=== PATIENT | female | born 1965 | race Caucasian/White ===

== ENCOUNTER 2023-02-08 12:57 | Outpatient (OUT) | payer OTHER, SELFPAY ==
[2023-02-08 13:38] LABS: Basophils Absolute Auto 0.1 10^3/uL (0.0-0.1); Basophils Percent Auto 0.9 % (0.2-2.0); Eosinophils Absolute Auto 0.2 10^3/uL (0.0-0.7); Eosinophils Percent Auto 1.7 % (0.9-7.0); Hematocrit 40.4 % (36.0-48.0); Hemoglobin 13.2 g/dL (12.0-16.0); Immature Granulocytes Abs Auto 0.02 10^3/uL (0.00-0.03); Immature Granulocytes Pct Auto 0.2 % (0.0-0.5); Lymphocytes Percent Auto 31.4 % (20.5-60.0); Mean Corpuscular HGB Conc 32.7 g/dL (29.9-35.2); Mean Corpuscular Hemoglobin 30.7 pg (26.7-34.0); Mean Platelet Volume 10.7 fL (9.5-13.5); Monocytes Absolute Auto 0.8 10^3/uL (0.3-0.8); Monocytes Percent Auto 8.8 % (1.7-12.0); Neutrophils Absolute Auto 5.4 10^3/uL (1.4-6.5); Platelet Count 288 10^3/uL (150-450); Red Cell Distribution Width 13.5 % (11.0-15.0); White Blood Count 9.5 10^3/uL (4.0-11.0)
[2023-02-08 13:41] LABS: Alanine Aminotransferase 12 U/L (14-59); Albumin Globulin Ratio 1.1; Albumin Level 3.7 g/dL (3.4-5.0); Alkaline Phosphatase 93 U/L (46-116); Anion Gap 12.4; Aspartate Amino Transferase 22 U/L (15-37); BUN Creatinine Ratio 14.5; Bilirubin Total 0.4 mg/dL (0.2-1.0); Calcium 9.3 mg/dL (8.5-10.1); Carbon Dioxide 29.3 mmol/L (21.0-32.0); Chloride 105 mmol/L (98-107); Estimated GFR (African America >60 (>=60); Estimated GFR (Non-African Ame >60 (>=60); Globulin 3.5 g/dL; Glucose 122 mg/dL (74-106); Potassium 3.7 mmol/L (3.5-5.1); Sodium 143 mmol/L (136-145); Thyroid Stimulating Hormone 1.532 uIU/mL (0.358-3.740); Total Protein 7.2 g/dL (6.4-8.2)
[2023-02-08 13:54] LABS: Free T4 1.07 ng/dL (0.76-1.46)
== END 2023-02-08 12:58 | disposition home or self-care (01) ==
LOC: LAB 13:00
PROVIDERS: PCP Internal Medicine; Visit Provider Physician Assistant Medical
DX: G35 Multiple sclerosis (principal)
CPT/HCPCS: 36415; 80053; 84439; 84443; 85025

== ENCOUNTER 2023-03-21 10:52 | Outpatient (OUT) | payer OTHER, SELFPAY ==
--- NOTE | 2023-03-21 10:55 | MM_ITS ---
Patient: LAW HERNANDEZ Exam Date: 03/21/2023 : 1965 Gender:F Ordering : DR CINDY RODRÍGUEZ Admission #: [id number] Family : DR Johny Winters D.O. Order #: [id number] CLICK HERE TO VIEW EXAM RADIOLOGY REPORT PROCEDURE: MM TOMOSYNTHESIS SCREENING BI COMPARISON: MG MAMM SCREEN 3D [facility] CAD, 02/15/2022. MG MAMM SCREEN 3D [facility] CAD, 11/30/2020. MG MAMM SCREEN [facility] W CAD, 11/06/2018. MG MAMM [facility] SCRN W CAD DIG, 08/13/2013. INDICATIONS: Mammogram screening Z12.31 Calculator Name NCI Breast Cancer Risk Assessment Tool 5 Year Breast Cancer Risk 6.80% Lifetime Breast Cancer Risk 30.40% Personal Breast Cancer No Personal Ovarian Cancer No Treatments hysterectomy Family Cancers Mother with breast cancer at age ~45; Nephew with lymphoma cancer at age 19; Sister with breast cancer at age 65. LOCATION: [facility] BREAST COMPOSITION: Scattered areas fibroglandular density. FINDINGS: DIAGNOSTIC CATEGORY 2--BENIGN FINDING: RIGHT BREAST: No significant suspicious finding. Scattered benign-appearing calcifications are present. No significant change has occurred. LEFT BREAST: No significant suspicious finding. No significant change has occurred. RECOMMENDATIONS: ROUTINE MAMMOGRAM AND CLINICAL EVALUATION IN 12 MONTHS. PLEASE NOTE: A NORMAL MAMMOGRAM DOES NOT EXCLUDE THE POSSIBILITY OF BREAST CANCER. A CLINICALLY SUSPICIOUS PALPABLE LUMP SHOULD BE BIOPSIED. Dictated by: Denys Wallace M.D. on 03/22/2023 at 13:02 Approved by: Denys Wallace M.D. on 03/22/2023 at 13:09
== END 2023-03-21 10:53 | disposition home or self-care (01) ==
LOC: MAMMO 10:52
PROVIDERS: PCP Internal Medicine; Visit Provider Obstetrics & Gynecology
DX: Z12.31 Encounter for screening mammogram for malignant neoplasm of breast (principal); Z80.3 Family history of malignant neoplasm of breast; Z80.7 Family history of other malignant neoplasms of lymphoid, hematopoietic and related tissues
CPT/HCPCS: 77063; 77067

== ENCOUNTER 2023-11-01 09:15 | Outpatient (OUT) | payer OTHER, SELFPAY ==
--- NOTE | 2023-11-01 09:18 | MR_ITS ---
The [address] [address] Patient Name: LAW HERNANDEZ MRN: [id number] date: 1965 Sex: F Assigned Patient Location: MRI Current Patient Location: MRI Accession/Order Number: [id number] Exam Date: 11/01/2023 09:30 Report Date: 11/01/2023 14:03 At the request of: CHINYERE LAO Procedure: MR lumbar spine wo con EXAM: MR lumbar spine wo con HISTORY: Lumbar radiculopathy, M54.16, Degeneration disc disease, M51.36. Lumbar spine pain for one year with pain radiating into the left hip and left leg. Left leg weakness. COMPARISON: Prior lumbar spine MRI from 09/09/2021. TECHNIQUE: Multiplanar and multisequence imaging of the lumbar spine was performed without contrast FINDINGS: No acute fracture is identified in the lumbar spine. The lumbar vertebral body heights are maintained. There is severe degenerative disc disease at L5-S1 with marked disc height loss and endplate spurring. Heterogeneity of the bone marrow signal is similar when compared to the prior study consistent with mixed red and fatty marrow. No acute abnormality is identified involving visualized intrapelvic or intra-abdominal structures. The visualized aorta is normal in diameter. Several cysts in the right hepatic lobe are partially included on the [id number]-[id number] for this study. The upper sacrum is intact. There are no pars defects. The conus terminates at the L1 level. L5-S1: There is severe degenerative disc disease with a broad-based disc protrusion and superimposed bilateral subarticular/foraminal disc-osteophyte complexes each measuring 5 mm in AP dimension. There is moderate bilateral facet arthropathy. Changes result in moderate to severe bilateral foraminal narrowing with likely abutment of the L5 nerve roots bilaterally. There is no central stenosis. L4-L5: A broad-based disc protrusion measures 4 mm in AP dimension with a superimposed left subarticular and foraminal disc extrusion measuring 4 mm in AP dimension with superior displacement of disc material measuring 5 mm seen on sagittal T2 images 5 and 6. There is moderate to severe facet arthropathy and moderate to severe left foraminal narrowing without central stenosis. L3-L4: There is a 3 mm broad-based disc protrusion with endplate spurring and moderate facet arthropathy. An area of fluid signal along the posterior aspect of the spinal canal at the level of the superior endplate of L4 is suspicious for a small facet joint synovial cyst measuring 4 mm in diameter. There is mild right foraminal narrowing without central stenosis L3-L4: There is a 3 mm broad-based disc protrusion and mild to moderate facet arthropathy. There is no central or foraminal stenosis. L1-L2: There is a mild disc bulge without central or foraminal stenosis. MR/MR lumbar spine wo con IMPRESSION: 1. There is stable severe degenerative disc disease at L5-S1 with bilateral subarticular/foraminal disc osteophyte complexes resulting in moderate to severe bilateral foraminal narrowing with abutment of the L5 nerve roots. 2. Similar appearance of a broad-based disc protrusion at L4-L5 and superimposed left foraminal disc extrusion. There is associated facet arthropathy with moderate to severe left foraminal narrowing at L4-L5. 3. No acute fracture. Please see above for a detailed description. Electronically authenticated by: JAME LLANOS Date: 11/01/2023 14:03
== END 2023-11-01 09:16 | disposition home or self-care (01) ==
LOC: MRI 09:15
PROVIDERS: PCP Internal Medicine; Visit Provider Physician Assistant Medical
DX: M54.16 Radiculopathy, lumbar region (principal); M51.36 Other intervertebral disc degeneration, lumbar region; M51.37 Other intervertebral disc degeneration, lumbosacral region; M51.26 Other intervertebral disc displacement, lumbar region
CPT/HCPCS: 72148

== ENCOUNTER 2023-12-07 13:04 | Outpatient (OUT) | payer OTHER, SELFPAY ==
--- NOTE | 2023-12-07 13:33 | P.CN_ITS ---
Consult Note: HPI Data of Consult Patient: new to practice Consult date: 12/07/23 Requesting Physician: Lupe Soria NP Primary Care Provider: Johny Winters DO Consult Narrative Reason for consult: establish low back pain with radiculopathy Narrative: Jayde Solorzano a pleasant 58 year old female presents for evaluation and management of chronic low back pain with left sided weakness and radiculopathy. Recent lumbar MRI findings below. Patient has failed to benefit from greater than 6 weeks of PT/provider guided HEP without improvement, conservative medications. Patient reporting pain 1/10, at the worst 5/10 no specific aggravating or alleviating factors, per patient random onset. Patient reports moderate to severe pain 3 months ago, but has been well controlled since. Patient finds benefit to gabapentin 300mg BID, lidocaine patches, baclofen 10mg PRN, mobic 7.5mg daily. Patient would like to discuss tr eatment plan options. cc:: CC: Lupe Soria NP Review of Systems ROS Status of ROS 10 or more systems reviewed and unremark able except as noted in history and below Musculoskeletal Reports: back pain Meds Home Medications and Allergies Home Medications ?Medication ?Instructions ?Recorded ?Confirmed ?Type amlodipine 5 mg tablet 5 mg PO DAILY 12/07/23 12/07/23 History aspirin 81 mg tablet,delayed 81 mg PO DAILY 12/07/23 12/07/23 History release (Adult Aspirin Regimen) atorvastatin 20 mg tablet 20 mg PO DAILY 12/07/23 12/07/23 History baclofen 10 mg tablet 10 mg PO DAILY 12/07/23 12/07/23 History biotin 10,000 mcg capsule 10,000 mcg PO DAILY 12/07/23 12/07/23 History cholecalciferol (vitamin D3) 125 125 mcg PO DAILY 12/07/23 12/07/23 History mcg (5,000 unit) tablet (Vitamin D3) gabapentin 300 mg capsule 300 mg PO BID 12/07/23 12/07/23 History meclizine 25 mg tablet 25 mg PO TID-QID PRN dizziness 12/07/23 12/07/23 History meloxicam 7.5 mg tablet 7.5 mg PO DAILY 12/07/23 12/07/23 History omega-3 fatty acids 1,000 mg PO DAILY 12/07/23 12/07/23 History raloxifene 60 mg tablet 60 mg PO DAILY 12/07/23 12/07/23 History teriflunomide 14 mg tablet 14 mg PO DAILY 12/07/23 12/07/23 History (Aubagio) vitamin B complex (Complex B-100 1 tab PO DAILY 12/07/23 12/07/23 History tablet,extended release) Exam Constitutional Documenting provider has reviewed patient's vital signs: yes Common normals: no apparent distress, oriented x3, healthy appearing, alert and well nourished General appearance: cooperative HENMT Common normals: normocephalic, hearing grossly normal bilaterally and moist oral mucous membranes Head and scalp: normocephalic Eye Common normals: PERRL Pupil: PERRL Neck & C-Spine Common normals: full ROM General: normal visual inspection Chest Common normals: inspection of chest normal Respiratory Common normals: normal respiratory effort, no retractions and no use of accessory muscles Back & Pelvis Lumbar spine/lower back: pain with ROM and straight leg raise negative bilaterally Sacroiliac joints: SI joints normal Other: sensation intact BLE strength 5/5 in BLE Extremity Common normals: normal to inspection and full ROM Neuro Common normals: oriented x3, CN's II-XII intact bilaterally, moves all extremities, no focal motor deficits, no sensory deficits noted, deep tendon reflexes 2+ bilaterally and gait normal Sensorium/orientation: alert Motor exam: strength 5/5 throughout and no movement abnormalities noted Psych Common normals: mental status grossly normal, thought process normal, cooperative, affect normal, speech normal and activity/motor behavior normal Speech: normal speech Thought process: normal thought process Results Imaging Lumbar MRI: Attestation: I have reviewed the pertinent imaging results. Radiologist's impression: No acute fracture is identified in the lumbar spine. The lumbar vertebral body heights are maintained. There is severe degenerative disc disease at L5-S1 with marked disc height loss and endplate spurring. Heterogeneity of the bone marrow signal is similar when compared to the prior study consistent with mixed red and fatty marrow. No acute abnormality is identified involving visualized intrapelvic or intra-abdominal structures. The visualized aorta is normal in diameter. Several cysts in the right hepatic lobe are partially included on the [id number]-[id number] for this study. The upper sacrum is intact. There are no pars defects. The conus terminates at the L1 level. L5-S1: There is severe degenerative disc disease with a broad-based disc protrusion and superimposed bilateral subarticular/foraminal disc-osteophyte complexes each measuring 5 mm in AP dimension. There is moderate bilateral facet arthropathy. Changes result in moderate to severe bilateral foraminal narrowing with likely abutment of the L5 nerve roots bilaterally. There is no central stenosis. L4-L5: A broad-based disc protrusion measures 4 mm in AP dimension with a superimposed left subarticular and foraminal disc extrusion measuring 4 mm in AP dimension with superior displacement of disc material measuring 5 mm seen on sagittal T2 images 5 and 6. There is moderate to severe facet arthropathy and moderate to severe left foraminal narrowing without central stenosis. L3-L4: There is a 3 mm broad-based disc protrusion with endplate spurring and moderate facet arthropathy. An area of fluid signal along the posterior aspect of the spinal canal at the level of the superior endplate of L4 is suspicious for a small facet joint synovial cyst measuring 4 mm in diameter. There is mild right foraminal narrowing without central stenosis L3-L4: There is a 3 mm broad-based disc protrusion and mild to moderate facet arthropathy. There is no central or foraminal stenosis. L1-L2: There is a mild disc bulge without central or foraminal stenosis. Additional Findings Additional findings: If on a controlled substance or opioids, I have checked an [place] report on this patient and there are no aberrancies noted in the prescribing history.??If on a controlled substance or opioid a drug screen was completed and reviewed within the last year, and if there has not been a drug screen completed we ordered one today to monitor higher risk, state monitored pain medication use. As part of providing excellent, safe, comprehensive care, the following was completed at our patient's visit: 1. A medication reconciliation and review to ensure accurate knowledge of current/active medications, including asking our patients to inform us about any [id number] medications or herbal remedies/nutritional supplements/alternative remedies. 2. A review to specifically ensure our patients have had annual screening for screening for depression, screening for tobacco use, and screening for unhealthy alcohol use. For concerning screenings had a discussion with the patient, provided patient education, and recommended follow-up with primary care provider when appropriate. If patient noted with a risk of falling, they received education on strength, gait, and balance training to prevent future risk of falling. Assessment and Plan Assessment and Plan (1) Lumbar stenosis with neurogenic claudication: (2) Lumbar degenerative disc disease: (3) Lumbar spondylosis: (4) Myofascial pain: Plan at this time pain well controlled, patient would like a prescription topical cream. Patient would like the option of injection therapy should pain worsen/return. transdermal therapeutics cream 8 ordered, discussed applying BID-TID prn start zynex TENS for myofascial pain and chronic low back pain, lumbar DDD f/u 3 months, sooner if needed
== END 2023-12-07 13:05 | disposition home or self-care (01) ==
LOC: PM 13:05
PROVIDERS: PCP Internal Medicine; Visit Provider Nurse Practitioner
DX: M48.062 Spinal stenosis, lumbar region with neurogenic claudication (principal); M51.36 Other intervertebral disc degeneration, lumbar region; M47.816 Spondylosis without myelopathy or radiculopathy, lumbar region; M79.18 Myalgia, other site
CPT/HCPCS: G0463

== ENCOUNTER 2023-12-21 12:26 | Outpatient (OUT) | payer OTHER, SELFPAY ==
--- NOTE | 2023-12-21 12:31 | XR_ITS ---
[address] [address] Patient Name: LAW HERNANDEZ MRN: [id number] date: 1965 Sex: F Assigned Patient Location: [facility] Current Patient Location: [facility] Accession/Order Number: [id number] Exam Date: 12/21/2023 13:00 Report Date: 12/21/2023 15:23 At the request of: CINDY RODRÍGUEZ Procedure: XR DEXA axial skeleton EXAMINATION: XR DEXA axial skeleton, 12/21/2023 1:00 PM EDT HISTORY: screening for osteoporosis COMPARISON: 2017, 2014, 2013 TECHNIQUE: Dual-energy X-ray absorptiometry (DEXA) bone density study performed for the axial skeleton. HISTORY: screening for osteoporosis FINDINGS: Bone mineral density AP spine L1-L4 measures 1.271 g/sq cm. T score 0.8. WHO classification: Normal. The lowest bone mineral density is in the left femoral trochanter measuring 0.516 g/sq cm. T score -2.9. WHO classification: Osteoporosis XR/XR DEXA axial skeleton IMPRESSION: Osteoporosis. High fracture risk Electronically authenticated by: THEA ACUÑA Date: 12/21/2023 15:23
--- OUTSIDE RECORDS SUMMARY | 2023-12-21 12:34 | XMS_ITS | CCD ---
Author Organization [facility] Care Team Providers Care Rubber Press Tender Name Role Phone GERALDKARL ALMA Unavailable Unavailable Ezequiel Agudelo Unavailable MARCOS, DR WHITE Admitting Unavailable MARCOS, DR WHITE Attending Unavailable SINGH, DR OJEDA Primary Care Unavailable ZIEBER, DR DENYS [employer] Unavailable MARCOS, DR WHITE Consulting Unavailable SINGH, DR OJEDA Admitting Unavailable BALL, DR OJEDA Attending Unavailable BALL, DR OJEDA Primary Care Unavailable BALL, DR OJEDA Consulting Unavailable WEBSTER, WINCHA Consulting Unavailable CHINYERE LIVE Admitting Unavailable CHINYERE LIVE Attending Unavailable SINGH, DR OJEDA Primary Care Unavailable TASHIA, CHINYERE Consulting Unavailable SINGH, DR OJEDA Primary Care Unavailable MEGHAN, WILBERTO Admitting Unavailable MEGHAN, WILBERTO Attending Unavailable MEGHAN, WILBERTO Consulting Unavailable SINGH, DR OJEDA Admitting Unavailable BALL, DR OJEDA Attending Unavailable BALL, DR OJEDA Primary Care Unavailable BALL, DR OJEDA Consulting Unavailable ZIEBER, DR DENYS Chavez Consulting Unavailable BENEDICT, DR FLOWER Admitting Unavailable BENEDICT, DR FLOWER Attending Unavailable SINGH, DR OJEDA Primary Care Unavailable TASHIA, CHINYERE Consulting Unavailable Johny Winters Unavailable DO Johny Winters Primary Care Provider CLEO Live Attending Provider Chinyere Live Attending Unavailable Chinyere Live Admitting Unavailable Johny Winters Primary Care Unavailable Singh, Johny Primary Care Unavailable Chinyere Live Attending Unavailable Chinyere Live Admitting Unavailable CINDY RODRÍGUEZ Attending Unavailable CHINYERE LIVE Attending Unavailable Medications Current Medications Medication Drug Class(es) Dates Sig (Normalized) Sig (Original) amLODIPine 5 mg oral tablet (4 sources) Dihydropyridine Calcium Channel Jessie take 1 tablet by mouth once daily amLODIPine Besylate 5 MG TAKE 1 TABLET BY MOUTH EVERY DAY for 90 Active atorvastatin 20 mg oral tablet (4 sources) HMG-CoA Reductase Inhibitor Atorvastatin Calcium 20 MG Not Available Oral Active baclofen 10 mg oral tablet (3 sources) gamma-Aminobutyric Acid-ergic Agonist Baclofen 10 MG TAKE 1 TABLET DAILY AT BEDTIME Active gabapentin 300 mg oral capsule (4 sources) Anti-epileptic Agent take 1 capsule by mouth every twenty-four hours Gabapentin 300 MG 1 capsule Orally Once a day Active raloxifene hydrochloride 60 mg oral tablet (4 sources) Estrogen Agonist/Antagonist take 1 tablet by mouth every twenty-four hours Raloxifene HCl 60 MG 1 tablet Orally Once a day for 90 days Active teriflunomide 14 mg oral tablet (4 sources) Pyrimidine Synthesis Inhibitor take 1 tablet by mouth every twenty-four hours Aubagio 14 MG 1 tablet Orally Once a day for 30 days Active Completed/Discontinued Medications Medication Drug Class(es) Dates Sig (Normalized) Sig (Original) acetaminophen 325 mg / HYDROcodone bitartrate 5 mg oral tablet (4 sources) Opioid Agonist HYDROcodone-Acet aminophen 5-325 MG Not Available Oral for 4 Days Not-Taking lisinopril 5 mg oral tablet (4 sources) Angiotensin Converting Enzyme Inhibitor take 1 tablet by mouth every twenty-four hours Lisinopril 5 MG 1 tablet Orally Once a day for 90 days Not-Taking meloxicam 15 mg oral tablet (4 sources) Nonsteroidal Anti-inflammatory Drug take 1 tablet by mouth every twenty-four hours Meloxicam 15 MG 1 tablet Orally Once a day for 30 days Not-Taking {20 (nirmatrelvir 150 MG Oral Tablet) / 10 (ritonavir 100 MG Oral Tablet) } Pack [Paxlovid 5-Day] (2 sources) Start: 01-05-2023 take 3 tablets by mouth every twelve hours Paxlovid (300/100) 20 x 150 MG & 10 x 100MG 3 tablets Orally Twice a day for 5 days Dec, Not-Taking Problems Active Problems Problem Classification Problem Date Documented Date Episodic/Chronic Disorders of lipid metabolism (3 sources) Hypercholesterolemia ; 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: [Pure hypercholesterolemia , unspecified] Chronic Essential hypertension (3 sources) Essential hypertension; 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: [Essential (primary) hypertension] Chronic Multiple sclerosis (13 sources) Multiple sclerosis; 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: [Multiple sclerosis] Onset: 09-27-2017 Resolved: 11-02-2021 Chronic Osteoporosis (3 sources) Primary osteoporosis; 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: [Age-related osteoporosis without current pathological fracture] Chronic Other lower respiratory disease (4 sources) Chronic cough; 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: [CHRONIC COUGH] Onset: 02-23-2022 Episodic Spondylosis; intervertebral disc disorders; other back problems (4 sources) Other spondylosis with radiculopathy, lumbosacral region; 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: [OTH SPONDYLS RADICULOPATHY LS RGN] Onset: 09-09-2021 Chronic Substance-related disorders (4 sources) Nicotine dependence, cigarettes, uncomplicated; 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: [Nicotine dependence] Onset: 09-01-2021 Chronic Unclassified (6 sources) Other abnormal findings on diagnostic imaging of central nervous system; 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: [Encounter for screening mammogram for malignant neoplasm of breast] Onset: 09-27-2017 Episodic Unclassified (1 source) Pain in joints of right hand; 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: [Pain in joints of right hand] Onset: 09-27-2017 Unclassified (1 source) Pain in joints of left hand; 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: [Pain in joints of left hand] Onset: 09-27-2017 Unclassified (1 source) Unknown / UNK(Unknown) Onset: 09-27-2017 Unclassified (2 sources) LOW BACK PAIN, UNSPECIFIED; 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: [LOW BACK PAIN, UNSPECIFIED] Onset: 09-01-2021 Past or Other Problems Problem Classification Problem Date Documented Date Episodic/Chronic Other aftercare (1 source) long term care phlebotomist (current) use of aspirin; 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: [HALFWAY CURRENT USE OF ASPIRIN] Onset: 09-01-2021 Episodic Other aftercare (1 source) Other extermination supervisor (current) drug therapy; 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: [OTH AGILE SCRUM COACH CURRENT DRUG THERAPY] Onset: 09-01-2021 Episodic Other connective tissue disease (1 source) Other symptoms and signs involving the musculoskeletal system; 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: [OTH SX AND SYMP INVOLV MUSCULOSKELTAL] Onset: 09-14-2021 Episodic Residual codes; unclassified (1 source) Family history of malignant neoplasm of breast; 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: [FAMILY HX MALIG NEOPLASM OF BREAST] Onset: 02-17-2022 Episodic Residual codes; unclassified (1 source) Family history of other malignant neoplasms of lymphoid, hematopoietic and related tissues; 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: [FAM HX OTH MAL MARIA LYMPH HEMATPOETC] Onset: 02-17-2022 Episodic Spondylosis; intervertebral disc disorders; other back problems (2 sources) Radiculopathy, lumbar region; 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: [Lumbago with sciatica, left side] Onset: 09-01-2021 Resolved: 11-02-2021 Episodic Unclassified (1 source) LOW BACK PAIN, UNSPECIFIED; 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: [LOW BACK PAIN, UNSPECIFIED] Onset: 08-30-2021 Results Test Name Value Interpretation Reference Range Facility Creatinine (Bld) [Mass/Vol]O rdered By: Chinyere Live on 09-06-2023 Creatinine [Mass/Vol] 0.6 mg/dL 0.6-1.3 [facility] Comment on above: ER/ESD physician is notified/shown all ISTAT results.Critical values may be confirmed by laboratory testing ifdeemed necessary by ER attending doctor. ISTAT XRay CREon 09-06-2023 Creatinine [Mass/Vol] 0.6 mg/dL Normal 0.6-1.3 [facility] Comment on above: Result Comment: ER/E SD physician is notified/shown all ISTAT results. Critical values may be confirmed by laboratory testing if deemed necessary by ER attending doctor. Performed By: #### I SCRE #### [facility] [address] [place] [address] ISTAT GFR > 60.0 Normal [facility] Comment on above: Result Comment: PERF ORMED BY: [place] [address] PATHOLOGIST DIRECTOR DATA ARCHITECTURE JL VERAS M.D. Performed By: #### I SCRE #### [facility] [address] [place] [address] MR cervical spine wo/w conon 09-06-2023 MR cervical spine wo/w con [facility] [place] [address] MRI Report Signed Patient: Jayde Hernandez MR#: [id number] : 1965 Acct:[id number] Age/Sex: 58 / F ADM Date: 09/06/23 Loc: MR Room: Type: [facility] Attending Dr: Chinyere Live PA-C Copies to: Chinyere Live PA-C Ordering Provider: Chinyere Lvie PA-C Date of Service: 09/06/23 MR/MR cervical spine wo/w con: G35 MR cervical spine wo/w con 09/06/2023 9:14 AM SIGNS AND SYMPTOMS: History of multiple sclerosis, follow-up PROTOCOL: Multiplanar multisequence MR images of the cervical spine were obtained with and without IV contrast CONTRAST: 12 mL of intravenous ProHance COMPARISON: 09/21/2020. FINDINGS: The bones of the cervical spine are in anatomic alignment. There is preservation of vertebral body heights. There is moderate disc height loss at C5-C6. The marrow signal is within normal limits. T2 and STIR hyperintense to myelinating lesions are noted in the cervical cord at the level of the C2 vertebral body, C5 vertebral body, and T2 vertebral body. There is no abnormal postcontrast enhancement. No epidural or paraspinous fluid collection is appreciated. The visualized paraspinous soft tissues are within normal limits. The prevertebral soft tissues are within normal limits. At C2-C3: There is a normal disc, central canal, and neural foramen. At C3-C4: Uncovertebral joint spurring is present. There is mild bilateral neural foraminal narrowing with mild spinal canal stenosis. At C4-C5: There is a broad-based disc bulge with uncovertebral joint spurring and facet hypertrophy. There is mild bilateral neural foraminal narrowing and mild spinal canal narrowing. At C5-C6: There is a normal disc, central canal, and neural foramen. At C6-C7: There is a normal disc, central canal, and neural foramen. At C7-T1: There is a normal disc, central canal, and neural foramen. MR/MR cervical spine wo/w con IMPRESSION: At C3-C4: Uncovertebral joint spurring is present. There is mild bilateral neural foraminal narrowing with mild spinal canal stenosis. At C4-C5: There is a broad-based disc bulge with uncovertebral joint spurring and facet hypertrophy. There is mild bilateral neural foraminal narrowing and mild spinal canal narrowing. Similar demyelinating lesions are noted in the cervical and thoracic cord without evidence of interval disease progression. No MR evidence of active demyelination. Impression dictated by: Raffi Guillen M.D.09/06/2023 11:22 AM Dictation Location: [place] [address] Transcribed By: [facility] 09/06/23 1122 Dictated By: Raffi Guillen II, MD 09/06/23 1109 Signed By: 09/06/23 1122 Normal [facility] MR head/brain wo/w conon MR head/brain wo/w con [facility] [place] [address] [place] [id number] MRI Report Signed Patient: Jayde Hernandez MR#: [id number] : 1965 Acct:[id number] Age/Sex: 58 / F ADM Date: 09/06/23 Loc: MR Room: Type: [facility] Attending Dr: Chinyere Live PA-C Copies to: Chinyere Live PA-C Ordering Provider: Chinyere Live PA-C Date of Service: 09/06/23 MR/MR head/brain wo/w con: G35 MR head/brain wo/w con 09/06/2023 9:14 AM SIGN AND SYMPTOMS: Follow-up multiple sclerosis PROTOCOL: Multiplanar multisequence MR images of the brain were obtained with and without IV contrast CONTRAST: 12 mL of intravenous ProHance COMPARISON: 06/14/2020 FINDINGS: Extra axial spaces: Similar mild global volume loss is noted. Hemorrhage: None. Ventricular system: Within normal limits. Basal cisterns: Within normal limits and not effaced. Cerebral parenchyma: Multiple T2 and FLAIR hyperintense foci are noted consistent with a history of multiple sclerosis. No new abnormal postcontrast enhancement or diffusion restriction. No evidence of disease progression. Midline shift: None.. Cerebellum: Within normal limits. Brainstem: Within normal limits. OTHER: Calvarium: Normal marrow signal. Vascular system: Satisfactory flow voids within the anterior and posterior circulation. Visualized Paranasal sinuses: Within normal limits. Visualized Orbits: Within normal limits. Visualized upper cervical spine: Within normal limits. Sella and skull base: Within normal limits. MR/MR head/brain wo/w con IMPRESSION: Multiple T2 and FLAIR hyperintense foci are noted consistent with a history of multiple sclerosis. No new abnormal postcontrast enhancement or diffusion restriction. No evidence of disease progression. No acute intracranial pathology. Impression dictated by: Raffi Guillen M.D.09/06/2023 11:09 AM Dictation Location: [place] [address] Transcribed By: [facility] 09/06/23 1109 Dictated By: Raffi Guillen II, MD 09/06/23 1053 Signed By: 09/06/23 1109 Normal [facility] No Panel InformationOrdered By: Chinyere Live on 09-06-2023 Bedside Estimated GFR (eGFR) > 60.0 [facility] Creatinine (Bld) [Mass/Vol]O rdered By: Chinyere Live on 07-12-2023 Creatinine [Mass/Vol] 0.7 mg/dL 0.6-1.3 [facility] Comment on above: ER/ESD physician is notified/shown all ISTAT results.Critical values may be confirmed by laboratory testing ifdeemed necessary by ER attending doctor. ISTAT XRay CREon 07-12-2023 Creatinine [Mass/Vol] 0.7 mg/dL Normal 0.6-1.3 [facility] Comment on above: Result Comment: ER/E SD physician is notified/shown all ISTAT results. Critical values may be confirmed by laboratory testing if deemed necessary by ER attending doctor. Performed By: #### I SCRE #### [facility] [address] [place] [address] ISTAT GFR > 60.0 [facility] Comment on above: Result Comment: PERF ORMED BY: [place] [address] PATHOLOGIST DIRECTOR DATA ARCHITECTURE LJ VERAS M.D. Performed By: #### I SCRE #### [address] No Panel InformationOrdered By: Chinyere Live on 07-12-2023 Bedside Estimated GFR (eGFR) > 60.0 [facility] XR pre/post mri xrayon 07-12 XR pre/post mri xray [facility] [place] [address] [place] [address] MRI Report Signed Patient: Jayde Hernandez MR#: [id number] : 1965 Acct:[id number] Age/Sex: 58 / F ADM Date: 07/12/23 Loc: Room: Type: [facility] Attending Dr: Chinyere Live PA-C Copies to: Chinyere Live PA-C Ordering Provider: Chinyere Live PA-C Date of Service: 07/12/23 MR/MR thoracic spine wo/w con: G35 ([id number]) XR/XR pre/post mri xray: G35 MR thoracic spine wo/w con, XR pre/post mri xray 07/12/2023 10:38 AM SIGNS AND SYMPTOMS: History of multiple sclerosis, follow-up PROTOCOL: Multiplanar multisequence MR images of the thoracic spine were obtained with and without IV contrast. Frontal and lateral radiographs of the thoracic spine were obtained. CONTRAST: 13 mL of intravenous ProHance COMPARISON: 09/21/2020 FINDINGS: Radiographs of the thoracic spine: The bones are in anatomic alignment. There is preservation of vertebral body heights. There is mild to moderate multifocal disc height loss. Is in the midthoracic spine. There is no fracture or subluxation. Atherosclerotic changes are noted in the thoracic aorta. MRI thoracic spine: Disc height loss and alignment is as noted above. This preservation of vertebral body heights. There is a benign hemangioma within the T5 vertebral body. There is a similar T2 and STIR hyperintense focus within the thoracic cord at the T7-T8 intervertebral disc level showing no significant interval change. This is similar to the right of midline. There is no abnormal postcontrast enhancement. No new demyelinating lesions. No epidural or paraspinous fluid collection is appreciated. The visualized paraspinous soft tissues are within normal limits. At T1-T2: There is a normal disc, central canal, and neural foramen. At T2-T3: There is a normal disc, central canal, and neural foramen. At T3-T4: There is a normal disc, central canal, and neural foramen. At T4-T5: There is a normal disc, central canal, and neural foramen. At T5-T6: There is a normal disc, central canal, and neural foramen. At T6-T7: There is a normal disc, central canal, and neural foramen. At T7-T8: There is a normal disc, central canal, and neural foramen. At T8-T9: There is a normal disc, central canal, and neural foramen. At T9-T10: There is a normal disc, central canal, and neural foramen. At T10-T11: There is a normal disc, central canal, and neural foramen. At T11-T12: There is a normal disc, central canal, and neural foramen. At T12-L1: There is a normal disc, central canal, and neural foramen. MR/MR thoracic spine wo/w con IMPRESSION: There is a similar T2 and STIR hyperintense focus within the thoracic cord at the T7-T8 intervertebral disc level showing no significant interval change. This is similar to the right of midline. There is no abnormal postcontrast enhancement. No new demyelinating lesions. Mild degenerative changes are noted, similar to the prior studies. Impression dictated by: Raffi Guillen M.D.07/12/2023 12:37 PM Dictation Location: [place] [address] Transcribed By: [facility] 07/12/23 1237 Dictated By: Raffi Guillen II, MD 07/12/23 1230 Signed By: 07/12/23 1237 Normal [facility] CBC AUTO DIFFon 05-10-2022 BASO # 0.1 103/ul Normal 0.0-0.1 [facility] Comment on above: Performed By: #### C BC #### [facility] [address] [place] [address] Dr. Brett Rosales Basophils/100 WBC (Bld) 1.0 % Normal 0.2-2.0 [facility] Comment on above: Performed By: #### C BC #### [facility] [address] [place] [address] Dr. Brett Rosales EO # 0.1 103/ul Normal 0.0-0.7 [facility] Comment on above: Performed By: #### C BC #### [facility] [address] [place] [address] Dr. Brett Rosales Eosinophils/100 WBC (Bld) 1.5 % Normal 0.9-7.0 [facility] Comment on above: Performed By: #### C BC #### [facility] [address] [place] [address] Dr. Brett Rosales Erythrocyte distribution width (RBC) [Ratio] 13.2 % Normal 11.0-15.0 [facility] Comment on above: Performed By: #### C BC #### [facility] [address] [place] [address] Dr. Brett Rosales Hematocrit (Bld) [Volume fraction] 40.1 % Normal 36.0-48.0 [facility] Comment on above: Performed By: #### C BC #### [facility] [address] [place] [address] Dr. Brett Rosales Hemoglobin (Bld) [Mass/Vol] 12.9 g/dL Normal 12.0-16.0 [facility] Comment on above: Performed By: #### C BC #### [facility] [address] [place] [address] Dr. Brett Rosales IG # 0.01 10e3/ul Normal 0.00-0.03 [facility] Comment on above: Performed By: #### C BC #### [facility] [address] [place] [address] Dr. Brett Rosales IG % 0.1 % Normal 0.0-0.5 [facility] Comment on above: Performed By: #### C BC #### [facility] [address] [place] [address] Dr. Brett Rosales LYMPH # 2.5 103/ul Normal 1.2-3.8 [facility] Comment on above: Performed By: #### C BC #### [facility] [address] [place] [address] Dr. Brett Rosales Lymphocytes/100 WBC (Bld) 30.3 % Normal 20.5-60.0 [facility] Comment on above: Performed By: #### C BC #### [facility] [address] [place] [address] Dr. Brett Rosales MANUAL DIFF REQ NO Normal [facility] Comment on above: Performed By: #### C BC #### [facility] [address] [place] [address] Dr. Brett Rosales MCH (RBC) [Entitic mass] 30.6 pg Normal 26.7-34.0 [facility] Comment on above: Performed By: #### C BC #### [facility] [address] [place] [address] [address] Brett Rosales MCHC (RBC) [Mass/Vol] 32.2 g/dL Normal 29.9-35.2 [facility] Comment on above: Performed By: #### C BC #### [facility] [address] [place] [address] [address] Brett Rosales MCV (RBC) [Entitic vol] 95.0 fL Normal 81.0-99.0 [facility] Comment on above: Performed By: #### C BC #### [facility] [address] [place] [address] [address] Brett Rosales MONO # 0.9 103/ul Critically high 0.3-0.8 [facility] Comment on above: Performed By: #### C BC #### [facility] [address] [place] [address] Dr. Brett Rosales Monocytes/100 WBC (Bld) 10.4 % Normal 1.7-12.0 [facility] Comment on above: Performed By: #### C BC #### [facility] [address] [place] [address] Dr. Brett Rosales NEUT # 4.6 103/ul Normal 1.4-6.5 [facility] Comment on above: Performed By: #### C BC #### [facility] [address] [place] [address] Dr. Brett Rosales Neutrophils/100 WBC (Bld) 56.7 % Normal 43.0-75.0 [facility] Comment on above: Performed By: #### C BC #### [facility] [address] [place] [address] [address] Brett Rosales Platelet mean volume (Bld) [Entitic vol] 11.0 fL Normal 9.5-13.5 [facility] Comment on above: Performed By: #### C BC #### [facility] [address] [place] [address] Dr. Brett Rosales PLT 262 103/ul Normal 150-450 [facility] Comment on above: Performed By: #### C BC #### [facility] [address] [place] [address] Dr. Brett Rosales RBC 4.22 106/ul Normal 4.20-5.40 [facility] Comment on above: Performed By: #### C BC #### [facility] [address] [place] [address] Dr. Brett Rosales WBC 8.2 103/ul Normal 4.0-11.0 [facility] Comment on above: Performed By: #### C BC #### [facility] [address] [place] [address] Dr. Brett Rosales PROF 14(COMP METB)on 022 Albumin [Mass/Vol] 3.5 g/dL Normal 3.4-5.0 [facility] Comment on above: Performed By: #### C MP #### [facility] [address] [place] [address] Dr. Brett Rosales Albumin/Globulin [Mass ratio] 1.0 {ratio} Normal [facility] Comment on above: Performed By: #### C MP #### [facility] [address] [place] [address] Dr. Brett Rosales ALP [Catalytic activity/Vol] 94 U/L Normal 46-116 [facility] Comment on above: Performed By: #### C MP #### [facility] [address] [place] [address] Dr. Brett Rosales ALT [Catalytic activity/Vol] 25 U/L Normal 14-59 [facility] Comment on above: Performed By: #### C MP #### [facility] [address] [place] [address] Dr. Brett Rosales Anion gap [Moles/Vol] 9.4 mmol/L Normal [facility] Comment on above: Performed By: #### C MP #### [facility] [address] [place] [address] Dr. Brett Rosales AST [Catalytic activity/Vol] 21 U/L Normal 15-37 [facility] Comment on above: Performed By: #### C MP #### [facility] [address] [place] [address] [address] Brett Rosales Bilirubin [Mass/Vol] 0.3 mg/dL Normal 0.2-1.0 [facility] Comment on above: Performed By: #### C MP #### [facility] [address] [place] [address] Dr. Brett Rosales Calcium [Mass/Vol] 9.1 mg/dL Normal 8.5-10.1 [facility] Comment on above: Performed By: #### C MP #### [facility] [address] [place] [address] Dr. Brett Rosales Chloride [Moles/Vol] 106 mmol/L Normal 98-107 [facility] Comment on above: Performed By: #### C MP #### [facility] [address] [place] [address] Dr. Brett Rosales CO2 [Moles/Vol] 31.2 mmol/L Normal 21.0-32.0 [facility] Comment on above: Performed By: #### C MP #### [facility] [address] [place] [address] Dr. Brett Rosales Creatinine [Mass/Vol] 0.69 mg/dL Normal 0.55-1.02 [facility] Comment on above: Performed By: #### C MP #### [facility] [address] [place] [address] Dr. Brett Rosales EGFR-AF FAROESE >60 Normal >=60 [facility] Comment on above: Performed By: #### C MP #### [facility] [address] [place] [address] Dr. Brett Rosales EGFR-NON AF FAROESE >60 Normal >=60 [facility] Comment on above: Performed By: #### C MP #### [facility] [address] [place] [address] Dr. Brett Rosales Globulin (S) [Mass/Vol] 3.5 g/dL Normal [facility] Comment on above: Performed By: #### C MP #### [facility] [address] [place] [address] Dr. Brett Rosales Glucose [Mass/Vol] 108 mg/dL Critically high 74-106 T [facility] Comment on above: Performed By: #### C MP #### [facility] [address] [address] [address] Brett Rosales Potassium [Moles/Vol] 3.6 mmol/L Normal 3.5-5.1 [facility] Comment on above: Performed By: #### C MP #### [facility] [address] [address] [address] Brett Rosales Protein [Mass/Vol] 7.0 g/dL Normal 6.4-8.2 [facility] Comment on above: Performed By: #### C MP #### [facility] [address] [address] [address] Brett Rosales Sodium [Moles/Vol] 143 mmol/L Normal 136-145 [facility] Comment on above: Performed By: #### C MP #### [facility] [address] [address] [address] Brett Rosales Urea nitrogen [Mass/Vol] 14.0 mg/dL Normal 7.0-18.0 [facility] Comment on above: Performed By: #### C MP #### [facility] [address] [address] [address] Brett Rosales Urea nitrogen/Creatinine [Mass ratio] 20.3 mg/mg Normal [facility] Comment on above: Performed By: #### C MP #### [facility] [address] [address] [address] Brett Rosales XR CHEST 2 Von 02-24-2022 XR CHEST 2 V EXAM: CHEST 2 VIEWS HISTORY: Cough TECHNIQUE: PA and lateral views chest. COMPARISON: None. FINDINGS: The lungs are hyperinflated. There is no focal lung consolidation, pleural effusion or pneumothorax. Pulmonary vasculature is within normal limits. There is aortic atherosclerosis. Heart size within normal limits. There are degenerative changes of the spine. IMPRESSION: 1. Pulmonary hyperinflation without consolidation or effusion. Recommend followup imaging if symptoms worsen or persist. Electronically authenticated by: LIAT WEBSTER Date: 2022-02-24 08:15 Normal [facility] MG MAMM SCREEN 3D LIBERTAD CADon 02-15-2022 MG MAMM SCREEN 3D LIBERTAD CAD Patient: JAYDE HERNANDEZ Exam Date: 02/15/2022 : 1965 Gender:F Ordering : DR CINDY RODRÍGUEZ Admission #: [id number] Family : DR JOHNY WINTERS D.O. Order #: [id number] CLICK HERE TO VIEW EXAM RADIOLOGY REPORT PROCEDURE: MAMMOGRAM SCREENING 3D BILATERAL CAD COMPARISON: MG MAMM SCREEN 3D LIBERTAD CAD, 11/30/2020. MG MAMM SCREEN LIBERTAD W CAD, 11/06/2018. INDICATIONS: Screening mammography Calculator Name NCI Breast Cancer Risk Assessment Tool 5 Year Breast Cancer Risk 6.60% Lifetime Breast Cancer Risk 31.10% Personal Breast Cancer No Personal Ovarian Cancer No Treatments hysterectomy Family Cancers Mother with breast cancer at age 45; Nephew with lymphoma cancer at age 19; Sister with breast cancer at age 65. LOCATION: [facility] BREAST COMPOSITION: Scattered areas fibroglandular density. FINDINGS: DIAGNOSTIC CATEGORY 2--BENIGN FINDING: RIGHT BREAST: No significant suspicious finding. Scattered benign-appearing calcifications are present. No significant change has occurred. LEFT BREAST: No significant suspicious finding. No significant change has occurred. RECOMMENDATIONS: ROUTINE MAMMOGRAM AND CLINICAL EVALUATION IN 12 MONTHS. PLEASE NOTE: A NORMAL MAMMOGRAM DOES NOT EXCLUDE THE POSSIBILITY OF BREAST CANCER. A CLINICALLY SUSPICIOUS PALPABLE LUMP SHOULD BE BIOPSIED. Dictated by: Denys Wallace M.D. on 02/16/2022 at 13:22 Approved by: Denys Wallace M.D. on 02/16/2022 at 13:24 Normal [facility] CBC AUTO DIFFon 11-16-2021 BASO # 0.1 103/ul Normal 0.0-0.1 [facility] Comment on above: Performed By: #### C BC #### [facility] [address] [address] [address] Brett Rosales Basophils/100 WBC (Bld) 0.7 % Normal 0.2-2.0 [facility] Comment on above: Performed By: #### C BC #### [facility] [address] [address] [address] Brett Rosales EO # 0.1 103/ul Normal 0.0-0.7 [facility] Comment on above: Performed By: #### C BC #### [facility] [address] [place] [address] Dr. Brett Rosales Eosinophils/100 WBC (Bld) 1.7 % Normal 0.9-7.0 [facility] Comment on above: Performed By: #### C BC #### [facility] [address] [place] [address] Dr. Brett Rosales Erythrocyte distribution width (RBC) [Ratio] 13.2 % Normal 11.0-15.0 [facility] Comment on above: Performed By: #### C BC #### [facility] [address] [place] [address] Dr. Brett Rosales Hematocrit (Bld) [Volume fraction] 38.9 % Normal 36.0-48.0 [facility] Comment on above: Performed By: #### C BC #### [facility] [address] [place] [address] Dr. Brett Rosales Hemoglobin (Bld) [Mass/Vol] 12.5 g/dL Normal 12.0-16.0 [facility] Comment on above: Performed By: #### C BC #### [facility] [address] [place] [address] Dr. Brett Rosales IG # 0.02 10e3/ul Normal 0.00-0.03 [facility] Comment on above: Performed By: #### C BC #### [facility] [address] [place] [address] Dr. Brett Rosales IG % 0.2 % Normal 0.0-0.5 [facility] Comment on above: Performed By: #### C BC #### [facility] [address] [place] [address] Dr. Brett Rosales LYMPH # 2.9 103/ul Normal 1.2-3.8 [facility] Comment on above: Performed By: #### C BC #### [facility] [address] [place] [address] Dr. Brett Rosales Lymphocytes/100 WBC (Bld) 34.3 % Normal 20.5-60.0 [facility] Comment on above: Performed By: #### C BC #### [facility] [address] [place] [address] Dr. Brett Rosales MANUAL DIFF REQ NO Normal [facility] Comment on above: Performed By: #### C BC #### [facility] [address] [place] [address] Dr. Brett Rosales MCH (RBC) [Entitic mass] 31.0 pg Normal 26.7-34.0 [facility] Comment on above: Performed By: #### C BC #### [facility] [address] [place] [address] Dr. Brett Rosales MCHC (RBC) [Mass/Vol] 32.1 g/dL Normal 29.9-35.2 [facility] Comment on above: Performed By: #### C BC #### [facility] [address] [place] [address] Dr. Brett Rosales MCV (RBC) [Entitic vol] 96.5 fL Normal 81.0-99.0 [facility] Comment on above: Performed By: #### C BC #### [facility] [address] [place] [address] Dr. Brett Rosales MONO # 0.7 103/ul Normal 0.3-0.8 [facility] Comment on above: Performed By: #### C BC #### [facility] [address] [place] [address] Dr. Brett Rosales Monocytes/100 WBC (Bld) 8.5 % Normal 1.7-12.0 [facility] Comment on above: Performed By: #### C BC #### [facility] [address] [place] [address] Dr. Brett Rosales NEUT # 4.6 103/ul Normal 1.4-6.5 [facility] Comment on above: Performed By: #### C BC #### [facility] [address] [place] [address] Dr. Brett Rosales Neutrophils/100 WBC (Bld) 54.6 % Normal 43.0-75.0 [facility] Comment on above: Performed By: #### C BC #### [facility] [address] [place] [address] Dr. Brett Rosales Platelet mean volume (Bld) [Entitic vol] 10.7 fL Normal 9.5-13.5 [facility] Comment on above: Performed By: #### C BC #### [facility] [address] [place] [address] Dr. Brett Rosales PLT 276 103/ul Normal 150-450 [facility] Comment on above: Performed By: #### C BC #### [facility] [address] [place] [address] Dr. Brett Rosales RBC 4.03 106/ul Critically low 4.20-5.40 [facility] Comment on above: Performed By: #### C BC #### [facility] [address] [place] [address] Dr. Brett Rosales WBC 8.5 103/ul Normal 4.0-11.0 [facility] Comment on above: Performed By: #### C BC #### [facility] [address] [place] [address] Dr. Brett Rosales PROF 14(COMP METB)on 022 Albumin [Mass/Vol] 3.5 g/dL Normal 3.4-5.0 [facility] Comment on above: Performed By: #### C MP #### [facility] [address] [place] [address] Dr. Brett Rosales Albumin/Globulin [Mass ratio] 1.1 {ratio} Normal [facility] Comment on above: Performed By: #### C MP #### [facility] [address] [place] [address] Dr. Brett Rosales ALP [Catalytic activity/Vol] 75 U/L Normal 46-116 [facility] Comment on above: Performed By: #### C MP #### [facility] [address] [place] [address] Dr. Brett Rosales ALT [Catalytic activity/Vol] 27 U/L Normal 14-59 [facility] Comment on above: Performed By: #### C MP #### [facility] [address] [place] [address] Dr. Brett Rosales Anion gap [Moles/Vol] 9.3 mmol/L Normal [facility] Comment on above: Performed By: #### C MP #### [facility] [address] [place] [address] Dr. Brett Rosales AST [Catalytic activity/Vol] 22 U/L Normal 15-37 [facility] Comment on above: Performed By: #### C MP #### [facility] [address] [place] [address] Dr. Brett Rosales Bilirubin [Mass/Vol] 0.4 mg/dL Normal 0.2-1.3 [facility] Comment on above: Performed By: #### C MP #### [facility] [address] [place] [address] Dr. Brett Rosales Calcium [Mass/Vol] 8.4 mg/dL Critically low 8.5-10.1 [facility] Comment on above: Performed By: #### C MP #### [facility] [address] [place] [address] Dr. Brett Rosales Chloride [Moles/Vol] 105 mmol/L Normal 98-107 [facility] Comment on above: Performed By: #### C MP #### [facility] [address] [place] [address] Dr. Brett Rosales CO2 [Moles/Vol] 31.1 mmol/L Critically high 22.0-30.0 [facility] Comment on above: Performed By: #### C MP #### [facility] [address] [place] [address] Dr. Brett Rosales Creatinine [Mass/Vol] 0.73 mg/dL Normal 0.52-1.04 [facility] Comment on above: Performed By: #### C MP #### [facility] [address] [place] [address] Dr. Brett Rosales EGFR-AF FAROESE >60 Normal >=60 [facility] Comment on above: Performed By: #### C MP #### [facility] [address] [place] [address] Dr. Brett Rosales EGFR-NON AF FAROESE >60 Normal >=60 [facility] Comment on above: Performed By: #### C MP #### [facility] [address] [address] [address] Brett Rosales Globulin (S) [Mass/Vol] 3.2 g/dL Normal [facility] Comment on above: Performed By: #### C MP #### [facility] [address] [address] [address] Brett Rosales Glucose [Mass/Vol] 105 mg/dL Normal 74-106 [facility] Comment on above: Performed By: #### C MP #### [facility] [address] [address] [address] Brett Rosales Potassium [Moles/Vol] 3.4 mmol/L Normal 3.4-5.0 [facility] Comment on above: Performed By: #### C MP #### [facility] [address] [place] [address] Dr. Brett Rosales Protein [Mass/Vol] 6.7 g/dL Normal 6.1-8.2 [facility] Comment on above: Performed By: #### C MP #### [facility] [address] [address] [address] Brett Rosales Sodium [Moles/Vol] 142 mmol/L Normal 137-145 [facility] Comment on above: Performed By: #### C MP #### [facility] [address] [place] [address] Dr. Brett Rosales Urea nitrogen [Mass/Vol] 12.0 mg/dL Normal 7.0-18.0 [facility] Comment on above: Performed By: #### C MP #### [facility] [address] [place] [address] Dr. Brett Rosales Urea nitrogen/Creatinine [Mass ratio] 16.4 mg/mg Normal [facility] Comment on above: Performed By: #### C MP #### [facility] [address] [place] [address] Dr. Brett Rosales MRI LSPINE WO W CONon 2021 MRI LSPINE WO W CON EXAMINATION: MRI LSP INE WO W CON HISTORY: Lumbosacral spondylosis with radiculopathy ; acute lumbar pain radiating into left leg COMPARISON: No relevant comparison available. TECHNIQUE: A variety of imaging planes and parameters were utilized for visualization of suspected pathology. FINDINGS: For the purposes of numbering, sagittal T2 image # 9 extends from the T11 vertebral body superiorly to the S4 level inferiorly. PARASPINAL AREA: Normal with no visible mass. BONES: No fracture, pars defect, or osseous lesion. CORD/CAUDA EQUINA: Normal caliber, contour, and signal intensity. DISC LEVELS: 12-L1: No significant disc/facet abnormality, spinal stenosis, or foraminal stenosis. L1-L2: No significant disc/facet abnormality, spinal stenosis, or foraminal stenosis. L2-L3: Mild diffuse disc bulging without significant central canal or foramen narrowing. Minimal disc height reduction. No significant facet arthropathy. L3-L4: Mild foramen narrowing bilaterally without significant central canal narrowing. Mild diffuse disc bulging without disc height reduction. Moderate degenerative facet arthropathy bilaterally. L4-L5: Moderate, bordering on marked left foramen narrowing. Mild central canal and right foramen narrowing. Mild diffuse disc bulging eccentric to the left. Mild/moderate degenerative facet arthropathy and ligamentum flavum thickening bilaterally. No significant disc height reduction. L5-S1: Moderate-marked left foramen narrowing. Mild right foramen narrowing. No significant central canal narrowing. Complete loss of disc height with moderate diffuse disc bulging. Mild degenerative facet arthropathy. IMPRESSION: 1. L4-5 moderate-marked left foramen narrowing secondary to degenerative disc disease and facet arthropathy. 2. L5-S1 moderate-marked left foramen narrowing secondary to degenerative disc disease facet arthropathy. Complete loss of disc space at L5-S1. Electronically authenticated by: DENYS WALLACE Date: 2021-09-09 15:31 Normal [facility] PROGRESSon 10-06-2017 PROGRESS HNO ID: [id number] Author: Ailyn Patten (Fel) Service: (none) Author Type: Fellow Type: Progress Notes Filed: 10/06/2017 5:17 PM Note Text: NMO/MOG (JEWELRY CASTING MODEL MAKER APPRENTICE demyelinating disease evaluation) negative at [facility] Normal [facility] Angiotens. Conv Enzon 2017 Angiotens. Conv Enz 41 U/L Normal <52 [facility] Comment on above: Result Comment: Dianne ficially low JERRY levels may be found for patients taking JERRY inhibitors or after the administration of gadolinium. Performed By: #### V ITD, ENAID, HREMOP, TSH, HIV12C, SYPHGX, LYMEGM, VZVG2, COPPER, INFTBG, JERRY, CCP, JCVIDX ####[facility] [place], [place] [phone] CCP Antibody, IgGon 09-27-19 18 CCP Antibody, IgG <15 Normal <20 [facility] Comment on above: Result Comment: < 20 units: Xhknycvs73-45 units: Weak Jghbaxjw91-30 units: Moderate Positive> 60 units: Strong PositiveThe following results were obtained with the [employer] Lite CCP3 IgG ADAM. Anti-CCP values obtained with different manufacturers' assay methods may not be used interchangeably. The magnitude of the reported IgG levels cannot be correlated to an endpoint titer. Performed By: #### V ITD, ENAID, HREMOP, TSH, HIV12C, SYPHGX, LYMEGM, VZVG2, COPPER, INFTBG, JERRY, CCP, JCVIDX ####[facility] [address] [place], [place] [id number] CNOVon 09-27-2017 CNOV Office Visit (NEMN) JAYDE HERNANDEZ ([id number]) 1965 FDate Time Provider Department09/27/17 1:40 PM ASSESSMENT NEUR [facility] During your visit today, we recorded the following information about you: Pulse Respiration Blood pressure Weight 84/minute 16/minute 155/65 51.3 kg Height 1.524 Yovani San MD 10/01/2017 9:26 PM [facility] FOR MULTIPLE SCLEROSISNEW PATIENT EVALUATION/CONSULTATIONR eferral source:SELFAlso followed by:Johny Winters MD ([facility])[address] [place] [address]Jcigx: [phone]: [phone] [address] [place] [address]Zguod: [phone]: [phone] NEUROLOGIC DIAGNOSIS: Multiple sclerosisDISEASE SUMMARYDate of onset: 04/2017Date of diagnosis of MS: 07/2017Disease course at onset: Relapsing-RemittingCurre nt disease course: Relapsing-RemittingPrevi ous disease therapies: Medrol dose packCurrent disease therapy: Tecfidera (08/2017-present)Most recent MRI brain: 05/16/17 (wo contrast)Most recent MRI cervical spine: 07/11/17Most recent MRI thoracic spine: 07/11/17CSF: N/AJCV serology result and date: N/AHISTORY OF ILLNESS:An opinion on this 52 year old left handed woman was requested by the patientfor a second opinion regarding a recent diagnosis of MS. The patient wasaccompanied by her friend. Previous records (physician notes, laboratoryreports, and radiology reports) and imaging studies were reviewed andsummarized. My recommendations will be communicated back to the patient'sphysician(s) by facsimile. Follow-up is [facility] with me [facility].She states that in April 2017, she noticed that she was walking into thingsat work. She had some balance issues in the past, but this has been attributedto inner ear problems. A few days later, she developed numbness in her indexand middle finger on the left hand that progressed to all of her fingers over afew days, then to her right hand in a similar fashion. She feels this iscontinuing to worsen, and she has had a sensation of numbness in her armsANDquot;like they are not thereANDquot; in addition to abnormal sensation in herfingertips bilaterally. Her left hand continues to be the most affected.Gabapentin 100mg TID helped with her discomfort initially.For the past 2-3 weeks, she feels that she has weakness in her legs when shegets up from a kneeling position, with her right leg affected moreso than herleft. She also had an issue with lifting an egg carton up and had to have herboss help her last week, which was a change for her. She feels that her balanceis stable. She fell when she tried to stand after sitting on her leg for a longperiod of time, and it was numb temporarily.She has had abnormal sensations in her chest and abdomen as well. She describesa tightness in her chest that lasts for about 10 minutes at a time at night.She denies having the chest pain with exertion.She notes some word finding difficulties for the past 6-8 months and that sheoccasionally ANDquot;stumblesANDquot; over words. She denies dysarthria.She recently had some constipation (3 days without a bowel movement), but thiswas unusual for her and she had a few normal bowel movements overnight. Shedenies any bladder dysfunction. She does note some perineal numbness as well.Last month, she experienced an extreme aching pain in her right leg from herhip to her foot that lasted until she took a medrol dose pack. She states thatthe pain was so bad that she vomited. The pain became tolerable after themedrol dose pack, and has not recurred.She denies any other prior neurological symptoms, painful monocular visionloss, diplopia, oscillopsia, vertigo, dysphagia, or tremor. She has recentlyhad some decline in near vision that is correctable with glasses. She deniesworsening of her baseline fatigue, which she attributes to poor sleep. Shedenies other concerns for memory or cognitive changes. She denies Lhermitte'ssign. She has had some muscle spasms in her lower back on the left thatrequired her to take baclofen, but otherwise denies spasticity or musclecramping.Regarding her headaches, she had severe migraines prior to her hysterectomy(which was performed for cervical cancer) in 1997. After her hysterectomy, shehad improvement in her migraine frequency and cannot remember the last time shehad one (years ago). However, since starting Tecfidera, she feels that she hashad increase in another type of headache, described as left parietal achingpressure without migrainous features. She has had these every couple of monthsin the past, but now they are occurring daily. She takes excedrin migrainedaily since starting Tecfidera. She also notes intermittent ANDquot;icepickANDquot; pain in her head and neck that are transient and occur a couple oftimes a week.She denies any preceding illnesses or infections. She recently went through astressful divorce over the past 1.5 years that was finalized in November. She hadweight loss as a result. She was recently diagnosed with osteoporosis, as herDEXA scan showed z-score of her left femur as less than 2 times the SD. She hashad some issues with her hands being swollen for the past year, particularlyher PIPs.In April, she went to see her PCP due to her symptoms and bloodwork thenEMG/NCS and brain MRI were performed. She was Subsequently referred to due to abnormal brain MRI. MRI of the spinal cord was performed, afterwhich she was diagnosed with MS. She was started on Tecfidera a few weeks ago,and reports some more frequent headaches and flushing since starting it. Shetakes aspirin 81mg daily while on it as well.PAST HISTORY:PAST MEDICAL HISTORYDiagnosis Date- Cervical cancer ([facility]) 1997 s/p hysterectomy- Hypertension- Migraine- MS (multiple sclerosis) ([facility])- OsteoporosisPAST SURGICAL HISTORYProcedure Laterality Date- HYSTERECTOMY 1997Transfusions: NoneCurrent Outpatient Prescriptions:gabapentin (NEURONTIN) 100 mg capsule Take 100 mg by mouth three times daily.dimethyl fumarate (TECFIDERA) 240 mg cpDR Take 240 mg by mouth twice daily.aspirin, enteric coated (ASPIRIN, ENTERIC COATED) 81 mg EC tablet Take 81 mg bymouth once daily.Cholecalciferol, Vitamin D3, 10,000 unit cap Take 10,000 Units by mouth oncedaily.diphenhydrAMIN E (SLEEP AID, DIPHENHYDRAMINE,) 25 mg capsule Take 25 mg by mouthdaily at bedtime.meloxicam (MOBIC) 15 mg tablet Take 15 mg by mouth as needed.baclofen (LIORESAL) 10 mg tablet Take 10 mg by mouth as needed.No current facility-administered medications for this visit.ALLERGIESNo Known AllergiesSocial History Marital status: Spouse name: Years of education: Number of children: 1Social History Main Topics Smoking status: Current Every Day Smoker Packs/day: 0.30 Years: 0.00 Types: Cigarettes Start date: 1974 Smokeless status: Never Used Alcohol use: No Comment: occasional/social Drug use: NoSocial History Narrative She lives at home with her son, who has special needs and requires full-timecare. 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[employer].She was as of 2017.FAMILY HISTORYProblem Relation Age of Onset- Breast Cancer Mother- Arthritis Mother- Breast Cancer Sister- Multiple Sclerosis OtherREVIEW OF SYSTEMS:Comprehensive review of systems otherwise was negative, includingconstitutional, head and neck, cardiovascular, pulmonary, gastrointestinal,endocri ne, urologic, reproductive, rheumatic, hematologic, immunologic,dermatologic , and psychiatric.Nutritional concerns: NoneDriving issues: NoneSafety concerns regarding living situations and safety at home: NoneRisk of falls: NonePain: NonePHYSICAL EXAM:BP 155/65 Pulse 84 Resp 16 Ht 152.4 cm (5') Wt 51.3 kg (113 lb 3.2 oz) BMI 22.11 kg/m2Hair, skin, nails, and joints were normal. Neck was supple without Lhermitte'sphenomenon. There was no percussion tenderness over the spine.The patient was alert and oriented to person, place, and time with normallanguage, attention and concentration, recent and remote memory, praxis, andintellectual function. Affect was normal. The patient did not appear depressed.Visual acuity to near card was as follows: OD= 20/25 (with glasses) OS= 20/20(with glasses).Visual fierro were full to confrontation.Pupils were 3 mm and briskly reactive OU without a relative afferent pupillarydefect.Fundusco pic examination was normal without disc edema, erythema, or atrophy.Ocular ductions were full, but there were 2-3 beats of end-gaze nystagmuspresent on horizontal gaze, especially to the left.Facial sensation was normal. Muscles of mastication and facial expression movednormally. Hearing was normal. Palatal movements were normal.Sternocleidomasto id and trapezius power were normal. Tongue movements werenormal. There was no dysarthria.Motor Examination:There was no pronator drift. Fine finger movements intact bilaterally.Right Upper Extremity: Left Upper Extremity:Deltoid 5/5 Deltoid 5/5Biceps 5/5 Biceps 5/5Triceps 5/5 Triceps 5/5Finger extensors 4+/5 Finger extensors 4+/5Finger flexors 5/5 Finger flexors 5/5Dorsal interossei 4/5 Dorsal interossei 4/5Abductor pollicis 4/5 Abductor pollicis 4/5Tone (Kartik scale) 0 Tone (Kartik scale) 0Right Lower Extremity: Left Lower Extremity:Hip flexors 4/5 Hip flexors 4+/5Hip extensors 5/5 Hip extensors 5/5Knee flexors 5/5 Knee flexors 5/5Knee extensors 5/5 Knee extensors 5/5Dorsiflexors 5/5 Dorsiflexors 5/5Plantarflexors 5/5 Plantarflexors 5/5Toe extensors 5/5 Toe extensors 5/5Toe flexors 5/5 Toe flexors 5/5Tone (Kartik scale) 0 Tone (Kartik scale) 0Reflexes: No ankle clonus.brachioradialis +++ brachioradialis +++biceps +++ biceps +++triceps +++ triceps +++patellar +++ patellar ++Achilles ++ Achilles ++plantar response up plantar response downCoordination testing in the arms and legs was performed prrsbsoaplrlrn-nz-vjshn, rapid-alternating, and fine movements. Rapid movements wereimpaired bilaterally, especially on the right. Finger nose finger and heel kneeshin were intact bilaterally.Sensory examination:Light touch: Normal all four extremitiesTemperature: Decreased in the right upper and left lower extremities.Vibration: Moderately decreased in bilateral lower extremities, left worse thanright.Proprioception : Normal bilateral lower extremities.Romberg's test was normal, but sway was present.Gait was normal, including heel and toe walking. She had difficulty with tandemwalking.QUANTITATI VE SCORES:Visual: 0Brainstem: 0Pyramidal: 2Cerebellar: 1Sensory: 2Bladder/Bowel: 0Cerebral: 1Spasticity: 0EDSS: 2.5Timed 25-foot walk: 5.82 seconds. Assistive device: None.9-Hole peg test (sec): right: 19.62 left: 19.32REVIEW OF OUTSIDE RECORDS:Bloodwork (08/14/17):CMV IgM/G negativeEBV panel indicative of prior infectionBloodwork (09/20/17)CBC normalESR 25CRP 0.6Negative MINE, RFREVIEW OF IMAGING STUDIES:I personally reviewed the following images, and reviewed them with the patientas well:Brain MRI wo contrast (05/16/17): Moderate to severe burden of T2/FLAIRhyperintense lesions in the periventricular, pericallosal, and subcorticalwhite matter. There are associated T1 hypointensities. Gadolinium was notadministered. Global atrophy noted.C-spine MRI w/wo contrast (07/11/17): 3 discrete lesions at C1, C2, and C4-5without associated enhancement.T-spine MRI w/wo contrast (07/11/17): at least 1, possibly 2, cord lesions atT8 (lateral) and T10 (dorsocentral) levels, better visualized on STIR and axialT2 lesions. No associated enhancement.ASSESSMENT:Huey Hernandez is a 52 year old woman with a history of migraines, tobacco abuse,osteoporosis, and remote cervical cancer who presents for a second opinionregarding her recent diagnosis of MS. The diagnosis of MS is supported by herbrain and spinal cord MRI appearance, clinical history, and neurological examfindings. However, we will obtain a mimic workup to evaluate otherpossibilities. She has had a clear relapse in April, but notes some recentworsening as well. We do feel that she should be on disease modifying therapy,and Tecfidera is a reasonable choice. We explained that MS DMTs are designed toprevent future disease activity, and it will be important to monitor herclinically and via MRI over time to ensure DMT effectiveness. We will alsoobtain bloodwork for treatment planning purposes if treatment escalation isrequired in the future.Her recent weakness is somewhat concerning for new disease activity, as she hasrecently started tecfidera and it is not fully effective yet. We recommendedshe discuss a course of IV steroids with Dr. Jackson at her upcomingappointment. Additionally, her extreme right leg pain was likely neurologicalrather than orthopedic in origin given the character of the pain and rapidresponse to steroids.Regarding symptomatic management, she has uncomfortable paresthesias in herhands that may benefit from increasing her gabapentin dose. We discussed theimportance of MS wellness, specifically smoking cessation. We emphasized thatsmoking cessation is one of the major ways she can help her MS at this time,and explained that patients with MS who smoke tend to do worse than those whodo not.She will plan to follow-up with Dr. Jackson as scheduled, and continueTecfidera at this time. She will return to [place] in 6 months to evaluate herprogress on Tecfidera and updated brain MRI. I encouraged her to reach out ifany issues arise prior to that time.PLAN:1. Bloodwork - NMO/MOG, VASILIY, CCP, copper, Vitamin D, TSH, Lyme screen, HIV,RPR, JERRY, hepatitis panel, JCV, TB, VZV2. Continue Tecfidera for now3. Increase Gabapentin to 200mg TID (patient to discuss with Dr. Winters)4. Repeat brain MRI in 6 months, per Dr. Jackson5. MS wellness, including smoking cessation, discussed6. Follow-up with Dr. Jackson as planned7. Return to clinic in 6 monthsI spent 90 minutes in this visit, with ANDgt;50% direct patient time spentcounseling about prognosis, treatment options, and coordination of care.This patient was evaluated with Dr. San.Ailyn Patten, [facility] CITYlinical Neuroimmunology FellowFranciscan Health [facility] for Multiple SclerosisNEUROLOGY STAFF ADDENDUMPatient seen with the fellow. I agree with the fellow's history, examination,and the plan as noted above was formulated with my direct input.Soraya Davidson, Department of NeurologyFranciscan Health [facility] for Multiple SclerosisAilyn Patten MD 09/27/2017 4:49 PM Addendum1. Bloodwork today2. Continue Tecfidera3. Discuss with Dr. Winters about increasing gabapentin, possibly to 200mg threetimes a day4. We strongly recommend smoking cessation5. Please review our MS wellness brochure6. Follow-up with Dr. Jackson as planned, discuss possible steroid course atupcoming appointment7. We recommend follow-up brain MRI in 6 months to monitor you on tecfidera8. Return to clinic in 6 months, or as needed berReferring Provider: SELF [[id number]]Allergies As of Date: 09/27/2017(No Known Allergies)Date Reviewed: 09/27/2017Reviewed by: Kaylie Carrillo MA - Fully AssessedReason for Visit: New Patient [172]Primary Visit Diagnosis:Abnormal brain MRI [R90.89] Other Visit Diagnoses:Multiple sclerosis (HCC) [G35] Arthralgia of both hands [M25.541, M25.542] Other osteoporosis without current pathological fracture [M81.8]Order(s):TUBES - DRAW EXTRA [SQXTUBE] Order #: [id number] FUTURE ANTI VASILIY ID [SQENAID] Order #: [id number] FUTURE CCP ANTIBODY IGG [SQCCP] Order #: [id number] FUTURE VITAMIN D 25 HYDROXY [SQVITD] Order #: [id number] FUTURE COPPER BLOOD [SQCOPPER] Order #: [id number] FUTURE TSH BLD [SQTSH] Order #: [id number] FUTURE LYME AB IGG + IGM [SQLYMEGM] Order #: [id number] FUTURE HIV 1,2 COMBO (AG/AB) [SQHIV12] Order #: [id number] FUTURE SYPHILIS IGG WITH CONF [SQSYPHGX] Order #: [id number] FUTURE JERRY/ANGIOTENSIN BLD [SQACE] Order #: [id number] FUTURE HEP REMOTE PANEL BL [SQHREMOP] Order #: [id number] FUTURE JCV ANTIBODY AND INDEX WITH REFLEX [SQJCVIDX] Order #: [id number] FUTURE BLOOD TB SCREEN [SQINFTBG] Order #: [id number] FUTURE VARICELLA ZOSTER IGG [SQVZVG] Order #: [id number] FUTUREPrescriptions as of 09/27/2017 Sig: GABAPENTIN 100 MG CAPSULE Take 100 mg by mouth three ti* DIMETHYL FUMARATE 240 MG CAPS* Take 240 mg by mouth twice da* ASPIRIN 81 MG TABLET,DELAYED * Take 81 mg by mouth once gagan* CHOLECALCIFEROL (VITAMIN D3) * Take 10,000 Units by mouth on* DIPHENHYDRAMINE 25 MG CAPSULE Take 25 mg by mouth daily at * MELOXICAM 15 MG TABLET Take 15 mg by mouth as needed. BACLOFEN 10 MG TABLET Take 10 mg by mouth as needed.Problem List As Of Date 09/27/2017 Noted Resolved Multiple sclerosis (HCC) [G35] INVALID FOR* Other osteoporosis without current pathological*INVALID FOR* Other instructions from your clinician: 1. Bloodwork today 2. Continue Tecfidera 3. Discuss with Dr. Winters about increasing gabapentin, possibly to 200mg three times a day 4. We strongly recommend smoking cessation 5. Please review our MS wellness brochure 6. Follow-up with Dr. Jackson as planned, discuss possible steroid course at upcoming appointment 7. We recommend follow-up brain MRI in 6 months to monitor you on tecfidera 8. Return to clinic in 6 months, or as needed berDisposition: Return in about 6 months (around 03/27/2018) for Sandor.Follow-up and Disposition History RecordedEncounter Number: [id number] Status:Closed by ALMA SAN MD on 10/01/17 Normal [facility] Copperon 09-27-2017 Copper 106 ug/dL Normal 85-155 [facility] Comment on above: Result Comment: This test was developed and its performance characteristics determined by [facility] [place] ([facility]).It has not been cleared or approved by the FDA. -[facility] is regulated under CLIA as qualified to perform high-complexity testing.This test is used for clinical purposes. It should not be regarded as investigational or for research. Performed By: #### V ITD, ENAID, HREMOP, TSH, HIV12C, SYPHGX, LYMEGM, VZVG2, COPPER, INFTBG, JERRY, CCP, JCVIDX ####[id number] [place], [place] [phone] VASILIY Antibody Panelon 018 Centromere <0.2 Normal <1.0 [facility] Comment on above: Result Comment: NEGA TIVENegative: <1.0 AIPositive: >0.9 AI Performed By: #### V ITD, ENAID, HREMOP, TSH, HIV12C, SYPHGX, LYMEGM, VZVG2, COPPER, INFTBG, JERRY, CCP, JCVIDX ####[address] [phone] Chromatin Antibody <0.2 Normal <1.0 [facility] Comment on above: Result Comment: NEGA TIVENegative: <1.0 AIPositive: >0.9 AI Performed By: #### V ITD, ENAID, HREMOP, TSH, HIV12C, SYPHGX, LYMEGM, VZVG2, COPPER, INFTBG, JERRY, CCP, JCVIDX ####[address] [address] [phone] ALVARO 1 Antibody <0.2 Normal <1.0 [facility] Comment on above: Result Comment: NEGA TIVENegative: <1.0 AIPositive: >0.9 AI Performed By: #### V ITD, ENAID, HREMOP, TSH, HIV12C, SYPHGX, LYMEGM, VZVG2, COPPER, INFTBG, JERRY, CCP, JCVIDX ####[address] [phone] Ribosomal DEPUTY FIRE MARSHAL <0.2 Normal <1.0 [facility] Comment on above: Result Comment: NEGA TIVENegative: <1.0 AIPositive: >0.9 AI Performed By: #### V ITD, ENAID, HREMOP, TSH, HIV12C, SYPHGX, LYMEGM, VZVG2, COPPER, INFTBG, JERRY, CCP, JCVIDX ####[place] [address] [phone] DEPUTY FIRE MARSHAL Antibody 0.9 AI Normal <1.0 [facility] Comment on above: Result Comment: NEGA TIVENegative: <1.0 AIPositive: >0.9 AI Performed By: #### V ITD, ENAID, HREMOP, TSH, HIV12C, SYPHGX, LYMEGM, VZVG2, COPPER, INFTBG, JERRY, CCP, JCVIDX ####[place] [address] [phone] Scleroderma IgG Ab <0.2 Normal <1.0 [facility] Comment on above: Result Comment: NEGA TIVENegative: <1.0 AIPositive: >0.9 AI Performed By: #### V ITD, ENAID, HREMOP, TSH, HIV12C, SYPHGX, LYMEGM, VZVG2, COPPER, INFTBG, JERRY, CCP, JCVIDX ####[address] [phone] Sm Antibody <0.2 Normal <1.0 [facility] Comment on above: Result Comment: NEGA TIVENegative: <1.0 AIPositive: >0.9 AI Performed By: #### V ITD, ENAID, HREMOP, TSH, HIV12C, SYPHGX, LYMEGM, VZVG2, COPPER, INFTBG, JERRY, CCP, JCVIDX ####[address] [phone] SSA Antibody <0.2 Normal <1.0 [facility] Comment on above: Result Comment: NEGA TIVENegative: <1.0 AIPositive: >0.9 AI Performed By: #### V ITD, ENAID, HREMOP, TSH, HIV12C, SYPHGX, LYMEGM, VZVG2, COPPER, INFTBG, JERRY, CCP, JCVIDX ####[address] [phone] SSB Antibody <0.2 Normal <1.0 [facility] Comment on above: Result Comment: NEGA TIVENegative: <1.0 AIPositive: >0.9 AI Performed By: #### V ITD, ENAID, HREMOP, TSH, HIV12C, SYPHGX, LYMEGM, VZVG2, COPPER, INFTBG, JERRY, CCP, JCVIDX ####[address] [phone] HIV 12 Combo (Ag/Ab)on 09-27 HIV 12 Ag/Ab Non Reactive Normal Non Reactive [facility] Comment on above: Result Comment: (NOT E)HIV Information: [place] Rev. Code 3701.243(E):This information has been disclosed to you from confidential recordsprotected from disclosure by state law. You shall make no furtherdisclosure of this information without the specific, written, andinformed release of the individual to whom it pertains, or asotherwise permitted by state law. A general authorization for therelease of medical or other information is not sufficient for thepurpose of the release of HIV test results or diagnoses. Performed By: #### V ITD, ENAID, HREMOP, TSH, HIV12C, SYPHGX, LYMEGM, VZVG2, COPPER, INFTBG, JERRY, CCP, JCVIDX ####[address] [phone] Hepatitis Remote Panelon BSA (Body Surface Area) Negative Normal Negative [facility] Comment on above: Performed By: #### V ITD, ENAID, HREMOP, TSH, HIV12C, SYPHGX, LYMEGM, VZVG2, COPPER, INFTBG, JERRY, CCP, JCVIDX ####[address] [phone] Hep B Core Ab,Total Negative Normal Negative [facility] Comment on above: Performed By: #### V ITD, ENAID, HREMOP, TSH, HIV12C, SYPHGX, LYMEGM, VZVG2, COPPER, INFTBG, JERRY, CCP, JCVIDX ####[address] [phone] Hepatitis C Ab IA Negative Normal Negative [facility] Comment on above: Performed By: #### V ITD, ENAID, HREMOP, TSH, HIV12C, SYPHGX, LYMEGM, VZVG2, COPPER, INFTBG, JERRY, CCP, JCVIDX ####[address] [phone] HepB Surface Ab,Qual Negative Normal Negative [facility] Comment on above: Result Comment: NEGA TIVE Performed By: #### V ITD, ENAID, HREMOP, TSH, HIV12C, SYPHGX, LYMEGM, VZVG2, COPPER, INFTBG, JERRY, CCP, JCVIDX ####[id number] [place], [place] [phone] JCV Ab/Indx & Reflexon 09-27 JCV Antibody Positive Critically abnormal [facility] Comment on above: Result Comment: (NOT E)Index interpretive criteria: <0.20 negative 0.20-0.40 indeterminate >0.40 positiveINTERPRETATION Negative: Antibodies to JCV not detected. Indeterminate: Low level reactivity detected, see Inhibition Assay result to follow for the final antibody result. Positive: Antibodies to YIN virus (JCV) detected indicating the patient has been exposed to JCV at an undetermined time.The STRATIFY JCV Antibody Test is an enzyme-linkedimmunosorbent assay (ADAM) designed to detect JCVantibodies to help identify individuals who havebeen exposed to the virus. Samples with low levelreactivity in the detection assay are retested jack confirmation (inhibition) assay to confirmpresence or absence of JCV-specific antibodies.Test Performed at:[facility] [place] [phone] Guerita Callahan MD Performed By: #### V ITD, ENAID, HREMOP, TSH, HIV12C, SYPHGX, LYMEGM, VZVG2, COPPER, INFTBG, JERRY, CCP, JCVIDX ####[id number] [place], [place] [phone] JCV Index Value 3.41 High [facility] Comment on above: Performed By: #### V ITD, ENAID, HREMOP, TSH, HIV12C, SYPHGX, LYMEGM, VZVG2, COPPER, INFTBG, JERRY, CCP, JCVIDX ####[id number] [place], [place] [phone] Lyme IgG/IgM ABon 09-27-2017 Lyme IgG/IgM AB Negative Normal Negative [facility] Comment on above: Result Comment: Abse nce of detectable Borrelia burgdorferi antibodies. A negative result does not exclude the possibility of Borrelia burgdorferi infection. If early Lyme disease is suspected, a second sample should be collected and tested two to four weeks later. Performed By: #### V ITD, ENAID, HREMOP, TSH, HIV12C, SYPHGX, LYMEGM, VZVG2, COPPER, INFTBG, JERRY, CCP, JCVIDX ####[address] [place], [place] [phone] Lyme Interp No evidence of antibodies to Borrelia burgdorferi. Normal No evidence of antibodies to Borrelia burgdorferi. 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 Normal [facility] Comment on above: Performed By: #### V ITD, ENAID, HREMOP, TSH, HIV12C, SYPHGX, LYMEGM, VZVG2, COPPER, INFTBG, JERRY, CCP, JCVIDX ####[id number] [place], [place] [phone] PROGRESSon 09-27-2017 PROGRESS HNO ID: [id number]: Alma Simmons: (none)Author Type: PhysicianType: Progress NotesFiled: 10/01/2017 9:26 PMNote Text:[facility] MULTIPLE SCLEROSISNEW PATIENT EVALUATION/CONSULTATIONR eferral source:SELFAlso followed by:Johny Winters MD ([facility])[address], [place] [address]Aynzz: [phone]: [phone] [address] [address]Gqbnc: [phone]: [phone] NEUROLOGIC DIAGNOSIS: Multiple sclerosisDISEASE SUMMARYDate of onset: 04/2017Date of diagnosis of MS: 07/2017Disease course at onset: Relapsing-RemittingCurre nt disease course: Relapsing-RemittingPrevi ous disease therapies: Medrol dose packCurrent disease therapy: Tecfidera (08/2017-present)Most recent MRI brain: 05/16/17 (wo contrast)Most recent MRI cervical spine: 07/11/17Most recent MRI thoracic spine: 07/11/17CSF: N/AJCV serology result and date: N/AHISTORY OF ILLNESS:An opinion on this 52 year old left handed woman was requested by thepatient for a second opinion regarding a recent diagnosis of MS. Thepatient was accompanied by her friend. Previous records (physician notes,laboratory reports, and radiology reports) and imaging studies werereviewed and summarized. My recommendations will be communicated back tothe patient's physician(s) by facsimile. [facility].She states that in April 2017, she noticed that she was walking intothings at work. She had some balance issues in the past, but this has beenattributed to inner ear problems. A few days later, she developed numbnessin her index and middle finger on the left hand that progressed to all ofher fingers over a few days, then to her right hand in a similar fashion.She feels this is continuing to worsen, and she has had a sensation ofnumbness in her arms like they are not there in addition to abnormalsensation in her fingertips bilaterally. Her left hand continues to be themost affected. Gabapentin 100mg TID helped with her discomfort initially.For the past 2-3 weeks, she feels that she has weakness in her legs whenshe gets up from a kneeling position, with her right leg affected moresothan her left. She also had an issue with lifting an egg carton up and hadto have her boss help her last week, which was a change for her. She feelsthat her balance is stable. She fell when she tried to stand after sittingon her leg for a long period of time, and it was numb temporarily.She has had abnormal sensations in her chest and abdomen as well. Shedescribes a tightness in her chest that lasts for about 10 minutes at atime at night. She denies having the chest pain with exertion.She notes some word finding difficulties for the past 6-8 months and thatshe occasionally stumbles over words. She denies dysarthria.She recently had some constipation (3 days without a bowel movement), butthis was unusual for her and she had a few normal bowel movementsovernight. She denies any bladder dysfunction. She does note someperineal numbness as well.Last month, she experienced an extreme aching pain in her right leg fromher hip to her foot that lasted until she took a medrol dose pack. Shestates that the pain was so bad that she vomited. The pain becametolerable after the medrol dose pack, and has not recurred.She denies any other prior neurological symptoms, painful monocular visionloss, diplopia, oscillopsia, vertigo, dysphagia, or tremor. She hasrecently had some decline in near vision that is correctable with glasses.She denies worsening of her baseline fatigue, which she attributes to poorsleep. She denies other concerns for memory or cognitive changes. Shedenies Lhermitte's sign. She has had some muscle spasms in her lower backon the left that required her to take baclofen, but otherwise deniesspasticity or muscle cramping.Regarding her headaches, she had severe migraines prior to herhysterectomy (which was performed for cervical cancer) in 1997. After herhysterectomy, she had improvement in her migraine frequency and cannotremember the last time she had one (years ago). However, since startingTecfidera, she feels that she has had increase in another type ofheadache, described as left parietal aching pressure without migrainousfeatures. She has had these every couple of months in the past, but nowthey are occurring daily. She takes excedrin migraine daily since startingTecfidera. She also notes intermittent ice pick pain in her head andneck that are transient and occur a couple of times a week.She denies any preceding illnesses or infections. She recently wentthrough a stressful divorce over the past 1.5 years that was finalized inMay. She had weight loss as a result. She was recently diagnosed withosteoporosis, as her DEXA scan showed z-score of her left femur as lessthan 2 times the SD. She has had some issues with her hands being swollenfor the past year, particularly her PIPs.In April, she went to see her PCP due to her symptoms and bloodwork thenEMG/NCS and brain MRI were performed. She was Subsequently referred toDr. Jackson due to abnormal brain MRI. MRI of the spinal cord wasperformed, after which she was diagnosed with MS. She was started onTecfidera a few weeks ago, and reports some more frequent headaches andflushing since starting it. She takes aspirin 81mg daily while on it aswell.PAST HISTORY:PAST MEDICAL HISTORYDiagnosis Date- Cervical cancer (HCC) 1997 s/p hysterectomy- Hypertension- Migraine- MS (multiple sclerosis) ([facility])- OsteoporosisPAST SURGICAL HISTORYProcedure Laterality Date- HYSTERECTOMY 1997Transfusions: NoneCurrent Outpatient Prescriptions:gabapentin (NEURONTIN) 100 mg capsule Take 100 mg by mouth three timesdaily.dimethyl fumarate (TECFIDERA) 240 mg cpDR Take 240 mg by mouth twicedaily.aspirin, enteric coated (ASPIRIN, ENTERIC COATED) 81 mg EC tablet Take 81mg by mouth once daily.Cholecalciferol, Vitamin D3, 10,000 unit cap Take 10,000 Units by mouthonce daily.diphenhydrAMINE (SLEEP AID, DIPHENHYDRAMINE,) 25 mg capsule Take 25 mg bymouth daily at bedtime.meloxicam (MOBIC) 15 mg tablet Take 15 mg by mouth as needed.baclofen (LIORESAL) 10 mg tablet Take 10 mg by mouth as needed.No current facility-administered medications for this visit.ALLERGIESNo Known AllergiesSocial History Marital status: Spouse name: Years of education: Number of children: 1Social History Main Topics Smoking status: Current Every Day Smoker Packs/day: 0.30 Years: 0.00 Types: Cigarettes Start date: 1974 Smokeless status: Never Used Alcohol use: No Comment: occasional/social Drug use: NoSocial History Narrative She lives at home with her son, who has special needs and requiresfull-time care. 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 She was as of 2017.FAMILY HISTORYProblem Relation Age of Onset- Breast Cancer Mother- Arthritis Mother- Breast Cancer Sister- Multiple Sclerosis OtherREVIEW OF SYSTEMS:Comprehensive review of systems otherwise was negative, includingconstitutional, head and neck, cardiovascular, pulmonary,gastrointestin al, endocrine, urologic, reproductive, rheumatic,hematologic, immunologic, dermatologic, and psychiatric.Nutritional concerns: NoneDriving issues: NoneSafety concerns regarding living situations and safety at home: NoneRisk of falls: NonePain: NonePHYSICAL EXAM:BP 155/65 Pulse 84 Resp 16 Ht 152.4 cm (5') Wt 51.3 kg (113 lb 3.2oz) BMI 22.11 kg/m2Hair, skin, nails, and joints were normal. Neck was supple withoutLhermitte's phenomenon. There was no percussion tenderness over thespine.The patient was alert and oriented to person, place, and time with normallanguage, attention and concentration, recent and remote memory, praxis,and intellectual function. Affect was normal. The patient did not appeardepressed.Visual acuity to near card was as follows: OD= 20/25 (with glasses) OS=20/20 (with glasses).Visual fierro were full to confrontation.Pupils were 3 mm and briskly reactive OU without a relative afferentpupillary defect.Funduscopic examination was normal without disc edema, erythema, oratrophy.Ocular ductions were full, but there were 2-3 beats of end-gaze nystagmuspresent on horizontal gaze, especially to the left.Facial sensation was normal. Muscles of mastication and facial expressionmoved normally. Hearing was normal. Palatal movements were normal.Sternocleidomasto id and trapezius power were normal. Tongue movements werenormal. There was no dysarthria.Motor Examination:There was no pronator drift. Fine finger movements intact bilaterally.Right Upper Extremity: Left Upper Extremity:Deltoid 5/5 Deltoid 5/5Biceps 5/5 Biceps 5/5Triceps 5/5 Triceps 5/5Finger extensors 4+/5 Finger extensors 4+/5Finger flexors 5/5 Finger flexors 5/5Dorsal interossei 4/5 Dorsal interossei 4/5Abductor pollicis 4/5 Abductor pollicis 4/5Tone (Kartik scale) 0 Tone (Kartik scale) 0Right Lower Extremity: Left Lower Extremity:Hip flexors 4/5 Hip flexors 4+/5Hip extensors 5/5 Hip extensors 5/5Knee flexors 5/5 Knee flexors 5/5Knee extensors 5/5 Knee extensors 5/5Dorsiflexors 5/5 Dorsiflexors 5/5Plantarflexors 5/5 Plantarflexors 5/5Toe extensors 5/5 Toe extensors 5/5Toe flexors 5/5 Toe flexors 5/5Tone (Kartik scale) 0 Tone (Kartik scale) 0Reflexes: No ankle clonus.brachioradialis +++ brachioradialis +++biceps +++ biceps +++triceps +++ triceps +++patellar +++ patellar ++Achilles ++ Achilles ++plantar response up plantar response downCoordination testing in the arms and legs was performed [id number], rapid-alternating, and fine movements. Rapid movementswere impaired bilaterally, especially on the right. Finger nose finger andheel knee cristobal were intact bilaterally.Sensory examination:Light touch: Normal all four extremitiesTemperature: Decreased in the right upper and left lower extremities.Vibration: Moderately decreased in bilateral lower extremities, left worsethan right.Proprioception: Normal bilateral lower extremities.Romberg's test was normal, but sway was present.Gait was normal, including heel and toe walking. She had difficulty withtandem walking.QUANTITATIVE SCORES:Visual: 0Brainstem: 0Pyramidal: 2Cerebellar: 1Sensory: 2Bladder/Bowel: 0Cerebral: 1Spasticity: 0EDSS: 2.5Timed 25-foot walk: 5.82 seconds. Assistive device: None.9-Hole peg test (sec): right: 19.62 left: 19.32REVIEW OF OUTSIDE RECORDS:Bloodwork (08/14/17):CMV IgM/G negativeEBV panel indicative of prior infectionBloodwork (09/20/17)CBC normalESR 25CRP 0.6Negative MINE, RFREVIEW OF IMAGING STUDIES:I personally reviewed the following images, and reviewed them with thepatient as well:Brain MRI wo contrast (05/16/17): Moderate to severe burden of T2/FLAIRhyperintense lesions in the periventricular, pericallosal, and subcorticalwhite matter. There are associated T1 hypointensities. Gadolinium was notadministered. Global atrophy noted.C-spine MRI w/wo contrast (07/11/17): 3 discrete lesions at C1, C2, andC4-5 without associated enhancement.T-spine MRI w/wo contrast (07/11/17): at least 1, possibly 2, cord lesionsat T8 (lateral) and T10 (dorsocentral) levels, better visualized on STIRand axial T2 lesions. No associated enhancement.ASSESSMENT:Huey Hernandez is a 52 year old woman with a history of migraines, tobaccoabuse, osteoporosis, and remote cervical cancer who presents for a secondopinion regarding her recent diagnosis of MS. The diagnosis of MS issupported by her brain and spinal cord MRI appearance, clinical history,and neurological exam findings. However, we will obtain a mimic workup toevaluate other possibilities. She has had a clear relapse in April, butnotes some recent worsening as well. We do feel that she should be ondisease modifying therapy, and Tecfidera is a reasonable choice. Weexplained that MS DMTs are designed to prevent future disease activity,and it will be important to monitor her clinically and via MRI over timeto ensure DMT effectiveness. We will also obtain bloodwork for treatmentplanning purposes if treatment escalation is required in the future.Her recent weakness is somewhat concerning for new disease activity, asshe has recently started tecfidera and it is not fully effective yet. Werecommended she discuss a course of IV steroids with Dr. Jackson at herupcoming appointment. Additionally, her extreme right leg pain was likelyneurological rather than orthopedic in origin given the character of thepain and rapid response to steroids.Regarding symptomatic management, she has uncomfortable paresthesias inher hands that may benefit from increasing her gabapentin dose. Wediscussed the importance of MS wellness, specifically smoking cessation.We emphasized that smoking cessation is one of the major ways she can helpher MS at this time, and explained that patients with MS who smoke tend todo worse than those who do not.She will plan to follow-up with Dr. Jackson as scheduled, and continueTecfidera at this time. She will return to [place] in 6 months to evaluateher progress on Tecfidera and updated brain MRI. I encouraged her to reachout if any issues arise prior to that time.PLAN:1. Bloodwork - NMO/MOG, VASILIY, CCP, copper, Vitamin D, TSH, Lyme screen,HIV, RPR, JERRY, hepatitis panel, JCV, TB, VZV2. Continue Tecfidera for now3. Increase Gabapentin to 200mg TID (patient to discuss with Dr. Winters)4. Repeat brain MRI in 6 months, per Dr. Jackson5. MS wellness, including smoking cessation, discussed6. Follow-up with Dr. Jackson as planned7. Return to clinic in 6 monthsI spent 90 minutes in this visit, with >50% direct patient time spentcounseling about prognosis, treatment options, and coordination of care.This patient was evaluated with Dr. San.Ailyn Patten, [facility] CITYlinical Neuroimmunology FellowWalker Baptist Medical Center Multiple SclerosisNEUROLOGY STAFF ADDENDUMPatient seen with the fellow. I agree with the fellow's history,examination, and the plan as noted above was formulated with my directinput.Soraya Davidson, Department of NeurologyWalker Baptist Medical Center Multiple Sclerosis Normal [facility] Syphilis IgG with Confon Syphilis IgG <0.2 Normal [facility] Comment on above: Result Comment: Anti body index is interpreted as follows:Non reactive SPECIMENS <=0.8Weak reactive SPECIMENS 0.9 to 5.9Reactive SPECIMENS >=6.0 Performed By: #### V ITD, ENAID, HREMOP, TSH, HIV12C, SYPHGX, LYMEGM, VZVG2, COPPER, INFTBG, JERRY, CCP, JCVIDX ####[facility], [place] [phone] Syphilis IgG, Qual Nonreactive Normal Nonreactive [facility] Comment on above: Result Comment: In c onjunction with this result, the immune status of the patient should be evaluated based on their clinical status, related risk factors, and other diagnostic test results. Performed By: #### V ITD, ENAID, HREMOP, TSH, HIV12C, SYPHGX, LYMEGM, VZVG2, COPPER, INFTBG, JERRY, CCP, JCVIDX ####[place] [address] TB by QuantiFERONon 09-27-19 18 Interpretation No evidence of curre nt or previous infection with Mycobacterium tuberculosis. Normal [facility] Comment on above: Performed By: #### V ITD, ENAID, HREMOP, TSH, HIV12C, SYPHGX, LYMEGM, VZVG2, COPPER, INFTBG, JERRY, CCP, JCVIDX ####[place] [address] Mitogen Response >10.00 Normal >0.49 [facility] Comment on above: Performed By: #### V ITD, ENAID, HREMOP, TSH, HIV12C, SYPHGX, LYMEGM, VZVG2, COPPER, INFTBG, JERRY, CCP, JCVIDX ####[place] [address] TB Antigen Response 0.00 IU/mL Normal <0.35 [facility] Comment on above: Performed By: #### V ITD, ENAID, HREMOP, TSH, HIV12C, SYPHGX, LYMEGM, VZVG2, COPPER, INFTBG, JERRY, CCP, JCVIDX ####[place] [address] TB Result Negative Normal Negative [facility] Comment on above: Performed By: #### V ITD, ENAID, HREMOP, TSH, HIV12C, SYPHGX, LYMEGM, VZVG2, COPPER, INFTBG, JERRY, CCP, JCVIDX ####[place] [phone] TSHon 09-27-2017 Thyroid stimulating hormone (TSH) 2.500 uU/mL Normal 0.400-5.500 [facility] Comment on above: Performed By: #### V ITD, ENAID, HREMOP, TSH, HIV12C, SYPHGX, LYMEGM, VZVG2, COPPER, INFTBG, JERRY, CCP, JCVIDX ####[address] [phone] Varicella Zoster IgGon 09-27 V. zoster IgG, Qual Positive Critically abnormal Negative [facility] Comment on above: Result Comment: Pres ence of detectable VZV IgG antibodies. A positive result generally indicates exposure to the pathogen or administration of specific immunoglobulins, but is no indication of active infection or stage of disease. Performed By: #### V ITD, ENAID, HREMOP, TSH, HIV12C, SYPHGX, LYMEGM, VZVG2, COPPER, INFTBG, JERRY, CCP, JCVIDX ####[address] [phone] Varicella Zoster IgG 1075.0 Index Value Normal [facility] Comment on above: Result Comment: Inde x Values are Interpreted as Follows:Negative specimens <135.0Equivocal specimens 135.0 to 164.9Positive specimens >164.9The magnitude of the measured result is not indicative of the amount of antibody present. Performed By: #### V ITD, ENAID, HREMOP, TSH, HIV12C, SYPHGX, LYMEGM, VZVG2, COPPER, INFTBG, JERRY, CCP, JCVIDX ####[address] [phone] Vitamin D 25 Hydroxyon 09-27 Vitamin D 25 Hydroxy 123.0 ng/mL High 31.0-80.0 [facility] Comment on above: Result Comment: Clas sification of 25 [place] Vitamin D status:Insufficiency/Moderate Deficiency: < or = 30 ng/mLSufficiency/Optimal Levels: 31 to 80 ng/mLToxicity: > 100 ng/mLTest performed by chemiluminescent immunoassay. Performed By: #### V ITD, ENAID, HREMOP, TSH, HIV12C, SYPHGX, LYMEGM, VZVG2, COPPER, INFTBG, JERRY, CCP, JCVIDX ####[facility] [address], [place] [phone] OR-MRI C-SPINE WO/W CON IMPO RTon 07-11-2017 OR-MRI C-SPINE WO/W CON IMPORT Images were obtained outside of [facility] [id number] Normal [facility] OR-MRI T-SPINE WO/W CON IMPO RTon 07-11-2017 OR-MRI T-SPINE WO/W CON IMPORT Images were obtained outside of [facility] [id number] Normal [facility] MR-MRI BRAIN WO CON IMPORTon 05-16-2017 MR-MRI BRAIN WO CON IMPORT Images were obtained outside of [facility] [id number] Normal [facility] Vital Signs Date Time Vital Sign Value Performing Clinician Facility 09-06-2023 09:48-0500 Body height 152.4 cm DO Johny Ball Work Phone: [facility] 09-06-2023 09:48-0500 Body weight 60.78 kg DO Johny Ball Work Phone: [facility] 07-12-2023 11:28-0500 Body height 152.4 cm DO Johny Ball Work Phone: [facility] 07-12-2023 11:28-0500 Body weight 60.78 kg DO Johny Ball Work Phone: [facility] 03-01-2023 10:00-0400 Body height 154.94 cm Johny Ball Other [facility] [employer] Other 03-01-2023 10:00-0400 Body mass index (BMI) [Ratio] 26.15 kg/m2 Johny Ball Other [employer] Other 03-01-2023 10:00-0400 Body weight 62.78 kg Johny Ball Other [employer] Other 03-01-2023 10:00-0400 Diastolic blood pressure 74 mm[Hg] Johny Winters Other [employer] Other 03-01-2023 10:00-0400 Respiratory rate 12 /min Johny Winters Other [employer] Other 03-01-2023 10:00-0400 Systolic blood pressure 138 mm[Hg] Johny Winters Other [employer] Other 11-02-2021 14:20-0400 Body height 154.94 cm Ezequiel Agudelo Other [employer] Other 11-02-2021 14:20-0400 Body mass index (BMI) [Ratio] 25.69 kg/m2 Ezequiel Agudelo Other [employer] Other 11-02-2021 14:20-0400 Body weight 61.69 kg Ezequiel Agudelo Other [employer] Other Encounters Encounter Date Encounter Type Care Provider Facility Start: 12-13-2023 End: 12-13-2023 ambulatory CHINYERE LIVE Not Available Start: 12-12-2023 End: 12-12-2023 ambulatory CINDY RODRÍGUEZ Not Available Start: 09-06-2023 End: 09-06-2023 ambulatory Chinyere Live Facility:[facility] Start: 09-06-2023 End: 09-06-2023 ambulatory DO Johny Ball Work Phone: [facility] Work Phone: Start: 09-06-2023 End: 09-06-2023 Patient encounter procedure DO Johny Ball Work Phone: [facility] [place] Work Phone: Start: 07-12-2023 End: 07-12-2023 ambulatory Johny Ball Facility:[facility] Start: 07-12-2023 End: 07-12-2023 Patient encounter procedure DO Johny Winters Work Phone: [facility] [place] Work Phone: Start: 04-07-2023 End: 04-07-2023 ambulatory Johny Winters Other [employer] Other Start: 04-07-2023 Nursing evaluation o f patient and report Johny Winters [facility] Start: 03-01-2023 End: 03-01-2023 ambulatory Johny Winters Other [employer] Other Start: 03-01-2023 Encounter for genera l adult medical examination without abnormal findings Johny Winters [facility] Start: 03-01-2023 Periodic preventive med est patient 40-64yrs Johny Winters [facility] Start: 12-24-2022 End: 12-24-2022 ambulatory Johny Winters Other [employer] Other Start: 12-24-2022 Telephone encounter Johny Winters [facility] Start: 05-10-2022 End: 05-11-2022 ambulatory CHINYERE LIVE Facility:[facility] Start: 02-23-2022 End: 02-24-[address] JOHNY WINTERS Facility:[facility] Start: 02-15-2022 End: 02-16-[address] CINDY RODRÍGUEZ Facility:[facility] Start: 11-16-2021 End: 11-17-[address] DENYS JACKSON Facility:[facility] Start: 11-02-2021 End: 11-02-2021 ambulatory Ezequiel Agudelo Other [employer] Other Start: 11-02-2021 Office outpatient ne w 45 minutes Ezequiel Agudelo [facility] Start: 09-09-2021 End: 09-10-[address] JOHNY WINTERS Facility:[facility] Start: 08-30-2021 End: 08-30-[address] JOHNY WINTERS Facility:[facility] Start: 09-27-2017 End: 09-27-2017 Ambulatory [facility] Start: 09-27-2017 End: [facility]02-[facility] Date Procedure Procedure Detail Performing Clinician Start: 09-06-2023 MRI of cervical spin e with contrast DO Johny Winters Work Phone: Start: 09-06-2023 MRI of head DO Jovani lopez [employer] Work Phone: Start: 07-12-2023 MRI of thoracic spin e with contrast DO Johny Winters Work Phone: Start: 07-12-2023 XR pre/post mri xray DO Johny Winters Work Phone: Immunizations Immunization Date Immunization Notes Care Provider Fa dileep 04-07-2023 influenza, injectabl e, quadrivalent, preservative free Johny Ball Other [employer] Other 05-06-2022 influenza virus vaccine, split virus (incl. purified surface antigen) Johny Ball Other [employer] Other 05-06-2022 influenza, injectabl e, quadrivalent, contains preservative Johny Ball Other [employer] Other 04-14-2021 influenza virus vaccine, split virus (incl. purified surface antigen) Johny Ball Other [employer] Other 04-17-2020 pneumococcal polysaccharide vaccine, 23 valent Johny Ball Other [employer] Other 12-31-2019 pneumococcal conjuga te vaccine, 13 valent Johny Ball Other [employer] Other 04-08-2019 influenza virus vaccine, split virus (incl. purified surface antigen) Johny Ball Other [employer] Other 05-05-2017 influenza virus vaccine, split virus (incl. purified surface antigen) Johny Ball Other [employer] Other 05-04-2015 tetanus and diphther ia toxoids, adsorbed, preservative free, for adult use (5 Lf of tetanus toxoid and 2 Lf of diphtheria toxoid) Johny Winters Other [employer] Other 04-30-2013 tetanus and diphther ia toxoids, adsorbed, preservative free, for adult use (5 Lf of tetanus toxoid and 2 Lf of diphtheria toxoid) Johny Winters Other [employer] Other Payers Date Payer Category Payer Self-pay [id number] 2018 Medicaid [id number] 1965 Unknown [id number] 1963 Unknown [id number] 1963 Unknown [id number] 1963 Unknown [id number] 1963 Unknown [id number] 1963 Unknown [id number] 1963 Unknown [id number] [id number] 1963 Unknown [id number] 1959 Unknown [id number] Private Health Insurance [facility] [id number] Unknown [id number] Unknown [id number] Social History Date Type Detail Facility Sex Assigned At [employer] Other Start: 1965 Sex Assigned At Female F [facility] Evaluation note 03-01-2023 Note Date & Type Note Facility 03-01-2023 Evaluation note Encounter Date Diagnosis Assessment Notes Feb, Wellness examination (ICD-10 - Z00.00) Healthy diet and exercise. Reviewed age-appropriate preventive testing recommended. Feb, Primary hypertension (ICD-10 - I10) This patient is instructed to consume a healthy, low-fat, low-salt diet. They are also encouraged to continue exercise to achieve/maintain a normal BMI. Feb, Elevated cholesterol (ICD-10 - E78.00) Instructed on diet and exercise with continued statin therapy.Discussed the beneficial effects of lowering cholesterol in reducing the risk for cerebrovascular and cardiovascular disease. Feb, Cigarette nicotine dependence without complication (ICD-10 - F17.210) This patient has been encouraged to quit tobacco use immediately. They are aware of the hazards associated with tobacco use, including but not limited to respiratory infections, vascular disease and cancers. Feb, Multiple sclerosis (ICD-10 - G35) Stable w/ mild residual symptoms f/u Neurology Feb, Age-related osteoporosis without current pathological fracture (ICD-10 - M81.0) Healthy diet, weight bearing exercises, Ca/Vit D supplements Feb, Screening mammogram for breast cancer (ICD-10 - Z12.31) [employer] sending order for mammogram Instructed on monthly SBE [employer] Other Evaluation note 11-02-2021 Note Date & Type Note Facility 11-02-2021 Evaluation note Encounter Date Diagnosis Assessment Notes Oct, Multiple sclerosis (ICD-10 - G35) I have independently reviewed the MRI of the lumbar spine and the MRI of the cervical spine and the plain x-ray of the lumbar spine. Also the DEXA scan. This patient presented to her family doctor with what appeared to be an L4 radiculopathy in the left but now that she is here she has no symptoms whatsoever. She asked if this could be the multiple sclerosis; it is unlikely given the pattern of the pain, although she has had right leg pain in the past also. Given the fact that the pain is resolved I see no evidence for surgical intervention. Patient understands and will follow up in the future should a new symptom present. Her multiple sclerosis remained stable Oct, Lumbar radiculopathy (ICD-10 - M54.16) [employer] Other Evaluation note Note Date & Type Note Facility Evaluation note No Information [facility] [employer] Other Evaluation note Note Date & Type Note Facility Evaluation note No assessment information availa [facility] Work Phone: History general Narrative - Reported Note Date & Type Note Facility History general Narrative - Reported Type Medical History hypercholesterolemia Medical History multiple sclerosis Medical History osteoporosis Medical History cervical cancer Surgical History hysterectomy Hospitalization History See Above [employer] Other Reason for visit Narrative Note Date & Type Note Facility Reason for visit Narrative Referral Dr Worrell all Low Back Pain [facility] [employer] Other Summary Purpose Family History No Family History Records FoundNo Family History Records FoundNo Family History Records FoundNo Family History Records Found Advance Directives No Advanced Directives Records Found Advance Directive Response Recorded Date/ Time Advance Directives No June 10:13am Chief Complaint and Reason for Visit Chief Complaint g35 g35 Additional Source Comments INFORMATION SOURCE (unrecogn ized section and content) DATE CREATED AUTHOR 01/19/2018 [facility] DATE CREATED AUTHOR AUTHOR'S ORGANIZ ATION 05/21/2022 [facility] DATE CREATED AUTHOR AUTHOR'S ORGANIZ ATION 09/14/2023 [facility] DATE CREATED AUTHOR AUTHOR'S ORGANIZ ATION 12/13/2023 [facility] EPIC REASON FOR VISIT (unrecogniz ed section and content) flu [facility] Care Teams (unrecognized sec tion and content) Team Status: Active Member Role Status Dates Johny Winters DO Primary Care Provider Active Team Status: Inactive Member Role Status Dates Johny Winters DO Primary Care Provider Active Start: July 12, 2023 End: July 12, 2023 Chinyere Live PA-C Attending Provider Active Sta rt: July 12, 2023 End: July 12, 2023 Team Status: Inactive Member Role Status Dates Johny Winters DO Primary Care Provider Active Start: September 06, 2023 End: September 06, 2023 Chinyere Live PA-C Attending Provider Active Sta rt: September 06, 2023 End: September 06, 2023 Goals (unrecognized section and content) Goals may be documented in a n alternate section FOR RECORDS PERTAINING TO PATIENTS WHO ARE OR HAVE BEEN ENROLLED IN A CHEMICAL DEPENDENCY/SUBSTANCEABUSE PROGRAM, SOME INFORMATION MAY BE OMITTED. This clinical summary was aggregated from multiple sources. Caution should be exercised in using it in the provision of clinical care. This summary normalizes information from multiple sources, and as a consequence, information in this document may materially change the coding, format and clinical context of patient data. In addition, data may be omitted in some cases. CLINICAL DECISIONS SHOULD BE BASED ON THE PRIMARY CLINICAL RECORDS. [facility] [employer] [facility]. provides no warranty or guarantee of the accuracy or completeness of information [id number]
== END 2023-12-21 12:27 | disposition home or self-care (01) ==
LOC: RAD 12:27
PROVIDERS: PCP Internal Medicine; Visit Provider Obstetrics & Gynecology
DX: M81.0 Age-related osteoporosis without current pathological fracture (principal); Z13.820 Encounter for screening for osteoporosis; Z78.0 Asymptomatic menopausal state
CPT/HCPCS: 77080

== ENCOUNTER 2024-03-05 09:58 | Outpatient (OUT) | payer OTHER, SELFPAY ==
--- OUTSIDE RECORDS SUMMARY | 2024-03-05 10:17 | XMS_ITS | CCD ---
Author Organization [facility] Care Team Providers Care Quantitative Analyst Name Role Phone GERALDKARL ALMA Unavailable Unavailable Ezequiel Agudelo Unavailable MARCOS, DR WHITE Admitting Unavailable MARCOS, DR WHITE Attending Unavailable SIGNH, DR OJEDA Primary Care Unavailable ZIEBER, DR DENYS Chavez Consulting Unavailable MARCOS, DR WHITE Consulting Unavailable [...] Unavailable DO Johny Winters Primary Care Provider [phone] CLEO Live Attending Provider Chinyere Liev Attending Unavailable Chinyere Live Admitting Unavailable Johny [...] Other aftercare (1 source) 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 ISTAT XRay CREon 09-06-2023 Creatinine [Mass/Vol] 0.6 mg/dL Normal 0.6-1.3 [facility] Comment on above: Result Comment: ER/E SD physician is notified/shown all ISTAT results. Critical values may be confirmed by laboratory testing if deemed necessary by ER attending doctor. Performed By: #### I SCRE #### [facility] [address] [place] [address] ISTAT GFR > 60.0 Normal [facility] Comment on above: Result Comment: PERF ORMED BY: [place] [address] PATHOLOGIST COPYRIGHT EXPERT LJ VERAS M.D. Performed By: #### I SCRE #### [facility] [address] [place] [address] MR cervical spine wo/w conon 09-06-2023 MR cervical spine wo/w con [facility] [place] [address] MRI Report Signed Patient: Jayde Hernandez MR#: [id number] : 1965 Acct:[id number] Age/Sex: 58 / F ADM Date: 09/06/23 Loc: MR Room: Type: [facility] Attending Dr: Chinyere Live PA-C Copies to: Chinyere Live PA-C Ordering Provider: Chinyere Live PA-C Date of Service: 09/06/23 MR/MR cervical [...] Raffi Guillen M.D.09/06/2023 11:22 AM Dictation Location: [place] [address] Transcribed By: UMA 09/06/23 1122 Dictated By: Raffi Guillen II, MD 09/06/23 1109 Signed By: 09/06/23 1122 Normal [facility] MR head/brain wo/w conon MR head/brain wo/w con [facility] [place] [address] [place] [address] MRI Report Signed Patient: Jayde Hernandez MR#: [id number] : 1965 Acct:[id number] Age/Sex: 58 / F ADM Date: 09/06/23 Loc: MR Room: Type: [facility] Attending Dr: Chinyere Live PA-C Copies to: [...] Raffi Guillen M.D.09/06/2023 11:09 AM Dictation Location: [place] [address] Transcribed By: [facility] 09/06/23 1109 Dictated By: Raffi Guillen II, MD 09/06/23 1053 Signed By: 09/06/23 1109 Normal [facility] No Panel InformationOrdered By: Chinyere Live on 09-06-2023 Bedside Estimated GFR (eGFR) > 60.0 [facility] Creatinine (Bld) [Mass/Vol]O rdered By: Chinyere Live on 07-12-2023 Creatinine [Mass/Vol] 0.7 mg/dL 0.6-1.3 [facility] Comment on above: ER/ESD physician is notified/shown all ISTAT results.Critical values may be confirmed by laboratory testing ifdeemed necessary by ER attending doctor. ISTAT XRay CREon 07-12-2023 Creatinine [Mass/Vol] 0.7 mg/dL Normal 0.6-1.3 [facility] Comment on above: Result Comment: ER/E SD physician is notified/shown all ISTAT results. Critical values may be confirmed by laboratory testing if deemed necessary by ER attending doctor. Performed By: #### I SCRE #### [facility] [address] [place] [address] ISTAT GFR > 60.0 [facility] Comment on above: Result Comment: PERF ORMED BY: [place] [address] PATHOLOGIST COPYRIGHT EXPERT LJ VERAS M.D. Performed By: #### I SCRE #### [address] No Panel InformationOrdered By: Chinyere Live on 07-12-2023 Bedside Estimated GFR (eGFR) > 60.0 [facility] XR pre/post mri xrayon 07-12 XR pre/post mri xray [facility] [place] [address] [place] [address] MRI Report Signed Patient: Jayde Hernandez MR#: [id number] : 1965 Acct:[id number] Age/Sex: 58 / F ADM Date: 07/12/23 Loc: Room: Type: [facility] Attending Dr: Chinyere Live PA-C Copies to: Chinyere Live PA-C Ordering Provider: Chinyere Live PA-C Date of Service: 07/12/23 MR/MR thoracic spine wo/w con: G35 ([id number]) XR/XR pre/post mri xray: G35 MR thoracic [...] Raffi Guillen M.D.07/12/2023 12:37 PM Dictation Location: [place] [address] Transcribed By: [facility] 07/12/23 1237 Dictated By: Raffi Guillen II, MD 07/12/23 1230 Signed By: 07/12/23 1237 Normal [facility] CBC AUTO DIFFon 05-10-2022 BASO # 0.1 103/ul Normal 0.0-0.1 [facility] Comment on above: Performed By: #### C BC #### [facility] [address] [place] [address] Dr. Brett Rosales Basophils/100 WBC (Bld) 1.0 % Normal 0.2-2.0 [facility] Comment on above: Performed By: #### C BC #### [facility] [address] [place] [address] Dr. Brett Rosales EO # 0.1 103/ul Normal 0.0-0.7 [facility] Comment on above: Performed By: #### C BC #### [facility] [address] [place] [address] Dr. Brett Rosales Eosinophils/100 WBC (Bld) 1.5 % Normal 0.9-7.0 [facility] Comment on above: Performed By: #### C BC #### [facility] [address] [place] [address] Dr. Brett Rosales Erythrocyte distribution width (RBC) [Ratio] 13.2 % Normal 11.0-15.0 [facility] Comment on above: Performed By: #### C BC #### [facility] [address] [place] [address] Dr. Brett Rosales Hematocrit (Bld) [Volume fraction] 40.1 % Normal 36.0-48.0 [facility] Comment on above: Performed By: #### C BC #### [facility] [address] [place] [address] Dr. Brett Rosales Hemoglobin (Bld) [Mass/Vol] 12.9 g/dL Normal 12.0-16.0 [facility] Comment on above: Performed By: #### C BC #### [facility] [address] [place] [address] Dr. Brett Rosales IG # 0.01 10e3/ul Normal 0.00-0.03 [facility] Comment on above: Performed By: #### C BC #### [facility] [address] [place] [address] Dr. Brett Rosales IG % 0.1 % Normal 0.0-0.5 [facility] Comment on above: Performed By: #### C BC #### [facility] [address] [place] [address] Dr. Brett Rosales LYMPH # 2.5 103/ul Normal 1.2-3.8 [facility] Comment on above: Performed By: #### C BC #### [facility] [address] [place] [address] Dr. Brett Rosales Lymphocytes/100 WBC (Bld) 30.3 % Normal 20.5-60.0 [facility] Comment on above: Performed By: #### C BC #### [facility] [address] [place] [address] Dr. Brett Rosales MANUAL DIFF REQ NO Normal [facility] Comment on above: Performed By: #### C BC #### [facility] [address] [place] [address] Dr. Brett Rosales MCH (RBC) [Entitic mass] 30.6 pg Normal 26.7-34.0 [facility] Comment on above: Performed By: #### C BC #### [facility] [address] [place] [address] [address] Brett Rosales MCHC (RBC) [Mass/Vol] 32.2 g/dL Normal 29.9-35.2 [facility] Comment on above: Performed By: #### C BC #### [facility] [address] [place] [address] [address] Brett Rosales MCV (RBC) [Entitic vol] 95.0 fL Normal 81.0-99.0 [facility] Comment on above: Performed By: #### C BC #### [facility] [address] [place] [address] [address] Brett Rosales MONO # 0.9 103/ul Critically high 0.3-0.8 [facility] Comment on above: Performed By: #### C BC #### [facility] [address] [place] [address] Dr. Brett Rosales Monocytes/100 WBC (Bld) 10.4 % Normal 1.7-12.0 [facility] Comment on above: Performed By: #### C BC #### [facility] [address] [place] [address] Dr. Brett Rosales NEUT # 4.6 103/ul Normal 1.4-6.5 [facility] Comment on above: Performed By: #### C BC #### [facility] [address] [place] [address] Dr. Brett Rosales Neutrophils/100 WBC (Bld) 56.7 % Normal 43.0-75.0 [facility] Comment on above: Performed By: #### C BC #### [facility] [address] [place] [address] [address] Brett Rosales Platelet mean volume (Bld) [Entitic vol] 11.0 fL Normal 9.5-13.5 [facility] Comment on above: Performed By: #### C BC #### [facility] [address] [place] [address] Dr. Brett Rosales PLT 262 103/ul Normal 150-450 [facility] Comment on above: Performed By: #### C BC #### [facility] [address] [place] [address] Dr. Brett Rosales RBC 4.22 106/ul Normal 4.20-5.40 [facility] Comment on above: Performed By: #### C BC #### [facility] [address] [place] [address] Dr. Brett Rosales WBC 8.2 103/ul Normal 4.0-11.0 [facility] Comment on above: Performed By: #### C BC #### [facility] [address] [place] [address] Dr. Brett Rosales PROF 14(COMP METB)on 022 Albumin [Mass/Vol] 3.5 g/dL Normal 3.4-5.0 [facility] Comment on above: Performed By: #### C MP #### [facility] [address] [place] [address] Dr. Brett Rosales Albumin/Globulin [Mass ratio] 1.0 {ratio} Normal [facility] Comment on above: Performed By: #### C MP #### [facility] [address] [place] [address] Dr. Brett Rosales ALP [Catalytic activity/Vol] 94 U/L Normal 46-116 [facility] Comment on above: Performed By: #### C MP #### [facility] [address] [place] [address] Dr. Brett Rosales ALT [Catalytic activity/Vol] 25 U/L Normal 14-59 [facility] Comment on above: Performed By: #### C MP #### [facility] [address] [place] [address] Dr. Brett Rosales Anion gap [Moles/Vol] 9.4 mmol/L Normal [facility] Comment on above: Performed By: #### C MP #### [facility] [address] [place] [address] Dr. Brett Rosales AST [Catalytic activity/Vol] 21 U/L Normal 15-37 [facility] Comment on above: Performed By: #### C MP #### [facility] [address] [place] [address] [address] Brett Rosales Bilirubin [Mass/Vol] 0.3 mg/dL Normal 0.2-1.0 [facility] Comment on above: Performed By: #### C MP #### [facility] [address] [place] [address] Dr. Brett Rosales Calcium [Mass/Vol] 9.1 mg/dL Normal 8.5-10.1 [facility] Comment on above: Performed By: #### C MP #### [facility] [address] [place] [address] Dr. Brett Rosales Chloride [Moles/Vol] 106 mmol/L Normal 98-107 [facility] Comment on above: Performed By: #### C MP #### [facility] [address] [place] [address] Dr. Brett Rosales CO2 [Moles/Vol] 31.2 mmol/L Normal 21.0-32.0 [facility] Comment on above: Performed By: #### C MP #### [facility] [address] [place] [address] Dr. Brett Rosales Creatinine [Mass/Vol] 0.69 mg/dL Normal 0.55-1.02 [facility] Comment on above: Performed By: #### C MP #### [facility] [address] [place] [address] Dr. Brett Rosales EGFR-AF KENYAN >60 Normal >=60 [facility] Comment on above: Performed By: #### C MP #### [facility] [address] [place] [address] Dr. Brett Rosales EGFR-NON AF KENYAN >60 Normal >=60 [facility] Comment on above: Performed By: #### C MP #### [facility] [address] [place] [address] Dr. Brett Rosales Globulin (S) [Mass/Vol] 3.5 g/dL Normal [facility] Comment on above: Performed By: #### C MP #### [facility] [address] [place] [address] Dr. Brett Rosales Glucose [Mass/Vol] 108 mg/dL Critically high 74-106 [facility] Comment on above: Performed By: #### C MP #### [facility] [address] [place] [address] [address] Brett Rosales Potassium [Moles/Vol] 3.6 mmol/L Normal 3.5-5.1 [facility] Comment on above: Performed By: #### C MP #### [facility] [address] [place] [address] [address] Brett Rosales Protein [Mass/Vol] 7.0 g/dL Normal 6.4-8.2 [facility] Comment on above: Performed By: #### C MP #### [facility] [address] [place] [address] [address] Brett Rosales Sodium [Moles/Vol] 143 mmol/L Normal 136-145 [facility] Comment on above: Performed By: #### C MP #### [facility] [address] [place] [address] [address] Brett Rosales Urea nitrogen [Mass/Vol] 14.0 mg/dL Normal 7.0-18.0 [facility] Comment on above: Performed By: #### C MP #### [facility] [address] [place] [address] [address] Brett Rosales Urea nitrogen/Creatinine [Mass ratio] 20.3 mg/mg Normal [facility] Comment on above: Performed By: #### C MP #### [facility] [address] [place] [address] [address] Brett Rosales XR CHEST 2 Von [...] by: LIAT WEBSTER Date: 2022-02-24 08:15 Normal [facility] MG MAMM SCREEN 3D LIBERTAD CADon 02-15-2022 MG MAMM SCREEN 3D LIBERTAD CAD Patient: JAYDE HERNANDEZ Exam Date: 02/15/2022 : 1965 Gender:F Ordering : DR CINDY RODRÍGUEZ Admission #: [id number] Family : DR JOHNY WINTERS D.O. Order #: [id number] CLICK HERE TO VIEW EXAM RADIOLOGY REPORT [...] breast cancer at age 63. LOCATION: [facility] BREAST COMPOSITION: Scattered areas fibroglandular density. FINDINGS: [...] M.D. on 02/16/2022 at 13:24 Normal [facility] CBC AUTO DIFFon 11-16-2021 BASO # 0.1 103/ul Normal 0.0-0.1 [facility] Comment on above: Performed By: #### C BC #### [facility] [address] [place] [address] [address] Brett Rosales Basophils/100 WBC (Bld) 0.7 % Normal 0.2-2.0 [facility] Comment on above: Performed By: #### C BC #### [facility] [address] [place] [address] [address] Brett Rosales EO # 0.1 103/ul Normal 0.0-0.7 [facility] Comment on above: Performed By: #### C BC #### [facility] [address] [place] [address] Dr. Brett Rosales Eosinophils/100 WBC (Bld) 1.7 % Normal 0.9-7.0 [facility] Comment on above: Performed By: #### C BC #### [facility] [address] [place] [address] Dr. Brett Rosales Erythrocyte distribution width (RBC) [Ratio] 13.2 % Normal 11.0-15.0 [facility] Comment on above: Performed By: #### C BC #### [facility] [address] [place] [address] Dr. Brett Rosales Hematocrit (Bld) [Volume fraction] 38.9 % Normal 36.0-48.0 [facility] Comment on above: Performed By: #### C BC #### [facility] [address] [place] [address] Dr. Brett Rosales Hemoglobin (Bld) [Mass/Vol] 12.5 g/dL Normal 12.0-16.0 [facility] Comment on above: Performed By: #### C BC #### [facility] [address] [place] [address] Dr. Brett Rosales IG # 0.02 10e3/ul Normal 0.00-0.03 [facility] Comment on above: Performed By: #### C BC #### [facility] [address] [place] [address] Dr. Brett Rosales IG % 0.2 % Normal 0.0-0.5 [facility] Comment on above: Performed By: #### C BC #### [facility] [address] [place] [address] Dr. Brett Rosales LYMPH # 2.9 103/ul Normal 1.2-3.8 [facility] Comment on above: Performed By: #### C BC #### [facility] [address] [place] [address] Dr. Brett Rosales Lymphocytes/100 WBC (Bld) 34.3 % Normal 20.5-60.0 [facility] Comment on above: Performed By: #### C BC #### [facility] [address] [place] [address] Dr. Brett Rosales MANUAL DIFF REQ NO Normal [facility] Comment on above: Performed By: #### C BC #### [facility] [address] [place] [address] Dr. Brett Rosales MCH (RBC) [Entitic mass] 31.0 pg Normal 26.7-34.0 [facility] Comment on above: Performed By: #### C BC #### [facility] [address] [place] [address] Dr. Brett Rosales MCHC (RBC) [Mass/Vol] 32.1 g/dL Normal 29.9-35.2 [facility] Comment on above: Performed By: #### C BC #### [facility] [address] [place] [address] Dr. Brett Rosales MCV (RBC) [Entitic vol] 96.5 fL Normal 81.0-99.0 [facility] Comment on above: Performed By: #### C BC #### [facility] [address] [place] [address] Dr. Brett Rosales MONO # 0.7 103/ul Normal 0.3-0.8 [facility] Comment on above: Performed By: #### C BC #### [facility] [address] [place] [address] Dr. Brett Rosales Monocytes/100 WBC (Bld) 8.5 % Normal 1.7-12.0 [facility] Comment on above: Performed By: #### C BC #### [facility] [address] [place] [address] Dr. Brett Rosales NEUT # 4.6 103/ul Normal 1.4-6.5 [facility] Comment on above: Performed By: #### C BC #### [facility] [address] [place] [address] Dr. Brett Rosales Neutrophils/100 WBC (Bld) 54.6 % Normal 43.0-75.0 [facility] Comment on above: Performed By: #### C BC #### [facility] [address] [place] [address] Dr. Brett Rosales Platelet mean volume (Bld) [Entitic vol] 10.7 fL Normal 9.5-13.5 [facility] Comment on above: Performed By: #### C BC #### [facility] [address] [place] [address] Dr. Brett Rosales PLT 276 103/ul Normal 150-450 [facility] Comment on above: Performed By: #### C BC #### [facility] [address] [place] [address] Dr. Brett Rosales RBC 4.03 106/ul Critically low 4.20-5.40 [facility] Comment on above: Performed By: #### C BC #### [facility] [address] [place] [address] Dr. Brett Rosales WBC 8.5 103/ul Normal 4.0-11.0 [facility] Comment on above: Performed By: #### C BC #### [facility] [address] [place] [address] Dr. Brett Rosales PROF 14(COMP METB)on 022 Albumin [Mass/Vol] 3.5 g/dL Normal 3.4-5.0 [facility] Comment on above: Performed By: #### C MP #### [facility] [address] [place] [address] Dr. Brett Rosales Albumin/Globulin [Mass ratio] 1.1 {ratio} Normal [facility] Comment on above: Performed By: #### C MP #### [facility] [address] [place] [address] Dr. Brett Rosales ALP [Catalytic activity/Vol] 75 U/L Normal 46-116 [facility] Comment on above: Performed By: #### C MP #### [facility] [address] [place] [address] Dr. Brett Rosales ALT [Catalytic activity/Vol] 27 U/L Normal 14-59 [facility] Comment on above: Performed By: #### C MP #### [facility] [address] [place] [address] Dr. Brett Rosales Anion gap [Moles/Vol] 9.3 mmol/L Normal [facility] Comment on above: Performed By: #### C MP #### [facility] [address] [place] [address] Dr. Brett Rosales AST [Catalytic activity/Vol] 22 U/L Normal 15-37 [facility] Comment on above: Performed By: #### C MP #### [facility] [address] [place] [address] Dr. Brett Rosales Bilirubin [Mass/Vol] 0.4 mg/dL Normal 0.2-1.3 [facility] Comment on above: Performed By: #### C MP #### [facility] [address] [place] [address] Dr. Brett Rosales Calcium [Mass/Vol] 8.4 mg/dL Critically low 8.5-10.[address] [facility] Comment on above: Performed By: #### C MP #### [facility] [address] [place] [address] Dr. Brett Rosales Chloride [Moles/Vol] 105 mmol/L Normal 98-107 [facility] Comment on above: Performed By: #### C MP #### [facility] [address] [place] [address] Dr. Brett Rosales CO2 [Moles/Vol] 31.1 mmol/L Critically high 22.0-30.0 [facility] Comment on above: Performed By: #### C MP #### [facility] [address] [place] [address] Dr. Brett Rosales Creatinine [Mass/Vol] 0.73 mg/dL Normal 0.52-1.04 [facility] Comment on above: Performed By: #### C MP #### [facility] [address] [place] [address] Dr. Brett Rosales EGFR-AF KENYAN >60 Normal >=60 [facility] Comment on above: Performed By: #### C MP #### [facility] [address] [place] [address] Dr. Brett Rosales EGFR-NON AF KENYAN >60 Normal >=60 [facility] Comment on above: Performed By: #### C MP #### [facility] [address] [place] [address] [address] Brett Rosales Globulin (S) [Mass/Vol] 3.2 g/dL Normal [facility] Comment on above: Performed By: #### C MP #### [facility] [address] [place] [address] [address] Brett Rosales Glucose [Mass/Vol] 105 mg/dL Normal 74-106 [facility] Comment on above: Performed By: #### C MP #### [facility] [address] [address] [address] Brett Rosales Potassium [Moles/Vol] 3.4 mmol/L Normal 3.4-5.0 [facility] Comment on above: Performed By: #### C MP #### [facility] [address] [place] [address] Dr. Brett Rosales Protein [Mass/Vol] 6.7 g/dL Normal 6.1-8.2 [facility] Comment on above: Performed By: #### C MP #### [facility] [address] [address] [address] Brett Rosales Sodium [Moles/Vol] 142 mmol/L Normal 137-145 [facility] Comment on above: Performed By: #### C MP #### [facility] [address] [place] [address] Dr. Brett Rosales Urea nitrogen [Mass/Vol] 12.0 mg/dL Normal 7.0-18.0 [facility] Comment on above: Performed By: #### C MP #### [facility] [address] [place] [address] Dr. Brett Rosales Urea nitrogen/Creatinine [Mass ratio] 16.4 mg/mg Normal [facility] Comment on above: Performed By: #### C MP #### [facility] [address] [place] [address] Dr. Brett Rosales MRI LSPINE WO W [...] by: DENYS WALLACE Date: 2021-09-09 15:31 Normal [facility] PROGRESSon 10-06-2017 PROGRESS HNO ID: [id number] Author: Ailyn Patten (Fel) Service: (none) Author Type: Fellow Type: Progress Notes Filed: 10/06/2017 5:17 PM Note Text: NMO/MOG (METER REPAIRER HELPER demyelinating disease evaluation) negative at [facility] Normal [facility] Angiotens. Conv Enzon 2017 Angiotens. Conv Enz 41 U/L Normal <52 [facility] Comment on above: Result Comment: Dianne ficially low JERRY levels may be found for patients taking JERRY inhibitors or after the administration of gadolinium. Performed By: #### V ITD, ENAID, HREMOP, TSH, HIV12C, SYPHGX, LYMEGM, VZVG2, COPPER, INFTBG, JERRY, CCP, JCVIDX ####[facility] [place], [place] [phone] CCP Antibody, IgGon 09-27-19 18 CCP Antibody, IgG <15 Normal <20 [facility] Comment on above: Result Comment: < 20 units: Grczlejt42-64 units: Weak Jnhgigwr26-60 units: Moderate Positive> 60 units: Strong PositiveThe following results were obtained with the [employer] CCP3 IgG ADAM. Anti-CCP values obtained with different manufacturers' assay methods may not be used interchangeably. The magnitude of the reported IgG levels cannot be correlated to an endpoint titer. Performed By: #### V ITD, ENAID, HREMOP, TSH, HIV12C, SYPHGX, LYMEGM, VZVG2, COPPER, INFTBG, JERRY, CCP, JCVIDX ####[facility] [address], [place] [phone] CNOVon 09-27-2017 CNOV Office Visit (NEMN) JAYDE HERNANDEZ ([id number]) 1965 FDate Time Provider Department09/27/17 1:[address] [facility] During your visit today, we recorded the following information about you: Pulse Respiration Blood pressure Weight 84/minute 16/minute 155/65 51.3 kg Height 1.524 Yovani San MD 10/01/2017 9:26 PM [facility] FOR MULTIPLE SCLEROSISNEW PATIENT EVALUATION/CONSULTATIONR eferral source:SELFAlso followed by:Johny Winters MD ([facility])[address] [place] [address]Euiqy: [phone]: [phone] Nixdict[address] [place] [address]Iqejg: [phone]: [phone] NEUROLOGIC DIAGNOSIS: Multiple sclerosisDISEASE SUMMARYDate of onset: [...] expected to be with me at the [facility].She states that in April 2017, she noticed [...] well.PAST HISTORY:PAST MEDICAL HISTORYDiagnosis Date- Cervical cancer ([facility]) 1997 s/p hysterectomy- Hypertension- Migraine- MS (multiple sclerosis) ([facility])- OsteoporosisPAST SURGICAL HISTORYProcedure Laterality Date- HYSTERECTOMY 1997Transfusions: [...] in the arms and legs was performed tdonlwqcfofkvo-hi-iybne, rapid-alternating, and fine movements. Rapid movements wereimpaired [...] at this time. She will return to [place] in 6 months to evaluate herprogress on [...] patient was evaluated with Dr. San.Ailyn Patten, [facility]ONlinical Neuroimmunology FellowIndiana University Health [facility] for Multiple SclerosisNEUROLOGY STAFF ADDENDUMPatient seen with the fellow. I agree with the fellow's history, examination,and the plan as noted above was formulated with my direct input.Soraya Davidson, Department of NeurologyIndiana University Health Arnett Hospital for Multiple SclerosisAilyn Patten MD 09/27/2017 4:49 [...] [M81.8]Order(s):TUBES - DRAW EXTRA [SQXTUBE] Order #: [id number] FUTURE ANTI VASILIY ID [SQENAID] Order #: [id number] FUTURE CCP ANTIBODY IGG [SQCCP] Order #: [id number] FUTURE VITAMIN D 25 HYDROXY [SQVITD] Order #: [id number] FUTURE COPPER BLOOD [SQCOPPER] Order #: [id number] FUTURE TSH BLD [SQTSH] Order #: [id number] FUTURE LYME AB IGG + IGM [SQLYMEGM] Order #: [id number] FUTURE HIV 1,2 COMBO (AG/AB) [SQHIV12] Order #: [id number] FUTURE SYPHILIS IGG WITH CONF [SQSYPHGX] Order #: [id number] FUTURE JERRY/ANGIOTENSIN BLD [SQACE] Order #: [id number] FUTURE HEP REMOTE PANEL BL [SQHREMOP] Order #: [id number] FUTURE JCV ANTIBODY AND INDEX WITH REFLEX [SQJCVIDX] Order #: [id number] FUTURE BLOOD TB SCREEN [SQINFTBG] Order #: [id number] FUTURE VARICELLA ZOSTER IGG [SQVZVG] Order #: [id number] FUTUREPrescriptions as of 09/27/2017 Sig: GABAPENTIN 100 [...] for Sandor.Follow-up and Disposition History RecordedEncounter Number: [id number] Status:Closed by ALMA SAN MD on 10/01/17 Normal [facility] Copperon 09-27-2017 Copper 106 ug/dL Normal 85-155 [facility] Comment on above: Result Comment: This test was developed and its performance characteristics determined by [facility]'s Alma Tay [facility] [place] [place] ([facility]).It has not been cleared or approved by the FDA. -[facility] is regulated under CLIA as qualified to perform high-complexity testing.This test is used for clinical purposes. It should not be regarded as investigational or for research. Performed By: #### V ITD, ENAID, HREMOP, TSH, HIV12C, SYPHGX, LYMEGM, VZVG2, COPPER, INFTBG, JERRY, CCP, JCVIDX ####[place] [address] [place], [place] [phone] VASILIY Antibody Panelon 018 Centromere <0.2 Normal <1.0 [facility] Comment on above: Result Comment: NEGA TIVENegative: <1.0 AIPositive: >0.9 AI Performed By: #### V ITD, ENAID, HREMOP, TSH, HIV12C, SYPHGX, LYMEGM, VZVG2, COPPER, INFTBG, JERRY, CCP, JCVIDX ####[address] [phone] Chromatin Antibody <0.2 Normal <1.0 [facility] Comment on above: Result Comment: NEGA TIVENegative: <1.0 AIPositive: >0.9 AI Performed By: #### V ITD, ENAID, HREMOP, TSH, HIV12C, SYPHGX, LYMEGM, VZVG2, COPPER, INFTBG, JERRY, CCP, JCVIDX ####[place] [phone] ALVARO 1 Antibody <0.2 Normal <1.0 [facility] Comment on above: Result Comment: NEGA TIVENegative: <1.0 AIPositive: >0.9 AI Performed By: #### V ITD, ENAID, HREMOP, TSH, HIV12C, SYPHGX, LYMEGM, VZVG2, COPPER, INFTBG, JERRY, CCP, JCVIDX ####[place] [phone] Ribosomal JAPANESE TUTOR <0.2 Normal <1.0 [facility] Comment on above: Result Comment: NEGA TIVENegative: <1.0 AIPositive: >0.9 AI Performed By: #### V ITD, ENAID, HREMOP, TSH, HIV12C, SYPHGX, LYMEGM, VZVG2, COPPER, INFTBG, JERRY, CCP, JCVIDX ####[place] [phone] JAPANESE TUTOR Antibody 0.9 AI Normal <1.0 [facility] Comment on above: Result Comment: NEGA TIVENegative: <1.0 AIPositive: >0.9 AI Performed By: #### V ITD, ENAID, HREMOP, TSH, HIV12C, SYPHGX, LYMEGM, VZVG2, COPPER, INFTBG, JERRY, CCP, JCVIDX ####[place] [phone] Scleroderma IgG Ab <0.2 Normal <1.0 [facility] Comment on above: Result Comment: NEGA TIVENegative: <1.0 AIPositive: >0.9 AI Performed By: #### V ITD, ENAID, HREMOP, TSH, HIV12C, SYPHGX, LYMEGM, VZVG2, COPPER, INFTBG, JERRY, CCP, JCVIDX ####[address] [phone] Sm Antibody <0.2 Normal <1.0 [facility] Comment on above: Result Comment: NEGA TIVENegative: <1.0 AIPositive: >0.9 AI Performed By: #### V ITD, ENAID, HREMOP, TSH, HIV12C, SYPHGX, LYMEGM, VZVG2, COPPER, INFTBG, JERRY, CCP, JCVIDX ####[address] [phone] SSA Antibody <0.2 Normal <1.0 [facility] Comment on above: Result Comment: NEGA TIVENegative: <1.0 AIPositive: >0.9 AI Performed By: #### V ITD, ENAID, HREMOP, TSH, HIV12C, SYPHGX, LYMEGM, VZVG2, COPPER, INFTBG, JERRY, CCP, JCVIDX ####[address] [phone] SSB Antibody <0.2 Normal <1.0 [facility] Comment on above: Result Comment: NEGA TIVENegative: <1.0 AIPositive: >0.9 AI Performed By: #### V ITD, ENAID, HREMOP, TSH, HIV12C, SYPHGX, LYMEGM, VZVG2, COPPER, INFTBG, JERRY, CCP, JCVIDX ####[address] [phone] HIV 12 Combo (Ag/Ab)on 09-27 HIV 12 Ag/Ab Non Reactive Normal Non Reactive [facility] Comment on above: Result Comment: (NOT E)HIV Information: [place] Rev. Code 3701.243(E):This information has been disclosed [...] LYMEGM, VZVG2, COPPER, INFTBG, JERRY, CCP, JCVIDX ####[address] [phone] Hepatitis Remote Panelon BSA (Body Surface Area) Negative Normal Negative [facility] Comment on above: Performed By: #### V ITD, ENAID, HREMOP, TSH, HIV12C, SYPHGX, LYMEGM, VZVG2, COPPER, INFTBG, JERRY, CCP, JCVIDX ####[address] [phone] Hep B Core Ab,Total Negative Normal Negative [facility] Comment on above: Performed By: #### V ITD, ENAID, HREMOP, TSH, HIV12C, SYPHGX, LYMEGM, VZVG2, COPPER, INFTBG, JERRY, CCP, JCVIDX ####[address] [phone] Hepatitis C Ab IA Negative Normal Negative [facility] Comment on above: Performed By: #### V ITD, ENAID, HREMOP, TSH, HIV12C, SYPHGX, LYMEGM, VZVG2, COPPER, INFTBG, JERRY, CCP, JCVIDX ####[address] [phone] HepB Surface Ab,Qual Negative Normal Negative [facility] Comment on above: Result Comment: NEGA TIVE Performed By: #### V ITD, ENAID, HREMOP, TSH, HIV12C, SYPHGX, LYMEGM, VZVG2, COPPER, INFTBG, JERRY, CCP, JCVIDX ####[place] [address] [place], [place] [phone] JCV Ab/Indx & Reflexon 09-27 JCV Antibody Positive Critically abnormal [facility] Comment on above: Result Comment: (NOT E)Index [...] confirmpresence or absence of JCV-specific antibodies.Test Performed at:[facility] [place] [phone] Guerita Callahan MD Performed By: #### V ITD, ENAID, HREMOP, TSH, HIV12C, SYPHGX, LYMEGM, VZVG2, COPPER, INFTBG, JERRY, CCP, JCVIDX ####[place] [address] [place], [place] [phone] JCV Index Value 3.41 High [facility] Comment on above: Performed By: #### V ITD, ENAID, HREMOP, TSH, HIV12C, SYPHGX, LYMEGM, VZVG2, COPPER, INFTBG, JERRY, CCP, JCVIDX ####[place] [address] [place], [place] [phone] Lyme IgG/IgM ABon 09-27-2017 Lyme IgG/IgM AB Negative Normal Negative [facility] Comment on above: Result Comment: Abse nce of detectable Borrelia burgdorferi antibodies. A negative result does not exclude the possibility of Borrelia burgdorferi infection. If early Lyme disease is suspected, a second sample should be collected and tested two to four weeks later. Performed By: #### V ITD, ENAID, HREMOP, TSH, HIV12C, SYPHGX, LYMEGM, VZVG2, COPPER, INFTBG, JERRY, CCP, JCVIDX ####[address] [address] [place], [place] [phone] Lyme Interp No evidence of antibodies to Borrelia burgdorferi. Normal No evidence of antibodies to Borrelia burgdorferi. [facility] Comment on above: Performed By: #### V ITD, ENAID, HREMOP, TSH, HIV12C, SYPHGX, LYMEGM, VZVG2, COPPER, INFTBG, JERRY, CCP, JCVIDX ####[place] [address] [place], [place] [phone] 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 Normal [facility] Comment on above: Performed By: #### V ITD, ENAID, HREMOP, TSH, HIV12C, SYPHGX, LYMEGM, VZVG2, COPPER, INFTBG, JERRY, CCP, JCVIDX ####[address] [place], [place] [phone] PROGRESSon 09-27-2017 PROGRESS HNO ID: [id number]: Alma Simmons: (none)Author Type: PhysicianType: Progress NotesFiled: 10/01/2017 9:26 PMNote Text:[facility] MULTIPLE SCLEROSISNEW PATIENT EVALUATION/CONSULTATIONR eferral source:SELFAlso followed by:Johny Winters MD ([facility])[address], [place] [address]Dayps: [phone]: [phone] Nixdict[address] [address]Mufun: [phone]: [phone] NEUROLOGIC DIAGNOSIS: Multiple sclerosisDISEASE SUMMARYDate of onset: [...] is expected to [facility].She states that in April 2017, she noticed [...] s/p hysterectomy- Hypertension- Migraine- MS (multiple sclerosis) ([facility])- OsteoporosisPAST SURGICAL HISTORYProcedure Laterality Date- HYSTERECTOMY 1997Transfusions: [...] in the arms and legs was performed lpooenrtxhscju-ld-kyvzs, rapid-alternating, and fine movements. Rapid movementswere impaired [...] at this time. She will return to [place] in 6 months to evaluateher progress on [...] patient was evaluated with Dr. San.Ailyn Patten, [facility]ical Neuroimmunology FellowWiregrass Medical Center Multiple SclerosisNEUROLOGY STAFF ADDENDUMPatient seen with the fellow. I agree with the fellow's history,examination, and the plan as noted above was formulated with my directinput.Soraya Davidson, Department of NeurologyWiregrass Medical Center Multiple Sclerosis Normal [facility] Syphilis IgG with Confon Syphilis IgG <0.2 Normal [facility] Comment on above: Result Comment: Anti body index is interpreted as follows:Non reactive SPECIMENS <=0.8Weak reactive SPECIMENS 0.9 to 5.9Reactive SPECIMENS >=6.0 Performed By: #### V ITD, ENAID, HREMOP, TSH, HIV12C, SYPHGX, LYMEGM, VZVG2, COPPER, INFTBG, JERRY, CCP, JCVIDX ####[facility] [place], [place] [phone] Syphilis IgG, Qual Nonreactive Normal Nonreactive [facility] Comment on above: Result Comment: In c onjunction with this result, the immune status of the patient should be evaluated based on their clinical status, related risk factors, and other diagnostic test results. Performed By: #### V ITD, ENAID, HREMOP, TSH, HIV12C, SYPHGX, LYMEGM, VZVG2, COPPER, INFTBG, JERRY, CCP, JCVIDX ####[place] [address] TB by QuantiFERONon 09-27-19 18 Interpretation No evidence of curre nt or previous infection with Mycobacterium tuberculosis. Normal [facility] Comment on above: Performed By: #### V ITD, ENAID, HREMOP, TSH, HIV12C, SYPHGX, LYMEGM, VZVG2, COPPER, INFTBG, JERRY, CCP, JCVIDX ####[place] [address] Mitogen Response >10.00 Normal >0.49 [facility] Comment on above: Performed By: #### V ITD, ENAID, HREMOP, TSH, HIV12C, SYPHGX, LYMEGM, VZVG2, COPPER, INFTBG, JERRY, CCP, JCVIDX ####[place] [address] TB Antigen Response 0.00 IU/mL Normal <0.35 [facility] Comment on above: Performed By: #### V ITD, ENAID, HREMOP, TSH, HIV12C, SYPHGX, LYMEGM, VZVG2, COPPER, INFTBG, JERRY, CCP, JCVIDX ####[place] [address] TB Result Negative Normal Negative [facility] Comment on above: Performed By: #### V ITD, ENAID, HREMOP, TSH, HIV12C, SYPHGX, LYMEGM, VZVG2, COPPER, INFTBG, JERRY, CCP, JCVIDX ####[place] [phone] TSHon 09-27-2017 Thyroid stimulating hormone (TSH) 2.500 uU/mL Normal 0.400-5.500 [facility] Comment on above: Performed By: #### V ITD, ENAID, HREMOP, TSH, HIV12C, SYPHGX, LYMEGM, VZVG2, COPPER, INFTBG, JERRY, CCP, JCVIDX ####[address] [phone] Varicella Zoster IgGon 09-27 V. zoster IgG, Qual Positive Critically abnormal Negative [facility] Comment on above: Result Comment: Pres ence of detectable VZV IgG antibodies. A positive result generally indicates exposure to the pathogen or administration of specific immunoglobulins, but is no indication of active infection or stage of disease. Performed By: #### V ITD, ENAID, HREMOP, TSH, HIV12C, SYPHGX, LYMEGM, VZVG2, COPPER, INFTBG, JERRY, CCP, JCVIDX ####[address] [phone] Varicella Zoster IgG 1075.0 Index Value Normal [facility] Comment on above: Result Comment: Inde x Values are Interpreted as Follows:Negative specimens <135.0Equivocal specimens 135.0 to 164.9Positive specimens >164.9The magnitude of the measured result is not indicative of the amount of antibody present. Performed By: #### V ITD, ENAID, HREMOP, TSH, HIV12C, SYPHGX, LYMEGM, VZVG2, COPPER, INFTBG, JERRY, CCP, JCVIDX ####[address] [phone] Vitamin D 25 Hydroxyon 09-27 Vitamin D 25 Hydroxy 123.0 ng/mL High 31.0-80.0 [facility] Comment on above: Result Comment: Clas sification of 25 [place] Vitamin D status:Insufficiency/Moderate Deficiency: < or = 30 ng/mLSufficiency/Optimal Levels: 31 to 80 ng/mLToxicity: > 100 ng/mLTest performed by chemiluminescent immunoassay. Performed By: #### V ITD, ENAID, HREMOP, TSH, HIV12C, SYPHGX, LYMEGM, VZVG2, COPPER, INFTBG, JERRY, CCP, JCVIDX ####[facility] [address] [place], [place] [phone] HI-MRI C-SPINE WO/W CON IMPO RTon 07-11-2017 HI-MRI C-SPINE WO/W CON IMPORT Images were obtained outside of [facility] [id number] Normal [facility] HI-MRI T-SPINE WO/W CON IMPO RTon 07-11-2017 HI-MRI T-SPINE WO/W CON IMPORT Images were obtained outside of [facility] [id number] Normal [facility] MR-MRI BRAIN WO CON IMPORTon 05-16-2017 MR-MRI BRAIN WO CON IMPORT Images were obtained outside of [facility] [id number] Normal [facility] Vital Signs Date Time Vital Sign Value Performing Clinician Facility 09-06-2023 09:48-0500 Body height 152.4 cm DO Johny Ball Work Phone: [facility] 09-06-2023 09:48-0500 Body weight 60.78 kg DO Johny Ball Work Phone: [facility] 07-12-2023 11:28-0500 Body height 152.4 cm DO Johny Ball Work Phone: [facility] 07-12-2023 11:28-0500 Body weight 60.78 kg DO Johyn Ball Work Phone: [facility] 03-01-2023 10:00-0400 Body height 154.94 cm Johny Ball Other [facility] [employer] Other 03-01-2023 10:00-0400 Body mass index (BMI) [Ratio] 26.15 kg/m2 Johny Ball Other [employer] Other 03-01-2023 10:00-0400 Body weight 62.78 kg Johny Ball Other [employer] Other 03-01-2023 10:00-0400 Diastolic blood pressure 74 mm[Hg] Johny Winters Other [employer] Other 03-01-2023 10:00-0400 Respiratory rate 12 /min Johny Winters Other [employer] Other 03-01-2023 10:00-0400 Systolic blood pressure 138 mm[Hg] Johny Winters Other [employer] Other 11-02-2021 14:20-0400 Body height 154.94 cm Ezequiel Agudelo Other [employer] Other 11-02-2021 14:20-0400 Body mass index (BMI) [Ratio] 25.69 kg/m2 Ezequiel Agudelo Other [employer] Other 11-02-2021 14:20-0400 Body weight 61.69 kg Ezequiel Agudelo Other [employer] Other Encounters Encounter Date Encounter Type Care Provider Facility Start: 12-13-2023 End: 12-13-2023 ambulatory CHINYERE LIVE Not Available Start: 12-12-2023 End: 12-12-2023 ambulatory CINDY RODRÍGUEZ Not Available Start: 09-06-2023 End: 09-06-2023 ambulatory Chinyere Live Facility:[facility] Start: 09-06-2023 End: 09-06-2023 ambulatory DO Johny Ball Work Phone: [facility] Work Phone: Start: 09-06-2023 End: 09-06-2023 Patient encounter procedure DO Johny Ball Work Phone: [facility] [employer] Work Phone: Start: 07-12-2023 End: 07-12-2023 ambulatory Johny Ball Facility:[facility] Start: 07-12-2023 End: 07-12-2023 Patient encounter procedure DO Johny Winters Work Phone: [facility] [employer] Work Phone: Start: 04-07-2023 End: 04-07-2023 ambulatory Johny Winters Other [employer] Other Start: 04-07-2023 Nursing evaluation o f patient and report Johny Winters [facility] Start: 03-01-2023 End: 03-01-2023 ambulatory Johny Winters Other [employer] Other Start: 03-01-2023 Encounter for genera l adult medical examination without abnormal findings Johny Winters [facility] Start: 03-01-2023 Periodic preventive med est patient 40-64yrs Johny Winters [facility] Start: 12-24-2022 End: 12-24-2022 ambulatory Johny Winters Other [employer] Other Start: 12-24-2022 Telephone encounter Johny Winters [facility] Start: 05-10-2022 End: 05-11-2022 ambulatory CHINYERE LIVE Facility:[facility] Start: 02-23-2022 End: 02-24-[address] JOHNY WINTERS Facility:[facility] Start: 02-15-2022 End: 02-16-[address] CINDY RODRÍGUEZ Facility:[facility] Start: 11-16-2021 End: 11-17-[address] DENYS JACKSON Facility:[facility] Start: 11-02-2021 End: 11-02-2021 ambulatory Ezequiel Agudelo Other [employer] Other Start: 11-02-2021 Office outpatient ne w 45 minutes Ezequiel Agudelo [facility] Start: 09-09-2021 End: 09-10-[address] JOHNY WINTERS Facility:[facility] Start: 08-30-2021 End: 08-30-[address] JOHNY WINTERS Facility:[facility] Start: 09-27-2017 End: 09-27-2017 Ambulatory [facility] Start: 09-27-2017 End: 10-02-2017 [facility] Procedures Date Procedure Procedure Detail Performing Clinician Start: 09-06-2023 MRI of cervical spin e with contrast DO Johny Winters Work Phone: Start: 09-06-2023 MRI of head DO Jovani lopez [employer] Work Phone: Start: 07-12-2023 MRI of thoracic spin e with contrast DO Johny Winters Work Phone: Start: 07-12-2023 XR pre/post mri xray DO Johny Winters Work Phone: Immunizations Immunization Date Immunization Notes Care Provider Fa dileep 04-07-2023 influenza, injectabl e, quadrivalent, preservative free Johny Ball Other [employer] Other 05-06-2022 influenza virus vaccine, split virus (incl. purified surface antigen) Johny Ball Other [employer] Other 05-06-2022 influenza, injectabl e, quadrivalent, contains preservative Johny Ball Other [employer] Other 04-14-2021 influenza virus vaccine, split virus (incl. purified surface antigen) Johny Ball Other [employer] Other 04-17-2020 pneumococcal polysaccharide vaccine, 23 valent Johny Ball Other [employer] Other 12-31-2019 pneumococcal conjuga te vaccine, 13 valent Johny Ball Other [employer] Other 04-08-2019 influenza virus vaccine, split virus (incl. purified surface antigen) Johny Ball Other [employer] Other 05-05-2017 influenza virus vaccine, split virus (incl. purified surface antigen) Johny Ball Other [employer] Other 05-04-2015 tetanus and diphther ia toxoids, adsorbed, preservative free, for adult use (5 Lf of tetanus toxoid and 2 Lf of diphtheria toxoid) Johny Winters Other [employer] Other 04-30-2013 tetanus and diphther ia toxoids, adsorbed, preservative free, for adult use (5 Lf of tetanus toxoid and 2 Lf of diphtheria toxoid) Johny Winters Other [employer] Other Payers Date Payer Category Payer Self-pay [id number] 2018 Medicaid [id number] 1965 Unknown [id number] 1963 Unknown [id number] [id number] 1963 Unknown [id number] [id number] 1963 Unknown [id number] [id number] 1963 Unknown [id number] [id number] 1963 Unknown [id number] [id number] 1963 Unknown [id number] 2.16.840.1.754265.3.579.2.1259 1963 Unknown [id number] 2.16.840.1.131569.3.579.2.1259 1959 Unknown [id number] [id number] Private Health Insurance [facility] [id number] Unknown [id number] [id number] Unknown [id number] 2.16.840.1.038625.3.579.2.531 Social History Date Type Detail Facility Sex Assigned At [employer] Other Start: 1965 Sex Assigned At Female F [facility] Evaluation note 03-01-2023 Note Date & [...] mammogram for breast cancer (ICD-10 - Z12.31) 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 Instructed on monthly SBE [employer] Other Evaluation note 11-02-2021 Note Date & [...] stable Oct, Lumbar radiculopathy (ICD-10 - M54.16) [employer] Other Evaluation note Note Date & Type Note Facility Evaluation note No Information [facility] [employer] Other Evaluation note Note Date & Type Note Facility Evaluation note No assessment information availa [facility] Work Phone: History general Narrative - Reported Note Date & Type Note Facility History general Narrative - Reported Type Medical History hypercholesterolemia Medical History multiple sclerosis Medical History osteoporosis Medical History cervical cancer Surgical History hysterectomy Hospitalization History See Above [employer] Other Reason for visit Narrative Note Date & Type Note Facility Reason for visit Narrative Referral Dr Worrell all Low Back Pain [facility] [employer] Other Summary Purpose Family History No Family [...] section and content) DATE CREATED AUTHOR 01/19/2018 [facility] DATE CREATED AUTHOR AUTHOR'S ORGANIZ ATION 05/21/2022 [facility] DATE CREATED AUTHOR AUTHOR'S ORGANIZ ATION 09/14/2023 [facility] DATE CREATED AUTHOR AUTHOR'S ORGANIZ ATION 12/13/2023 [facility] dical Specialists EPIC REASON FOR VISIT (unrecogniz ed section and content) flu [facility] Care Teams (unrecognized sec tion and content) [...] BE BASED ON THE PRIMARY CLINICAL RECORDS. [facility]. provides no warranty or guarantee of the accuracy or completeness of information in this document.
[2024-03-05 10:56] LABS: Calcium 9.2 mg/dL (8.5-10.1); Estimated GFR (African America >60 (>=60); Estimated GFR (Non-African Ame >60 (>=60); Magnesium 1.7 mg/dL (1.8-2.4); Phosphorus 3.8 mg/dL (2.6-4.7)
== END 2024-03-05 09:59 | disposition home or self-care (01) ==
LOC: LAB 09:59
PROVIDERS: PCP Internal Medicine; Visit Provider Internal Medicine Rheumatology
DX: M81.0 Age-related osteoporosis without current pathological fracture (principal); Z79.899 Other long term (current) drug therapy
CPT/HCPCS: 36415; 82310; 82565; 83735; 84100; 84520

== ENCOUNTER 2024-03-05 10:04 | Outpatient (OUT) | payer OTHER, SELFPAY ==
--- OUTSIDE RECORDS SUMMARY | 2024-03-05 10:18 | XMS_ITS | CCD ---
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 ISTAT XRay CREon 09-06-2023 Creatinine [Mass/Vol] 0.6 mg/dL Normal 0.6-1.3 [facility] Comment on above: Result Comment: ER/E SD physician is notified/shown all ISTAT results. Critical values may be confirmed by laboratory testing if deemed necessary by ER attending doctor. Performed By: #### I SCRE #### [facility] [address] [place] [address] ISTAT GFR > 60.0 Normal [facility] Comment on above: Result Comment: PERF ORMED BY: [place] [address] PATHOLOGIST MANAGER HEALTH LJ VERAS M.D. Performed By: #### I SCRE #### [facility] [address] [place] [address] MR cervical spine wo/w conon 09-06-2023 MR cervical spine wo/w con [facility] [place] [address] MRI Report Signed Patient: Jayde Hernandez MR#: [id number] : 1965 Acct:[id number] Age/Sex: 58 / F ADM Date: 09/06/23 Loc: MR Room: Type: [facility] Attending Dr: Chinyere Live PA-C Copies to: [...] Raffi Guillen M.D.09/06/2023 11:22 AM Dictation Location: [place] [address] Transcribed By: [facility] 09/06/23 1122 Dictated By: Raffi Guillen II, MD 09/06/23 1109 Signed By: 09/06/23 1122 Normal [facility] MR head/brain wo/w conon MR head/brain wo/w con [facility] [place] [address] [place] [id number] MRI Report Signed Patient: Jayde Hernandez MR#: [id number] : 1965 Acct:[id number] Age/Sex: 58 / F ADM Date: 09/06/23 Loc: MR Room: Type: [facility] Attending Dr: Chinyere Live PA-C Copies to: [...] Raffi Guillen M.D.09/06/2023 11:09 AM Dictation Location: [place] [address] Transcribed By: [facility] 09/06/23 1109 Dictated By: Raffi Guillen II, MD 09/06/23 1053 Signed By: 09/06/23 1109 Normal [facility] No Panel InformationOrdered By: Chinyere Live on 09-06-2023 Bedside Estimated GFR (eGFR) > 60.0 [facility] Creatinine (Bld) [Mass/Vol]O rdered By: Chinyere Live on 07-12-2023 Creatinine [Mass/Vol] 0.7 mg/dL 0.6-1.3 [facility] Comment on above: ER/ESD physician is notified/shown all ISTAT results.Critical values may be confirmed by laboratory testing ifdeemed necessary by ER attending doctor. ISTAT XRay CREon 07-12-2023 Creatinine [Mass/Vol] 0.7 mg/dL Normal 0.6-1.3 [facility] Comment on above: Result Comment: ER/E SD physician is notified/shown all ISTAT results. Critical values may be confirmed by laboratory testing if deemed necessary by ER attending doctor. Performed By: #### I SCRE #### [facility] [address] [place] [address] ISTAT GFR > 60.0 [facility] Comment on above: Result Comment: PERF ORMED BY: [place] [address] PATHOLOGIST MANAGER HEALTH LJ VERAS M.D. Performed By: #### I SCRE #### [address] No Panel InformationOrdered By: Chinyere Live on 07-12-2023 Bedside Estimated GFR (eGFR) > 60.0 [facility] XR pre/post mri xrayon 07-12 XR pre/post mri xray [facility] [place] [address] [place] [address] MRI Report Signed Patient: Jayde Hernandez MR#: [id number] : 1965 Acct:[id number] Age/Sex: 58 / F ADM Date: 07/12/23 Loc: Room: Type: [facility] Attending Dr: Chinyere Live PA-C Copies to: Chinyere Live PA-C Ordering Provider: Chinyere Live PA-C Date of Service: 07/12/23 MR/MR thoracic spine wo/w con: G35 ([id number]) XR/XR pre/post mri xray: G35 MR thoracic [...] Raffi Guillen M.D.07/12/2023 12:37 PM Dictation Location: [place] [address] Transcribed By: [facility] 07/12/23 1237 Dictated By: aRffi Guillen II, MD 07/12/23 1230 Signed By: 07/12/23 1237 Normal [facility] CBC AUTO DIFFon 05-10-2022 BASO # 0.1 103/ul Normal 0.0-0.1 [facility] Comment on above: Performed By: #### C BC #### [facility] [address] [place] [address] Dr. Brett Rosales Basophils/100 WBC (Bld) 1.0 % Normal 0.2-2.0 [facility] Comment on above: Performed By: #### C BC #### [facility] [address] [place] [address] Dr. Brett Rosales EO # 0.1 103/ul Normal 0.0-0.7 [facility] Comment on above: Performed By: #### C BC #### [facility] [address] [place] [address] Dr. Brett Rosales Eosinophils/100 WBC (Bld) 1.5 % Normal 0.9-7.0 [facility] Comment on above: Performed By: #### C BC #### [facility] [address] [place] [address] Dr. Brett Rosales Erythrocyte distribution width (RBC) [Ratio] 13.2 % Normal 11.0-15.0 [facility] Comment on above: Performed By: #### C BC #### [facility] [address] [place] [address] Dr. Brett Rosales Hematocrit (Bld) [Volume fraction] 40.1 % Normal 36.0-48.0 [facility] Comment on above: Performed By: #### C BC #### [facility] [address] [place] [address] Dr. Brett Rosales Hemoglobin (Bld) [Mass/Vol] 12.9 g/dL Normal 12.0-16.0 [facility] Comment on above: Performed By: #### C BC #### [facility] [address] [place] [address] Dr. Brett Rosales IG # 0.01 10e3/ul Normal 0.00-0.03 [facility] Comment on above: Performed By: #### C BC #### [facility] [address] [place] [address] Dr. Brett Rosales IG % 0.1 % Normal 0.0-0.5 [facility] Comment on above: Performed By: #### C BC #### [facility] [address] [place] [address] Dr. Brett Rosales LYMPH # 2.5 103/ul Normal 1.2-3.8 [facility] Comment on above: Performed By: #### C BC #### [facility] [address] [place] [address] Dr. Brett Rosales Lymphocytes/100 WBC (Bld) 30.3 % Normal 20.5-60.0 [facility] Comment on above: Performed By: #### C BC #### [facility] [address] [place] [address] Dr. Brett Rosales MANUAL DIFF REQ NO Normal [facility] Comment on above: Performed By: #### C BC #### [facility] [address] [place] [address] Dr. Brett Rosales MCH (RBC) [Entitic mass] 30.6 pg Normal 26.7-34.0 [facility] Comment on above: Performed By: #### C BC #### [facility] [address] [place] [address] [address] Brett Rosales MCHC (RBC) [Mass/Vol] 32.2 g/dL Normal 29.9-35.2 [facility] Comment on above: Performed By: #### C BC #### [facility] [address] [place] [address] [address] Brett Rosales MCV (RBC) [Entitic vol] 95.0 fL Normal 81.0-99.0 [facility] Comment on above: Performed By: #### C BC #### [facility] [address] [place] [address] [address] Brett Rosales MONO # 0.9 103/ul Critically high 0.3-0.8 [facility] Comment on above: Performed By: #### C BC #### [facility] [address] [place] [address] Dr. Brett Rosales Monocytes/100 WBC (Bld) 10.4 % Normal 1.7-12.0 [facility] Comment on above: Performed By: #### C BC #### [facility] [address] [place] [address] Dr. Brett Rosales NEUT # 4.6 103/ul Normal 1.4-6.5 [facility] Comment on above: Performed By: #### C BC #### [facility] [address] [place] [address] Dr. Brett Rosales Neutrophils/100 WBC (Bld) 56.7 % Normal 43.0-75.0 [facility] Comment on above: Performed By: #### C BC #### [facility] [address] [place] [address] [address] Brett Rosales Platelet mean volume (Bld) [Entitic vol] 11.0 fL Normal 9.5-13.5 [facility] Comment on above: Performed By: #### C BC #### [facility] [address] [place] [address] Dr. Brett Rosales PLT 262 103/ul Normal 150-450 [facility] Comment on above: Performed By: #### C BC #### [facility] [address] [place] [address] Dr. Brett Rosales RBC 4.22 106/ul Normal 4.20-5.40 [facility] Comment on above: Performed By: #### C BC #### [facility] [address] [place] [address] Dr. Brett Rosales WBC 8.2 103/ul Normal 4.0-11.0 [facility] Comment on above: Performed By: #### C BC #### [facility] [address] [place] [address] Dr. Brett Rosales PROF 14(COMP METB)on 022 Albumin [Mass/Vol] 3.5 g/dL Normal 3.4-5.0 [facility] Comment on above: Performed By: #### C MP #### [facility] [address] [place] [address] Dr. Brett Rosales Albumin/Globulin [Mass ratio] 1.0 {ratio} Normal [facility] Comment on above: Performed By: #### C MP #### [facility] [address] [place] [address] Dr. Brett Rosales ALP [Catalytic activity/Vol] 94 U/L Normal 46-116 [facility] Comment on above: Performed By: #### C MP #### [facility] [address] [place] [address] Dr. Brett Rosales ALT [Catalytic activity/Vol] 25 U/L Normal 14-59 [facility] Comment on above: Performed By: #### C MP #### [facility] [address] [place] [address] Dr. Brett Rosales Anion gap [Moles/Vol] 9.4 mmol/L Normal [facility] Comment on above: Performed By: #### C MP #### [facility] [address] [place] [address] Dr. Brett Rosales AST [Catalytic activity/Vol] 21 U/L Normal 15-37 [facility] Comment on above: Performed By: #### C MP #### [facility] [address] [place] [address] [address] Brett Rosales Bilirubin [Mass/Vol] 0.3 mg/dL Normal 0.2-1.0 [facility] Comment on above: Performed By: #### C MP #### [facility] [address] [place] [address] Dr. Brett Rosales Calcium [Mass/Vol] 9.1 mg/dL Normal 8.5-10.1 [facility] Comment on above: Performed By: #### C MP #### [facility] [address] [place] [address] Dr. Brett Rosales Chloride [Moles/Vol] 106 mmol/L Normal 98-107 [facility] Comment on above: Performed By: #### C MP #### [facility] [address] [place] [address] Dr. Brett Rosales CO2 [Moles/Vol] 31.2 mmol/L Normal 21.0-32.0 [facility] Comment on above: Performed By: #### C MP #### [facility] [address] [place] [address] Dr. Brett Rosales Creatinine [Mass/Vol] 0.69 mg/dL Normal 0.55-1.02 [facility] Comment on above: Performed By: #### C MP #### [facility] [address] [place] [address] Dr. Brett Rosales EGFR-AF SAMOAN >60 Normal >=60 [facility] Comment on above: Performed By: #### C MP #### [facility] [address] [place] [address] Dr. Brett Rosales EGFR-NON AF SAMOAN >60 Normal >=60 [facility] Comment on above: Performed By: #### C MP #### [facility] [address] [place] [address] Dr. Brett Rosales Globulin (S) [Mass/Vol] 3.5 g/dL Normal [facility] Comment on above: Performed By: #### C MP #### [facility] [address] [place] [address] Dr. Brett Rosales Glucose [Mass/Vol] 108 mg/dL Critically high 74-106 [facility] Comment on above: Performed By: #### C MP #### [facility] [address] [place] [address] [address] Brett Rosales Potassium [Moles/Vol] 3.6 mmol/L Normal 3.5-5.1 [facility] Comment on above: Performed By: #### C MP #### [facility] [address] [place] [address] [address] Brett Rosales Protein [Mass/Vol] 7.0 g/dL Normal 6.4-8.2 [facility] Comment on above: Performed By: #### C MP #### [facility] [address] [place] [address] [address] Brett Rosales Sodium [Moles/Vol] 143 mmol/L Normal 136-145 [facility] Comment on above: Performed By: #### C MP #### [facility] [address] [place] [address] [address] Brett Rosales Urea nitrogen [Mass/Vol] 14.0 mg/dL Normal 7.0-18.0 [facility] Comment on above: Performed By: #### C MP #### [facility] [address] [place] [address] [address] Brett Rosales Urea nitrogen/Creatinine [Mass ratio] 20.3 mg/mg Normal [facility] Comment on above: Performed By: #### C MP #### [facility] [address] [place] [address] [address] Brett Rosales XR CHEST 2 Von [...] by: LIAT WEBSTER Date: 2022-02-24 08:15 Normal [facility] MG MAMM SCREEN 3D LIBERTAD CADon 02-15-2022 MG MAMM SCREEN 3D LIBERTAD CAD Patient: JAYDE HERNANDZE Exam Date: 02/15/2022 : 1965 Gender:F Ordering : DR CINDY RODRÍGUEZ Admission #: [id number] Family : DR JOHNY WINTERS D.O. Order #: [id number] CLICK HERE TO VIEW EXAM RADIOLOGY REPORT [...] breast cancer at age 63. LOCATION: [facility] BREAST COMPOSITION: Scattered areas fibroglandular density. FINDINGS: [...] M.D. on 02/16/2022 at 13:24 Normal [facility] CBC AUTO DIFFon 11-16-2021 BASO # 0.1 103/ul Normal 0.0-0.1 [facility] Comment on above: Performed By: #### C BC #### [facility] [address] [address] [address] Brett Rosales Basophils/100 WBC (Bld) 0.7 % Normal 0.2-2.0 [facility] Comment on above: Performed By: #### C BC #### [facility] [address] [place] [address] [address] Brett Rosales EO # 0.1 103/ul Normal 0.0-0.7 [facility] Comment on above: Performed By: #### C BC #### [facility] [address] [place] [address] Dr. Brtet Rosales Eosinophils/100 WBC (Bld) 1.7 % Normal 0.9-7.0 [facility] Comment on above: Performed By: #### C BC #### [facility] [address] [place] [address] Dr. Brett Rosales Erythrocyte distribution width (RBC) [Ratio] 13.2 % Normal 11.0-15.0 [facility] Comment on above: Performed By: #### C BC #### [facility] [address] [place] [address] Dr. Brett Rosales Hematocrit (Bld) [Volume fraction] 38.9 % Normal 36.0-48.0 [facility] Comment on above: Performed By: #### C BC #### [facility] [address] [place] [address] Dr. Brett Rosales Hemoglobin (Bld) [Mass/Vol] 12.5 g/dL Normal 12.0-16.0 [facility] Comment on above: Performed By: #### C BC #### [facility] [address] [place] [address] Dr. Brett Rosales IG # 0.02 10e3/ul Normal 0.00-0.03 [facility] Comment on above: Performed By: #### C BC #### [facility] [address] [place] [address] Dr. Brett Rosales IG % 0.2 % Normal 0.0-0.5 [facility] Comment on above: Performed By: #### C BC #### [facility] [address] [place] [address] Dr. Brett Rosales LYMPH # 2.9 103/ul Normal 1.2-3.8 [facility] Comment on above: Performed By: #### C BC #### [facility] [address] [place] [address] Dr. Brett Rosales Lymphocytes/100 WBC (Bld) 34.3 % Normal 20.5-60.0 [facility] Comment on above: Performed By: #### C BC #### [facility] [address] [place] [address] Dr. Brett Rosales MANUAL DIFF REQ NO Normal [facility] Comment on above: Performed By: #### C BC #### [facility] [address] [place] [address] Dr. Brett Rosales MCH (RBC) [Entitic mass] 31.0 pg Normal 26.7-34.0 [facility] Comment on above: Performed By: #### C BC #### [facility] [address] [place] [address] Dr. Brett Rosales MCHC (RBC) [Mass/Vol] 32.1 g/dL Normal 29.9-35.2 [facility] Comment on above: Performed By: #### C BC #### [facility] [address] [place] [address] Dr. Brett Rosales MCV (RBC) [Entitic vol] 96.5 fL Normal 81.0-99.0 [facility] Comment on above: Performed By: #### C BC #### [facility] [address] [place] [address] Dr. Brett Rosales MONO # 0.7 103/ul Normal 0.3-0.8 [facility] Comment on above: Performed By: #### C BC #### [facility] [address] [place] [address] Dr. Brett Rosales Monocytes/100 WBC (Bld) 8.5 % Normal 1.7-12.0 [facility] Comment on above: Performed By: #### C BC #### [facility] [address] [place] [address] Dr. Brett Rosales NEUT # 4.6 103/ul Normal 1.4-6.5 [facility] Comment on above: Performed By: #### C BC #### [facility] [address] [place] [address] Dr. Brett Rosales Neutrophils/100 WBC (Bld) 54.6 % Normal 43.0-75.0 [facility] Comment on above: Performed By: #### C BC #### [facility] [address] [place] [address] Dr. Brett Rosales Platelet mean volume (Bld) [Entitic vol] 10.7 fL Normal 9.5-13.5 [facility] Comment on above: Performed By: #### C BC #### [facility] [address] [place] [address] Dr. Brett Rsoales PLT 276 103/ul Normal 150-450 [facility] Comment on above: Performed By: #### C BC #### [facility] [address] [place] [address] Dr. Brett Rosales RBC 4.03 106/ul Critically low 4.20-5.40 [facility] Comment on above: Performed By: #### C BC #### [facility] [address] [place] [address] Dr. Brett Rosales WBC 8.5 103/ul Normal 4.0-11.0 [facility] Comment on above: Performed By: #### C BC #### [facility] [address] [place] [address] Dr. Brett Rosales PROF 14(COMP METB)on 022 Albumin [Mass/Vol] 3.5 g/dL Normal 3.4-5.0 [facility] Comment on above: Performed By: #### C MP #### [facility] [address] [place] [address] Dr. Brett Rosales Albumin/Globulin [Mass ratio] 1.1 {ratio} Normal [facility] Comment on above: Performed By: #### C MP #### [facility] [address] [place] [address] Dr. Brett Rosales ALP [Catalytic activity/Vol] 75 U/L Normal 46-116 [facility] Comment on above: Performed By: #### C MP #### [facility] [address] [place] [address] Dr. Brett Rosales ALT [Catalytic activity/Vol] 27 U/L Normal 14-59 [facility] Comment on above: Performed By: #### C MP #### [facility] [address] [place] [address] Dr. Brett Rosales Anion gap [Moles/Vol] 9.3 mmol/L Normal [facility] Comment on above: Performed By: #### C MP #### [facility] [address] [place] [address] Dr. Brett Rosales AST [Catalytic activity/Vol] 22 U/L Normal 15-37 [facility] Comment on above: Performed By: #### C MP #### [facility] [address] [place] [address] Dr. Brett Rosales Bilirubin [Mass/Vol] 0.4 mg/dL Normal 0.2-1.3 [facility] Comment on above: Performed By: #### C MP #### [facility] [address] [place] [address] Dr. Brett Rosales Calcium [Mass/Vol] 8.4 mg/dL Critically low 8.5-10.1 [facility] Comment on above: Performed By: #### C MP #### [facility] [address] [place] [address] Dr. Brett Rosales Chloride [Moles/Vol] 105 mmol/L Normal 98-107 [facility] Comment on above: Performed By: #### C MP #### [facility] [address] [place] [address] Dr. Brett Rosales CO2 [Moles/Vol] 31.1 mmol/L Critically high 22.0-30.0 [facility] Comment on above: Performed By: #### C MP #### [facility] [address] [place] [address] Dr. Brett Rosales Creatinine [Mass/Vol] 0.73 mg/dL Normal 0.52-1.04 [facility] Comment on above: Performed By: #### C MP #### [facility] [address] [place] [address] Dr. Brett Rosales EGFR-AF SAMOAN >60 Normal >=60 [facility] Comment on above: Performed By: #### C MP #### [facility] [address] [place] [address] Dr. Brett Rosales EGFR-NON AF SAMOAN >60 Normal >=60 [facility] Comment on above: Performed By: #### C MP #### [facility] [address] [address] [address] Brett Rosales Globulin (S) [Mass/Vol] 3.2 g/dL Normal [facility] Comment on above: Performed By: #### C MP #### [facility] [address] [address] [address] Brett Rosales Glucose [Mass/Vol] 105 mg/dL Normal 74-106 [facility] Comment on above: Performed By: #### C MP #### [facility] [address] [address] [address] Brett Rosales Potassium [Moles/Vol] 3.4 mmol/L Normal 3.4-5.0 [facility] Comment on above: Performed By: #### C MP #### [facility] [address] [place] [address] Dr. Brett Rosales Protein [Mass/Vol] 6.7 g/dL Normal 6.1-8.2 [facility] Comment on above: Performed By: #### C MP #### [facility] [address] [address] [address] Brett Rosales Sodium [Moles/Vol] 142 mmol/L Normal 137-145 [facility] Comment on above: Performed By: #### C MP #### [facility] [address] [place] [address] Dr. Brett Rosales Urea nitrogen [Mass/Vol] 12.0 mg/dL Normal 7.0-18.0 [facility] Comment on above: Performed By: #### C MP #### [facility] [address] [place] [address] Dr. Brett Rosales Urea nitrogen/Creatinine [Mass ratio] 16.4 mg/mg Normal [facility] Comment on above: Performed By: #### C MP #### [facility] [address] [place] [address] Dr. Brett Rosales MRI LSPINE WO W [...] by: DENYS WALLACE Date: 2021-09-09 15:31 Normal [facility] PROGRESSon 10-06-2017 PROGRESS HNO ID: [id number] Author: Ailyn Patten (Fel) Service: (none) Author Type: Fellow Type: Progress Notes Filed: 10/06/2017 5:17 PM Note Text: NMO/MOG (MATH AND PHYSICS INSTRUCTOR demyelinating disease evaluation) negative at [facility] Normal [facility] Angiotens. Conv Enzon 2017 Angiotens. Conv Enz 41 U/L Normal <52 [facility] Comment on above: Result Comment: Dianne ficially low JERRY levels may be found for patients taking JERRY inhibitors or after the administration of gadolinium. Performed By: #### V ITD, ENAID, HREMOP, TSH, HIV12C, SYPHGX, LYMEGM, VZVG2, COPPER, INFTBG, JERRY, CCP, JCVIDX ####[facility] [place], [place] [phone] CCP Antibody, IgGon 09-27-19 18 CCP Antibody, IgG <15 Normal <20 [facility] Comment on above: Result Comment: < 20 units: Iglticpd60-70 units: Weak Xpasainw16-31 units: Moderate Positive> 60 units: Strong PositiveThe following results were obtained with the [employer] QUANTA Lite CCP3 IgG ADAM. Anti-CCP values obtained with different manufacturers' assay methods may not be used interchangeably. The magnitude of the reported IgG levels cannot be correlated to an endpoint titer. Performed By: #### V ITD, ENAID, HREMOP, TSH, HIV12C, SYPHGX, LYMEGM, VZVG2, COPPER, INFTBG, JERRY, CCP, JCVIDX ####[facility] [address] [place], [place] [phone] CNOVon 09-27-2017 CNOV Office Visit (NEMN) JAYDE HERNANDEZ ([id number]) 1965 FDate Time Provider Department09/27/17 1:40 PM ASSESSMENT [facility] During your visit today, we recorded the following information about you: Pulse Respiration Blood pressure Weight 84/minute 16/minute 155/65 51.3 kg Height 1.524 Yovani San MD 10/01/2017 9:26 PM [facility] FOR MULTIPLE SCLEROSISNEW PATIENT EVALUATION/CONSULTATIONR eferral source:SELFAlso followed by:Johny Winters MD ([facility])[address] [place] [address]Acqzj: [phone]: [phone] N[address] [place] [address]Yhzeg: [phone]: [phone] NEUROLOGIC DIAGNOSIS: Multiple sclerosisDISEASE SUMMARYDate of onset: [...] with me at the [facility].She states that in April 2017, she [...] well.PAST HISTORY:PAST MEDICAL HISTORYDiagnosis Date- Cervical cancer ([facility]) 1997 s/p hysterectomy- Hypertension- Migraine- MS (multiple sclerosis) ([facility])- OsteoporosisPAST SURGICAL HISTORYProcedure Laterality Date- [...] OD= 20/25 (with glasses) OS= 20/20(with glasses).Visual iferro were full to confrontation.Pupils were 3 mm [...] in the arms and legs was performed azveedjacihnmz-oy-sevbt, rapid-alternating, and fine movements. Rapid movements wereimpaired [...] at this time. She will return to [place] in 6 months to evaluate herprogress on [...] patient was evaluated with Dr. San.Ailyn Patten, [facility] – FAIRVIEWlinical Neuroimmunology FellowElkhart General Hospital for Multiple SclerosisNEUROLOGY STAFF ADDENDUMPatient seen with the fellow. I agree with the fellow's history, examination,and the plan as noted above was formulated with my direct input.Soraya Davidson, Department of NeurologyElkhart General Hospital for Multiple SclerosisAilyn Patten MD 09/27/2017 [...] [M81.8]Order(s):TUBES - DRAW EXTRA [SQXTUBE] Order #: [id number] FUTURE ANTI VASILIY ID [SQENAID] Order #: [id number] FUTURE CCP ANTIBODY IGG [SQCCP] Order #: [id number] FUTURE VITAMIN D 25 HYDROXY [SQVITD] Order #: [id number] FUTURE COPPER BLOOD [SQCOPPER] Order #: [id number] FUTURE TSH BLD [SQTSH] Order #: [id number] FUTURE LYME AB IGG + IGM [SQLYMEGM] Order #: [id number] FUTURE HIV 1,2 COMBO (AG/AB) [SQHIV12] Order #: [id number] FUTURE SYPHILIS IGG WITH CONF [SQSYPHGX] Order #: [id number] FUTURE JERRY/ANGIOTENSIN BLD [SQACE] Order #: [id number] FUTURE HEP REMOTE PANEL BL [SQHREMOP] Order #: [id number] FUTURE JCV ANTIBODY AND INDEX WITH REFLEX [SQJCVIDX] Order #: [id number] FUTURE BLOOD TB SCREEN [SQINFTBG] Order #: [id number] FUTURE VARICELLA ZOSTER IGG [SQVZVG] Order #: [id number] FUTUREPrescriptions as of 09/27/2017 Sig: GABAPENTIN 100 [...] for Sandor.Follow-up and Disposition History RecordedEncounter Number: [id number] Status:Closed by ALMA SAN MD on 10/01/17 Normal [facility] Copperon 09-27-2017 Copper 106 ug/dL Normal 85-155 [facility] Comment on above: Result Comment: This test was developed and its performance characteristics determined by [facility]'s Alma Tay [facility] [place] ([facility]).It has not been cleared or approved by the FDA. -[facility] is regulated under CLIA as qualified to perform high-complexity testing.This test is used for clinical purposes. It should not be regarded as investigational or for research. Performed By: #### V ITD, ENAID, HREMOP, TSH, HIV12C, SYPHGX, LYMEGM, VZVG2, COPPER, INFTBG, JERRY, CCP, JCVIDX ####[place] [address] [place], [place] [phone] VASILIY Antibody Panelon 018 Centromere <0.2 Normal <1.0 [facility] Comment on above: Result Comment: NEGA TIVENegative: <1.0 AIPositive: >0.9 AI Performed By: #### V ITD, ENAID, HREMOP, TSH, HIV12C, SYPHGX, LYMEGM, VZVG2, COPPER, INFTBG, JERRY, CCP, JCVIDX ####[address] [phone] Chromatin Antibody <0.2 Normal <1.0 [facility] Comment on above: Result Comment: NEGA TIVENegative: <1.0 AIPositive: >0.9 AI Performed By: #### V ITD, ENAID, HREMOP, TSH, HIV12C, SYPHGX, LYMEGM, VZVG2, COPPER, INFTBG, JERRY, CCP, JCVIDX ####[place] [phone] ALVARO 1 Antibody <0.2 Normal <1.0 [facility] Comment on above: Result Comment: NEGA TIVENegative: <1.0 AIPositive: >0.9 AI Performed By: #### V ITD, ENAID, HREMOP, TSH, HIV12C, SYPHGX, LYMEGM, VZVG2, COPPER, INFTBG, JERRY, CCP, JCVIDX ####[place] [phone] Ribosomal PARENT AIDE <0.2 Normal <1.0 [facility] Comment on above: Result Comment: NEGA TIVENegative: <1.0 AIPositive: >0.9 AI Performed By: #### V ITD, ENAID, HREMOP, TSH, HIV12C, SYPHGX, LYMEGM, VZVG2, COPPER, INFTBG, JERRY, CCP, JCVIDX ####[place] [phone] PARENT AIDE Antibody 0.9 AI Normal <1.0 [facility] Comment on above: Result Comment: NEGA TIVENegative: <1.0 AIPositive: >0.9 AI Performed By: #### V ITD, ENAID, HREMOP, TSH, HIV12C, SYPHGX, LYMEGM, VZVG2, COPPER, INFTBG, JERRY, CCP, JCVIDX ####[place] [phone] Scleroderma IgG Ab <0.2 Normal <1.0 [facility] Comment on above: Result Comment: NEGA TIVENegative: <1.0 AIPositive: >0.9 AI Performed By: #### V ITD, ENAID, HREMOP, TSH, HIV12C, SYPHGX, LYMEGM, VZVG2, COPPER, INFTBG, JERRY, CCP, JCVIDX ####[address] [phone] Sm Antibody <0.2 Normal <1.0 [facility] Comment on above: Result Comment: NEGA TIVENegative: <1.0 AIPositive: >0.9 AI Performed By: #### V ITD, ENAID, HREMOP, TSH, HIV12C, SYPHGX, LYMEGM, VZVG2, COPPER, INFTBG, JERRY, CCP, JCVIDX ####[address] [phone] SSA Antibody <0.2 Normal <1.0 [facility] Comment on above: Result Comment: NEGA TIVENegative: <1.0 AIPositive: >0.9 AI Performed By: #### V ITD, ENAID, HREMOP, TSH, HIV12C, SYPHGX, LYMEGM, VZVG2, COPPER, INFTBG, JERRY, CCP, JCVIDX ####[address] [phone] SSB Antibody <0.2 Normal <1.0 [facility] Comment on above: Result Comment: NEGA TIVENegative: <1.0 AIPositive: >0.9 AI Performed By: #### V ITD, ENAID, HREMOP, TSH, HIV12C, SYPHGX, LYMEGM, VZVG2, COPPER, INFTBG, JERRY, CCP, JCVIDX ####[address] [phone] HIV 12 Combo (Ag/Ab)on 09-27 HIV 12 Ag/Ab Non Reactive Normal Non Reactive [facility] Comment on above: Result Comment: (NOT E)HIV Information: [place] Rev. Code 3701.243(E):This information has been disclosed [...] VZVG2, COPPER, INFTBG, JERRY, CCP, JCVIDX ####[address] [phone] Hepatitis Remote Panelon BSA (Body Surface Area) Negative Normal Negative [facility] Comment on above: Performed By: #### V ITD, ENAID, HREMOP, TSH, HIV12C, SYPHGX, LYMEGM, VZVG2, COPPER, INFTBG, JERRY, CCP, JCVIDX ####[address] [phone] Hep B Core Ab,Total Negative Normal Negative [facility] Comment on above: Performed By: #### V ITD, ENAID, HREMOP, TSH, HIV12C, SYPHGX, LYMEGM, VZVG2, COPPER, INFTBG, JERRY, CCP, JCVIDX ####[address] [phone] Hepatitis C Ab IA Negative Normal Negative [facility] Comment on above: Performed By: #### V ITD, ENAID, HREMOP, TSH, HIV12C, SYPHGX, LYMEGM, VZVG2, COPPER, INFTBG, JERRY, CCP, JCVIDX ####[address] [phone] HepB Surface Ab,Qual Negative Normal Negative [facility] Comment on above: Result Comment: NEGA TIVE Performed By: #### V ITD, ENAID, HREMOP, TSH, HIV12C, SYPHGX, LYMEGM, VZVG2, COPPER, INFTBG, JERRY, CCP, JCVIDX ####[place] [address] [place], [place] [phone] JCV Ab/Indx & Reflexon 09-27 JCV Antibody [...] confirmpresence or absence of JCV-specific antibodies.Test Performed at:[facility] [place] [phone] Guerita Callahan MD Performed By: #### V ITD, ENAID, HREMOP, TSH, HIV12C, SYPHGX, LYMEGM, VZVG2, COPPER, INFTBG, JERRY, CCP, JCVIDX ####[place] [address] [place], [place] [phone] JCV Index Value 3.41 High [facility] Comment on above: Performed By: #### V ITD, ENAID, HREMOP, TSH, HIV12C, SYPHGX, LYMEGM, VZVG2, COPPER, INFTBG, JERRY, CCP, JCVIDX ####[place] [address] [place], [place] [phone] Lyme IgG/IgM ABon 09-27-2017 Lyme IgG/IgM AB [...] LYMEGM, VZVG2, COPPER, INFTBG, JERRY, CCP, JCVIDX ####[place] [address] [place], [place] [phone] Lyme Interp No evidence of antibodies to Borrelia burgdorferi. Normal No evidence of antibodies to Borrelia burgdorferi. 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 Normal [facility] Comment on above: Performed By: #### V ITD, ENAID, HREMOP, TSH, HIV12C, SYPHGX, LYMEGM, VZVG2, COPPER, INFTBG, JERRY, CCP, JCVIDX ####[place] [address] [place], [place] [phone] PROGRESSon 09-27-2017 PROGRESS HNO ID: [id number]: Alma Simmons: (none)Author Type: PhysicianType: Progress NotesFiled: 10/01/2017 9:26 PMNote Text:[facility] MULTIPLE SCLEROSISNEW PATIENT EVALUATION/CONSULTATIONR eferral source:SELFAlso followed by:Johny Winters MD ([facility])[address], [place] [address]Hydbm: [phone]: [phone] Nix[address] [address]Hmgsm: [phone]: [phone] NEUROLOGIC DIAGNOSIS: Multiple sclerosisDISEASE SUMMARYDate of onset: [...] [facility].She states that in April 2017, she [...] s/p hysterectomy- Hypertension- Migraine- MS (multiple sclerosis) ([facility])- OsteoporosisPAST SURGICAL HISTORYProcedure Laterality Date- [...] in the arms and legs was performed rprkghyvihojuz-og-ocybu, rapid-alternating, and fine movements. Rapid movementswere impaired [...] at this time. She will return to [place] in 6 months to evaluateher progress on [...] patient was evaluated with Dr. San.Ailyn Patten, [facility] FAIRVIEWlinical Neuroimmunology FellowWoodland Medical Center Multiple SclerosisNEUROLOGY STAFF ADDENDUMPatient seen with the fellow. I agree with the fellow's history,examination, and the plan as noted above was formulated with my directinput.Soraya Davidson, Department of NeurologyWoodland Medical Center Multiple Sclerosis Normal [place] [...] LYMEGM, VZVG2, COPPER, INFTBG, JERRY, CCP, JCVIDX ####[facility] [place], [place] [phone] Syphilis IgG, Qual Nonreactive Normal Nonreactive [facility] Comment on above: Result Comment: In c onjunction with this result, the immune status of the patient should be evaluated based on their clinical status, related risk factors, and other diagnostic test results. Performed By: #### V ITD, ENAID, HREMOP, TSH, HIV12C, SYPHGX, LYMEGM, VZVG2, COPPER, INFTBG, JERRY, CCP, JCVIDX ####[place] [address] TB by QuantiFERONon 09-27-19 18 Interpretation No evidence of curre nt or previous infection with Mycobacterium tuberculosis. Normal [facility] Comment on above: Performed By: #### V ITD, ENAID, HREMOP, TSH, HIV12C, SYPHGX, LYMEGM, VZVG2, COPPER, INFTBG, JERRY, CCP, JCVIDX ####[place] [address] Mitogen Response >10.00 Normal >0.49 [facility] Comment on above: Performed By: #### V ITD, ENAID, HREMOP, TSH, HIV12C, SYPHGX, LYMEGM, VZVG2, COPPER, INFTBG, JERRY, CCP, JCVIDX ####[place] [address] TB Antigen Response 0.00 IU/mL Normal <0.35 [facility] Comment on above: Performed By: #### V ITD, ENAID, HREMOP, TSH, HIV12C, SYPHGX, LYMEGM, VZVG2, COPPER, INFTBG, JERRY, CCP, JCVIDX ####[place] [address] TB Result Negative Normal Negative [facility] Comment on above: Performed By: #### V ITD, ENAID, HREMOP, TSH, HIV12C, SYPHGX, LYMEGM, VZVG2, COPPER, INFTBG, JERRY, CCP, JCVIDX ####[place] [phone] TSHon 09-27-2017 Thyroid stimulating hormone (TSH) 2.500 uU/mL Normal 0.400-5.500 [facility] Comment on above: Performed By: #### V ITD, ENAID, HREMOP, TSH, HIV12C, SYPHGX, LYMEGM, VZVG2, COPPER, INFTBG, JERRY, CCP, JCVIDX ####[address] [phone] Varicella Zoster IgGon 09-27 V. zoster IgG, [...] VZVG2, COPPER, INFTBG, JERRY, CCP, JCVIDX ####[address] [phone] Varicella Zoster IgG 1075.0 Index Value Normal [...] VZVG2, COPPER, INFTBG, JERRY, CCP, JCVIDX ####[address] [phone] Vitamin D 25 Hydroxyon 09-27 Vitamin D 25 Hydroxy 123.0 ng/mL High 31.0-80.0 [facility] Comment on above: Result Comment: Clas sification of 25 [place] Vitamin D status:Insufficiency/Moderate Deficiency: < or = 30 ng/mLSufficiency/Optimal Levels: 31 to 80 ng/mLToxicity: > 100 ng/mLTest performed by chemiluminescent immunoassay. Performed By: #### V ITD, ENAID, HREMOP, TSH, HIV12C, SYPHGX, LYMEGM, VZVG2, COPPER, INFTBG, JERRY, CCP, JCVIDX ####[facility] [address] [place], [place] [phone] NE-MRI C-SPINE WO/W CON IMPO RTon 07-11-2017 NE-MRI C-SPINE WO/W CON IMPORT Images were obtained outside of [facility] [id number] Normal [facility] NE-MRI T-SPINE WO/W CON IMPO RTon 07-11-2017 NE-MRI T-SPINE WO/W CON IMPORT Images were obtained outside of [facility] [id number] Normal [facility] MR-MRI BRAIN WO CON IMPORTon 05-16-2017 MR-MRI BRAIN WO CON IMPORT Images were obtained outside of [facility] [id number] Normal [facility] Vital Signs Date Time Vital Sign Value Performing Clinician Facility 09-06-2023 09:48-0500 Body height 152.4 cm DO Johny Ball Work Phone: [facility] 09-06-2023 09:48-0500 Body weight 60.78 kg DO Johny Ball Work Phone: [facility] 07-12-2023 11:28-0500 Body height 152.4 cm DO Johny Ball Work Phone: [facility] 07-12-2023 11:28-0500 Body weight 60.78 kg DO Johny Ball Work Phone: [facility] 03-01-2023 10:00-0400 Body height 154.94 cm Johny Ball Other [facility] Other 03-01-2023 10:00-0400 Body mass index (BMI) [Ratio] 26.15 kg/m2 Johny Ball Other [employer] [facility] Other 03-01-2023 10:00-0400 Body weight 62.78 kg Johny Ball Other [facility] Other 03-01-2023 10:00-0400 Diastolic blood pressure 74 mm[Hg] Johny Winters Other [employer] [facility] [employer] Other 03-01-2023 10:00-0400 Respiratory rate 12 /min Johny Winters Other [employer] [facility] Other 03-01-2023 10:00-0400 Systolic blood pressure 138 mm[Hg] Johny Winters Other [facility] [facility] Other 11-02-2021 14:20-0400 Body height 154.94 cm Ezequiel Agudelo Other [employer] [facility] [employer] Other 11-02-2021 14:20-0400 Body mass index (BMI) [Ratio] 25.69 kg/m2 Ezequiel Agudelo Other [employer] [facility] [employer] Other 11-02-2021 14:20-0400 Body weight 61.69 kg Ezequiel Agudelo Other [employer] [facility] [employer] Other Encounters Encounter Date Encounter Type Care Provider Facility Start: 12-13-2023 End: 12-13-2023 ambulatory CHINYERE LIVE Not Available Start: 12-12-2023 End: 12-12-2023 ambulatory CINDY RODRÍGUEZ Not Available Start: 09-06-2023 End: 09-06-2023 ambulatory Chinyere Live Facility:[facility] Start: 09-06-2023 End: 09-06-2023 ambulatory DO Johny Ball Work Phone: [facility] Work Phone: Start: 09-06-2023 End: 09-06-2023 Patient encounter procedure DO Johny Ball Work Phone: [facility] [place] Work Phone: Start: 07-12-2023 End: 07-12-2023 ambulatory Johny Ball Facility:[facility] Start: 07-12-2023 End: 07-12-2023 Patient encounter procedure DO Johny Winters Work Phone: [facility] [place] Work Phone: Start: 04-07-2023 End: 04-07-2023 ambulatory Johny Winters Other [employer] Other Start: 04-07-2023 Nursing evaluation o f patient and report Johny Winters [facility] Start: 03-01-2023 End: 03-01-2023 ambulatory Johny Winters Other [employer] Other Start: 03-01-2023 Encounter for genera l adult medical examination without abnormal findings Johny Winters [facility] Start: 03-01-2023 Periodic preventive med est patient 40-64yrs Johny Winters [facility] Start: 12-24-2022 End: 12-24-2022 ambulatory Johny Winters Other [employer] Other Start: 12-24-2022 Telephone encounter Johny Winters [facility] Start: 05-10-2022 End: 05-11-2022 ambulatory CHINYERE LIVE Facility:[facility] Start: 02-23-2022 End: 02-24-[address] JOHNY WINTERS Facility:[facility] Start: 02-15-2022 End: 02-16-[address] CINDY RODRÍGUEZ Facility:[facility] Start: 11-16-2021 End: 11-17-[address] DENYS JACKSON Facility:[facility] Start: 11-02-2021 End: 11-02-2021 ambulatory Ezequiel Agudelo Other [employer] Other Start: 11-02-2021 Office outpatient ne w 45 minutes Ezequiel Agudelo [facility] Start: 09-09-2021 End: 09-10-[address] JOHNY WINTERS Facility:[facility] Start: 08-30-2021 End: 08-30-[address] JOHNY WINTERS Facility:[facility] Start: 09-27-2017 End: 09-27-2017 Ambulatory [facility] Start: 09-27-2017 End: 10-02-2017 [facility] Procedures Date Procedure Procedure Detail Performing Clinician Start: 09-06-2023 MRI of cervical spin e with contrast DO Johny Winters Work Phone: Start: 09-06-2023 MRI of head DO Jovani lopez [employer] Work Phone: Start: 07-12-2023 MRI of thoracic spin e with contrast DO Johny Winters Work Phone: Start: 07-12-2023 XR pre/post mri xray DO Johny Winters Work Phone: Immunizations Immunization Date Immunization Notes Care Provider Fa dileep 04-07-2023 influenza, injectabl e, quadrivalent, preservative free Johny Ball Other [employer] Other 05-06-2022 influenza virus vaccine, split virus (incl. purified surface antigen) Johny Ball Other [employer] Other 05-06-2022 influenza, injectabl e, quadrivalent, contains preservative Johny Ball Other [employer] Other 04-14-2021 influenza virus vaccine, split virus (incl. purified surface antigen) Johny Ball Other [employer] Other 04-17-2020 pneumococcal polysaccharide vaccine, 23 valent Johny Ball Other [employer] Other 12-31-2019 pneumococcal conjuga te vaccine, 13 valent Johny Ball Other [employer] Other 04-08-2019 influenza virus vaccine, split virus (incl. purified surface antigen) Johny Ball Other [employer] Other 05-05-2017 influenza virus vaccine, split virus (incl. purified surface antigen) Johny Ball Other [employer] Other 05-04-2015 tetanus and diphther ia toxoids, adsorbed, preservative free, for adult use (5 Lf of tetanus toxoid and 2 Lf of diphtheria toxoid) Johny Winters Other [employer] Other 04-30-2013 tetanus and diphther ia toxoids, adsorbed, preservative free, for adult use (5 Lf of tetanus toxoid and 2 Lf of diphtheria toxoid) Johny Winters Other [employer] Other Payers Date Payer Category Payer Self-pay [id number] 2018 Medicaid [id number] 1965 Unknown [id number] [id number] 1965 Unknown [id number] 2.16.840.1.160855.3.579.2.593 1965 Unknown [id number] 2.16.840.1.874755.3.579.2.593 1965 Unknown [id number] 2.16.840.1.950206.3.579.2.593 1965 Unknown [id number] 2.16.840.1.044730.3.579.2.593 1965 Unknown [id number] 2.16.840.1.178613.3.579.2.593 1965 Unknown [id number] 2.16.840.1.296241.3.579.2.1259 1965 Unknown [id number] 2.16.840.1.003117.3.579.2.1259 1959 Unknown [id number] [id number] Private Health Insurance [facility] [id number] Unknown [id number] [id number] Unknown [id number] 2.16.840.1.699007.3.579.2.531 Social History Date Type Detail Facility Sex Assigned At [employer] Other Start: 1965 Sex Assigned At Female 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 Instructed on monthly SBE [employer] Other Evaluation note 11-02-2021 Note Date & [...] stable Oct, Lumbar radiculopathy (ICD-10 - M54.16) [employer] Other Evaluation note Note Date & Type Note Facility Evaluation note No Information [facility] Other Evaluation note Note Date & Type Note Facility Evaluation note No assessment information availa [facility] Work Phone: History general Narrative - Reported Note Date & Type Note Facility History general Narrative - Reported Type Medical History hypercholesterolemia Medical History multiple sclerosis Medical History osteoporosis Medical History cervical cancer Surgical History hysterectomy Hospitalization History See Above [employer] Other Reason for visit Narrative Note Date & Type Note Facility Reason for visit Narrative Referral Dr Worrell all Low Back Pain [facility] Other Summary Purpose Family History No Family [...] AUTHOR AUTHOR'S ORGANIZ ATION 05/21/2022 [facility] DATE CREATED AUTHOR AUTHOR'S ORGANIZ ATION 09/14/2023 [facility] DATE CREATED AUTHOR AUTHOR'S ORGANIZ ATION 12/13/2023 [facility] dical Specialists EPIC REASON FOR VISIT (unrecogniz ed section and content) flu [facility] Care Teams (unrecognized sec tion and content) [...] BE BASED ON THE PRIMARY CLINICAL RECORDS. [facility] [employer] [facility]. provides no warranty or guarantee of the accuracy or completeness of information in this document.
[2024-03-05 10:53] LABS: Basophils Absolute Auto 0.1 10^3/uL (0.0-0.1); Eosinophils Absolute Auto 0.2 10^3/uL (0.0-0.7); Eosinophils Percent Auto 2.6 % (0.9-7.0); Hematocrit 41.7 % (36.0-48.0); Hemoglobin 13.3 g/dL (12.0-16.0); Immature Granulocytes Abs Auto 0.02 10^3/uL (0.00-0.03); Immature Granulocytes Pct Auto 0.2 % (0.0-0.5); Lymphocytes Absolute Auto 2.3 10^3/uL (1.2-3.8); Lymphocytes Percent Auto 25.5 % (20.5-60.0); Mean Corpuscular HGB Conc 31.9 g/dL (29.9-35.2); Mean Corpuscular Hemoglobin 30.6 pg (26.7-34.0); Mean Corpuscular Volume 96.1 fL (81.0-99.0); Monocytes Percent Auto 11.5 % (1.7-12.0); Neutrophils Absolute Auto 5.3 10^3/uL (1.4-6.5); Neutrophils Percent Auto 59.2 % (43.0-75.0); Platelet Count 261 10^3/uL (150-450); Red Blood Count 4.34 10^6/uL (4.20-5.40); Red Cell Distribution Width 13.6 % (11.0-15.0)
[2024-03-05 17:20] LABS: Alanine Aminotransferase 30 U/L (14-59); Albumin Globulin Ratio 1.1; Albumin Level 3.6 g/dL (3.4-5.0); Alkaline Phosphatase 99 U/L (46-116); Anion Gap 15.3; Aspartate Amino Transferase 25 U/L (15-37); BUN Creatinine Ratio 15.4; Bilirubin Total 0.5 mg/dL (0.2-1.0); Calcium 9.4 mg/dL (8.5-10.1); Carbon Dioxide 29.4 mmol/L (21.0-32.0); Chloride 102 mmol/L (98-107); Cholesterol 152 mg/dL (<=200); Estimated GFR (African America >60 (>=60); Estimated GFR (Non-African Ame >60 (>=60); Globulin 3.4 g/dL; Glucose 88 mg/dL (74-106); HDL Cholesterol 51 mg/dL (40-60); LDL Cholesterol Calculated 77.2 mg/dL; Potassium 3.7 mmol/L (3.5-5.1); Sodium 143 mmol/L (136-145); Thyroid Stimulating Hormone 1.612 uIU/mL (0.358-3.740); Triglycerides 119 mg/dL (<=150); VLDL CHOLESTEROL 23.8 mg/dL
== END 2024-03-05 10:05 | disposition home or self-care (01) ==
LOC: LAB 10:05
PROVIDERS: PCP Internal Medicine; Visit Provider Internal Medicine
DX: Z00.00 Encounter for general adult medical examination without abnormal findings (principal); M81.0 Age-related osteoporosis without current pathological fracture; Z79.899 Other long term (current) drug therapy
CPT/HCPCS: 36415; 80053; 80061; 82310; 82565; 83735; 84100; 84443; 84520; 85025

== ENCOUNTER 2024-03-14 12:49 | Outpatient (OUT) | payer OTHER, SELFPAY ==
--- NOTE | 2024-03-14 12:56 | P.CN_ITS ---
Consult Note: HPI Data of Consult Patient: known to practice within the last 3 years Consult date: 12/07/23 Requesting Physician: Lupe Soria NP Primary Care Provider: Johny Winters DO Consult Narrative Reason for consult: low back pain with radiculopathy Narrative: Jayde Solorzano a pleasant 58 year old female presents for evaluation and management of chronic low back pain. Patient has failed to benefit from greater than 6 weeks of PT/provider guided HEP without improvement, conservative medications. Patient reporting pain 1/10, at the worst 3/10 no specific aggravating or alleviating factors, per patient random onset. Patient finds benefit to gabapentin 300mg BID, lidocaine patches, baclofen 10mg PRN, tens, and transdermal therapeutics cream BID to affected areas. Mobic was stopped due edema. Patient finding significant improvement with current regimen. cc:: CC: Lupe Soria NP Review of Systems ROS Status of ROS 10 or more systems reviewed and unremark able except as noted in history and below Musculoskeletal Reports: back pain Meds Home Medications and Allergies Home Medications ?Medication ?Instructions ?Recorded ?Confirmed ?Type amlodipine 5 mg tablet 5 mg PO DAILY 12/07/23 12/07/23 History aspirin 81 mg tablet,delayed 81 mg PO DAILY 12/07/23 12/07/23 History release (Adult Aspirin Regimen) atorvastatin 20 mg tablet 20 mg PO DAILY 12/07/23 12/07/23 History baclofen 10 mg tablet 10 mg PO DAILY 12/07/23 12/07/23 History biotin 10,000 mcg capsule 10,000 mcg PO DAILY 12/07/23 12/07/23 History cholecalciferol (vitamin D3) 125 125 mcg PO DAILY 12/07/23 12/07/23 History mcg (5,000 unit) tablet (Vitamin D3) gabapentin 300 mg capsule 300 mg PO BID 12/07/23 12/07/23 History meclizine 25 mg tablet 25 mg PO TID-QID PRN dizziness 12/07/23 12/07/23 History meloxicam 7.5 mg tablet 7.5 mg PO DAILY 12/07/23 12/07/23 History omega-3 fatty acids 1,000 mg PO DAILY 12/07/23 12/07/23 History raloxifene 60 mg tablet 60 mg PO DAILY 12/07/23 12/07/23 History teriflunomide 14 mg tablet 14 mg PO DAILY 12/07/23 12/07/23 History (Aubagio) vitamin B complex (Complex B-100 1 tab PO DAILY 12/07/23 12/07/23 History tablet,extended release) Exam Constitutional Documenting provider has reviewed patient's vital signs: yes Common normals: no apparent distress, oriented x3, healthy appearing, alert and well nourished General appearance: cooperative HENMT Common normals: normocephalic, hearing grossly normal bilaterally and moist oral mucous membranes Head and scalp: normocephalic Eye Common normals: PERRL Pupil: PERRL Neck & C-Spine Common normals: full ROM General: normal visual inspection Chest Common normals: inspection of chest normal Respiratory Common normals: normal respiratory effort, no retractions and no use of accessory muscles Back & Pelvis Lumbar spine/lower back: pain with ROM and straight leg raise negative bilaterally Sacroiliac joints: SI joints normal Other: sensation intact BLE strength 5/5 in BLE Extremity Common normals: normal to inspection and full ROM Neuro Common normals: oriented x3, CN's II-XII intact bilaterally, moves all extremities, no focal motor deficits, no sensory deficits noted and deep tendon reflexes 2+ bilaterally Sensorium/orientation: alert Motor exam: strength 5/5 throughout and no movement abnormalities noted Psych Common normals: mental status grossly normal, thought process normal, cooperative, affect normal, speech normal and activity/motor behavior normal Speech: normal speech Thought process: normal thought process Results Imaging Lumbar MRI: Attestation: I have reviewed the pertinent imaging results. Radiologist's impression: No acute fracture is identified in the lumbar spine. The lumbar vertebral body heights are maintained. There is severe degenerative disc disease at L5-S1 with marked disc height loss and endplate spurring. Heterogeneity of the bone marrow signal is similar when compared to the prior study consistent with mixed red and fatty marrow. No acute abnormality is identified involving visualized intrapelvic or intra-abdominal structures. The visualized aorta is normal in diameter. Several cysts in the right hepatic lobe are partially included on the [id number] for this study. The upper sacrum is intact. There are no pars defects. The conus terminates at the L1 level. L5-S1: There is severe degenerative disc disease with a broad-based disc protrusion and superimposed bilateral subarticular/foraminal disc-osteophyte complexes each measuring 5 mm in AP dimension. There is moderate bilateral facet arthropathy. Changes result in moderate to severe bilateral foraminal narrowing with likely abutment of the L5 nerve roots bilaterally. There is no central stenosis. L4-L5: A broad-based disc protrusion measures 4 mm in AP dimension with a superimposed left subarticular and foraminal disc extrusion measuring 4 mm in AP dimension with superior displacement of disc material measuring 5 mm seen on sagittal T2 images 5 and 6. There is moderate to severe facet arthropathy and moderate to severe left foraminal narrowing without central stenosis. L3-L4: There is a 3 mm broad-based disc protrusion with endplate spurring and moderate facet arthropathy. An area of fluid signal along the posterior aspect of the spinal canal at the level of the superior endplate of L4 is suspicious for a small facet joint synovial cyst measuring 4 mm in diameter. There is mild right foraminal narrowing without central stenosis L3-L4: There is a 3 mm broad-based disc protrusion and mild to moderate facet arthropathy. There is no central or foraminal stenosis. L1-L2: There is a mild disc bulge without central or foraminal stenosis. Additional Findings Additional findings: If on a controlled substance or opioids, I have checked an [place] report on this patient and there are no aberrancies noted in the prescribing history.??If on a controlled substance or opioid a drug screen was completed and reviewed within the last year, and if there has not been a drug screen completed we ordered one today to monitor higher risk, state monitored pain medication use. As part of providing excellent, safe, comprehensive care, the following was completed at our patient's visit: 1. A medication reconciliation and review to ensure accurate knowledge of current/active medications, including asking our patients to inform us about any [id number] medications or herbal remedies/nutritional supplements/alternative remedies. 2. A review to specifically ensure our patients have had annual screening for screening for depression, screening for tobacco use, and screening for unhealthy alcohol use. For concerning screenings had a discussion with the patient, provided patient education, and recommended follow-up with primary care provider when appropriate. If patient noted with a risk of falling, they received education on strength, gait, and balance training to prevent future risk of falling. Assessment and Plan Assessment and Plan (1) Lumbar stenosis with neurogenic claudication: (2) Lumbar degenerative disc disease: (3) Lumbar spondylosis: (4) Myofascial pain: Plan continue transdermal therapeutics cream 8 BID-TID prn continue zynex TENS for myofascial pain and chronic low back pain, lumbar DDD f/u 6 months, sooner if needed
--- OUTSIDE RECORDS SUMMARY | 2024-03-14 13:04 | XMS_ITS | CCD ---
Author Organization [facility] Care Team Providers Care Lens Edge Grinder Machine Name Role Phone GERALDKARL ALMA Unavailable Unavailable [...] Primary Care Provider CLEO Live Attending Provider [phone] Chinyere Live Attending Unavailable Chinyere Live Admitting [...] Documented Date Episodic/Chronic Other aftercare (1 source) halfway (current) use of aspirin; 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: [FDC CURRENT USE OF ASPIRIN] Onset: 09-01-2021 Episodic Other aftercare (1 source) Other chcf (current) drug therapy; 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: [OTH DRILL PRESS TENDER CURRENT DRUG THERAPY] Onset: 09-01-2021 Episodic Other [...] on 09-06-2023 Creatinine [Mass/Vol] 0.6 mg/dL 0.6-1.3 [facility] Comment on above: ER/ESD physician is notified/shown all ISTAT results.Critical values may be confirmed by laboratory testing ifdeemed necessary by ER attending doctor. ISTAT XRay CREon 09-06-2023 Creatinine [Mass/Vol] 0.6 mg/dL Normal 0.6-1.3 [facility] Comment on above: Result Comment: ER/E SD physician is notified/shown all ISTAT results. Critical values may be confirmed by laboratory testing if deemed necessary by ER attending doctor. Performed By: #### I SCRE #### [facility] [address] [place] [address] ISTAT GFR > 60.0 Normal [facility] Comment on above: Result Comment: PERF ORMED BY: [place] [address] PATHOLOGIST HAND FUR CLEANER LJ VERAS M.D. Performed By: #### I SCRE #### [facility] [address] [place] [address] MR cervical spine wo/w conon 09-06-2023 MR cervical spine wo/w con [facility] [place] [address] MRI Report Signed Patient: Jayde Hernandez MR#: [id number] : 1965 Acct:[id number] Age/Sex: 58 / F ADM Date: 09/06/23 Loc: MR Room: Type: [facility] Attending Dr: Chinyere Live PA-C Copies to: [...] Raffi Guillen M.D.09/06/2023 11:22 AM Dictation Location: [place] [address] Transcribed By: [facility] 09/06/23 1122 Dictated By: Raffi Guillen II, MD 09/06/23 1109 Signed By: 09/06/23 1122 Normal [facility] MR head/brain wo/w conon MR head/brain wo/w con [facility] [place] [address] [place] [id number] MRI Report Signed Patient: Jayde Hernandez MR#: [id number] : 1965 Acct:[id number] Age/Sex: 58 / F ADM Date: 09/06/23 Loc: MR Room: Type: [facility] Attending Dr: Chinyere Live PA-C Copies to: [...] Raffi Guillen M.D.09/06/2023 11:09 AM Dictation Location: [place] [address] Transcribed By: [facility] 09/06/23 1109 Dictated By: Raffi Guillen II, MD 09/06/23 1053 Signed By: 09/06/23 1109 Normal [facility] No Panel InformationOrdered By: Chinyere Live on 09-06-2023 Bedside Estimated GFR (eGFR) > 60.0 [facility] Creatinine (Bld) [Mass/Vol]O rdered By: Chinyere Live on 07-12-2023 Creatinine [Mass/Vol] 0.7 mg/dL 0.6-1.3 [facility] Comment on above: ER/ESD physician is notified/shown all ISTAT results.Critical values may be confirmed by laboratory testing ifdeemed necessary by ER attending doctor. ISTAT XRay CREon 07-12-2023 Creatinine [Mass/Vol] 0.7 mg/dL Normal 0.6-1.3 [facility] Comment on above: Result Comment: ER/E SD physician is notified/shown all ISTAT results. Critical values may be confirmed by laboratory testing if deemed necessary by ER attending doctor. Performed By: #### I SCRE #### [facility] [address] [place] [address] ISTAT GFR > 60.0 [facility] Comment on above: Result Comment: PERF ORMED BY: [place] [address] PATHOLOGIST HAND FUR CLEANER LJ VERAS M.D. Performed By: #### I SCRE #### [address] No Panel InformationOrdered By: Chinyere Live on 07-12-2023 Bedside Estimated GFR (eGFR) > 60.0 [facility] XR pre/post mri xrayon 07-12 XR pre/post mri xray [facility] [place] [address] [place] [address] MRI Report Signed Patient: Jayde Hernandez MR#: [id number] : 1965 Acct:[id number] Age/Sex: 58 / F ADM Date: 07/12/23 Loc: Room: Type: [facility] Attending Dr: Chinyere Live PA-C Copies to: Chinyere Live PA-C Ordering Provider: Chinyere Live PA-C Date of Service: 07/12/23 MR/MR thoracic spine wo/w con: G35 ([id number]) XR/XR pre/post mri xray: G35 MR thoracic [...] Raffi Guillen M.D.07/12/2023 12:37 PM Dictation Location: [place] [address] Transcribed By: [facility] 07/12/23 1237 Dictated By: Raffi Guillen II, MD 07/12/23 1230 Signed By: 07/12/23 1237 Normal [facility] CBC AUTO DIFFon 05-10-2022 BASO # 0.1 103/ul Normal 0.0-0.1 [facility] Comment on above: Performed By: #### C BC #### [facility] [address] [place] [address] Dr. Brett Rosales Basophils/100 WBC (Bld) 1.0 % Normal 0.2-2.0 [facility] Comment on above: Performed By: #### C BC #### [facility] [address] [place] [address] Dr. Brett Rosales EO # 0.1 103/ul Normal 0.0-0.7 [facility] Comment on above: Performed By: #### C BC #### [facility] [address] [place] [address] Dr. Brett Rosales Eosinophils/100 WBC (Bld) 1.5 % Normal 0.9-7.0 [facility] Comment on above: Performed By: #### C BC #### [facility] [address] [place] [address] Dr. Brett Rosales Erythrocyte distribution width (RBC) [Ratio] 13.2 % Normal 11.0-15.0 [facility] Comment on above: Performed By: #### C BC #### [facility] [address] [place] [address] Dr. Brett Rosales Hematocrit (Bld) [Volume fraction] 40.1 % Normal 36.0-48.0 [facility] Comment on above: Performed By: #### C BC #### [facility] [address] [place] [address] Dr. Brett Rosales Hemoglobin (Bld) [Mass/Vol] 12.9 g/dL Normal 12.0-16.0 [facility] Comment on above: Performed By: #### C BC #### [facility] [address] [place] [address] Dr. Brett Rosales IG # 0.01 10e3/ul Normal 0.00-0.03 [facility] Comment on above: Performed By: #### C BC #### [facility] [address] [place] [address] Dr. Brett Rosales IG % 0.1 % Normal 0.0-0.5 [facility] Comment on above: Performed By: #### C BC #### [facility] [address] [place] [address] Dr. Brett Rosales LYMPH # 2.5 103/ul Normal 1.2-3.8 [facility] Comment on above: Performed By: #### C BC #### [facility] [address] [place] [address] Dr. Brett Rosales Lymphocytes/100 WBC (Bld) 30.3 % Normal 20.5-60.0 [facility] Comment on above: Performed By: #### C BC #### [facility] [address] [place] [address] Dr. Brett Rosales MANUAL DIFF REQ NO Normal [facility] Comment on above: Performed By: #### C BC #### [facility] [address] [place] [address] Dr. Brett Rosales MCH (RBC) [Entitic mass] 30.6 pg Normal 26.7-34.0 [facility] Comment on above: Performed By: #### C BC #### [facility] [address] [place] [address] [address] Brett Rosales MCHC (RBC) [Mass/Vol] 32.2 g/dL Normal 29.9-35.2 [facility] Comment on above: Performed By: #### C BC #### [facility] [address] [address] [address] Brett Rosales MCV (RBC) [Entitic vol] 95.0 fL Normal 81.0-99.0 [facility] Comment on above: Performed By: #### C BC #### [facility] [address] [place] [address] [address] Brett Rosales MONO # 0.9 103/ul Critically high 0.3-0.8 [facility] Comment on above: Performed By: #### C BC #### [facility] [address] [place] [address] Dr. Brett Rosales Monocytes/100 WBC (Bld) 10.4 % Normal 1.7-12.0 [facility] Comment on above: Performed By: #### C BC #### [facility] [address] [place] [address] Dr. Brett Rosales NEUT # 4.6 103/ul Normal 1.4-6.5 [facility] Comment on above: Performed By: #### C BC #### [facility] [address] [place] [address] Dr. Brett Rosales Neutrophils/100 WBC (Bld) 56.7 % Normal 43.0-75.0 [facility] Comment on above: Performed By: #### C BC #### [facility] [address] [place] [address] [address] Brett Rosales Platelet mean volume (Bld) [Entitic vol] 11.0 fL Normal 9.5-13.5 [facility] Comment on above: Performed By: #### C BC #### [facility] [address] [place] [address] Dr. Brett Rosales PLT 262 103/ul Normal 150-450 [facility] Comment on above: Performed By: #### C BC #### [facility] [address] [place] [address] Dr. Brett Rosales RBC 4.22 106/ul Normal 4.20-5.40 [facility] Comment on above: Performed By: #### C BC #### [facility] [address] [place] [address] Dr. Brett Rosales WBC 8.2 103/ul Normal 4.0-11.0 [facility] Comment on above: Performed By: #### C BC #### [facility] [address] [place] [address] Dr. Brett Rosales PROF 14(COMP METB)on 022 Albumin [Mass/Vol] 3.5 g/dL Normal 3.4-5.0 [facility] Comment on above: Performed By: #### C MP #### [facility] [address] [place] [address] Dr. Brett Rosales Albumin/Globulin [Mass ratio] 1.0 {ratio} Normal [facility] Comment on above: Performed By: #### C MP #### [facility] [address] [place] [address] Dr. Brett Rosales ALP [Catalytic activity/Vol] 94 U/L Normal 46-116 [facility] Comment on above: Performed By: #### C MP #### [facility] [address] [place] [address] Dr. Brett Rosales ALT [Catalytic activity/Vol] 25 U/L Normal 14-59 [facility] Comment on above: Performed By: #### C MP #### [facility] [address] [place] [address] Dr. Brett Rosales Anion gap [Moles/Vol] 9.4 mmol/L Normal [facility] Comment on above: Performed By: #### C MP #### [facility] [address] [place] [address] Dr. Brett Rosales AST [Catalytic activity/Vol] 21 U/L Normal 15-37 [facility] Comment on above: Performed By: #### C MP #### [facility] [address] [place] [address] [address] Brett Rosales Bilirubin [Mass/Vol] 0.3 mg/dL Normal 0.2-1.0 [facility] Comment on above: Performed By: #### C MP #### [facility] [address] [place] [address] Dr. Brett Rosales Calcium [Mass/Vol] 9.1 mg/dL Normal 8.5-10.1 [facility] Comment on above: Performed By: #### C MP #### [facility] [address] [place] [address] Dr. Brett Rosales Chloride [Moles/Vol] 106 mmol/L Normal 98-107 [facility] Comment on above: Performed By: #### C MP #### [facility] [address] [place] [address] Dr. Brett Rosales CO2 [Moles/Vol] 31.2 mmol/L Normal 21.0-32.0 [facility] Comment on above: Performed By: #### C MP #### [facility] [address] [place] [address] Dr. Brett Rosales Creatinine [Mass/Vol] 0.69 mg/dL Normal 0.55-1.02 [facility] Comment on above: Performed By: #### C MP #### [facility] [address] [place] [address] Dr. Brett Rosales EGFR-AF TAIWANESE >60 Normal >=60 [facility] Comment on above: Performed By: #### C MP #### [facility] [address] [place] [address] Dr. Brett Rosales EGFR-NON AF TAIWANESE >60 Normal >=60 [facility] Comment on above: Performed By: #### C MP #### [facility] [address] [place] [address] Dr. Brett Rosales Globulin (S) [Mass/Vol] 3.5 g/dL Normal [facility] Comment on above: Performed By: #### C MP #### [facility] [address] [place] [address] Dr. Brett Rosales Glucose [Mass/Vol] 108 mg/dL Critically high 74-106 [facility] Comment on above: Performed By: #### C MP #### [facility] [address] [address] [address] Brett Rosales Potassium [Moles/Vol] 3.6 mmol/L Normal 3.5-5.1 [facility] Comment on above: Performed By: #### C MP #### [facility] [address] [address] [address] Brett Rosales Protein [Mass/Vol] 7.0 g/dL Normal 6.4-8.2 [facility] Comment on above: Performed By: #### C MP #### [facility] [address] [address] [address] Brett Rosales Sodium [Moles/Vol] 143 mmol/L Normal 136-145 [facility] Comment on above: Performed By: #### C MP #### [facility] [address] [address] [address] Brett Rosales Urea nitrogen [Mass/Vol] 14.0 mg/dL Normal 7.0-18.0 [facility] Comment on above: Performed By: #### C MP #### [facility] [address] [address] [address] Brett Rosales Urea nitrogen/Creatinine [Mass ratio] 20.3 mg/mg Normal [facility] Comment on above: Performed By: #### C MP #### [facility] [address] [address] [address] Brett Rosales XR CHEST 2 Von [...] by: LIAT WEBSTER Date: 2022-02-24 08:15 Normal [facility] MG MAMM SCREEN 3D LIBERTAD CADon 02-15-2022 MG MAMM SCREEN 3D LIBERTAD CAD Patient: JAYDE HERNANDEZ Exam Date: 02/15/2022 : 1965 Gender:F Ordering : DR CINDY RODRÍGUEZ Admission #: [id number] Family : DR JOHNY WINTERS D.O. Order #: [id number] CLICK HERE TO VIEW EXAM RADIOLOGY REPORT [...] age 63. LOCATION: [facility] BREAST COMPOSITION: Scattered areas fibroglandular density. [...] at 13:24 Normal [facility] CBC AUTO DIFFon 11-16-2021 BASO # 0.1 103/ul Normal 0.0-0.1 [facility] Comment on above: Performed By: #### C BC #### [facility] [address] [address] [address] Brett Rosales Basophils/100 WBC (Bld) 0.7 % Normal 0.2-2.0 [facility] Comment on above: Performed By: #### C BC #### [facility] [address] [address] [address] Brett Rosales EO # 0.1 103/ul Normal 0.0-0.7 [facility] Comment on above: Performed By: #### C BC #### [facility] [address] [place] [address] Dr. Brett Rosales Eosinophils/100 WBC (Bld) 1.7 % Normal 0.9-7.0 [facility] Comment on above: Performed By: #### C BC #### [facility] [address] [place] [address] Dr. Brett Rosales Erythrocyte distribution width (RBC) [Ratio] 13.2 % Normal 11.0-15.0 [facility] Comment on above: Performed By: #### C BC #### [facility] [address] [place] [address] Dr. Brett Rosales Hematocrit (Bld) [Volume fraction] 38.9 % Normal 36.0-48.0 [facility] Comment on above: Performed By: #### C BC #### [facility] [address] [place] [address] Dr. Brett Rosales Hemoglobin (Bld) [Mass/Vol] 12.5 g/dL Normal 12.0-16.0 [facility] Comment on above: Performed By: #### C BC #### [facility] [address] [place] [address] Dr. Brett Rosales IG # 0.02 10e3/ul Normal 0.00-0.03 [facility] Comment on above: Performed By: #### C BC #### [facility] [address] [place] [address] Dr. Brett Rosales IG % 0.2 % Normal 0.0-0.5 [facility] Comment on above: Performed By: #### C BC #### [facility] [address] [place] [address] Dr. Brett Rosales LYMPH # 2.9 103/ul Normal 1.2-3.8 [facility] Comment on above: Performed By: #### C BC #### [facility] [address] [place] [address] Dr. Brett Rosales Lymphocytes/100 WBC (Bld) 34.3 % Normal 20.5-60.0 [facility] Comment on above: Performed By: #### C BC #### [facility] [address] [place] [address] Dr. Brett Rosales MANUAL DIFF REQ NO Normal [facility] Comment on above: Performed By: #### C BC #### [facility] [address] [place] [address] Dr. Brett Rosales MCH (RBC) [Entitic mass] 31.0 pg Normal 26.7-34.0 [facility] Comment on above: Performed By: #### C BC #### [facility] [address] [place] [address] Dr. Brett Rosales MCHC (RBC) [Mass/Vol] 32.1 g/dL Normal 29.9-35.2 [facility] Comment on above: Performed By: #### C BC #### [facility] [address] [place] [address] Dr. Brett Rosales MCV (RBC) [Entitic vol] 96.5 fL Normal 81.0-99.0 [facility] Comment on above: Performed By: #### C BC #### [facility] [address] [place] [address] Dr. Brett Rosales MONO # 0.7 103/ul Normal 0.3-0.8 [facility] Comment on above: Performed By: #### C BC #### [facility] [address] [place] [address] Dr. Brett Rosales Monocytes/100 WBC (Bld) 8.5 % Normal 1.7-12.0 [facility] Comment on above: Performed By: #### C BC #### [facility] [address] [place] [address] Dr. Brett Rosales NEUT # 4.6 103/ul Normal 1.4-6.5 [facility] Comment on above: Performed By: #### C BC #### [facility] [address] [place] [address] Dr. Brett Rosales Neutrophils/100 WBC (Bld) 54.6 % Normal 43.0-75.0 [facility] Comment on above: Performed By: #### C BC #### [facility] [address] [place] [address] Dr. Brett Rosales Platelet mean volume (Bld) [Entitic vol] 10.7 fL Normal 9.5-13.5 [facility] Comment on above: Performed By: #### C BC #### [facility] [address] [place] [address] Dr. Brett Rosales PLT 276 103/ul Normal 150-450 [facility] Comment on above: Performed By: #### C BC #### [facility] [address] [place] [address] Dr. Brett Rosales RBC 4.03 106/ul Critically low 4.20-5.40 [facility] Comment on above: Performed By: #### C BC #### [facility] [address] [place] [address] Dr. Brett Rosales WBC 8.5 103/ul Normal 4.0-11.0 [facility] Comment on above: Performed By: #### C BC #### [facility] [address] [place] [address] Dr. Brett Rosales PROF 14(COMP METB)on 022 Albumin [Mass/Vol] 3.5 g/dL Normal 3.4-5.0 [facility] Comment on above: Performed By: #### C MP #### [facility] [address] [place] [address] Dr. Brett Rosales Albumin/Globulin [Mass ratio] 1.1 {ratio} Normal [facility] Comment on above: Performed By: #### C MP #### [facility] [address] [place] [address] Dr. Brett Rosales ALP [Catalytic activity/Vol] 75 U/L Normal 46-116 [facility] Comment on above: Performed By: #### C MP #### [facility] [address] [place] [address] Dr. Brett Rosales ALT [Catalytic activity/Vol] 27 U/L Normal 14-59 [facility] Comment on above: Performed By: #### C MP #### [facility] [address] [place] [address] Dr. Brett Rosales Anion gap [Moles/Vol] 9.3 mmol/L Normal [facility] Comment on above: Performed By: #### C MP #### [facility] [address] [place] [address] Dr. Brett Rosales AST [Catalytic activity/Vol] 22 U/L Normal 15-37 [facility] Comment on above: Performed By: #### C MP #### [facility] [address] [place] [address] Dr. Brett Rosales Bilirubin [Mass/Vol] 0.4 mg/dL Normal 0.2-1.3 [facility] Comment on above: Performed By: #### C MP #### [facility] [address] [place] [address] Dr. Brett Rosales Calcium [Mass/Vol] 8.4 mg/dL Critically low 8.5-10.1 [facility] Comment on above: Performed By: #### C MP #### [facility] [address] [place] [address] Dr. Brett Rosales Chloride [Moles/Vol] 105 mmol/L Normal 98-107 [facility] Comment on above: Performed By: #### C MP #### [facility] [address] [place] [address] Dr. Brett Rosales CO2 [Moles/Vol] 31.1 mmol/L Critically high 22.0-30.0 [facility] Comment on above: Performed By: #### C MP #### [facility] [address] [place] [address] Dr. Brett Rosales Creatinine [Mass/Vol] 0.73 mg/dL Normal 0.52-1.04 [facility] Comment on above: Performed By: #### C MP #### [facility] [address] [place] [address] Dr. Brett Rosales EGFR-AF TAIWANESE >60 Normal >=60 [facility] Comment on above: Performed By: #### C MP #### [facility] [address] [place] [address] Dr. Brett Rosales EGFR-NON AF TAIWANESE >60 Normal >=60 [facility] [facility] Comment on above: Performed By: #### C MP #### [facility] [address] [address] [address] Brett Rosales Globulin (S) [Mass/Vol] 3.2 g/dL Normal [facility] Comment on above: Performed By: #### C MP #### [facility] [address] [address] [address] Brett Rosales Glucose [Mass/Vol] 105 mg/dL Normal 74-106 [facility] Comment on above: Performed By: #### C MP #### [facility] [address] [address] [address] Brett Rosales Potassium [Moles/Vol] 3.4 mmol/L Normal 3.4-5.0 [facility] Comment on above: Performed By: #### C MP #### [facility] [address] [place] [address] Dr. Brett Rosales Protein [Mass/Vol] 6.7 g/dL Normal 6.1-8.2 [facility] Comment on above: Performed By: #### C MP #### [facility] [address] [address] [address] Brett Rosales Sodium [Moles/Vol] 142 mmol/L Normal 137-145 [facility] Comment on above: Performed By: #### C MP #### [facility] [address] [place] [address] Dr. Brett Rosales Urea nitrogen [Mass/Vol] 12.0 mg/dL Normal 7.0-18.0 [facility] Comment on above: Performed By: #### C MP #### [facility] [address] [place] [address] Dr. Brett Rosales Urea nitrogen/Creatinine [Mass ratio] 16.4 mg/mg Normal [facility] Comment on above: Performed By: #### C MP #### [facility] [address] [place] [address] Dr. Brett Rosales MRI LSPINE WO W [...] by: DENYS WALLACE Date: 2021-09-09 15:31 Normal [facility] PROGRESSon 10-06-2017 PROGRESS HNO ID: [id number] Author: Ailyn Patten (Fel) Service: (none) Author Type: Fellow Type: Progress Notes Filed: 10/06/2017 5:17 PM Note Text: NMO/MOG (RANCH RIDER demyelinating disease evaluation) negative at [facility] Normal [facility] Angiotens. Conv Enzon 2017 Angiotens. Conv Enz 41 U/L Normal <52 [facility] Comment on above: Result Comment: Dianne ficially low JERRY levels may be found for patients taking JERRY inhibitors or after the administration of gadolinium. Performed By: #### V ITD, ENAID, HREMOP, TSH, HIV12C, SYPHGX, LYMEGM, VZVG2, COPPER, INFTBG, JERRY, CCP, JCVIDX ####[facility] [place], [place] [phone] CCP Antibody, IgGon 09-27-19 18 CCP Antibody, IgG <15 Normal <20 [facility] Comment on above: Result Comment: < 20 units: Xepgkkgw74-06 units: Weak Xuglgqlb09-84 units: Moderate Positive> 60 units: Strong PositiveThe following results were obtained with the [employer] QUANTA Lite CCP3 IgG ADAM. Anti-CCP values obtained with different manufacturers' assay methods may not be used interchangeably. The magnitude of the reported IgG levels cannot be correlated to an endpoint titer. Performed By: #### V ITD, ENAID, HREMOP, TSH, HIV12C, SYPHGX, LYMEGM, VZVG2, COPPER, INFTBG, JERRY, CCP, JCVIDX ####[facility] [address], [place] [phone] CNOVon 09-27-2017 CNOV Office Visit (NEMN) JAYDE HERNANDEZ ([id number]) 1965 FDate Time Provider Department09/27/17 1:40 PM ASSESSMENT NEUR [facility] During your visit today, we recorded the following information about you: Pulse Respiration Blood pressure Weight 84/minute 16/minute 155/65 51.3 kg Height 1.524 Yovani San MD 10/01/2017 9:26 PM [facility] FOR MULTIPLE SCLEROSISNEW PATIENT EVALUATION/CONSULTATIONR eferral source:SELFAlso followed by:Johny Winters MD ([facility])[address] [place] [address]Lhjma: [phone]: [phone] N[address] [place] [address]Opzjy: [phone]: [phone] NEUROLOGIC DIAGNOSIS: Multiple sclerosisDISEASE SUMMARYDate of onset: [...] expected to be with me at the [facility].She states that in April 2017, she noticed [...] well.PAST HISTORY:PAST MEDICAL HISTORYDiagnosis Date- Cervical cancer ([facility]) 1997 s/p hysterectomy- Hypertension- Migraine- MS (multiple sclerosis) ([facility])- OsteoporosisPAST SURGICAL HISTORYProcedure Laterality Date- HYSTERECTOMY 1997Transfusions: [...] in the arms and legs was performed kdinxxgoppchum-lq-gqwqc, rapid-alternating, and fine movements. Rapid movements wereimpaired [...] at this time. She will return to [place] in 6 months to evaluate herprogress on [...] was evaluated with Dr. San.Ailyn Patten, [facility] MIAMIlinical Neuroimmunology FellowWellstone Regional Hospital for Multiple SclerosisNEUROLOGY STAFF ADDENDUMPatient seen with the fellow. I agree with the fellow's history, examination,and the plan as noted above was formulated with my direct input.Soraya Davidson, Department of NeurologyWellstone Regional Hospital for Multiple SclerosisAilyn Patten MD 09/27/2017 [...] [M81.8]Order(s):TUBES - DRAW EXTRA [SQXTUBE] Order #: [id number] FUTURE ANTI VASILIY ID [SQENAID] Order #: [id number] FUTURE CCP ANTIBODY IGG [SQCCP] Order #: [id number] FUTURE VITAMIN D 25 HYDROXY [SQVITD] Order #: [id number] FUTURE COPPER BLOOD [SQCOPPER] Order #: [id number] FUTURE TSH BLD [SQTSH] Order #: [id number] FUTURE LYME AB IGG + IGM [SQLYMEGM] Order #: [id number] FUTURE HIV 1,2 COMBO (AG/AB) [SQHIV12] Order #: [id number] FUTURE SYPHILIS IGG WITH CONF [SQSYPHGX] Order #: [id number] FUTURE JERRY/ANGIOTENSIN BLD [SQACE] Order #: [id number] FUTURE HEP REMOTE PANEL BL [SQHREMOP] Order #: [id number] FUTURE JCV ANTIBODY AND INDEX WITH REFLEX [SQJCVIDX] Order #: [id number] FUTURE BLOOD TB SCREEN [SQINFTBG] Order #: [id number] FUTURE VARICELLA ZOSTER IGG [SQVZVG] Order #: [id number] FUTUREPrescriptions as of 09/27/2017 Sig: GABAPENTIN 100 [...] for Sandor.Follow-up and Disposition History RecordedEncounter Number: [id number] Status:Closed by ALMA SAN MD on 10/01/17 Normal [facility] Copperon 09-27-2017 Copper 106 ug/dL Normal 85-155 [facility] Comment on above: Result Comment: This test was developed and its performance characteristics determined by [facility]'s [facility] [place] ([facility]).It has not been cleared or approved by the FDA. -[facility] is regulated under CLIA as qualified to perform high-complexity testing.This test is used for clinical purposes. It should not be regarded as investigational or for research. Performed By: #### V ITD, ENAID, HREMOP, TSH, HIV12C, SYPHGX, LYMEGM, VZVG2, COPPER, INFTBG, JERRY, CCP, JCVIDX ####[address] [place], [place] [phone] VASILIY Antibody Panelon 018 Centromere <0.2 Normal <1.0 [facility] Comment on above: Result Comment: NEGA TIVENegative: <1.0 AIPositive: >0.9 AI Performed By: #### V ITD, ENAID, HREMOP, TSH, HIV12C, SYPHGX, LYMEGM, VZVG2, COPPER, INFTBG, JERRY, CCP, JCVIDX ####[address] [phone] Chromatin Antibody <0.2 Normal <1.0 [facility] Comment on above: Result Comment: NEGA TIVENegative: <1.0 AIPositive: >0.9 AI Performed By: #### V ITD, ENAID, HREMOP, TSH, HIV12C, SYPHGX, LYMEGM, VZVG2, COPPER, INFTBG, JERRY, CCP, JCVIDX ####[address] [phone] ALVARO 1 Antibody <0.2 Normal <1.0 [facility] Comment on above: Result Comment: NEGA TIVENegative: <1.0 AIPositive: >0.9 AI Performed By: #### V ITD, ENAID, HREMOP, TSH, HIV12C, SYPHGX, LYMEGM, VZVG2, COPPER, INFTBG, JERRY, CCP, JCVIDX ####[address] [phone] Ribosomal HOT DIP PLATING SUPERVISOR <0.2 Normal <1.0 [facility] Comment on above: Result Comment: NEGA TIVENegative: <1.0 AIPositive: >0.9 AI Performed By: #### V ITD, ENAID, HREMOP, TSH, HIV12C, SYPHGX, LYMEGM, VZVG2, COPPER, INFTBG, JERRY, CCP, JCVIDX ####[address] [phone] HOT DIP PLATING SUPERVISOR Antibody 0.9 AI Normal <1.0 [facility] Comment on above: Result Comment: NEGA TIVENegative: <1.0 AIPositive: >0.9 AI Performed By: #### V ITD, ENAID, HREMOP, TSH, HIV12C, SYPHGX, LYMEGM, VZVG2, COPPER, INFTBG, JERRY, CCP, JCVIDX ####[address] [phone] Scleroderma IgG Ab <0.2 Normal <1.0 [facility] Comment on above: Result Comment: NEGA TIVENegative: <1.0 AIPositive: >0.9 AI Performed By: #### V ITD, ENAID, HREMOP, TSH, HIV12C, SYPHGX, LYMEGM, VZVG2, COPPER, INFTBG, JERRY, CCP, JCVIDX ####[address] [phone] Sm Antibody <0.2 Normal <1.0 [facility] Comment on above: Result Comment: NEGA TIVENegative: <1.0 AIPositive: >0.9 AI Performed By: #### V ITD, ENAID, HREMOP, TSH, HIV12C, SYPHGX, LYMEGM, VZVG2, COPPER, INFTBG, JERRY, CCP, JCVIDX ####[address] [phone] SSA Antibody <0.2 Normal <1.0 [facility] Comment on above: Result Comment: NEGA TIVENegative: <1.0 AIPositive: >0.9 AI Performed By: #### V ITD, ENAID, HREMOP, TSH, HIV12C, SYPHGX, LYMEGM, VZVG2, COPPER, INFTBG, JERRY, CCP, JCVIDX ####[address] [phone] SSB Antibody <0.2 Normal <1.0 [facility] Comment on above: Result Comment: NEGA TIVENegative: <1.0 AIPositive: >0.9 AI Performed By: #### V ITD, ENAID, HREMOP, TSH, HIV12C, SYPHGX, LYMEGM, VZVG2, COPPER, INFTBG, JERRY, CCP, JCVIDX ####[address] [phone] HIV 12 Combo (Ag/Ab)on 09-27 HIV 12 Ag/Ab Non Reactive Normal Non Reactive [facility] Comment on above: Result Comment: (NOT E)HIV Information: [place] Rev. Code 3701.243(E):This information has been disclosed [...] LYMEGM, VZVG2, COPPER, INFTBG, JERRY, CCP, JCVIDX ####[address] [phone] Hepatitis Remote Panelon BSA (Body Surface Area) Negative Normal Negative [facility] Comment on above: Performed By: #### V ITD, ENAID, HREMOP, TSH, HIV12C, SYPHGX, LYMEGM, VZVG2, COPPER, INFTBG, JERRY, CCP, JCVIDX ####[address] [phone] Hep B Core Ab,Total Negative Normal Negative [facility] Comment on above: Performed By: #### V ITD, ENAID, HREMOP, TSH, HIV12C, SYPHGX, LYMEGM, VZVG2, COPPER, INFTBG, JERRY, CCP, JCVIDX ####[address] [phone] Hepatitis C Ab IA Negative Normal Negative [facility] Comment on above: Performed By: #### V ITD, ENAID, HREMOP, TSH, HIV12C, SYPHGX, LYMEGM, VZVG2, COPPER, INFTBG, JERRY, CCP, JCVIDX ####[address] [phone] HepB Surface Ab,Qual Negative Normal Negative [facility] Comment on above: Result Comment: NEGA TIVE Performed By: #### V ITD, ENAID, HREMOP, TSH, HIV12C, SYPHGX, LYMEGM, VZVG2, COPPER, INFTBG, JERRY, CCP, JCVIDX ####[address] [place], [place] [phone] JCV Ab/Indx & Reflexon 09-27 JCV Antibody Positive Critically abnormal [facility] Comment on above: Result Comment: (NOT E)Index [...] confirmpresence or absence of JCV-specific antibodies.Test Performed at:[facility] [place] [phone] Guerita Callahan MD Performed By: #### V ITD, ENAID, HREMOP, TSH, HIV12C, SYPHGX, LYMEGM, VZVG2, COPPER, INFTBG, JERRY, CCP, JCVIDX ####[address] [place], [place] [phone] JCV Index Value 3.41 High [facility] Comment on above: Performed By: #### V ITD, ENAID, HREMOP, TSH, HIV12C, SYPHGX, LYMEGM, VZVG2, COPPER, INFTBG, JERRY, CCP, JCVIDX ####[address] [place], [place] [phone] Lyme IgG/IgM ABon 09-27-2017 Lyme IgG/IgM AB Negative Normal Negative [facility] Comment on above: Result Comment: Abse nce of detectable Borrelia burgdorferi antibodies. A negative result does not exclude the possibility of Borrelia burgdorferi infection. If early Lyme disease is suspected, a second sample should be collected and tested two to four weeks later. Performed By: #### V ITD, ENAID, HREMOP, TSH, HIV12C, SYPHGX, LYMEGM, VZVG2, COPPER, INFTBG, JERRY, CCP, JCVIDX ####[address] [place], [place] [phone] Lyme Interp No evidence of antibodies to Borrelia burgdorferi. Normal No evidence of antibodies to Borrelia burgdorferi. [facility] Comment on above: Performed By: #### V ITD, ENAID, HREMOP, TSH, HIV12C, SYPHGX, LYMEGM, VZVG2, COPPER, INFTBG, JERRY, CCP, JCVIDX ####[address] [place], [place] [phone] [facility] Send Out Teston 018 Test RANCH RIDER DEMYELINATING DISEASE Normal [facility] Comment on above: Performed By: #### V ITD, ENAID, HREMOP, TSH, HIV12C, SYPHGX, LYMEGM, VZVG2, COPPER, INFTBG, JERRY, CCP, JCVIDX ####[address] [place], [place] [phone] Test Results View results in Scan cheri Documents link when available. Normal [facility] Comment on above: Performed By: #### V ITD, ENAID, HREMOP, TSH, HIV12C, SYPHGX, LYMEGM, VZVG2, COPPER, INFTBG, JERRY, CCP, JCVIDX ####[address] [place], [place] [phone] PROGRESSon 09-27-2017 PROGRESS HNO ID: [id number]: Alma Simmons: (none)Author Type: PhysicianType: Progress NotesFiled: 10/01/2017 9:26 PMNote Text:[facility] MULTIPLE SCLEROSISNEW PATIENT EVALUATION/CONSULTATIONR eferral source:SELFAlso followed by:Johny Winters MD ([facility])[address], [place] [address]Qlcpu: [phone]: [phone] [address] [address]Ozskv: [phone]: [phone] NEUROLOGIC DIAGNOSIS: Multiple sclerosisDISEASE SUMMARYDate of onset: [...] [facility].She states that in April 2017, she [...] s/p hysterectomy- Hypertension- Migraine- MS (multiple sclerosis) ([facility] OsteoporosisPAST SURGICAL HISTORYProcedure Laterality Date- HYSTERECTOMY 1997Transfusions: [...] in the arms and legs was performed rxwqthunwfcjzv-nf-nsskq, rapid-alternating, and fine movements. Rapid movementswere impaired [...] at this time. She will return to [place] in 6 months to evaluateher progress on [...] was evaluated with Dr. San.Ailyn Patten, [facility]AMIlinical Neuroimmunology FellowLakeland Community Hospital Multiple SclerosisNEUROLOGY STAFF ADDENDUMPatient seen with the fellow. I agree with the fellow's history,examination, and the plan as noted above was formulated with my directinput.Soraya Davidson, Department of NeurologyLakeland Community Hospital Multiple Sclerosis Normal [facility] Syphilis IgG with Confon Syphilis IgG <0.2 Normal [facility] Comment on above: Result Comment: Anti body index is interpreted as follows:Non reactive SPECIMENS <=0.8Weak reactive SPECIMENS 0.9 to 5.9Reactive SPECIMENS >=6.0 Performed By: #### V ITD, ENAID, HREMOP, TSH, HIV12C, SYPHGX, LYMEGM, VZVG2, COPPER, INFTBG, JERRY, CCP, JCVIDX ####[facility], [place] [phone] Syphilis IgG, Qual Nonreactive Normal Nonreactive [facility] Comment on above: Result Comment: In c onjunction with this result, the immune status of the patient should be evaluated based on their clinical status, related risk factors, and other diagnostic test results. Performed By: #### V ITD, ENAID, HREMOP, TSH, HIV12C, SYPHGX, LYMEGM, VZVG2, COPPER, INFTBG, JERRY, CCP, JCVIDX ####[address] [address] TB by QuantiFERONon 09-27-19 18 Interpretation No evidence of curre nt or previous infection with Mycobacterium tuberculosis. Normal [facility] Comment on above: Performed By: #### V ITD, ENAID, HREMOP, TSH, HIV12C, SYPHGX, LYMEGM, VZVG2, COPPER, INFTBG, JERRY, CCP, JCVIDX ####[address] [address] Mitogen Response >10.00 Normal >0.49 [facility] Comment on above: Performed By: #### V ITD, ENAID, HREMOP, TSH, HIV12C, SYPHGX, LYMEGM, VZVG2, COPPER, INFTBG, JERRY, CCP, JCVIDX ####[address] [address] TB Antigen Response 0.00 IU/mL Normal <0.35 [facility] Comment on above: Performed By: #### V ITD, ENAID, HREMOP, TSH, HIV12C, SYPHGX, LYMEGM, VZVG2, COPPER, INFTBG, JERRY, CCP, JCVIDX ####[address] [address] TB Result Negative Normal Negative [facility] Comment on above: Performed By: #### V ITD, ENAID, HREMOP, TSH, HIV12C, SYPHGX, LYMEGM, VZVG2, COPPER, INFTBG, JERRY, CCP, JCVIDX ####[address] [phone] TSHon 09-27-2017 Thyroid stimulating hormone (TSH) 2.500 uU/mL Normal 0.400-5.500 [facility] Comment on above: Performed By: #### V ITD, ENAID, HREMOP, TSH, HIV12C, SYPHGX, LYMEGM, VZVG2, COPPER, INFTBG, JERRY, CCP, JCVIDX ####[address] [phone] Varicella Zoster IgGon 09-27 V. zoster IgG, Qual Positive Critically abnormal Negative [facility] Comment on above: Result Comment: Pres ence of detectable VZV IgG antibodies. A positive result generally indicates exposure to the pathogen or administration of specific immunoglobulins, but is no indication of active infection or stage of disease. Performed By: #### V ITD, ENAID, HREMOP, TSH, HIV12C, SYPHGX, LYMEGM, VZVG2, COPPER, INFTBG, JERRY, CCP, JCVIDX ####[address] [phone] Varicella Zoster IgG 1075.0 Index Value Normal [facility] Comment on above: Result Comment: Inde x Values are Interpreted as Follows:Negative specimens <135.0Equivocal specimens 135.0 to 164.9Positive specimens >164.9The magnitude of the measured result is not indicative of the amount of antibody present. Performed By: #### V ITD, ENAID, HREMOP, TSH, HIV12C, SYPHGX, LYMEGM, VZVG2, COPPER, INFTBG, JERRY, CCP, JCVIDX ####[address] [phone] Vitamin D 25 Hydroxyon 09-27 Vitamin D 25 Hydroxy 123.0 ng/mL High 31.0-80.0 [facility] Comment on above: Result Comment: Clas sification of 25 [place] Vitamin D status:Insufficiency/Moderate Deficiency: < or = 30 ng/mLSufficiency/Optimal Levels: 31 to 80 ng/mLToxicity: > 100 ng/mLTest performed by chemiluminescent immunoassay. Performed By: #### V ITD, ENAID, HREMOP, TSH, HIV12C, SYPHGX, LYMEGM, VZVG2, COPPER, INFTBG, JERRY, CCP, JCVIDX ####[facility] [address] [place], [place] [phone] ME-MRI C-SPINE WO/W CON IMPO RTon 07-11-2017 ME-MRI C-SPINE WO/W CON IMPORT Images were obtained outside of [facility] [id number] Normal [facility] ME-MRI T-SPINE WO/W CON IMPO RTon 07-11-2017 ME-MRI T-SPINE WO/W CON IMPORT Images were obtained outside of [facility] [id number] Normal [facility] MR-MRI BRAIN WO CON IMPORTon 05-16-2017 MR-MRI BRAIN WO CON IMPORT Images were obtained outside of [facility] [id number] Normal [facility] Vital Signs Date Time Vital Sign Value Performing Clinician Facility 09-06-2023 09:48-0500 Body height 152.4 cm DO Johny Ball Work Phone: [facility] 09-06-2023 09:48-0500 Body weight 60.78 kg DO Johny Ball Work Phone: [facility] 07-12-2023 11:28-0500 Body height 152.4 cm DO Johny Ball Work Phone: [facility] 07-12-2023 11:28-0500 Body weight 60.78 kg DO Johny Ball Work Phone: [facility] 03-01-2023 10:00-0400 Body height 154.94 cm Johny Ball Other [facility] Other 03-01-2023 10:00-0400 Body mass index (BMI) [Ratio] 26.15 kg/m2 Johny Ball Other [facility] Other 03-01-2023 10:00-0400 Body weight 62.78 kg Johny Ball Other [facility] Other 03-01-2023 10:00-0400 Diastolic blood pressure 74 mm[Hg] Johny Winters Other [facility] Other 03-01-2023 10:00-0400 Respiratory rate 12 /min Johny Winters Other [facility] Other 03-01-2023 10:00-0400 Systolic blood pressure 138 mm[Hg] Johny Winters Other [facility] Other 11-02-2021 14:20-0400 Body height 154.94 cm Ezequiel Agudelo Other [facility] Other 11-02-2021 14:20-0400 Body mass index (BMI) [Ratio] 25.69 kg/m2 Ezequiel Agudelo Other [facility] Other 11-02-2021 14:20-0400 Body weight 61.69 kg Ezequiel Agudelo Other [facility] Other Encounters Encounter Date Encounter Type Care Provider Facility Start: 12-13-2023 End: 12-13-2023 ambulatory CHINYERE LIVE Not Available Start: 12-12-2023 End: 12-12-2023 ambulatory CINDY RODRÍGUEZ Not Available Start: 09-06-2023 End: 09-06-2023 ambulatory Chinyere Live Facility:[facility] Start: 09-06-2023 End: 09-06-2023 ambulatory DO Johny Ball Work Phone: [facility] Work Phone: Start: 09-06-2023 End: 09-06-2023 Patient encounter procedure DO Johny Ball Work Phone: [facility] [place] Work Phone: Start: 07-12-2023 End: 07-12-2023 ambulatory Johny Ball Facility:[facility] Start: 07-12-2023 End: 07-12-2023 Patient encounter procedure DO Johny Winters Work Phone: [facility] [place] Work Phone: Start: 04-07-2023 End: 04-07-2023 ambulatory Johny Winters Other [facility] Other Start: 04-07-2023 Nursing evaluation o f patient and report Johny Winters [facility] Start: 03-01-2023 End: 03-01-2023 ambulatory Johny Winters Other [facility] Other Start: 03-01-2023 Encounter for genera l adult medical examination without abnormal findings Johny Winters [facility] Start: 03-01-2023 Periodic preventive med est patient 40-64yrs Johny Winters [facility] Start: 12-24-2022 End: 12-24-2022 ambulatory Johny Winters Other [facility] Other Start: 12-24-2022 Telephone encounter Johny Winters [facility] Start: 05-10-2022 End: 05-11-2022 ambulatory CHINYERE LIVE Facility:[facility] Start: 02-23-2022 End: 02-24-[address] JOHNY WINTERS Facility:[facility] Start: 02-15-2022 End: 02-16-[address] CINDY RODRÍGUEZ Facility:[facility] Start: 11-16-2021 End: 11-17-[address] DENYS JACKSON Facility:[facility] Start: 11-02-2021 End: 11-02-2021 ambulatory Ezequiel Agudelo Other [facility] Other Start: 11-02-2021 Office outpatient ne w 45 minutes Ezequiel Agudelo [facility] Start: 09-09-2021 End: 09-10-[address] JOHNY WINTERS Facility:[facility] Start: 08-30-2021 End: 08-30-[address] JOHNY WINTERS Facility:[facility] Start: 09-27-2017 End: 09-27-2017 Ambulatory [facility] Start: 09-27-2017 End: [facility] Date Procedure Procedure Detail Performing Clinician Start: 09-06-2023 MRI of cervical spin e with contrast DO Johny Winters Work Phone: Start: 09-06-2023 MRI of head DO [facility] [employer] Work Phone: Start: 07-12-2023 MRI of thoracic spin e with contrast DO Johny Winters Work Phone: Start: 07-12-2023 XR pre/post mri xray DO Johny Winters Work Phone: Immunizations Immunization Date Immunization Notes Care Provider Fa dileep 04-07-2023 influenza, injectabl e, quadrivalent, preservative free Johny Ball Other [facility] Other 05-06-2022 influenza virus vaccine, split virus (incl. purified surface antigen) Johny Ball Other [facility] Other 05-06-2022 influenza, injectabl e, quadrivalent, contains preservative Johny Ball Other [facility] Other 04-14-2021 influenza virus vaccine, split virus (incl. purified surface antigen) Johny Ball Other [facility] Other 04-17-2020 pneumococcal polysaccharide vaccine, 23 valent Johny Ball Other [facility] Other 12-31-2019 pneumococcal conjuga te vaccine, 13 valent Johny Ball Other [facility] Other 04-08-2019 influenza virus vaccine, split virus (incl. purified surface antigen) Johny Ball Other [facility] Other 05-05-2017 influenza virus vaccine, split virus (incl. purified surface antigen) Johny Ball Other [facility] Other 05-04-2015 tetanus and diphther ia toxoids, adsorbed, preservative free, for adult use (5 Lf of tetanus toxoid and 2 Lf of diphtheria toxoid) Johny Winters Other [facility] Other 04-30-2013 tetanus and diphther ia toxoids, adsorbed, preservative free, for adult use (5 Lf of tetanus toxoid and 2 Lf of diphtheria toxoid) Johny Winters Other [facility] Other Payers Date Payer Category Payer Self-pay [id number] 2018 Medicaid [id number] 1965 Unknown [id number] [id number] 1965 Unknown [id number] 2.16.840.1.067505.3.579.2.593 1965 Unknown [id number] 2.16.840.1.943022.3.579.2.593 1963 Unknown [id number] 2.16.840.1.129962.3.579.2.593 1963 Unknown [id number] 2.16.840.1.819621.3.579.2.593 1963 Unknown [id number] 2.16.840.1.860448.3.579.2.593 1963 Unknown [id number] 2.16.840.1.871704.3.579.2.1259 1963 Unknown [id number] 2.16.840.1.563138.3.579.2.1259 1959 Unknown [id number] [id number] Private Health Insurance [facility] [id number] Unknown [id number] 2.16.840.1.307667.3.579.2.531 Unknown [id number] 2.16.840.1.488498.3.579.2.531 Social History Date Type Detail Facility Sex Assigned At [facility] Other Start: 1965 Sex Assigned At Female F [facility] Evaluation note 03-01-2023 Note Date & [...] mammogram for breast cancer (ICD-10 - Z12.31) Contract Clerk sending order for mammogram Instructed on monthly SBE [facility] Other Evaluation note 11-02-2021 Note Date & [...] stable Oct, Lumbar radiculopathy (ICD-10 - M54.16) [facility] Other Evaluation note Note Date & Type Note Facility Evaluation note No Information [facility] Other Evaluation note Note Date & Type Note Facility Evaluation note No assessment information availa [facility] Work Phone: History general Narrative - Reported Note Date & Type Note Facility History general Narrative - Reported Type Medical History hypercholesterolemia Medical History multiple sclerosis Medical History osteoporosis Medical History cervical cancer Surgical History hysterectomy Hospitalization History See Above [facility] Other Reason for visit Narrative Note Date & Type Note Facility Reason for visit Narrative Referral Dr Worrell all Low [facility] Other Summary Purpose Family History No Family [...] section and content) DATE CREATED AUTHOR 01/19/2018 [facility] DATE CREATED AUTHOR AUTHOR'S ORGANIZ ATION 05/21/2022 [facility] DATE CREATED AUTHOR AUTHOR'S ORGANIZ ATION 09/14/[address] [facility] DATE CREATED AUTHOR AUTHOR'S ORGANIZ ATION 12/13/2023 [facility] EPIC REASON FOR VISIT (unrecogniz ed section and content) flu [facility] Care Teams (unrecognized sec tion and [...] BE BASED ON THE PRIMARY CLINICAL RECORDS. [facility] [employer] [facility]. provides no warranty or guarantee of the accuracy or completeness of information in this document.
== END 2024-03-14 12:50 | disposition home or self-care (01) ==
LOC: PM 12:50
PROVIDERS: PCP Internal Medicine; Visit Provider Nurse Practitioner
DX: M48.062 Spinal stenosis, lumbar region with neurogenic claudication (principal); M51.36 Other intervertebral disc degeneration, lumbar region; M47.816 Spondylosis without myelopathy or radiculopathy, lumbar region; M79.18 Myalgia, other site
CPT/HCPCS: G0463

== ENCOUNTER 2024-03-26 09:59 | Outpatient (OUT) | payer OTHER, SELFPAY ==
--- NOTE | 2024-03-26 10:02 | MM_ITS ---
Patient Name: LAW HERNANDEZ MR#: [id number] : 1965 Exam Date: 03/26/2024 Ordering Doctor: DR CINDY RODRÍGUEZ RADIOLOGY REPORT PROCEDURE: MM TOMOSYNTHESIS SCREENING BI COMPARISON: MM TOMOSYNTHESIS SCREENING BI, 03/21/2023. MG MAMM SCREEN 3D [facility] CAD, 02/15/2022. INDICATIONS: Screening Calculator Name NCI Breast Cancer Risk Assessment Tool 5 Year Breast Cancer Risk 7.00% Lifetime Breast Cancer Risk 29.70% Personal Breast Cancer No Personal Ovarian Cancer No Treatments hysterectomy Family Cancers Mother with breast cancer at age ~45; Nephew with lymphoma cancer at age 19; Sister with breast cancer at age 65. LOCATION: [facility] BREAST COMPOSITION: There are scattered areas of fibroglandular density. FINDINGS: DIAGNOSTIC CATEGORY 2--BENIGN FINDING. NO CHANGE FROM COMPARISON. Scattered benign-appearing calcifications are present. Scattered benign-appearing lymph nodes are present. RIGHT BREAST: No significant suspicious finding. LEFT BREAST: No significant suspicious finding. RECOMMENDATIONS: ROUTINE MAMMOGRAM AND CLINICAL EVALUATION IN 12 MONTHS. PLEASE NOTE: A NORMAL MAMMOGRAM DOES NOT EXCLUDE THE POSSIBILITY OF BREAST CANCER. A CLINICALLY SUSPICIOUS PALPABLE LUMP SHOULD BE BIOPSIED. Dictated by: Robert Jefferson MD on 03/26/2024 at 11:59 Approved by: Robert Jefferson MD on 03/26/2024 at 12:00
--- OUTSIDE RECORDS SUMMARY | 2024-03-26 10:21 | XMS_ITS | CCD ---
Author Organization [facility] Care Team Providers Care Professional Athletes Coach Name Role Phone GERALDKARL ALMA Unavailable Unavailable [...] Documented Date Episodic/Chronic Other aftercare (1 source) jail (current) use of aspirin; 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: [SKILLED NURSING CURRENT USE OF ASPIRIN] Onset: 09-01-2021 Episodic Other aftercare (1 source) Other retirement (current) drug therapy; 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: [OTH SIGN CARPENTER CURRENT DRUG THERAPY] Onset: 09-01-2021 Episodic Other [...] on 09-06-2023 Creatinine [Mass/Vol] 0.6 mg/dL 0.6-1.3 [facility] Comment on above: ER/ESD physician is notified/shown all ISTAT results.Critical values may be confirmed by laboratory testing ifdeemed necessary by ER attending doctor. ISTAT XRay CREon 09-06-2023 Creatinine [Mass/Vol] 0.6 mg/dL Normal 0.6-1.3 [facility] Comment on above: Result Comment: ER/E SD physician is notified/shown all ISTAT results. Critical values may be confirmed by laboratory testing if deemed necessary by ER attending doctor. Performed By: #### I SCRE #### [facility] [address] [place] [address] ISTAT GFR > 60.0 Normal [facility] Comment on above: Result Comment: PERF ORMED BY: [place] [address] PATHOLOGIST JIG GRINDER SET UP OPERATOR LJ VERAS M.D. Performed By: #### I SCRE #### [facility] [address] [place] [address] MR cervical spine wo/w conon 09-06-2023 MR cervical spine wo/w [place] [address] MRI Report Signed Patient: Jayde Hernandez MR#: [id number] : 1965 Acct:[id number] Age/Sex: 58 / F ADM Date: 09/06/23 Loc: MR Room: Type: [facility] Attending Dr: Chinyere Live PA-C Copies [...] Raffi Guillen M.D.09/06/2023 11:22 AM Dictation Location: [place] [address] Transcribed By: [facility]MA 09/06/23 1122 Dictated By: Raffi Guillen II, MD 09/06/23 1109 Signed By: 09/06/23 1122 Normal [facility] MR head/brain wo/w conon MR head/brain wo/w con [facility] [place] [address] [place] [address] MRI Report Signed Patient: Jayde Hernandez MR#: [id number] : 1965 Acct:[id number] Age/Sex: 58 / F ADM Date: 09/06/23 Loc: MR Room: Type: [facility] Attending Dr: Chinyere Live PA-C Copies [...] Raffi Guillen M.D.09/06/2023 11:09 AM Dictation Location: [place] [address] Transcribed By: [facility] 09/06/23 1109 Dictated By: Raffi Guillen II, MD 09/06/23 1053 Signed By: 09/06/23 1109 Normal [facility] No Panel InformationOrdered By: Chinyere Live on 09-06-2023 Bedside Estimated GFR (eGFR) > 60.0 [facility] Creatinine (Bld) [Mass/Vol]O rdered By: Chinyere Live on 07-12-2023 Creatinine [Mass/Vol] 0.7 mg/dL 0.6-1.3 [facility] Comment on above: ER/ESD physician is notified/shown all ISTAT results.Critical values may be confirmed by laboratory testing ifdeemed necessary by ER attending doctor. ISTAT XRay CREon 07-12-2023 Creatinine [Mass/Vol] 0.7 mg/dL Normal 0.6-1.3 [facility] Comment on above: Result Comment: ER/E SD physician is notified/shown all ISTAT results. Critical values may be confirmed by laboratory testing if deemed necessary by ER attending doctor. Performed By: #### I SCRE #### [facility] [address] [place] [address] ISTAT GFR > 60.0 [facility] Comment on above: Result Comment: PERF ORMED BY: [place] [address] PATHOLOGIST JIG GRINDER SET UP OPERATOR LJ VERAS M.D. Performed By: #### I SCRE #### [address] No Panel InformationOrdered By: Chinyere Live on 07-12-2023 Bedside Estimated GFR (eGFR) > 60.0 [facility] XR pre/post mri xrayon 07-12 XR pre/post mri xray [facility] [place] [address] [place] [address] MRI Report Signed Patient: Jayde Hernandez MR#: [id number] : 1965 Acct:[id number] Age/Sex: 58 / F ADM Date: 07/12/23 Loc: Room: Type: [facility] Attending Dr: Chinyere Live PA-C Copies to: Chinyere Live PA-C Ordering Provider: Chinyere Live PA-C Date of Service: 07/12/23 MR/MR thoracic spine wo/w con: G35 ([id number]) XR/XR pre/post mri xray: G35 MR thoracic [...] Raffi Guillen M.D.07/12/2023 12:37 PM Dictation Location: [place] [address] Transcribed By: [facility] 07/12/23 1237 Dictated By: Raffi Guillen II, MD 07/12/23 1230 Signed By: 07/12/23 1237 Normal [facility] CBC AUTO DIFFon 05-10-2022 BASO # 0.1 103/ul Normal 0.0-0.1 [facility] Comment on above: Performed By: #### C BC #### [facility] [address] [place] [address] Dr. Brett Rosales Basophils/100 WBC (Bld) 1.0 % Normal 0.2-2.0 [facility] Comment on above: Performed By: #### C BC #### [facility] [address] [place] [address] Dr. Brett Rosales EO # 0.1 103/ul Normal 0.0-0.7 [facility] Comment on above: Performed By: #### C BC #### [facility] [address] [place] [address] Dr. Brett Rosales Eosinophils/100 WBC (Bld) 1.5 % Normal 0.9-7.0 [facility] Comment on above: Performed By: #### C BC #### [facility] [address] [place] [address] Dr. Brett Rosales Erythrocyte distribution width (RBC) [Ratio] 13.2 % Normal 11.0-15.0 [facility] Comment on above: Performed By: #### C BC #### [facility] [address] [place] [address] Dr. rBett Rosales Hematocrit (Bld) [Volume fraction] 40.1 % Normal 36.0-48.0 [facility] Comment on above: Performed By: #### C BC #### [facility] [address] [place] [address] Dr. Brett Rosales Hemoglobin (Bld) [Mass/Vol] 12.9 g/dL Normal 12.0-16.0 [facility] Comment on above: Performed By: #### C BC #### [facility] [address] [place] [address] Dr. Brett Rosales IG # 0.01 10e3/ul Normal 0.00-0.03 [facility] Comment on above: Performed By: #### C BC #### [facility] [address] [place] [address] Dr. Brett Rosales IG % 0.1 % Normal 0.0-0.5 [facility] Comment on above: Performed By: #### C BC #### [facility] [address] [place] [address] Dr. Brett Rosales LYMPH # 2.5 103/ul Normal 1.2-3.8 [facility] Comment on above: Performed By: #### C BC #### [facility] [address] [place] [address] Dr. Brett Rosales Lymphocytes/100 WBC (Bld) 30.3 % Normal 20.5-60.0 [facility] Comment on above: Performed By: #### C BC #### [facility] [address] [place] [address] Dr. Brett Rosales MANUAL DIFF REQ NO Normal [facility] Comment on above: Performed By: #### C BC #### [facility] [address] [place] [address] Dr. Brett Rosales MCH (RBC) [Entitic mass] 30.6 pg Normal 26.7-34.0 [facility] Comment on above: Performed By: #### C BC #### [facility] [address] [place] [address] [address] Brett Rosales MCHC (RBC) [Mass/Vol] 32.2 g/dL Normal 29.9-35.2 [facility] Comment on above: Performed By: #### C BC #### [facility] [address] [place] [address] [address] Brett Rosales MCV (RBC) [Entitic vol] 95.0 fL Normal 81.0-99.0 [facility] Comment on above: Performed By: #### C BC #### [facility] [address] [place] [address] [address] Brett Rosales MONO # 0.9 103/ul Critically high 0.3-0.8 [facility] Comment on above: Performed By: #### C BC #### [facility] [address] [place] [address] Dr. Brett Rosales Monocytes/100 WBC (Bld) 10.4 % Normal 1.7-12.0 [facility] Comment on above: Performed By: #### C BC #### [facility] [address] [place] [address] Dr. Brett Rosales NEUT # 4.6 103/ul Normal 1.4-6.5 [facility] Comment on above: Performed By: #### C BC #### [facility] [address] [place] [address] Dr. Brett Rosales Neutrophils/100 WBC (Bld) 56.7 % Normal 43.0-75.0 [facility] Comment on above: Performed By: #### C BC #### [facility] [address] [place] [address] [address] Brett Rosales Platelet mean volume (Bld) [Entitic vol] 11.0 fL Normal 9.5-13.5 [facility] Comment on above: Performed By: #### C BC #### [facility] [address] [place] [address] Dr. Brett Rosales PLT 262 103/ul Normal 150-450 [facility] Comment on above: Performed By: #### C BC #### [facility] [address] [place] [address] Dr. Brett Rosales RBC 4.22 106/ul Normal 4.20-5.40 [facility] Comment on above: Performed By: #### C BC #### [facility] [address] [place] [address] Dr. Brett Rosales WBC 8.2 103/ul Normal 4.0-11.0 [facility] Comment on above: Performed By: #### C BC #### [facility] [address] [place] [address] Dr. Brett Rosales PROF 14(COMP METB)on 022 Albumin [Mass/Vol] 3.5 g/dL Normal 3.4-5.0 [facility] Comment on above: Performed By: #### C MP #### [facility] [address] [place] [address] Dr. Brett Rosales Albumin/Globulin [Mass ratio] 1.0 {ratio} Normal [facility] Comment on above: Performed By: #### C MP #### [facility] [address] [place] [address] Dr. Brett Rosales ALP [Catalytic activity/Vol] 94 U/L Normal 46-116 [facility] Comment on above: Performed By: #### C MP #### [facility] [address] [place] [address] Dr. Brett Rosales ALT [Catalytic activity/Vol] 25 U/L Normal 14-59 [facility] Comment on above: Performed By: #### C MP #### [facility] [address] [place] [address] Dr. Brett Rosales Anion gap [Moles/Vol] 9.4 mmol/L Normal [facility] Comment on above: Performed By: #### C MP #### [facility] [address] [place] [address] Dr. Brett Rosales AST [Catalytic activity/Vol] 21 U/L Normal 15-37 [facility] Comment on above: Performed By: #### C MP #### [facility] [address] [place] [address] [address] Brett Rosales Bilirubin [Mass/Vol] 0.3 mg/dL Normal 0.2-1.0 [facility] Comment on above: Performed By: #### C MP #### [facility] [address] [place] [address] Dr. Brett Rosales Calcium [Mass/Vol] 9.1 mg/dL Normal 8.5-10.1 [facility] Comment on above: Performed By: #### C MP #### [facility] [address] [place] [address] Dr. Brett Rosales Chloride [Moles/Vol] 106 mmol/L Normal 98-107 [facility] Comment on above: Performed By: #### C MP #### [facility] [address] [place] [address] Dr. Brett Rosales CO2 [Moles/Vol] 31.2 mmol/L Normal 21.0-32.0 [facility] Comment on above: Performed By: #### C MP #### [facility] [address] [place] [address] Dr. Brett Rosales Creatinine [Mass/Vol] 0.69 mg/dL Normal 0.55-1.02 [facility] Comment on above: Performed By: #### C MP #### [facility] [address] [place] [address] Dr. rBett Rosales EGFR-AF AFGHAN >60 Normal >=60 [facility] Comment on above: Performed By: #### C MP #### [facility] [address] [place] [address] Dr. Brett Rosales EGFR-NON AF AFGHAN >60 Normal >=60 [facility] Comment on above: Performed By: #### C MP #### [facility] [address] [place] [address] Dr. Brett Rosales Globulin (S) [Mass/Vol] 3.5 g/dL Normal [facility] Comment on above: Performed By: #### C MP #### [facility] [address] [place] [address] Dr. Brett Rosales Glucose [Mass/Vol] 108 mg/dL Critically high 74-106 [facility] Comment on above: Performed By: #### C MP #### [facility] [address] [place] [address] [address] Brett Rosales Potassium [Moles/Vol] 3.6 mmol/L Normal 3.5-5.1 [facility] Comment on above: Performed By: #### C MP #### [facility] [address] [place] [address] [address] Brett Rosales Protein [Mass/Vol] 7.0 g/dL Normal 6.4-8.2 [facility] Comment on above: Performed By: #### C MP #### [facility] [address] [place] [address] [address] Brett Rosales Sodium [Moles/Vol] 143 mmol/L Normal 136-145 [facility] Comment on above: Performed By: #### C MP #### [facility] [address] [place] [address] [address] Brett Rosales Urea nitrogen [Mass/Vol] 14.0 mg/dL Normal 7.0-18.0 [facility] Comment on above: Performed By: #### C MP #### [facility] [address] [place] [address] [address] Brett Rosales Urea nitrogen/Creatinine [Mass ratio] 20.3 mg/mg Normal [facility] Comment on above: Performed By: #### C MP #### [facility] [address] [place] [address] [address] Brett Rosales XR CHEST 2 Von [...] by: LIAT WEBSTER Date: 2022-02-24 08:15 Normal [facility] MG MAMM SCREEN 3D LIBERTAD CADon 02-15-2022 MG MAMM SCREEN 3D LIBERTAD CAD Patient: JAYDE HERNANDEZ Exam Date: 02/15/2022 : 1965 Gender:F Ordering : DR CINDY RODRÍGUEZ Admission #: [id number] Family : DR JOHNY WINTERS D.O. Order #: [id number] CLICK HERE TO VIEW EXAM RADIOLOGY REPORT [...] cancer at age 63. LOCATION: [facility] BREAST COMPOSITION: Scattered areas fibroglandular density. FINDINGS: [...] on 02/16/2022 at 13:24 Normal [facility] CBC AUTO DIFFon 11-16-2021 BASO # 0.1 103/ul Normal 0.0-0.1 [facility] Comment on above: Performed By: #### C BC #### [facility] [address] [place] [address] [address] Brett Rosales Basophils/100 WBC (Bld) 0.7 % Normal 0.2-2.0 [facility] Comment on above: Performed By: #### C BC #### [facility] [address] [place] [address] [address] Brett Rosales EO # 0.1 103/ul Normal 0.0-0.7 [facility] Comment on above: Performed By: #### C BC #### [facility] [address] [place] [address] Dr. Brett Rosales Eosinophils/100 WBC (Bld) 1.7 % Normal 0.9-7.0 [facility] Comment on above: Performed By: #### C BC #### [facility] [address] [place] [address] Dr. Brett Rosales Erythrocyte distribution width (RBC) [Ratio] 13.2 % Normal 11.0-15.0 [facility] Comment on above: Performed By: #### C BC #### [facility] [address] [place] [address] Dr. Brett Rosales Hematocrit (Bld) [Volume fraction] 38.9 % Normal 36.0-48.0 [facility] Comment on above: Performed By: #### C BC #### [facility] [address] [place] [address] Dr. Brett Rosales Hemoglobin (Bld) [Mass/Vol] 12.5 g/dL Normal 12.0-16.0 [facility] Comment on above: Performed By: #### C BC #### [facility] [address] [place] [address] Dr. Brett Rosales IG # 0.02 10e3/ul Normal 0.00-0.03 [facility] Comment on above: Performed By: #### C BC #### [facility] [address] [place] [address] Dr. Brett Rosales IG % 0.2 % Normal 0.0-0.5 [facility] Comment on above: Performed By: #### C BC #### [facility] [address] [place] [address] Dr. Brett Rosales LYMPH # 2.9 103/ul Normal 1.2-3.8 [facility] Comment on above: Performed By: #### C BC #### [facility] [address] [place] [address] Dr. Brett Rosales Lymphocytes/100 WBC (Bld) 34.3 % Normal 20.5-60.0 [facility] Comment on above: Performed By: #### C BC #### [facility] [address] [place] [address] Dr. Brett Rosales MANUAL DIFF REQ NO Normal [facility] Comment on above: Performed By: #### C BC #### [facility] [address] [place] [address] Dr. Brett Rosales MCH (RBC) [Entitic mass] 31.0 pg Normal 26.7-34.0 [facility] Comment on above: Performed By: #### C BC #### [facility] [address] [place] [address] Dr. Brett Rosales MCHC (RBC) [Mass/Vol] 32.1 g/dL Normal 29.9-35.2 [facility] Comment on above: Performed By: #### C BC #### [facility] [address] [place] [address] Dr. Brett Rosales MCV (RBC) [Entitic vol] 96.5 fL Normal 81.0-99.0 [facility] Comment on above: Performed By: #### C BC #### [facility] [address] [place] [address] Dr. Brett Rosales MONO # 0.7 103/ul Normal 0.3-0.8 [facility] Comment on above: Performed By: #### C BC #### [facility] [address] [place] [address] Dr. Brett Rosales Monocytes/100 WBC (Bld) 8.5 % Normal 1.7-12.0 [facility] Comment on above: Performed By: #### C BC #### [facility] [address] [place] [address] Dr. Brett Rosales NEUT # 4.6 103/ul Normal 1.4-6.5 [facility] Comment on above: Performed By: #### C BC #### [facility] [address] [place] [address] Dr. Brett Rosales Neutrophils/100 WBC (Bld) 54.6 % Normal 43.0-75.0 [facility] Comment on above: Performed By: #### C BC #### [facility] [address] [place] [address] Dr. Brett Rosales Platelet mean volume (Bld) [Entitic vol] 10.7 fL Normal 9.5-13.5 [facility] Comment on above: Performed By: #### C BC #### [facility] [address] [place] [address] Dr. Brett Rosales PLT 276 103/ul Normal 150-450 [facility] Comment on above: Performed By: #### C BC #### [facility] [address] [place] [address] Dr. Brett Rosales RBC 4.03 106/ul Critically low 4.20-5.40 [facility] Comment on above: Performed By: #### C BC #### [facility] [address] [place] [address] Dr. Brett Rosales WBC 8.5 103/ul Normal 4.0-11.0 [facility] Comment on above: Performed By: #### C BC #### [facility] [address] [place] [address] Dr. Brett Rosales PROF 14(COMP METB)on 022 Albumin [Mass/Vol] 3.5 g/dL Normal 3.4-5.0 [facility] Comment on above: Performed By: #### C MP #### [facility] [address] [place] [address] Dr. Brett Rosales Albumin/Globulin [Mass ratio] 1.1 {ratio} Normal [facility] Comment on above: Performed By: #### C MP #### [facility] [address] [place] [address] Dr. Brett Rosales ALP [Catalytic activity/Vol] 75 U/L Normal 46-116 [facility] Comment on above: Performed By: #### C MP #### [facility] [address] [place] [address] Dr. Brett Rosales ALT [Catalytic activity/Vol] 27 U/L Normal 14-59 [facility] Comment on above: Performed By: #### C MP #### [facility] [address] [place] [address] Dr. Brett Rosales Anion gap [Moles/Vol] 9.3 mmol/L Normal [facility] Comment on above: Performed By: #### C MP #### [facility] [address] [place] [address] Dr. Brett Rosales AST [Catalytic activity/Vol] 22 U/L Normal 15-37 [facility] Comment on above: Performed By: #### C MP #### [facility] [address] [place] [address] Dr. Brett Rosales Bilirubin [Mass/Vol] 0.4 mg/dL Normal 0.2-1.3 [facility] Comment on above: Performed By: #### C MP #### [facility] [address] [place] [address] Dr. Brett Rosales Calcium [Mass/Vol] 8.4 mg/dL Critically low 8.5-10.1 [facility] Comment on above: Performed By: #### C MP #### [facility] [address] [place] [address] Dr. Brett Rosales Chloride [Moles/Vol] 105 mmol/L Normal 98-107 [facility] Comment on above: Performed By: #### C MP #### [facility] [address] [place] [address] Dr. Brett Rosales CO2 [Moles/Vol] 31.1 mmol/L Critically high 22.0-30.0 [facility] Comment on above: Performed By: #### C MP #### [facility] [address] [place] [address] Dr. Brett Rosales Creatinine [Mass/Vol] 0.73 mg/dL Normal 0.52-1.04 [facility] Comment on above: Performed By: #### C MP #### [facility] [address] [place] [address] Dr. Brett Rosales EGFR-AF AFGHAN >60 Normal >=60 [facility] Comment on above: Performed By: #### C MP #### [facility] [address] [place] [address] Dr. Brett Rosales EGFR-NON AF AFGHAN >60 Normal >=60 [facility] Comment on above: Performed By: #### C MP #### [facility] [address] [address] [address] Brett Rosales Globulin (S) [Mass/Vol] 3.2 g/dL Normal [facility] Comment on above: Performed By: #### C MP #### [facility] [facility] [address] [address] [address] Brett Rosales Glucose [Mass/Vol] 105 mg/dL Normal 74-106 [facility] Comment on above: Performed By: #### C MP #### [facility] [address] [address] [address] Brett Rosales Potassium [Moles/Vol] 3.4 mmol/L Normal 3.4-5.0 [facility] Comment on above: Performed By: #### C MP #### [facility] [address] [place] [address] Dr. Brett Rosales Protein [Mass/Vol] 6.7 g/dL Normal 6.1-8.2 [facility] Comment on above: Performed By: #### C MP #### [facility] [address] [address] [address] Brett Rosales Sodium [Moles/Vol] 142 mmol/L Normal 137-145 [facility] Comment on above: Performed By: #### C MP #### [facility] [address] [place] [address] Dr. Brett Rosales Urea nitrogen [Mass/Vol] 12.0 mg/dL Normal 7.0-18.0 [facility] Comment on above: Performed By: #### C MP #### [facility] [address] [place] [address] Dr. Brett Rosales Urea nitrogen/Creatinine [Mass ratio] 16.4 mg/mg Normal [facility] Comment on above: Performed By: #### C MP #### [facility] [address] [place] [address] Dr. Brett Rosales MRI LSPINE WO W [...] by: DENYS WALLACE Date: 2021-09-09 15:31 Normal [facility] PROGRESSon 10-06-2017 PROGRESS HNO ID: [id number] Author: Ailyn Patten (Fel) Service: (none) Author Type: Fellow Type: Progress Notes Filed: 10/06/2017 5:17 PM Note Text: NMO/MOG (BODY COVERER demyelinating disease evaluation) negative at [facility] Normal [facility] Angiotens. Conv Enzon 2017 Angiotens. Conv Enz 41 U/L Normal <52 [facility] Comment on above: Result Comment: Dianne ficially low JERRY levels may be found for patients taking JERRY inhibitors or after the administration of gadolinium. Performed By: #### V ITD, ENAID, HREMOP, TSH, HIV12C, SYPHGX, LYMEGM, VZVG2, COPPER, INFTBG, JERRY, CCP, JCVIDX ####[facility] [place], [place] [phone] CCP Antibody, IgGon 09-27-19 18 CCP Antibody, IgG <15 Normal <20 [facility] Comment on above: Result Comment: < 20 units: Tncqalwk34-04 units: Weak Ogvakcjb88-20 units: Moderate Positive> 60 units: Strong PositiveThe following results were obtained with the [employer] QUANTA Lite CCP3 IgG ADAM. Anti-CCP values obtained with different manufacturers' assay methods may not be used interchangeably. The magnitude of the reported IgG levels cannot be correlated to an endpoint titer. Performed By: #### V ITD, ENAID, HREMOP, TSH, HIV12C, SYPHGX, LYMEGM, VZVG2, COPPER, INFTBG, JERRY, CCP, JCVIDX ####[facility] [address] [place], [place] [phone] CNOVon 09-27-2017 CNOV Office Visit (NEMN) JAYDE HERNANDEZ ([id number]) 1965 FDate Time Provider Department09/27/17 1:40 PM ASSESSMENT [facility]UR [facility] During your visit today, we recorded the following information about you: Pulse Respiration Blood pressure Weight 84/minute 16/minute 155/65 51.3 kg Height 1.524 Yovani San MD 10/01/2017 9:26 PM [facility] FOR MULTIPLE SCLEROSISNEW PATIENT EVALUATION/CONSULTATIONR eferral source:SELFAlso followed by:Johny Winters MD ([facility])[address] [place] [address]Qsrjl: [phone]: [phone] Nix[address] [place] [address]Vrgzt: [phone]: [phone] NEUROLOGIC DIAGNOSIS: Multiple sclerosisDISEASE SUMMARYDate of onset: [...] expected to be with me at the [facility].She states that in April 2017, she [...] well.PAST HISTORY:PAST MEDICAL HISTORYDiagnosis Date- Cervical cancer ([facility]) 1997 s/p hysterectomy- Hypertension- Migraine- MS (multiple sclerosis) ([facility])- OsteoporosisPAST SURGICAL HISTORYProcedure Laterality Date- [...] in the arms and legs was performed dbayaqqktisvby-np-jxwtw, rapid-alternating, and fine movements. Rapid movements wereimpaired [...] at this time. She will return to [place] in 6 months to evaluate herprogress on [...] patient was evaluated with Dr. San.Ailyn Patten, [facility] MUS[facility]EElinical Neuroimmunology FellowHeart Center Of [facility] for Multiple SclerosisNEUROLOGY STAFF ADDENDUMPatient seen with the fellow. I agree with the fellow's history, examination,and the plan as noted above was formulated with my direct input.Soraya Davidson, Department of NeurologyHeart Center Of Indiana for Multiple SclerosisAilyn Patten MD 09/27/2017 4:49 [...] [M81.8]Order(s):TUBES - DRAW EXTRA [SQXTUBE] Order #: [id number] FUTURE ANTI VASILIY ID [SQENAID] Order #: [id number] FUTURE CCP ANTIBODY IGG [SQCCP] Order #: [id number] FUTURE VITAMIN D 25 HYDROXY [SQVITD] Order #: [id number] FUTURE COPPER BLOOD [SQCOPPER] Order #: [id number] FUTURE TSH BLD [SQTSH] Order #: [id number] FUTURE LYME AB IGG + IGM [SQLYMEGM] Order #: [id number] FUTURE HIV 1,2 COMBO (AG/AB) [SQHIV12] Order #: [id number] FUTURE SYPHILIS IGG WITH CONF [SQSYPHGX] Order #: [id number] FUTURE JERRY/ANGIOTENSIN BLD [SQACE] Order #: [id number] FUTURE HEP REMOTE PANEL BL [SQHREMOP] Order #: [id number] FUTURE JCV ANTIBODY AND INDEX WITH REFLEX [SQJCVIDX] Order #: [id number] FUTURE BLOOD TB SCREEN [SQINFTBG] Order #: [id number] FUTURE VARICELLA ZOSTER IGG [SQVZVG] Order #: [id number] FUTUREPrescriptions as of 09/27/2017 Sig: GABAPENTIN 100 [...] for Sandor.Follow-up and Disposition History RecordedEncounter Number: [id number] Status:Closed by ALMA SAN MD on 10/01/17 Normal [facility] Copperon 09-27-2017 Copper 106 ug/dL Normal 85-155 [facility] Comment on above: Result Comment: This test was developed and its performance characteristics determined by [facility]'s Alma Tay [facility] [place] ([facility]).It has not been cleared or approved by the FDA. -[facility] is regulated under CLIA as qualified to perform high-complexity testing.This test is used for clinical purposes. It should not be regarded as investigational or for research. Performed By: #### V ITD, ENAID, HREMOP, TSH, HIV12C, SYPHGX, LYMEGM, VZVG2, COPPER, INFTBG, JERRY, CCP, JCVIDX ####[address] [place], [place] [phone] VASILIY Antibody Panelon 018 Centromere <0.2 Normal <1.0 [facility] Comment on above: Result Comment: NEGA TIVENegative: <1.0 AIPositive: >0.9 AI Performed By: #### V ITD, ENAID, HREMOP, TSH, HIV12C, SYPHGX, LYMEGM, VZVG2, COPPER, INFTBG, JERRY, CCP, JCVIDX ####[address] [phone] Chromatin Antibody <0.2 Normal <1.0 [facility] Comment on above: Result Comment: NEGA TIVENegative: <1.0 AIPositive: >0.9 AI Performed By: #### V ITD, ENAID, HREMOP, TSH, HIV12C, SYPHGX, LYMEGM, VZVG2, COPPER, INFTBG, JERRY, CCP, JCVIDX ####[address] [phone] ALVARO 1 Antibody <0.2 Normal <1.0 [facility] Comment on above: Result Comment: NEGA TIVENegative: <1.0 AIPositive: >0.9 AI Performed By: #### V ITD, ENAID, HREMOP, TSH, HIV12C, SYPHGX, LYMEGM, VZVG2, COPPER, INFTBG, JERRY, CCP, JCVIDX ####[address] [phone] Ribosomal PATHOLOGY SUPERVISOR <0.2 Normal <1.0 [facility] Comment on above: Result Comment: NEGA TIVENegative: <1.0 AIPositive: >0.9 AI Performed By: #### V ITD, ENAID, HREMOP, TSH, HIV12C, SYPHGX, LYMEGM, VZVG2, COPPER, INFTBG, JERRY, CCP, JCVIDX ####[address] [phone] PATHOLOGY SUPERVISOR Antibody 0.9 AI Normal <1.0 [facility] Comment on above: Result Comment: NEGA TIVENegative: <1.0 AIPositive: >0.9 AI Performed By: #### V ITD, ENAID, HREMOP, TSH, HIV12C, SYPHGX, LYMEGM, VZVG2, COPPER, INFTBG, JERRY, CCP, JCVIDX ####[address] [phone] Scleroderma IgG Ab <0.2 Normal <1.0 [facility] Comment on above: Result Comment: NEGA TIVENegative: <1.0 AIPositive: >0.9 AI Performed By: #### V ITD, ENAID, HREMOP, TSH, HIV12C, SYPHGX, LYMEGM, VZVG2, COPPER, INFTBG, JERRY, CCP, JCVIDX ####[address] [phone] Sm Antibody <0.2 Normal <1.0 [facility] Comment on above: Result Comment: NEGA TIVENegative: <1.0 AIPositive: >0.9 AI Performed By: #### V ITD, ENAID, HREMOP, TSH, HIV12C, SYPHGX, LYMEGM, VZVG2, COPPER, INFTBG, JERRY, CCP, JCVIDX ####[address] [phone] SSA Antibody <0.2 Normal <1.0 [facility] Comment on above: Result Comment: NEGA TIVENegative: <1.0 AIPositive: >0.9 AI Performed By: #### V ITD, ENAID, HREMOP, TSH, HIV12C, SYPHGX, LYMEGM, VZVG2, COPPER, INFTBG, JERRY, CCP, JCVIDX ####[address] [phone] SSB Antibody <0.2 Normal <1.0 [facility] Comment on above: Result Comment: NEGA TIVENegative: <1.0 AIPositive: >0.9 AI Performed By: #### V ITD, ENAID, HREMOP, TSH, HIV12C, SYPHGX, LYMEGM, VZVG2, COPPER, INFTBG, JERRY, CCP, JCVIDX ####[address] [phone] HIV 12 Combo (Ag/Ab)on 09-27 HIV 12 Ag/Ab Non Reactive Normal Non Reactive [facility] Comment on above: Result Comment: (NOT E)HIV Information: Potter Rev. Code 3701.243(E):This information has been disclosed [...] LYMEGM, VZVG2, COPPER, INFTBG, JERRY, CCP, JCVIDX ####[address] [phone] Hepatitis Remote Panelon BSA (Body Surface Area) Negative Normal Negative [facility] Comment on above: Performed By: #### V ITD, ENAID, HREMOP, TSH, HIV12C, SYPHGX, LYMEGM, VZVG2, COPPER, INFTBG, JERRY, CCP, JCVIDX ####[address] [phone] Hep B Core Ab,Total Negative Normal Negative [facility] Comment on above: Performed By: #### V ITD, ENAID, HREMOP, TSH, HIV12C, SYPHGX, LYMEGM, VZVG2, COPPER, INFTBG, JERRY, CCP, JCVIDX ####[address] [phone] Hepatitis C Ab IA Negative Normal Negative [facility] Comment on above: Performed By: #### V ITD, ENAID, HREMOP, TSH, HIV12C, SYPHGX, LYMEGM, VZVG2, COPPER, INFTBG, JERRY, CCP, JCVIDX ####[address] [phone] HepB Surface Ab,Qual Negative Normal Negative [facility] Comment on above: Result Comment: NEGA TIVE Performed By: #### V ITD, ENAID, HREMOP, TSH, HIV12C, SYPHGX, LYMEGM, VZVG2, COPPER, INFTBG, JERRY, CCP, JCVIDX ####[address] [place], [place] [phone] JCV Ab/Indx & Reflexon 09-27 JCV Antibody Positive Critically abnormal [facility] Comment on above: Result Comment: (NOT [...] confirmpresence or absence of JCV-specific antibodies.Test Performed at:[facility] [place] [phone] Guerita Callahan MD Performed By: #### V ITD, ENAID, HREMOP, TSH, HIV12C, SYPHGX, LYMEGM, VZVG2, COPPER, INFTBG, JERRY, CCP, JCVIDX ####[address] [place], [place] [phone] JCV Index Value 3.41 High [facility] Comment on above: Performed By: #### V ITD, ENAID, HREMOP, TSH, HIV12C, SYPHGX, LYMEGM, VZVG2, COPPER, INFTBG, JERRY, CCP, JCVIDX ####[address] [place], [place] [phone] Lyme IgG/IgM ABon 09-27-2017 Lyme IgG/IgM AB Negative Normal Negative [facility] Comment on above: Result Comment: Abse nce of detectable Borrelia burgdorferi antibodies. A negative result does not exclude the possibility of Borrelia burgdorferi infection. If early Lyme disease is suspected, a second sample should be collected and tested two to four weeks later. Performed By: #### V ITD, ENAID, HREMOP, TSH, HIV12C, SYPHGX, LYMEGM, VZVG2, COPPER, INFTBG, JERRY, CCP, JCVIDX ####[address] [place], [place] [phone] Lyme Interp No evidence of antibodies to Borrelia burgdorferi. Normal No evidence of antibodies to Borrelia burgdorferi. [facility] Comment on above: Performed By: #### V ITD, ENAID, HREMOP, TSH, HIV12C, SYPHGX, LYMEGM, VZVG2, COPPER, INFTBG, JERRY, CCP, JCVIDX ####[address] [place], [place] [phone] [facility] Out Teston 018 Test BODY COVERER DEMYELINATING DISEASE Normal [facility] Comment on above: Performed By: #### V ITD, ENAID, HREMOP, TSH, HIV12C, SYPHGX, LYMEGM, VZVG2, COPPER, INFTBG, JERRY, CCP, JCVIDX ####[address] [place], [place] [phone] Test Results View results in Scan cheri Documents link when available. Normal [facility] Comment on above: Performed By: #### V ITD, ENAID, HREMOP, TSH, HIV12C, SYPHGX, LYMEGM, VZVG2, COPPER, INFTBG, JERRY, CCP, JCVIDX ####[address] [place], [place] [phone] PROGRESSon 09-27-2017 PROGRESS HNO ID: [id number]: Alma Simmons: (none)Author Type: PhysicianType: Progress NotesFiled: 10/01/2017 9:26 PMNote Text:[facility] MULTIPLE SCLEROSISNEW PATIENT EVALUATION/CONSULTATIONR eferral source:SELFAlso followed by:Johny Winters MD ([facility])[address], [place] [address]Rgzjj: [phone]: [phone] [address]ix[address] [address]Xdnyd: [phone]: [phone] NEUROLOGIC DIAGNOSIS: Multiple sclerosisDISEASE SUMMARYDate of onset: [...] is expected [facility].She states that in April 2017, she noticed [...] s/p hysterectomy- Hypertension- Migraine- MS (multiple sclerosis) ([facility])- OsteoporosisPAST SURGICAL HISTORYProcedure Laterality Date- [...] in the arms and legs was performed dylpvscgzeivso-gr-nolnf, rapid-alternating, and fine movements. Rapid movementswere impaired [...] at this time. She will return to [place] in 6 months to evaluateher progress on [...] patient was evaluated with Dr. San.Ailyn Patten, [facility]EElinical Neuroimmunology FellowBaypointe Hospital Multiple SclerosisNEUROLOGY STAFF ADDENDUMPatient seen with the fellow. I agree with the fellow's history,examination, and the plan as noted above was formulated with my directinput.Soraya Davidson, Department of NeurologyBaypointe Hospital Multiple Sclerosis Normal [facility] Syphilis IgG with Confon Syphilis IgG <0.2 Normal [facility] Comment on above: Result Comment: Anti body index is interpreted as follows:Non reactive SPECIMENS <=0.8Weak reactive SPECIMENS 0.9 to 5.9Reactive SPECIMENS >=6.0 Performed By: #### V ITD, ENAID, HREMOP, TSH, HIV12C, SYPHGX, LYMEGM, VZVG2, COPPER, INFTBG, JERRY, CCP, JCVIDX ####[facility] [place], [place] [phone] Syphilis IgG, Qual Nonreactive Normal Nonreactive [facility] Comment on above: Result Comment: In c onjunction with this result, the immune status of the patient should be evaluated based on their clinical status, related risk factors, and other diagnostic test results. Performed By: #### V ITD, ENAID, HREMOP, TSH, HIV12C, SYPHGX, LYMEGM, VZVG2, COPPER, INFTBG, JERRY, CCP, JCVIDX ####[address] [address] TB by QuantiFERONon 09-27-19 18 Interpretation No evidence of curre nt or previous infection with Mycobacterium tuberculosis. Normal [facility] Comment on above: Performed By: #### V ITD, ENAID, HREMOP, TSH, HIV12C, SYPHGX, LYMEGM, VZVG2, COPPER, INFTBG, JERRY, CCP, JCVIDX ####[address] [address] Mitogen Response >10.00 Normal >0.49 [facility] Comment on above: Performed By: #### V ITD, ENAID, HREMOP, TSH, HIV12C, SYPHGX, LYMEGM, VZVG2, COPPER, INFTBG, JERRY, CCP, JCVIDX ####[address] [address] TB Antigen Response 0.00 IU/mL Normal <0.35 [facility] Comment on above: Performed By: #### V ITD, ENAID, HREMOP, TSH, HIV12C, SYPHGX, LYMEGM, VZVG2, COPPER, INFTBG, JERRY, CCP, JCVIDX ####[address] [address] TB Result Negative Normal Negative [facility] Comment on above: Performed By: #### V ITD, ENAID, HREMOP, TSH, HIV12C, SYPHGX, LYMEGM, VZVG2, COPPER, INFTBG, JERRY, CCP, JCVIDX ####[address] [phone] TSHon 09-27-2017 Thyroid stimulating hormone (TSH) 2.500 uU/mL Normal 0.400-5.500 [facility] Comment on above: Performed By: #### V ITD, ENAID, HREMOP, TSH, HIV12C, SYPHGX, LYMEGM, VZVG2, COPPER, INFTBG, JERRY, CCP, JCVIDX ####[address] [phone] Varicella Zoster IgGon 09-27 V. zoster IgG, Qual Positive Critically abnormal Negative [facility] Comment on above: Result Comment: Pres ence of detectable VZV IgG antibodies. A positive result generally indicates exposure to the pathogen or administration of specific immunoglobulins, but is no indication of active infection or stage of disease. Performed By: #### V ITD, ENAID, HREMOP, TSH, HIV12C, SYPHGX, LYMEGM, VZVG2, COPPER, INFTBG, JERRY, CCP, JCVIDX ####[address] [phone] Varicella Zoster IgG 1075.0 Index Value Normal [facility] Comment on above: Result Comment: Inde x Values are Interpreted as Follows:Negative specimens <135.0Equivocal specimens 135.0 to 164.9Positive specimens >164.9The magnitude of the measured result is not indicative of the amount of antibody present. Performed By: #### V ITD, ENAID, HREMOP, TSH, HIV12C, SYPHGX, LYMEGM, VZVG2, COPPER, INFTBG, JERRY, CCP, JCVIDX ####[address] [phone] Vitamin D 25 Hydroxyon 09-27 Vitamin D 25 Hydroxy 123.0 ng/mL High 31.0-80.0 [facility] Comment on above: Result Comment: Clas sification of 25 [place] Vitamin D status:Insufficiency/Moderate Deficiency: < or = 30 ng/mLSufficiency/Optimal Levels: 31 to 80 ng/mLToxicity: > 100 ng/mLTest performed by chemiluminescent immunoassay. Performed By: #### V ITD, ENAID, HREMOP, TSH, HIV12C, SYPHGX, LYMEGM, VZVG2, COPPER, INFTBG, JERRY, CCP, JCVIDX ####[facility] [address] [place], [place] [phone] AL-MRI C-SPINE WO/W CON IMPO RTon 07-11-2017 AL-MRI C-SPINE WO/W CON IMPORT Images were obtained outside of [facility] [id number] Normal [facility] AL-MRI T-SPINE WO/W CON IMPO RTon 07-11-2017 AL-MRI T-SPINE WO/W CON IMPORT Images were obtained outside of [facility] [id number] Normal [facility] MR-MRI BRAIN WO CON IMPORTon 05-16-2017 MR-MRI BRAIN WO CON IMPORT Images were obtained outside of [facility] [id number] Normal [facility] Vital Signs Date Time Vital Sign Value Performing Clinician Facility 09-06-2023 09:48-0500 Body height 152.4 cm DO Johny Ball Work Phone: [facility] 09-06-2023 09:48-0500 Body weight 60.78 kg DO Johny Ball Work Phone: [facility] 07-12-2023 11:28-0500 Body height 152.4 cm DO Johny Ball Work Phone: [facility] 07-12-2023 11:28-0500 Body weight 60.78 kg DO Johny Ball Work Phone: [facility] 03-01-2023 10:00-0400 Body height 154.94 cm Johny Ball Other [facility] Other 03-01-2023 10:00-0400 Body mass index (BMI) [Ratio] 26.15 kg/m2 Johny Ball Other [facility] Other 03-01-2023 10:00-0400 Body weight 62.78 kg Johny Ball Other [facility] Other 03-01-2023 10:00-0400 Diastolic blood pressure 74 mm[Hg] Johny Winters Other [facility] Other 03-01-2023 10:00-0400 Respiratory rate 12 /min Johny Winters Other [facility] Other 03-01-2023 10:00-0400 Systolic blood pressure 138 mm[Hg] Johny Winters Other [facility] Other 11-02-2021 14:20-0400 Body height 154.94 cm Ezequiel Agudelo Other [facility] Other 11-02-2021 14:20-0400 Body mass index (BMI) [Ratio] 25.69 kg/m2 Ezeqiuel Agudelo Other [facility] Other 11-02-2021 14:20-0400 Body weight 61.69 kg Ezequiel Agudelo Other [facility] Other Encounters Encounter Date Encounter Type Care Provider Facility Start: 12-13-2023 End: 12-13-2023 ambulatory CHINYERE LIVE Not Available Start: 12-12-2023 End: 12-12-2023 ambulatory CINDY RODRÍGUEZ Not Available Start: 09-06-2023 End: 09-06-2023 ambulatory Chinyere Live Facility:[facility] Start: 09-06-2023 End: 09-06-2023 ambulatory DO Johny Ball Work Phone: [facility] Work Phone: Start: 09-06-2023 End: 09-06-2023 Patient encounter procedure DO Johny Ball Work Phone: [facility] [place] Work Phone: Start: 07-12-2023 End: 07-12-2023 ambulatory Johny Ball Facility:[facility] Start: 07-12-2023 End: 07-12-2023 Patient encounter procedure DO Johny Winters Work Phone: [facility] [place] Work Phone: Start: 04-07-2023 End: 04-07-2023 ambulatory Johny Winters Other [facility] Other Start: 04-07-2023 Nursing evaluation o f patient and report Johny Winters [facility] Start: 03-01-2023 End: 03-01-2023 ambulatory Johny Winters Other [facility] Other Start: 03-01-2023 Encounter for genera l adult medical examination without abnormal findings Johny Winters [facility] Start: 03-01-2023 Periodic preventive med est patient 40-64yrs Johny Winters [facility] Start: 12-24-2022 End: 12-24-2022 ambulatory Johny Winters Other [facility] Other Start: 12-24-2022 Telephone encounter Johny Winters [facility] Start: 05-10-2022 End: 05-11-2022 ambulatory CHINYERE LIVE Facility:[facility] Start: 02-23-2022 End: 02-24-[address] JOHNY WINTERS Facility:[facility] Start: 02-15-2022 End: 02-16-[address] CINDY RODRÍGUEZ Facility:[facility] Start: 11-16-2021 End: 11-17-[address] DENYS JACKSON Facility:[facility] Start: 11-02-2021 End: 11-02-2021 ambulatory Ezequiel Agudelo Other [facility] Other Start: 11-02-2021 Office outpatient ne w 45 minutes Ezequiel Agudelo [facility] Start: 09-09-2021 End: 09-10-[address] JOHNY WINTERS Facility:[facility] Start: 08-30-2021 End: 08-30-[address] JOHNY WINTERS Facility:[facility] Start: 09-27-2017 End: 09-27-2017 Ambulatory [facility] Start: 09-27-2017 [facility] Date Procedure Procedure Detail Performing Clinician Start: 09-06-2023 MRI of cervical spin e with contrast DO Johny Winters Work Phone: Start: 09-06-2023 MRI of head DO Jovani [email or web address] [email or web address] Work Phone: Start: 07-12-2023 MRI of thoracic spin e with contrast DO Johny Winters Work Phone: Start: 07-12-2023 XR pre/post mri xray DO Johny Winters Work Phone: Immunizations Immunization Date Immunization Notes Care Provider Fa dileep 04-07-2023 influenza, injectabl e, quadrivalent, preservative free Johny Ball Other [facility] Other 05-06-2022 influenza virus vaccine, split virus (incl. purified surface antigen) Johny Ball Other [facility] Other 05-06-2022 influenza, injectabl e, quadrivalent, contains preservative Johny Ball Other [facility] Other 04-14-2021 influenza virus vaccine, split virus (incl. purified surface antigen) Johny Ball Other [facility] Other 04-17-2020 pneumococcal polysaccharide vaccine, 23 valent Johny Ball Other [facility] Other 12-31-2019 pneumococcal conjuga te vaccine, 13 valent Johny Ball Other [facility] Other 04-08-2019 influenza virus vaccine, split virus (incl. purified surface antigen) Johny Ball Other [facility] Other 05-05-2017 influenza virus vaccine, split virus (incl. purified surface antigen) Johny Ball Other [facility] Other 05-04-2015 tetanus and diphther ia toxoids, adsorbed, preservative free, for adult use (5 Lf of tetanus toxoid and 2 Lf of diphtheria toxoid) Johny Winters Other [facility] Other 04-30-2013 tetanus and diphther ia toxoids, adsorbed, preservative free, for adult use (5 Lf of tetanus toxoid and 2 Lf of diphtheria toxoid) Johny Winters Other [facility] Other Payers Date Payer Category Payer Self-pay [id number] 2018 Medicaid [id number] [id number] 1965 Unknown [id number] 2.16.840.1.161248.3.579.2.593 1963 Unknown [id number] 2.16.840.1.889796.3.579.2.593 1963 Unknown [id number] 2.16.840.1.526228.3.579.2.593 1963 Unknown [id number] 2.16.840.1.246378.3.579.2.593 1963 Unknown [id number] 2.16.840.1.874665.3.579.2.593 1963 Unknown [id number] 2.16.840.1.683583.3.579.2.593 1963 Unknown [id number] 2.16.840.1.394306.3.579.2.1259 1963 Unknown [id number] 2.16.840.1.694169.3.579.2.1259 1959 Unknown [id number] 2.16.840.1.587338.19 Private Health Insurance [facility] [id number] Unknown [id number] 2.16.840.1.882178.3.579.2.531 Unknown [id number] 2.16.840.1.802061.3.579.2.531 Social History Date Type Detail Facility Sex Assigned At [facility] Other Start: 1965 Sex Assigned At Female [facility] Evaluation note 03-01-2023 Note Date [...] mammogram for breast cancer (ICD-10 - Z12.31) [facility] sending order for mammogram Instructed on monthly [facility] Other Evaluation note 11-02-2021 Note Date & [...] stable Oct, Lumbar radiculopathy (ICD-10 - M54.16) [facility] Other Evaluation note Note Date & Type Note Facility Evaluation note No Information [facility] [employer] [facility] Other Evaluation note Note Date & Type Note Facility Evaluation note No assessment information availa [facility] Work Phone: History general Narrative - Reported Note Date & Type Note Facility History general Narrative - Reported Type Medical History hypercholesterolemia Medical History multiple sclerosis Medical History osteoporosis Medical History cervical cancer Surgical History hysterectomy Hospitalization History See Above [facility] Other Reason for visit Narrative Note Date & Type Note Facility Reason for visit Narrative Referral Dr Worrell all Low Back Pain [facility] Other Summary Purpose Family History No Family [...] section and content) DATE CREATED AUTHOR 01/19/2018 [facility] DATE CREATED AUTHOR AUTHOR'S ORGANIZ ATION 05/21/2022 [facility] DATE CREATED AUTHOR AUTHOR'S ORGANIZ ATION 09/14/2023 [facility] DATE CREATED AUTHOR AUTHOR'S ORGANIZ ATION 12/13/2023 [facility] EPIC REASON FOR VISIT (unrecogniz ed section and content) flu [facility] Care Teams (unrecognized sec tion [...] BE BASED ON THE PRIMARY CLINICAL RECORDS. [facility] [employer] [facility]. provides no warranty or guarantee of the accuracy or completeness of information in this document.
== END 2024-03-26 10:00 | disposition home or self-care (01) ==
LOC: MAMMO 09:59
PROVIDERS: PCP Internal Medicine; Visit Provider Obstetrics & Gynecology
DX: Z12.31 Encounter for screening mammogram for malignant neoplasm of breast (principal); Z80.3 Family history of malignant neoplasm of breast; Z80.7 Family history of other malignant neoplasms of lymphoid, hematopoietic and related tissues
CPT/HCPCS: 77063; 77067

== ENCOUNTER 2024-10-03 10:52 | Outpatient (OUT) | payer OTHER, SELFPAY ==
--- OUTSIDE RECORDS SUMMARY | 2024-10-03 11:07 | XMS_ITS | CCD ---
Author Organization [facility] Care Team Providers Care Printing Equipment Mechanic Name Role Phone GERALDALMA BARAJAS Unavailable Unavailable Ezequiel Agudelo Unavailable MARCOS, DR WHITE Admitting Unavailable MARCOS, DR WHITE Attending Unavailable SINGH, DR OJEDA Primary Care Unavailable LEOBARDO, DR DENYS Chavez Consulting Unavailable MARCOS, DR WHITE Consulting Unavailable SINGH, DR OJEDA Admitting Unavailable SINGH, DR OJEDA Attending Unavailable BALL, DR OJEDA Primary Care Unavailable BALL, DR OJEDA Consulting Unavailable WEBSTER, WINCHA Consulting Unavailable TASHIA, CHINYERE Admitting Unavailable TASHIA, CHINYERE Attending Unavailable SINGH, DR OJEDA Primary Care Unavailable TASHIA, CHINYERE Consulting Unavailable SINGH, DR OJEDA Primary Care Unavailable MEGHAN, WILBERTO Admitting Unavailable MEGHAN, WILBERTO Attending Unavailable MEGHAN, WILBERTO Consulting Unavailable BALL, DR OJEDA Admitting Unavailable BALL, DR OJEDA Attending Unavailable BALL, DR OJEDA Primary Care Unavailable BALL, DR OJEDA Consulting Unavailable ZIEBER, DR DENYS Chavez Consulting Unavailable BENEDICT, DR DENYS Olivas Unavailable BENEDICT, DR FLOWER Attending Unavailable BALL, DR OJEDA Primary Care Unavailable TASHIA, CHINYERE Consulting Unavailable Johny Winters Unavailable DO Johny Winters Primary Care Provider CLEO Live Attending Provider Chniyere Live Attending Unavailable Chinyere Live Admemmanuelle Unavailable Johny Winters Primary Care Unavailable Johny Winters Primary Care Unavailable Chinyere Live Attending Unavailable Chinyere Live Admitting Unavailable Ball Johny REARDON Primary Care Provider Chinyere Glover Unavailable CHINYERE LIVE Attending Unavailable CINDY RODRÍGUEZ Attending Unavailable CHINYERE LIVE Attending Unavailable CHINYERE LIVE Attending Unavailable Medications Current Medications Medication Drug Class(es) Dates Sig (Normalized) Sig (Original) alendronic acid 70 mg oral tablet (5 sources) Bisphosphonate take 1 tablet by mouth every week alendronate (Fosamax) 70 MG tablet Take 70 mg by mouth 1 (one) time per week Active amantadine hydrochloride 100 mg oral tablet (5 sources) Influenza A M2 Protein Inhibitor Start: 04-04-2024 End: 09-19-2024 take 1 tablet by mouth in the morning amantadine (Symmetrel) 100 MG tablet Indications: Multiple sclerosis (CMS/HCC) , Fatigue, unspecified type Take 1 tablet (100 mg) by mouth in the morning. 30 tablet 2 04/04/2024 09/19/2024 Discontinued amLODIPine 5 mg oral tablet (10 sources) Dihydropyridine Calcium Channel Jessie take 1 tablet by mouth once daily amLODIPine (Norvasc) 5 MG tablet Take 5 mg by mouth Daily Active aspirin 81 mg chewable tablet (6 sources) Platelet Aggregation Inhibitor, Nonsteroidal Anti-inflammatory Drug ASPIRIN 81 MG chewable tablet Chew 81 mg 1 (one) time Active atorvastatin 20 mg oral tablet (10 sources) HMG-CoA Reductase Inhibitor Start: 11-18-2023 take 1 tablet by mouth once daily atorvastatin (Lipitor) 20 MG tablet Take 20 mg by mouth Daily 11/18/2023 Active Atorvastatin Victor Hugo cium 20 MG Not Available Oral Active B Complex Vitamins (vitamin B complex) tablet (6 sources) B Complex Vitami ns (vitamin B complex) tablet as directed Orally Active baclofen 10 mg oral tablet (9 sources) gamma-Aminobuty deo Acid-ergic Agonist take 1 tablet by mouth at bedtime baclofen (Lioresal) 10 MG tablet Take 10 mg by mouth at bedtime Active cholecalciferol 0.25 mg oral capsule (6 sources) Vitamin D take 1 capsule by mouth in the morning cholecalciferol (Vitamin D-3) 250 MCG (55562 UT) capsule Take 10,000 Units by mouth in the morning. Active ferrous sulfate 325 mg oral tablet (6 sources) take 1 tablet by mouth at mealtime ferrous sulfate 325 (65 Fe) MG tablet Take 325 mg by mouth in the morning. Take with meals. Active gabapentin 300 mg oral capsule (10 sources) Anti-epileptic Agent Start: 07-04-20 take 1 capsule by mouth twice daily, then take 2 capsules by mouth at bedtime gabapentin (Neurontin) 300 MG capsule Indications: Multiple sclerosis (CMS/HCC) TAKE 1 CAPSULE BY MOUTH TWICE A DAY AND 2 CAPSULES BY MOUTH AT BEDTIME 120 capsule 3 07/04/2024 Active Start: 02-28-2024 take 1 capsule by [facility] twice daily, then take 2 capsules by mouth at bedtime gabapentin (Neurontin) 300 MG capsule Indications: Multiple sclerosis (CMS/HCC) TAKE 1 CAPSULE BY MOUTH TWICE A DAY AND 2 CAPSULES BY MOUTH AT BEDTIME 120 capsule 3 02/28/2024 Active take 1 capsule by [facility] every twenty-four hours Gabapentin 300 MG 1 capsule Orally Once a day Active krill oil 500 mg oral capsule (6 sources) take 1 capsule by mouth once daily Krill Oil 500 MG capsule Take 1 capsule by mouth Daily Active lisinopril 5 mg oral tablet (10 sources) Angiotensin Converting Enzyme Inhibitor take 1 tablet by mouth once daily lisinopril 5 MG tablet Take 5 mg by mouth Daily Active meclizine hydrochloride 25 mg oral tablet (6 sources) Antiemetic Start: take 1 tablet by mouth every twelve hours meclizine (Antivert) 25 MG tablet Take 25 mg by mouth every 12 (twelve) hours 02/08/2023 Active meloxicam 7.5 mg oral tablet (10 sources) Nonsteroidal Anti-inflammatory Drug take 2 tablets by mouth once daily meloxicam (Mobic) 7.5 MG tablet Take 15 mg by mouth Daily Active take 1 tablet by [facility] every twenty-four hours Meloxicam 15 MG 1 tablet Orally Once a day for 30 days Not-Taking teriflunomide 14 mg oral tablet (10 sources) Pyrimidine Synthesis Inhibitor Start: 09-11-2024 take 1 tablet by mouth once daily Teriflunomide (Aubagio) 14 MG tablet Indications: Multiple sclerosis (CMS/HCC) Take 1 tablet by mouth Daily 30 tablet 3 09/11/2024 Active Aubagio 14 MG ta blet 1 tablet Daily Active Completed/Discontinued Medications Medication Drug Class(es) Dates Sig (Normalized) Sig (Original) acetaminophen 325 mg / HYDROcodone bitartrate 5 mg oral tablet (4 sources) Opioid Agonist HYDROcodone-Acet am inophen 5-325 MG Not Available Oral for 4 Days Not-Taking raloxifene hydrochloride 60 mg oral tablet (7 sources) Estrogen Agonist/Antagoni st Start: 12-12-2023 End: 04-04-2024 take 1 tablet by mouth once daily raloxifene (Evista) 60 MG tablet Indications: Age related osteoporosis, unspecified pathological fracture presence (CMS/HCC) Take 1 tablet (60 mg) by mouth Daily 90 tablet 3 12/12/2023 04/04/2024 Discontinued take 1 tablet by radha th every twenty-four hours Raloxifene HCl 60 MG 1 tablet Orally Onc e a day for 90 days Active {20 (nirmatrelvir 150 MG Oral Tablet) / 10 (ritonavir 100 MG Oral Tablet) } Pack [Paxlovid 5-Day] (2 sources) Start: 01-05-2023 take 3 tablets by mouth every twelve hours Paxlovid (300/100) 20 x 150 MG & 10 x 100MG 3 tablets Orally Twice a day for 5 days Dec, Not-Taking Problems Active Problems Problem Classification Problem Date Documented Da te Episodic/Chronic Anxiety disorders (6 sources) Anxiety state; 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: [Generalized anxiety disorder] Onset: 07-31-2007 12-11-2023 Chronic Chronic obstructive pulmonary disease and bronchiectasis (6 sources) Chronic obstructive lung disease; 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: [Chronic obstructive pulmonary disease, unspecified] Onset: 12-11-2023 12-11-2023 Chronic Conditions associated with dizziness or vertigo (2 sources) Vertigo; 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: [Dizziness and giddiness] 09-19-2024 Episodic Disorders of lipid metabolism (3 sources) Hypercholesterolemia ; 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: [Pure hypercholesterolemia , unspecified] Chronic Essential hypertension (3 sources) Essential hypertension; 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: [Essential (primary) hypertension] Chronic Malaise and fatigue (4 sources) Fatigue; 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: [Other fatigue] 04-04-2024 Episodic Menopausal disorders (6 sources) Atrophic vaginitis; 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: [Postmenopausal atrophic vaginitis] Onset: 12-11-2023 12-11-2023 Chronic Multiple sclerosis (20 sources) Multiple sclerosis; 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: [Multiple sclerosis] Onset: 09-27-2017 Resolved: 11-02-2021 Chronic Nutritional deficiencies (6 sources) Vitamin D deficiency; 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: [Vitamin D deficiency, unspecified] Onset: 12-11-2023 12-11-2023 Chronic Osteoporosis (9 sources) Primary osteoporosis; 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: [Age-related osteoporosis without current pathological fracture] Onset: 12-11-2023 Chronic Other gastrointestinal disorders (6 sources) Irritable bowel syndrome; 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: [Irritable bowel syndrome without diarrhea] Onset: 07-31-2007 12-11-2023 Chronic Other lower respiratory disease (4 sources) Chronic cough; 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: [CHRONIC COUGH] Onset: 02-23-2022 Episodic Spondylosis; intervertebral disc disorders; other back problems (20 sources) Other spondylosis with radiculopathy, lumbosacral region; 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: [Degeneration of lumbar intervertebral disc] Onset: 09-09-2021 Chronic Substance-related disorders (4 sources) Nicotine dependence, cigarettes, uncomplicated; 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: [Nicotine dependence] Onset: 09-01-2021 Chronic Thyroid disorders (6 sources) Hypothyroidism; 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: [Hypothyroidism, unspecified] Onset: 07-31-2007 12-11-2023 Chronic Unclassified (6 sources) Other abnormal findings [...] Documented Date Episodic/Chronic Other aftercare (1 source) [facility] (current) use of aspirin; 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: [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 FARMWORKER 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 USE OF ASPIRIN] Onset: 09-01-2021 Episodic Other aftercare (1 source) Other [facility] (current) drug therapy; 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: [OTH GRAIN FARMWORKER CURRENT DRUG THERAPY] Onset: 09-01-2021 Episodic Other aftercare (6 sources) Patient encounter status; 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: [Encounter for therapeutic drug level monitoring] Onset: 12-12-2023 12-12-2023 Episodic Other connective tissue disease (1 source) Other symptoms and signs involving the musculoskeletal system; 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: [OTH SX AND SYMP INVOLV MUSCULOSKELTAL] Onset: 09-14-2021 Episodic Other ear and sense organ disorders (6 sources) Tinnitus; 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: [Tinnitus, unspecified ear] Onset: 12-12-2023 12-12-2023 Episodic Other nervous system disorders (6 sources) Paresthesia; 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: [Paresthesia of skin] Onset: 12-12-2023 12-12-2023 Episodic Other nervous system disorders (6 sources) Paresthesia of hand ; 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: [Anesthesia of skin] Onset: 12-12-2023 12-12-2023 Episodic Other skin disorders (6 sources) Loss of hair; 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: [Nonscarring hair loss, unspecified] Onset: 12-12-2023 12-12-2023 Episodic Residual codes; unclassified (1 source) Family history of malignant neoplasm of breast; 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: [FAMILY HX MALIG NEOPLASM OF BREAST] Onset: 02-17-2022 Episodic Residual codes; unclassified (1 source) Family history of other malignant neoplasms of lymphoid, hematopoietic and related tissues; 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: [FAM HX OTH MAL MARIA LYMPH HEMATPOETC] Onset: 02-17-2022 Episodic Residual codes; unclassified (2 sources) Transient alteration of awareness; 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: [Transient alteration of awareness] 04-04-2024 Episodic Spondylosis; intervertebral disc disorders; other back problems (4 sources) Radiculopathy, lumbar region; 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: [Lumbago with sciatica, left side] Onset: 09-01-2021 Resolved: 11-02-2021 Episodic Unclassified (1 source) LOW BACK PAIN, UNSPECIFIED; 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: [LOW BACK PAIN, UNSPECIFIED] Onset: 08-30-2021 Results Test Name Value Interpretation Reference Range Facility Creatinine (Bld) [Mass/Vol]O rdered By: Chinyere Live on 09-06-2023 Creatinine [Mass/Vol] 0.6 mg/dL 0.6-1.3 [facility] Comment on above: ER/ESD physician is notified/shown all ISTAT results.Critical values may be confirmed by laboratory testing ifdeemed necessary by ER attending doctor. ISTAT XRay CREon 09-06-2023 Creatinine [Mass/Vol] 0.6 mg/dL Normal 0.6-1.3 [facility] Comment on above: Result Comment: ER/E SD physician is notified/shown all ISTAT results. Critical values may be confirmed by laboratory testing if deemed necessary by ER attending doctor. Performed By: #### I SCRE #### [facility] [address] [place] [address] ISTAT GFR > 60.0 Normal [facility] Comment on above: Result Comment: PERF ORMED BY: [place] [id number] PATHOLOGIST SHIRRING MACHINE OPERATOR LJ VERAS M.D. Performed By: #### I SCRE #### [address] MR cervical spine wo/w conon 09-06-2023 MR cervical spine wo/w con [facility] [place] [address] [place] [address] MRI Report Signed Patient: Jayde Hernandez MR#: [id number] : 1965 Acct:[id number] Age/Sex: 58 / F ADM Date: 09/06/23 Loc: Room: Type: [facility] Attending Dr: Chinyere Live PA-C Copies [...] Raffi Guillen M.D.09/06/2023 11:22 AM Dictation Location: [place] [address] Transcribed By: [facility] 09/06/23 1122 Dictated By: Raffi Guillen II, MD 09/06/23 1109 Signed By: 09/06/23 1122 [facility] MR head/brain wo/w conon MR head/brain wo/w con [facility] [place] [address] [place] [address] MRI Report Signed Patient: Jayde Hernandez MR#: [id number] : 1965 Acct:[id number] Age/Sex: 58 / F ADM Date: 09/06/23 Loc: MR Room: Type: [facility] Attending Dr: Chinyere Live PA-C Copies [...] Raffi Guillen M.D.09/06/2023 11:09 AM Dictation Location: [place] [address] Transcribed By: [facility] 09/06/23 1109 Dictated By: Raffi Guillen II, MD 09/06/23 1053 Signed By: 09/06/23 1109 [facility] No Panel InformationOrdered By: Chinyere Live on 09-06-2023 Bedside Estimated GFR (eGFR) > 60.0 [facility] Creatinine (Bld) [Mass/Vol]O rdered By: Chinyere Live on 07-12-2023 Creatinine [Mass/Vol] 0.7 mg/dL 0.6-1.3 [facility] Comment on above: ER/ESD physician is notified/shown all ISTAT results.Critical values may be confirmed by laboratory testing ifdeemed necessary by ER attending doctor. ISTAT XRay CREon 07-12-2023 Creatinine [Mass/Vol] 0.7 mg/dL Normal 0.6-1.3 [facility] Comment on above: Result Comment: ER/E SD physician is notified/shown all ISTAT results. Critical values may be confirmed by laboratory testing if deemed necessary by ER attending doctor. Performed By: #### I SCRE #### [address] ISTAT GFR > 60.0 Normal [facility] Comment on above: Result Comment: PERF ORMED BY: [place] [id number] PATHOLOGIST SHIRRING MACHINE OPERATOR LJ VERAS M.D. Performed By: #### I SCRE #### [facility] [address] [place] [address] No Panel InformationOrdered By: Chinyere Live on 07-12-2023 Bedside Estimated GFR (eGFR) > 60.0 [facility] XR pre/post mri xrayon 07-12 XR pre/post mri xray [facility] [place] [address] [place] [address] MRI Report Signed Patient: Jayde Hernandez MR#: [id number] : 1965 Acct:[id number] Age/Sex: 58 / F ADM Date: 07/12/23 Loc: Room: Type: [facility] Attending Dr: Chinyere Live PA-C Copies to: Chinyere Live PA-C Ordering Provider: Chinyere Live PA-C Date of Service: 07/12/23 MR/MR thoracic spine wo/w con: G35 ([id number]) XR/XR pre/post mri xray: G35 MR thoracic [...] Raffi Guillen M.D.07/12/2023 12:37 PM Dictation Location: [place] [address] Transcribed By: [facility] 07/12/23 1237 Dictated By: Raffi Guillen II, MD 07/12/23 1230 Signed By: 07/12/23 1237 Normal [facility] CBC AUTO DIFFon 05-10-2022 BASO # 0.1 103/ul Normal 0.0-0.1 [facility] Comment on above: Performed By: #### C BC #### [facility] [id number] Brett Rosales Basophils/100 WBC (Bld) 1.0 % Normal 0.2-2.0 [facility] Comment on above: Performed By: #### C BC #### [facility] [address] [place] [address] [address] Brett Rosales EO # 0.1 103/ul Normal 0.0-0.7 [facility] Comment on above: Performed By: #### C BC #### [facility] [address] [place] [address] [address] Brett Rosales Eosinophils/100 WBC (Bld) 1.5 % Normal 0.9-7.0 [facility] Comment on above: Performed By: #### C BC #### [facility] [address] [place] [address] [address] Brett Rosales Erythrocyte distribution width (RBC) [Ratio] 13.2 % Normal 11.0-15.0 [facility] Comment on above: Performed By: #### C BC #### [facility] [address] [place] [address] Dr. Brett Rosales Hematocrit (Bld) [Volume fraction] 40.1 % Normal 36.0-48.0 [facility] Comment on above: Performed By: #### C BC #### [facility] [address] [place] [address] Dr. Brett Rosales Hemoglobin (Bld) [Mass/Vol] 12.9 g/dL Normal 12.0-16.0 [facility] Comment on above: Performed By: #### C BC #### [facility] [address] [place] [address] [address] Brett Rosales IG # 0.01 10e3/ul Normal 0.00-0.03 [facility] Comment on above: Performed By: #### C BC #### [facility] [address] [place] [address] Dr. Brett Rosales IG % 0.1 % Normal 0.0-0.5 [facility] Comment on above: Performed By: #### C BC #### [facility] [address] [place] [address] Dr. Brett Rosales LYMPH # 2.5 103/ul Normal 1.2-3.8 [facility] Comment on above: Performed By: #### C BC #### [facility] [address] [place] [address] Dr. Brett Rosales Lymphocytes/100 WBC (Bld) 30.3 % Normal 20.5-60.0 [facility] Comment on above: Performed By: #### C BC #### [facility] [address] [place] [address] Dr. Brett Rosales MANUAL DIFF REQ NO Normal [facility] Comment on above: Performed By: #### C BC #### [facility] [address] [place] [address] Dr. Brett Rosales MCH (RBC) [Entitic mass] 30.6 pg Normal 26.7-34.0 [facility] Comment on above: Performed By: #### C BC #### [facility] [address] [place] [address] Dr. Brett Rosales MCHC (RBC) [Mass/Vol] 32.2 g/dL Normal 29.9-35.2 [facility] Comment on above: Performed By: #### C BC #### [facility] [address] [place] [address] Dr. Brett Rosales MCV (RBC) [Entitic vol] 95.0 fL Normal 81.0-99.0 [facility] Comment on above: Performed By: #### C BC #### [facility] [address] [place] [address] Dr. Brett Rosales MONO # 0.9 103/ul Critically high 0.3-0.8 [facility] Comment on above: Performed By: #### C BC #### [facility] [address] [place] [address] Dr. Brett Rosales Monocytes/100 WBC (Bld) 10.4 % Normal 1.7-12.0 [facility] Comment on above: Performed By: #### C BC #### [facility] [address] [place] [address] Dr. Brett Rosales NEUT # 4.6 103/ul Normal 1.4-6.5 [facility] Comment on above: Performed By: #### C BC #### [facility] [address] [place] [address] Dr. Brett Rosales Neutrophils/100 WBC (Bld) 56.7 % Normal 43.0-75.0 [facility] Comment on above: Performed By: #### C BC #### [facility] [address] [place] [address] Dr. Brett Rosales Platelet mean volume (Bld) [Entitic vol] 11.0 fL Normal 9.5-13.5 [facility] Comment on above: Performed By: #### C BC #### [facility] [address] [place] [address] Dr. Brett Rosales PLT 262 103/ul Normal 150-450 [facility] Comment on above: Performed By: #### C BC #### [facility] [address] [place] [address] Dr. Brett Rosales RBC 4.22 106/ul Normal 4.20-5.40 [facility] Comment on above: Performed By: #### C BC #### [facility] [address] [place] [address] Dr. Brett Rosales WBC 8.2 103/ul Normal 4.0-11.0 [facility] Comment on above: Performed By: #### C BC #### [facility] [address] [place] [address] Dr. Brett Rosales PROF 14(COMP METB)on 022 Albumin [Mass/Vol] 3.5 g/dL Normal 3.4-5.0 [facility] Comment on above: Performed By: #### C MP #### [facility] [address] [place] [address] Dr. Brett Rosales Albumin/Globulin [Mass ratio] 1.0 {ratio} Normal [facility] Comment on above: Performed By: #### C MP #### [facility] [address] [place] [address] [address] Brett Rosales ALP [Catalytic activity/Vol] 94 U/L Normal 46-116 [facility] Comment on above: Performed By: #### C MP #### [facility] [address] [place] [address] Dr. Brett Rosales ALT [Catalytic activity/Vol] 25 U/L Normal 14-59 [facility] Comment on above: Performed By: #### C MP #### [facility] [address] [place] [address] Dr. Brett Rosales Anion gap [Moles/Vol] 9.4 mmol/L Normal [facility] Comment on above: Performed By: #### C MP #### [facility] [address] [place] [address] Dr. Brett Rosales AST [Catalytic activity/Vol] 21 U/L Normal 15-37 [facility] Comment on above: Performed By: #### C MP #### [facility] [address] [place] [address] Dr. Brett Rosales Bilirubin [Mass/Vol] 0.3 mg/dL Normal 0.2-1.0 [facility] Comment on above: Performed By: #### C MP #### [facility] [address] [place] [address] Dr. Brett Rosales Calcium [Mass/Vol] 9.1 mg/dL Normal 8.5-10.1 [facility] Comment on above: Performed By: #### C MP #### [facility] [address] [place] [address] Dr. Brett Rosales Chloride [Moles/Vol] 106 mmol/L Normal 98-107 [facility] Comment on above: Performed By: #### C MP #### [facility] [address] [place] [address] Dr. Brett Rosales CO2 [Moles/Vol] 31.2 mmol/L Normal 21.0-32.0 [facility] Comment on above: Performed By: #### C MP #### [facility] [address] [place] [address] [address] Brett Rosales Creatinine [Mass/Vol] 0.69 mg/dL Normal 0.55-1.02 [facility] Comment on above: Performed By: #### C MP #### [facility] [address] [place] [address] [address] Brett Rosales EGFR-AF CZECH >60 Normal >=60 [facility] Comment on above: Performed By: #### C MP #### [facility] [address] [place] [address] [address] Brett Rosales EGFR-NON AF CZECH >60 Normal >=60 [facility] Comment on above: Performed By: #### C MP #### [facility] [address] [place] [address] Dr. Brett Rosales Globulin (S) [Mass/Vol] 3.5 g/dL Normal [facility] Comment on above: Performed By: #### C MP #### [facility] [address] [place] [address] Dr. Brett Rosales Glucose [Mass/Vol] 108 mg/dL Critically high 74-106 T [facility] Comment on above: Performed By: #### C MP #### [facility] [address] [place] [address] Dr. Brett Rosales Potassium [Moles/Vol] 3.6 mmol/L Normal 3.5-5.1 [facility] Comment on above: Performed By: #### C MP #### [facility] [address] [place] [address] Dr. Brett Rosales Protein [Mass/Vol] 7.0 g/dL Normal 6.4-8.2 [facility] Comment on above: Performed By: #### C MP #### [facility] [address] [place] [address] Dr. Brett Rosales Sodium [Moles/Vol] 143 mmol/L Normal 136-145 [facility] Comment on above: Performed By: #### C MP #### [facility] [address] [place] [address] [address] Brett Rosales Urea nitrogen [Mass/Vol] 14.0 mg/dL Normal 7.0-18.0 [facility] Comment on above: Performed By: #### C MP #### [facility] [address] [place] [address] [address] Brett Rosales Urea nitrogen/Creatinine [Mass ratio] 20.3 mg/mg Normal [facility] Comment on above: Performed By: #### C MP #### [facility] [address] [place] [address] [address] Brett Rosales XR CHEST 2 Von [...] LIAT WEBSTER Date: 2022-02-24 08:15 Normal [facility] MG MAMM SCREEN 3D LIBERTAD CADon 02-15-2022 MG MAMM SCREEN 3D LIBERTAD CAD Patient: JAYDE HERNANDEZ Exam Date: 02/15/2022 : 1965 Gender:F Ordering : DR CINDY RODRÍGUEZ Admission #: [id number] Family : DR JOHNY WINTERS D.O. Order #: [id number] CLICK HERE TO VIEW EXAM RADIOLOGY REPORT [...] breast cancer at age 63. LOCATION: [facility] BREAST COMPOSITION: Scattered areas fibroglandular density. [...] M.D. on 02/16/2022 at 13:24 Normal [facility] CBC AUTO DIFFon 11-16-2021 BASO # 0.1 103/ul Normal 0.0-0.1 [facility] Comment on above: Performed By: #### C BC #### [facility] [address] [place] [address] Dr. Brett Rosales Basophils/100 WBC (Bld) 0.7 % Normal 0.2-2.0 [facility] Comment on above: Performed By: #### C BC #### [facility] [address] [place] [address] Dr. Brett Rosales EO # 0.1 103/ul Normal 0.0-0.7 [facility] Comment on above: Performed By: #### C BC #### [facility] [address] [place] [address] Dr. Brett Rosales Eosinophils/100 WBC (Bld) 1.7 % Normal 0.9-7.0 [facility] Comment on above: Performed By: #### C BC #### [facility] [address] [place] [address] Dr. Brett Rosales Erythrocyte distribution width (RBC) [Ratio] 13.2 % Normal 11.0-15.0 [facility] Comment on above: Performed By: #### C BC #### [facility] [address] [place] [address] Dr. Brett Rosales Hematocrit (Bld) [Volume fraction] 38.9 % Normal 36.0-48.0 [facility] Comment on above: Performed By: #### C BC #### [facility] [address] [place] [address] Dr. Brett Rosales Hemoglobin (Bld) [Mass/Vol] 12.5 g/dL Normal 12.0-16.0 [facility] Comment on above: Performed By: #### C BC #### [facility] [address] [place] [address] Dr. Brett Rosales IG # 0.02 10e3/ul Normal 0.00-0.03 [facility] Comment on above: Performed By: #### C BC #### [facility] [address] [place] [address] Dr. Brett Rosales IG % 0.2 % Normal 0.0-0.5 [facility] Comment on above: Performed By: #### C BC #### [facility] [address] [place] [address] Dr. Brett Rosales LYMPH # 2.9 103/ul Normal 1.2-3.8 [facility] Comment on above: Performed By: #### C BC #### [facility] [address] [place] [address] Dr. Brett Rosales Lymphocytes/100 WBC (Bld) 34.3 % Normal 20.5-60.0 [facility] Comment on above: Performed By: #### C BC #### [facility] [address] [place] [address] Dr. Brett Rosales MANUAL DIFF REQ NO Normal [facility] Comment on above: Performed By: #### C BC #### [facility] [address] [place] [address] Dr. Brett Rosales MCH (RBC) [Entitic mass] 31.0 pg Normal 26.7-34.0 [facility] Comment on above: Performed By: #### C BC #### [facility] [address] [place] [address] Dr. Brett Rosales MCHC (RBC) [Mass/Vol] 32.1 g/dL Normal 29.9-35.2 [facility] Comment on above: Performed By: #### C BC #### [facility] [address] [place] [address] Dr. Brett Rosales MCV (RBC) [Entitic vol] 96.5 fL Normal 81.0-99.0 [facility] Comment on above: Performed By: #### C BC #### [facility] [address] [place] [address] Dr. Brett Rosales MONO # 0.7 103/ul Normal 0.3-0.8 [facility] Comment on above: Performed By: #### C BC #### [facility] [address] [place] [address] Dr. Brett Rosales Monocytes/100 WBC (Bld) 8.5 % Normal 1.7-12.0 [facility] Comment on above: Performed By: #### C BC #### [facility] [address] [place] [address] Dr. Brett Rosales NEUT # 4.6 103/ul Normal 1.4-6.5 [facility] Comment on above: Performed By: #### C BC #### [facility] [address] [place] [address] Dr. Brett Rosales Neutrophils/100 WBC (Bld) 54.6 % Normal 43.0-75.0 [facility] Comment on above: Performed By: #### C BC #### [facility] [address] [place] [address] Dr. Brett Rosales Platelet mean volume (Bld) [Entitic vol] 10.7 fL Normal 9.5-13.5 [facility] Comment on above: Performed By: #### C BC #### [facility] [address] [place] [address] Dr. Brett Rosales PLT 276 103/ul Normal 150-450 [facility] Comment on above: Performed By: #### C BC #### [facility] [address] [place] [address] Dr. Brett Rosales RBC 4.03 106/ul Critically low 4.20-5.40 [facility] Comment on above: Performed By: #### C BC #### [facility] [address] [place] [address] Dr. Brett Rosales WBC 8.5 103/ul Normal 4.0-11.0 [facility] Comment on above: Performed By: #### C BC #### [facility] [address] [place] [address] Dr. Brett Rosales PROF 14(COMP METB)on 022 Albumin [Mass/Vol] 3.5 g/dL Normal 3.4-5.0 [facility] Comment on above: Performed By: #### C MP #### [facility] [address] [address] [address] Brett Rosales Albumin/Globulin [Mass ratio] 1.1 {ratio} Normal [facility] Comment on above: Performed By: #### C MP #### [facility] [address] [place] [address] Dr. Brett Rosales ALP [Catalytic activity/Vol] 75 U/L Normal 46-116 [facility] Comment on above: Performed By: #### C MP #### [facility] [address] [place] [address] Dr. Brett Rosales ALT [Catalytic activity/Vol] 27 U/L Normal 14-59 [facility] Comment on above: Performed By: #### C MP #### [facility] [address] [place] [address] Dr. Brett Rosales Anion gap [Moles/Vol] 9.3 mmol/L Normal [facility] Comment on above: Performed By: #### C MP #### [facility] [address] [place] [address] Dr. Brett Rosales AST [Catalytic activity/Vol] 22 U/L Normal 15-37 [facility] Comment on above: Performed By: #### C MP #### [facility] [address] [place] [address] Dr. Brett Rosales Bilirubin [Mass/Vol] 0.4 mg/dL Normal 0.2-1.3 [facility] Comment on above: Performed By: #### C MP #### [facility] [address] [place] [address] Dr. Brett Rosales Calcium [Mass/Vol] 8.4 mg/dL Critically low 8.5-10.1 [facility] Comment on above: Performed By: #### C MP #### [facility] [address] [place] [address] Dr. Brett Rosales Chloride [Moles/Vol] 105 mmol/L Normal 98-107 [facility] Comment on above: Performed By: #### C MP #### [facility] [address] [place] [address] Dr. Brett Rosales CO2 [Moles/Vol] 31.1 mmol/L Critically high 22.0-30.0 [facility] Comment on above: Performed By: #### C MP #### [facility] [address] [place] [address] Dr. Brett Rosales Creatinine [Mass/Vol] 0.73 mg/dL Normal 0.52-1.04 [facility] Comment on above: Performed By: #### C MP #### [facility] [address] [place] [address] Dr. Brett Rosales EGFR-AF CZECH >60 Normal >=60 [facility] Comment on above: Performed By: #### C MP #### [facility] [address] [place] [address] Dr. Brett Rosales EGFR-NON AF CZECH >60 Normal >=60 [facility] Comment on above: Performed By: #### C MP #### [facility] [address] [place] [address] Dr. Brett Rosales Globulin (S) [Mass/Vol] 3.2 g/dL Normal [facility] Comment on above: Performed By: #### C MP #### [facility] [address] [place] [address] Dr. Brett Rosales Glucose [Mass/Vol] 105 mg/dL Normal 74-106 [facility] Comment on above: Performed By: #### C MP #### [facility] [address] [place] [address] Dr. Brett Rosales Potassium [Moles/Vol] 3.4 mmol/L Normal 3.4-5.0 [facility] Comment on above: Performed By: #### C MP #### [facility] [address] [place] [address] Dr. Brett Rosales Protein [Mass/Vol] 6.7 g/dL Normal 6.1-8.2 [facility] Comment on above: Performed By: #### C MP #### [facility] [address] [address] [address] Brett Rosales Sodium [Moles/Vol] 142 mmol/L Normal 137-145 [facility] Comment on above: Performed By: #### C MP #### [facility] [address] [address] [address] Brett Rosales Urea nitrogen [Mass/Vol] 12.0 mg/dL Normal 7.0-18.0 [facility] Comment on above: Performed By: #### C MP #### [facility] [address] [place] [address] Dr. Brett Rsoales Urea nitrogen/Creatinine [Mass ratio] 16.4 mg/mg Normal [facility] Comment on above: Performed By: #### C MP #### [facility] [address] [place] [address] Dr. Brett Rosales MRI LSPINE WO W [...] by: DENYS WALLACE Date: 2021-09-09 15:31 Normal [facility] PROGRESSon 10-06-2017 PROGRESS HNO ID: [id number] Author: Ailyn Patten (Fel) Service: (none) Author Type: Fellow Type: Progress Notes Filed: 10/06/2017 5:17 PM Note Text: NMO/MOG (FOUNDRY EQUIPMENT MECHANIC demyelinating disease evaluation) negative at [facility] Normal [facility] Angiotens. Conv Enzon 2017 Angiotens. Conv Enz 41 U/L Normal <52 [facility] Comment on above: Result Comment: Dianne ficially low JERRY levels may be found for patients taking JERRY inhibitors or after the administration of gadolinium. Performed By: #### V ITD, ENAID, HREMOP, TSH, HIV12C, SYPHGX, LYMEGM, VZVG2, COPPER, INFTBG, JERRY, CCP, JCVIDX ####[facility] [place], [place] [phone] CCP Antibody, IgGon 09-27-19 18 CCP Antibody, IgG <15 Normal <20 [facility] Comment on above: Result Comment: < 20 units: Ttbpkzgt24-19 units: Weak Gfkggejy30-13 units: Moderate Positive> 60 units: Strong PositiveThe following results were obtained with the [employer]ANT[employer] Lite CCP3 IgG ADAM. Anti-CCP values obtained with different manufacturers' assay methods may not be used interchangeably. The magnitude of the reported IgG levels cannot be correlated to an endpoint titer. Performed By: #### V ITD, ENAID, HREMOP, TSH, HIV12C, SYPHGX, LYMEGM, VZVG2, COPPER, INFTBG, JERRY, CCP, JCVIDX ####[facility] [address] [place], [place] [phone] CNOVon 09-27-2017 CNOV Office Visit ([facility]) JAYDE HERNANDEZ ([id number]) 1965 FDate Time Provider Department09/27/17 1:40 PM ASSESSMENT NEUR [facility] During your visit today, we recorded the following information about you: Pulse Respiration Blood pressure Weight 84/minute 16/minute 155/65 51.3 kg Height 1.524 Yovani San MD 10/01/2017 9:26 PM [facility] FOR MULTIPLE SCLEROSISNEW PATIENT EVALUATION/CONSULTATIONR eferral source:SELFAlso followed by:Johny Winters MD ([facility])[address] [place], [place] [address]Ygekn: [phone]: [phone] Denys [address] [place] [phone]: [phone]: [phone] NEUROLOGIC DIAGNOSIS: Multiple sclerosisDISEASE SUMMARYDate of onset: [...] expected to be with me at the [facility].She states that in April 2017, she [...] well.PAST HISTORY:PAST MEDICAL HISTORYDiagnosis Date- Cervical cancer ([facility]) 1997 s/p hysterectomy- Hypertension- Migraine- MS (multiple sclerosis) ([facility])- OsteoporosisPAST SURGICAL HISTORYProcedure Laterality Date- HYSTERECTOMY 1997Transfusions: [...] children with special needs.She was as of 2016.FAMILY HISTORYProblem Relation Age of Onset- Breast Cancer [...] in the arms and legs was performed oarpgxxklslywl-zc-vxruo, rapid-alternating, and fine movements. Rapid movements wereimpaired [...] at this time. She will return to [place] in 6 months to evaluate herprogress on [...] patient was evaluated with Dr. San.Ailyn Patten, [facility] [place] [facility] [place]ical Neuroimmunology FellowNorth Mississippi Medical Center Multiple SclerosisNEUROLOGY STAFF ADDENDUMPatient seen with the fellow. I agree with the fellow's history, examination,and the plan as noted above was formulated with my direct input.Soraya Davidson, Department of NeurologyNorth Mississippi Medical Center Multiple SclerosisAilyn Patten MD 09/27/2017 4:49 PM [...] 09/27/2017(No Known Allergies)Date Reviewed: 09/27/2017Reviewed by: Kaylie Arzate (Marimar) MARIMAR Carrillo - Fully AssessedReason for Visit: New Patient [172]Primary Visit Diagnosis:Abnormal brain MRI [R90.89] Other Visit Diagnoses:Multiple sclerosis (HCC) [G35] Arthralgia of both hands [M25.541, M25.542] Other osteoporosis without current pathological fracture [M81.8]Order(s):TUBES - DRAW EXTRA [SQXTUBE] Order #: [id number] FUTURE ANTI VASILIY ID [SQENAID] Order #: [id number] FUTURE CCP ANTIBODY IGG [SQCCP] Order #: [id number] FUTURE VITAMIN D 25 HYDROXY [SQVITD] Order #: [id number] FUTURE COPPER BLOOD [SQCOPPER] Order #: [id number] FUTURE TSH BLD [SQTSH] Order #: [id number] FUTURE LYME AB IGG + IGM [SQLYMEGM] Order #: [id number] FUTURE HIV 1,2 COMBO (AG/AB) [SQHIV12] Order #: [id number] FUTURE SYPHILIS IGG WITH CONF [SQSYPHGX] Order #: [id number] FUTURE JERRY/ANGIOTENSIN BLD [SQACE] Order #: [id number] FUTURE HEP REMOTE PANEL BL [SQHREMOP] Order #: [id number] FUTURE JCV ANTIBODY AND INDEX WITH REFLEX [SQJCVIDX] Order #: [id number] FUTURE BLOOD TB SCREEN [SQINFTBG] Order #: [id number] FUTURE VARICELLA ZOSTER IGG [SQVZVG] Order #: [id number] FUTUREPrescriptions as of 09/27/2017 Sig: GABAPENTIN 100 [...] for Sandor.Follow-up and Disposition History RecordedEncounter Number: [id number] Status:Closed by ALMA SAN MD on 10/01/17 Normal [facility] Copperon 09-27-2017 Copper 106 ug/dL Normal 85-155 [facility] Comment on above: Result Comment: This test was developed and its performance characteristics determined by [facility]'s [facility] [place] ([facility]).It has not been cleared or approved by the FDA. -[facility] is regulated under CLIA as qualified to perform high-complexity testing.This test is used for clinical purposes. It should not be regarded as investigational or for research. Performed By: #### V ITD, ENAID, HREMOP, TSH, HIV12C, SYPHGX, LYMEGM, VZVG2, COPPER, INFTBG, JERRY, CCP, JCVIDX ####[address] [phone] VASILIY Antibody Panelon 018 Centromere <0.2 Normal <1.0 [facility] Comment on above: Result Comment: NEGA TIVENegative: <1.0 AIPositive: >0.9 AI Performed By: #### V ITD, ENAID, HREMOP, TSH, HIV12C, SYPHGX, LYMEGM, VZVG2, COPPER, INFTBG, JERRY, CCP, JCVIDX ####[address] [phone] Chromatin Antibody <0.2 Normal <1.0 [facility] Comment on above: Result Comment: NEGA TIVENegative: <1.0 AIPositive: >0.9 AI Performed By: #### V ITD, ENAID, HREMOP, TSH, HIV12C, SYPHGX, LYMEGM, VZVG2, COPPER, INFTBG, JERRY, CCP, JCVIDX ####[address] [phone] ALVARO 1 Antibody <0.2 Normal <1.0 [facility] Comment on above: Result Comment: NEGA TIVENegative: <1.0 AIPositive: >0.9 AI Performed By: #### V ITD, ENAID, HREMOP, TSH, HIV12C, SYPHGX, LYMEGM, VZVG2, COPPER, INFTBG, JERRY, CCP, JCVIDX ####[address] [phone] Ribosomal MEAT DRESSER <0.2 Normal <1.0 [facility] Comment on above: Result Comment: NEGA TIVENegative: <1.0 AIPositive: >0.9 AI Performed By: #### V ITD, ENAID, HREMOP, TSH, HIV12C, SYPHGX, LYMEGM, VZVG2, COPPER, INFTBG, JERRY, CCP, JCVIDX ####[address] [phone] MEAT DRESSER Antibody 0.9 AI Normal <1.0 [facility] Comment on above: Result Comment: NEGA TIVENegative: <1.0 AIPositive: >0.9 AI Performed By: #### V ITD, ENAID, HREMOP, TSH, HIV12C, SYPHGX, LYMEGM, VZVG2, COPPER, INFTBG, JERRY, CCP, JCVIDX ####[address] [phone] Scleroderma IgG Ab <0.2 Normal <1.0 [facility] Comment on above: Result Comment: NEGA TIVENegative: <1.0 AIPositive: >0.9 AI Performed By: #### V ITD, ENAID, HREMOP, TSH, HIV12C, SYPHGX, LYMEGM, VZVG2, COPPER, INFTBG, JERRY, CCP, JCVIDX ####[address] [phone] Sm Antibody <0.2 Normal <1.0 [facility] Comment on above: Result Comment: NEGA TIVENegative: <1.0 AIPositive: >0.9 AI Performed By: #### V ITD, ENAID, HREMOP, TSH, HIV12C, SYPHGX, LYMEGM, VZVG2, COPPER, INFTBG, JERRY, CCP, JCVIDX ####[address] [phone] SSA Antibody <0.2 Normal <1.0 [facility] Comment on above: Result Comment: NEGA TIVENegative: <1.0 AIPositive: >0.9 AI Performed By: #### V ITD, ENAID, HREMOP, TSH, HIV12C, SYPHGX, LYMEGM, VZVG2, COPPER, INFTBG, JERRY, CCP, JCVIDX ####[id number] [place], [place] [phone] SSB Antibody <0.2 Normal <1.0 [facility] Comment on above: Result Comment: NEGA TIVENegative: <1.0 AIPositive: >0.9 AI Performed By: #### V ITD, ENAID, HREMOP, TSH, HIV12C, SYPHGX, LYMEGM, VZVG2, COPPER, INFTBG, JERRY, CCP, JCVIDX ####[address] [phone] HIV 12 Combo (Ag/Ab)on 09-27 HIV 12 Ag/Ab Non Reactive Normal Non Reactive [facility] Comment on above: Result Comment: (NOT E)HIV Information: [place] Rev. Code 3701.243(E):This information has been disclosed [...] LYMEGM, VZVG2, COPPER, INFTBG, JERRY, CCP, JCVIDX ####[id number] [place], [place] [phone] Hepatitis Remote Panelon BSA (Body Surface Area) Negative Normal Negative [facility] Comment on above: Performed By: #### V ITD, ENAID, HREMOP, TSH, HIV12C, SYPHGX, LYMEGM, VZVG2, COPPER, INFTBG, JERRY, CCP, JCVIDX ####[id number] [place], [place] [phone] Hep B Core Ab,Total Negative Normal Negative [facility] Comment on above: Performed By: #### V ITD, ENAID, HREMOP, TSH, HIV12C, SYPHGX, LYMEGM, VZVG2, COPPER, INFTBG, JERRY, CCP, JCVIDX ####[address] [phone] Hepatitis C Ab IA Negative Normal Negative [facility] Comment on above: Performed By: #### V ITD, ENAID, HREMOP, TSH, HIV12C, SYPHGX, LYMEGM, VZVG2, COPPER, INFTBG, JERRY, CCP, JCVIDX ####[address] [phone] HepB Surface Ab,Qual Negative Normal Negative [facility] Comment on above: Result Comment: NEGA TIVE Performed By: #### V ITD, ENAID, HREMOP, TSH, HIV12C, SYPHGX, LYMEGM, VZVG2, COPPER, INFTBG, JERRY, CCP, JCVIDX ####[address] [phone] JCV Ab/Indx & Reflexon 09-27 JCV Antibody Positive Critically abnormal [facility] Comment on above: Result Comment: [...] confirmpresence or absence of JCV-specific antibodies.Test Performed at:[facility] [place] [address] Guerita Callahan MD Performed By: #### V ITD, ENAID, HREMOP, TSH, HIV12C, SYPHGX, LYMEGM, VZVG2, COPPER, INFTBG, JERRY, CCP, JCVIDX ####[address], [place] [phone] JCV Index Value 3.41 High [facility] Comment on above: Performed By: #### V ITD, ENAID, HREMOP, TSH, HIV12C, SYPHGX, LYMEGM, VZVG2, COPPER, INFTBG, JERRY, CCP, JCVIDX ####[address] [address], [place] [phone] Lyme IgG/IgM ABon 09-27-2017 Lyme IgG/IgM AB Negative Normal Negative [facility] Comment on above: Result Comment: Abse nce of detectable Borrelia burgdorferi antibodies. A negative result does not exclude the possibility of Borrelia burgdorferi infection. If early Lyme disease is suspected, a second sample should be collected and tested two to four weeks later. Performed By: #### V ITD, ENAID, HREMOP, TSH, HIV12C, SYPHGX, LYMEGM, VZVG2, COPPER, INFTBG, JERRY, CCP, JCVIDX ####[address], [place] [phone] Lyme Interp No evidence of antibodies to Borrelia burgdorferi. Normal No evidence of antibodies to Borrelia burgdorferi. [facility] Comment on above: Performed By: #### V ITD, ENAID, HREMOP, TSH, HIV12C, SYPHGX, LYMEGM, VZVG2, COPPER, INFTBG, JERRY, CCP, JCVIDX ####[address] [place] [address], [place] [phone] [facility] Send Out Teston 018 Test FOUNDRY EQUIPMENT MECHANIC DEMYELINATING DISEASE Normal [facility] Comment on above: Performed By: #### V ITD, ENAID, HREMOP, TSH, HIV12C, SYPHGX, LYMEGM, VZVG2, COPPER, INFTBG, JERRY, CCP, JCVIDX ####[facility] [place], [place] [phone] Test Results View results in Scan cheri Documents link when available. Normal [facility] Comment on above: Performed By: #### V ITD, ENAID, HREMOP, TSH, HIV12C, SYPHGX, LYMEGM, VZVG2, COPPER, INFTBG, JERRY, CCP, JCVIDX ####[facility] [place], [place] [phone] PROGRESSon 09-27-2017 PROGRESS HNO ID: [id number]: Alma Simmons: (none)Author Type: PhysicianType: Progress NotesFiled: 10/01/2017 9:26 PMNote Text:[facility] MULTIPLE SCLEROSISNEW PATIENT EVALUATION/CONSULTATIONR eferral source:SELFAlso followed by:Johny Winters MD ([facility])[address] [place], [place] [address]Nwscu: [phone]: [phone] Denys Uiqfacrc[address] [facility] [address] [address]Njzms: [phone]: [phone] NEUROLOGIC DIAGNOSIS: Multiple sclerosisDISEASE SUMMARYDate of onset: [...] is expected to [facility]me at the [facility].She states that in April 2017, she noticed [...] s/p hysterectomy- Hypertension- Migraine- MS (multiple sclerosis) ([facility])- OsteoporosisPAST SURGICAL HISTORYProcedure Laterality Date- HYSTERECTOMY 1997Transfusions: [...] children withspecial needs. She was as of 2016.FAMILY HISTORYProblem Relation Age of Onset- Breast Cancer [...] in the arms and legs was performed aafwhrlekacycj-cu-flbkl, rapid-alternating, and fine movements. Rapid movementswere impaired [...] is somewhat concerning for new disease activity, ace has recently started tecfidera and it is [...] at this time. She will return to [place] in 6 months to evaluateher progress on [...] patient was evaluated with Dr. San.Ailyn Patten, MDClinical Neuroimmunology FellowBluffton Regional Medical Center for Multiple SclerosisNEUROLOGY STAFF ADDENDUMPatient seen with the fellow. I agree with the fellow's history,examination, and the plan as noted above was formulated with my directinput.Soraya Davidson, Department of NeurologyNorth Mississippi Medical Center Multiple Sclerosis Normal [facility] Syphilis IgG with Confon Syphilis IgG <0.2 Normal [facility] Comment on above: Result Comment: Anti body index is interpreted as follows:Non reactive SPECIMENS <=0.8Weak reactive SPECIMENS 0.9 to 5.9Reactive SPECIMENS >=6.0 Performed By: #### V ITD, ENAID, HREMOP, TSH, HIV12C, SYPHGX, LYMEGM, VZVG2, COPPER, INFTBG, JERRY, CCP, JCVIDX ####[place] [phone] Syphilis IgG, Qual Nonreactive Normal Nonreactive [facility] Comment on above: Result Comment: In c onjunction with this result, the immune status of the patient should be evaluated based on their clinical status, related risk factors, and other diagnostic test results. Performed By: #### V ITD, ENAID, HREMOP, TSH, HIV12C, SYPHGX, LYMEGM, VZVG2, COPPER, INFTBG, JERRY, CCP, JCVIDX ####[place] [phone] TB by QuantiFERONon 09-27-19 18 Interpretation No evidence of curre nt or previous infection with Mycobacterium tuberculosis. Normal [facility] Comment on above: Performed By: #### V ITD, ENAID, HREMOP, TSH, HIV12C, SYPHGX, LYMEGM, VZVG2, COPPER, INFTBG, JERRY, CCP, JCVIDX ####[address] [place], [place] [phone] Mitogen Response >10.00 Normal >0.49 [facility] Comment on above: Performed By: #### V ITD, ENAID, HREMOP, TSH, HIV12C, SYPHGX, LYMEGM, VZVG2, COPPER, INFTBG, JERRY, CCP, JCVIDX ####[place] [phone] TB Antigen Response 0.00 IU/mL Normal <0.35 [facility] Comment on above: Performed By: #### V ITD, ENAID, HREMOP, TSH, HIV12C, SYPHGX, LYMEGM, VZVG2, COPPER, INFTBG, JERRY, CCP, JCVIDX ####[place] [phone] TB Result Negative Normal Negative [facility] Comment on above: Performed By: #### V ITD, ENAID, HREMOP, TSH, HIV12C, SYPHGX, LYMEGM, VZVG2, COPPER, INFTBG, JERRY, CCP, JCVIDX ####[place] [phone] TSHon 09-27-2017 Thyroid stimulating hormone (TSH) 2.500 uU/mL Normal 0.400-5.500 [facility] Comment on above: Performed By: #### V ITD, ENAID, HREMOP, TSH, HIV12C, SYPHGX, LYMEGM, VZVG2, COPPER, INFTBG, JERRY, CCP, JCVIDX ####[place] [phone] Varicella Zoster IgGon 09-27 V. zoster IgG, Qual Positive Critically abnormal Negative [facility] Comment on above: Result Comment: Pres ence of detectable VZV IgG antibodies. A positive result generally indicates exposure to the pathogen or administration of specific immunoglobulins, but is no indication of active infection or stage of disease. Performed By: #### V ITD, ENAID, HREMOP, TSH, HIV12C, SYPHGX, LYMEGM, VZVG2, COPPER, INFTBG, JERRY, CCP, JCVIDX ####[place] [phone] Varicella Zoster IgG 1075.0 Index Value Normal [facility] Comment on above: Result Comment: Inde x Values are Interpreted as Follows:Negative specimens <135.0Equivocal specimens 135.0 to 164.9Positive specimens >164.9The magnitude of the measured result is not indicative of the amount of antibody present. Performed By: #### V ITD, ENAID, HREMOP, TSH, HIV12C, SYPHGX, LYMEGM, VZVG2, COPPER, INFTBG, JERRY, CCP, JCVIDX ####[facility] [place], [place] [phone] Vitamin D 25 Hydroxyon 09-27 Vitamin D 25 Hydroxy 123.0 ng/mL High 31.0-80.0 [facility] Comment on above: Result Comment: Clas sification of 25 [place] Vitamin D status:Insufficiency/Moderate Deficiency: < or = 30 ng/mLSufficiency/Optimal Levels: 31 to 80 ng/mLToxicity: > 100 ng/mLTest performed by chemiluminescent immunoassay. Performed By: #### V ITD, ENAID, HREMOP, TSH, HIV12C, SYPHGX, LYMEGM, VZVG2, COPPER, INFTBG, JERRY, CCP, JCVIDX ####[facility] [place], [place] [phone] IA-MRI C-SPINE WO/W CON IMPO RTon 07-11-2017 IA-MRI C-SPINE WO/W CON IMPORT Images were obtained outside of [facility] [id number] Normal [facility] IA-MRI T-SPINE WO/W CON IMPO RTon 07-11-2017 IA-MRI T-SPINE WO/W CON IMPORT Images were obtained outside of [facility] [id number] Normal [facility] MR-MRI BRAIN WO CON IMPORTon 05-16-2017 MR-MRI BRAIN WO CON IMPORT Images were obtained outside of [facility] [id number] Normal [facility] Vital Signs Date Time Vital Sign Value Performing Clinician Facility 09-19-2024 10:36-0500 Body height 152.4 cm Chinyere Lowe PA Work Phone: [facility] 09-19-2024 10:36-0500 Body mass index (BMI) [Ratio] 27.15 kg/m2 Chinyere Lowe PA Work Phone: [facility] 09-19-2024 10:36-0500 Body weight 63.05 kg Chinyere Lowe PA Work Phone: [facility] 09-19-2024 10:36-0500 Diastolic blood pressure 64 mm[Hg] Chinyere Lowe PA Work Phone: [facility] 09-19-2024 10:36-0500 Systolic blood pressure 142 mm[Hg] Chinyere Lowe PA Work Phone: [facility] 04-04-2024 09:32-0400 Body height 152.4 cm Chinyere Lowe PA Work Phone: [facility] 04-04-2024 09:32-0400 Body mass index (BMI) [Ratio] 27.73 kg/m2 Chinyere Lowe PA Work Phone: [facility] 04-04-2024 09:32-0400 Body weight 64.41 kg Chinyere Lowe PA Work Phone: [facility] 04-04-2024 09:32-0400 Diastolic blood pressure 70 mm[Hg] Chinyere Lowe PA Work Phone: [facility] 04-04-2024 09:32-0400 Systolic blood pressure 132 mm[Hg] Chinyere Lowe PA Work Phone: [facility] 09-06-2023 09:48-0500 Body height 152.4 cm DO Johny Ball Work Phone: [facility] 09-06-2023 09:48-0500 Body weight 60.78 kg DO Johny Ball Work Phone: [facility] 07-12-2023 11:28-0500 Body height 152.4 cm DO Johny Ball Work Phone: [facility] 12-13-2023 11:28-0500 Body weight 60.78 kg DO Johny Ball Work Phone: [facility] 03-01-2023 10:00-0400 Body height 154.94 cm Johny Ball Other [employer] Other 03-01-2023 10:00-0400 Body mass index (BMI) [Ratio] 26.15 kg/m2 Johny Ball Other [employer] Other 03-01-2023 10:00-0400 Body weight 62.78 kg Johny Ball Other [employer] Other 03-01-2023 10:00-0400 Diastolic blood pressure 74 mm[Hg] Johny Ball Other [employer] Other 03-01-2023 10:00-0400 Respiratory rate 12 /min Johny Ball Other [employer] Other 03-01-2023 10:00-0400 Systolic blood pressure 138 mm[Hg] Johny Ball Other [employer] Other 11-02-2021 14:20-0400 Body height 154.94 cm Ezequiel Agudelo Other [employer] Other 11-02-2021 14:20-0400 Body mass index (BMI) [Ratio] 25.69 kg/m2 Ezequiel Agudelo Other [employer] Other 11-02-2021 14:20-0400 Body weight 61.69 kg Ezequiel Agudelo Other [employer] Other Encounters Encounter Date Encounter Type Care Provider Facility Start: 09-19-2024 End: 09-19-2024 Chris ZUNIGA Work Phone: [facility] Start: 09-19-2024 End: 09-19-2024 Bamboo flowsheet Chinyere Lowe PA Work Phone: [facility] Start: 09-19-2024 End: 09-19-2024 Office outpatient visit 15 minutes Chinyere Lowe PA Work Phone: [facility] Comment on above: Multiple sclerosis ( CMS/HCC) (Primary Dx); Fatigue, unspecified type; Degenerative disc disease, cervical; Vertigo Start: 09-19-2024 End: 09-19-2024 ambulatory CHINYERE LOWE Not Available Start: 04-04-2024 End: 04-04-2024 Bamboo flowsheet Chinyere Lowe PA Work Phone: [facility] [place] [address] Start: 04-04-2024 End: 04-04-2024 Bamboo flowsheet Chinyere Lowe PA Work Phone: [employer] [address] Start: 04-04-2024 End: 04-04-2024 Office outpatient visit 25 minutes Chinyere Lowe PA Work Phone: [facility] [employer] [address] Comment on above: Multiple sclerosis ( CMS/HCC) (Primary Dx); Fatigue, unspecified type; Degenerative disc disease, cervical; Degenerative disc disease, lumbar; Lumbar radiculopathy; Transient alteration of awareness Start: 04-04-2024 End: 04-04-2024 ambulatory CHINYERE LOWE Not Available Start: 12-13-2023 End: 12-13-2023 ambulatory CHINYERE LOWE Not Available Start: 12-12-2023 End: 12-12-2023 ambulatory CINDY RODRÍGUEZ Not Available Start: 09-06-2023 End: 09-06-2023 ambulatory Chinyere Lowe Facility:[facility] Start: 09-06-2023 End: 09-06-2023 ambulatory DO Johny Winters Work Phone: [facility] Work Phone: Start: 09-06-2023 End: 09-06-2023 Patient encounter procedure DO Johny Singh Work Phone: [facility] [place] Work Phone: Start: 07-12-2023 End: 07-12-2023 ambulatory Johny Winters Facility:[facility] Start: 07-12-2023 End: 07-12-2023 Patient encounter procedure DO Johny Winters Work Phone: [facility] [place] Work Phone: Start: 04-07-2023 End: 04-07-2023 ambulatory Johny Winters Other [employer] Other Start: 04-07-2023 Nursing evaluation o f patient and report Johny Winters [facility] Start: 03-01-2023 End: 03-01-2023 ambulatory Johny Winters Other [employer] Other Start: 03-01-2023 Encounter for genera l adult medical examination without abnormal findings Johny Winters [facility] Start: 03-01-2023 Periodic preventive med est patient 40-64yrs Johny Winters [facility] Start: 12-24-2022 End: 12-24-2022 ambulatory Johny Winters Other [employer] Other Start: 12-24-2022 Telephone encounter Johny Winters [facility] Start: 05-10-2022 End: 05-11-2022 ambulatory CHINYERE LIVE Facility:[facility] Start: 02-23-2022 End: 02-24-[address] JOHNY WINTERS Facility:[facility] Start: 02-15-2022 End: 02-16-[address] CINDY RODRÍGUEZ Facility:[facility] Start: 11-16-2021 End: 11-17-[address] DENYS JACKSNO Facility:[facility] Start: 11-02-2021 End: 11-02-2021 ambulatory Ezequiel Agudelo Other [employer] Other Start: 11-02-2021 Office outpatient ne w 45 minutes Ezequiel Agudelo [facility] Start: 09-09-2021 End: 09-10-[address] JOHNY WINTERS Facility:[facility] Start: 08-30-2021 End: 08-30-[address] JOHNY WINTERS Facility:[facility] Start: 09-27-2017 End: 09-27-2017 Ambulatory [facility] Start: 09-27-2017 End: 10-02-2017 Ambulatory [facility] Procedures Date Procedure Procedure Detail Performing Clinician Start: 03-26-2024 Mammography Chinyere Leonardo Work Phone: Start: 09-06-2023 MRI of cervical spin e with contrast DO Johny Winters Work Phone: Start: 09-06-2023 MRI of head DO Benjami n Singh Work Phone: Start: 07-12-2023 MRI of thoracic spin e with contrast DO Johny Winters Work Phone: Start: 07-12-2023 XR pre/post mri xray DO Johny Singh Work Phone: Plan of Treatment Date Care Activity Detail Author Start: 12-11-2028 Screening for malign ant neoplasm of cervix [facility] Start: 03-26-2025 Screening for malign ant neoplasm of breast Mammogram [facility] Start: 12-17-2024 End: 12-17-2024 Patient encounter procedure [facility] Start: 09-19-2024 End: 09-19-2024 Patient encounter procedure 09/19/2024 10:40 AM EST Office Visit [facility] [address] [place] [address] Chinyere Live PA [address] [place] [id number] Arrived [facility] Comment on above: Arrived Start: 06-26-2024 End: 06-26-2024 Patient encounter procedure 06/26/2024 10:40 AM EST Office Visit [facility] [address] [facility] [place] [address] Chinyere Live PA [address] [place], [place] [id number] [facility] [address] [facility] Start: 04-04-2024 End: 04-04-2024 Patient encounter procedure 04/04/2024 9:40 AM EDT Office Visit [facility] [place] [address] [place] [phone] Chinyere Live PA [address] [place] [id number] Arrived [facility] [place] [address] Comment on above: Arrived Start: 03-31-2024 Influenza vaccination Influenz a Vaccine (#1) [facility] Start: 01-22-1984 Screening for malign ant neoplasm of cervix Pap Smear [facility] Start: 1965 Screening for malign ant neoplasm of colon [facility] Immunizations Immunization Date Immunization Notes Care Provider Fa cility 04-07-2023 influenza, injectabl e, quadrivalent, preservative free Johny Winters Other [facility] Other 04-07-2023 influenza virus vaccine, unspecified formulation Chinyere ZUNIGA Work Phone: [facility] 05-06-2022 influenza virus vaccine, split virus (incl. purified surface antigen) Johny Winters Other [employer] [facility] Other 05-06-2022 Influenza, injectabl e, Madin Anam Canine Kidney, preservative free, quadrivalent Chinyere ZUNIGA Work Phone: [facility] 05-06-2022 influenza, injectabl e, quadrivalent, contains preservative Johny Winters Other [employer] [facility] Other 12-01-2021 influenza, injectabl e, quadrivalent, preservative free Chinyere ZUNIGA Work Phone: [facility] 04-14-2021 influenza virus vaccine, split virus (incl. purified surface antigen) Johny Winters Other [employer] Other 04-17-2020 pneumococcal polysaccharide vaccine, 23 valent Johny Winters Other [employer] Other 12-31-2019 pneumococcal conjuga te vaccine, 13 valent Johny Winters Other [employer] Other 08-13-2019 influenza, injectabl e, madin anam canine kidney, preservative free Chinyere Lowe PA Work Phone: [facility] 04-08-2019 influenza virus vaccine, split virus (incl. purified surface antigen) Johny Winters Other [employer] Other 04-08-2019 Influenza, injectabl e, Madin Anam Canine Kidney, quadrivalent with preservative Chinyere Lowe PA Work Phone: [facility] 07-05-2018 Influenza, injectabl e, Madin [place] Canine Kidney, preservative free, quadrivalent Chinyere Lowe PA Work Phone: [facility] 05-05-2017 influenza virus vaccine, split virus (incl. purified surface antigen) Johny Winters Other [employer] Other 05-05-2017 influenza, high dose seasonal, preservative-free Chinyere Lowe PA Work Phone: [facility] 06-06-2016 influenza, injectabl e, quadrivalent, preservative free Chinyere Lowe PA Work Phone: [facility] 05-04-2015 tetanus and diphther ia toxoids, adsorbed, preservative free, for adult use (5 Lf of tetanus toxoid and 2 Lf of diphtheria toxoid) Johny Winters Other [employer] Other 04-30-2013 tetanus and diphther ia toxoids, adsorbed, preservative free, for adult use (5 Lf of tetanus toxoid and 2 Lf of diphtheria toxoid) Johny Winters Other [employer] Other Payers Date Payer Category Payer Self-pay [id number] 2018 Medicaid [employer] [facility] [address] [employer] [place] [id number] 2018-Present [address] [place] [address] [id number] 2018 Private Health Insurance [facility] MEDICA[facility] [id number] 2018 Medicaid [id number] 1963 Unknown [id number] [id number]. 593 1963 Unknown [id number] [id number]. 593 1963 Unknown [id number] [id number]. 593 1963 Unknown [id number] [id number]. 593 1963 Unknown [id number] 2.16840.1.429077.3.579.2. 593 1963 Unknown [id number] [id number]. 593 1963 Unknown [id number] 2.16840.1.505103.3.579.2. 1259 1963 Unknown [id number] 2.16840.1.127575.3.579.2. 1259 1963 Unknown [id number] [id number]. 1259 1963 Unknown [id number] [id number]. 1259 1959 Unknown [id number] Private Health Insurance [facility] [id number] Unknown [id number]. 531 Unknown [id number]. 531 Social History Date Type Detail Facility Start: 12-12-2023 End: 09-19-2024 Sex Assigned At [facility] Other Start: 1965 Sex Assigned At Female F [facility] Start: 12-11-2023 End: 04-04-2024 Tobacco smoking status [facility] Smokes tobacco daily [facility] History of tobacco use Cigarette Smoker [facility] Start: 12-11-2023 End: 12-12-2023 Cigarettes smoked current (pack per day) - Reported 1 [facility] Start: 12-11-2023 End: 04-04-2024 Tobacco use and exposure Smokeless tobacco non-user [facility] Start: 12-13-2023 End: 09-19-2024 Alcoholic beverage intake Lifetime non-drinker (finding) [facility] How often to you hav e a drink containing alcohol? Never [facility] How many standard drinks containing alcohol do you have on a typical day? Patient does not drink [facility] Start: 1965 Sex assigned at Not on file [facility] History of Present illness Narrative 04-04-2024 NADIA Enriquez - 04/04/2024 9:40 AM EDT Note Date & Type Note Facility 04-04-2024 History of Presen t illness Narrative Lucila Hernandez is a 59 y.o. year old female Chief Complaint Patient presents with Multiple Sclerosis Past Medical History: Diagnosis Date Arthritis Carcinoma in situ of cervix 1997 COPD (chronic obstructive pulmonary disease) (CMS/HCC) 2022 Fibrocystic breast Hx of herpes genitalis Hypertension (CMS/HCC) Mitral valve prolapse Multiple sclerosis (CMS/HCC) Past Surgical History: Procedure Laterality Date HYSTERECTOMY 08/06/1997 SHER LSO Family History Problem Relation Name Age of Onset Osteoarthritis Mother Netta Mena Breast cancer Mother Netta Mena dx age 52 Breast cancer Sister Maeve Signs COPD Sister Maeve Signs Hodgkin's lymphoma Nephew Social History Tobacco Use Smoking status: Every Day Current packs/day: 1.00 Average packs/day: 1 pack/day for 45.0 years (45.0 ttl pk-yrs) Types: Cigarettes Smokeless tobacco: Never Substance Use Topics Alcohol use: Never Medication Documentation Review Audit Reviewed by Betty Singleton MA (Annealer Helper) on 04/04/24 at 0935 Medication Order Taking? Sig Documenting Provider Last Dose Status alendronate (Fosamax) 70 MG tablet [id number] Take 70 mg by mouth 1 (one) time per week NADIA Enriquez Active amLODIPine (Norvasc) 5 MG tablet [id number] Take 5 mg by mouth Daily NADIA Enriquez Active ASPIRIN 81 MG chewable tablet [id number] Chew 81 mg 1 (one) time NADIA Enriquez Active atorvastatin (Lipitor) 20 MG tablet [id number] Take 20 mg by mouth Daily NADIA Enriquez Active Aubagio 14 MG tablet [id number] 1 tablet Daily NADIA Enriquez Active B Complex Vitamins (vitamin B complex) tablet [id number] as directed Orally Cindy Rodríguez DO Active baclofen (Lioresal) 10 MG tablet [id number] Take 10 mg by mouth at bedtime NADIA Enriquez Active cholecalciferol (Vitamin D-3) 250 MCG (21715 UT) capsule [id number] Take 10,000 Units by mouth in the morning. Cindy Rodríguez DO Active ferrous sulfate 325 (65 Fe) MG tablet [id number] Take 325 mg by mouth in the morning. Take with meals. NADIA Enriquez Active gabapentin (Neurontin) 300 MG capsule [id number] TAKE 1 CAPSULE BY MOUTH TWICE A DAY AND 2 CAPSULES BY MOUTH AT BEDTIME NADIA Enriquez Active Krill Oil 500 MG capsule [id number] Take 1 capsule by mouth Daily NADIA Enriquez Active lisinopril 5 MG tablet [id number] Take 5 mg by mouth Daily NADIA Enriquez Active meclizine (Antivert) 25 MG tablet [id number] Take 25 mg by mouth every 12 (twelve) hours NADIA Enriquez Active meloxicam (Mobic) 7.5 MG tablet [id number] Take 15 mg by mouth Daily NADIA Enriquez Active raloxifene (Evista) 60 MG tablet [id number] No Take 1 tablet (60 mg) by mouth Daily Patient not taking: Reported on 04/04/2024 Cindy Rodríguez, DO Not Taking Active Patient is here today for follow-up of MS. I am following the plan of care established by the physician who is present in the office today. HPI MS -On Aubagio -numbness and tingling in hands and feet -symptoms come and go -she states today is a good day and she has no issues -worse at night -On Gabapentin and this is helpful -she denies any worsening weakness -admits imbalance -she denies any falls -denies any vision changes -denies bladder incontinence -she denies any recent dysphagia -She denies any worsening fatigue -she reports she does not sleep good at night -she is up most nights caring for her disabled son -she gets about 5 hours of broken sleep -she wonders if this is MS related -she notes she just cannot get going ROS Review of Systems Constitutional: Positive for fatigue. Negative for chills and fever. Eyes: Negative for itching. Respiratory: Negative for chest tightness and shortness of breath. Cardiovascular: Negative for chest pain, palpitations and leg swelling. Gastrointestinal: Negative for abdominal pain, nausea and vomiting. Musculoskeletal: Positive for back pain. Neurological: Positive for weakness and numbness. Negative for dizziness, tremors, seizures, syncope, facial asymmetry, speech difficulty, light-headedness and headaches. Objective Visit Vitals BP 132/70 Ht 5' Wt 142 lb BMI 27.73 kg/m OB Status Hysterectomy Smoking Status Every Day BSA 1.65 m Heart- RRR Neurological Exam Mental Status Awake, alert and oriented to person, place and time. Oriented to person, place and time. Recent and remote memory are intact. Speech is normal. Language is fluent with no aphasia. Cranial Nerves CN III, IV, : Normal lids and orbits bilaterally. Pupils equal round and reactive to light bilaterally. CN VII: Full and symmetric facial movement. CN VIII: Hearing is normal. CN XI: Shoulder shrug strength is normal. Sensory Light touch is normal in upper and lower extremities. Vibration is normal in upper and lower extremities. Gait Normal casual, toe, heel and tandem gait. Motor Examination RUE Strength deltoid, biceps, triceps, wrist extensors, wrist extensors, wrist flexor, rubber tester strength 5/5. LUE Strength deltoid, biceps, triceps, wrist extensors, wrist extensors, wrist flexor, rubber tester strength 5/5. RLE Strength illopsoas, quadriceps, tibialis anterior, and gastrocnemius strength 5/5. LLE Strength illopsoas, quadriceps, tibialis anterior, and gastrocnemius strength 5/5. Tone Normal tone x4 extremities. Reflexes: RUE biceps reflex 2, LUE biceps reflex 2, RLE knee reflex 2, LLE knee reflex 2, Assessment and Plan Diagnoses and all orders for this visit: Multiple sclerosis (CMS/HCC) RRMS that is treated with Aubagio. YIN virus positive in 2018. Fatigue, weakness, paresthesias, and brain fog are her main symptoms. MRI of her brain 04/2019 revealed several demyelinating lesions with possible sequelae of disease progression noted to the right frontal periventricular white matter. MRI of her cervical spine 04/2019 revealed findings consistent with demyelinating lesions along with degenerative changes. Toe paresthesias and sharp pain to her scalp have resolved. MRI of cervical spine from 09/21/2020 revealed no new demyelinating lesions and was unchanged from previous. It did note new facet edema to the right of midline at C5. Thoracic spine MRI from 09/21/2020 revealed stable lesions with no active demyelination. Degenerative findings were noted on cervical and thoracic MRI. MRI brain 03/2021 revealed stable demyelinating lesions. MRI brain 06/14/22 revealed stable lesions. Labwork 01/2023 was unremarkable. Meclizine was started and she responded well. Updated MRI thoracic spine 07/22/23 revealed similar hyperintense lesion at T7-T8 right of midline with no new lesions or active demyelination. MRI brain 09/06/23 revealed no evidence of disease progression. MRI C spine 09/06/23 revealed no new lesions or abnormal post contrast enhancement. She is having increase in fatigue and does not have energy to complete her ADLs as well as care for her son, though she keeps up but is very fatigued. Lumbar radiculopathy Bilateral lower extremity EMG from 2017 revealed bilateral mild S1 radiculopathies. MRI of the lumbar spine 06/2019 revealed mild narrowing at L2-3 and L3-4 and moderate to severe narrowing at L5-S1. She is experiencing right lower extremity numbness and weakness over the last month, which could be from worsening degenerative changes in lumbar spine. Updated EMG from 10/2020 revealed S1 radiculopathies mild in degree and unchanged from EMG 09/2017. Patients reflexes are asymmetrical to the bilateral patellar reflex, reduced on the left and she is having increase in difficulty with getting out of a chair, and has to take care of her non verbal son. Patient follows with pain management. Tinnitus of both ears tinnitus could be due to history of MS. She denies worsening. Degenerative disc disease, cervical Transient alteration of awareness She notes she is under increased stress and is having fleeting out of body experiences. She does not lose time or consciousness. She denies tongue biting or metallic taste. She declined EEG testing. She has had no recurrence. Vertigo Degenerative disc disease, lumbar MRI of the lumbar spine 11/01/23 revealed stable severe degenerative disc disease at L5-S1 with disc osteophyte complexes resulting in moderate to severe bilateral foraminal narrowing with abutment of the L5 nerve roots, There was also similar appearance of broad based disc protrusion at L4-L5 and superimposed left foraminal disc extrusion. Fatigue Patient notes that her fatigue is making hard for her to keep up at home which could be related to MS. She has never had a sleep study and denies being told she snores or gasps when a friend stayed the night. Plan: Trial amantadine 100mg PO QAM for MS related fatigue. I counseled the patient on the side effects of medications. If she does not have benefit, I advised her that she will need a sleep study. She verbalized understanding and would like to try medication first. Continue gabapentin a 300mg PO TID for neuropathic pain. Continue with Aubagio for MS. Continue meclizine 25mg PO BID for vertigo symptoms prn. I counseled the patient on fall precautions. I discussed the high risk of trauma and debility associated with falls. She verbalized understanding. Follow up in 2 months documented in this encounter [facility] Evaluation note 03-01-2023 Note Date & [...] mammogram for breast cancer (ICD-10 - Z12.31) Interventionist sending order for mammogram Instructed on monthly SBE [facility] Other Evaluation note 11-02-2021 Note Date & [...] stable Oct, Lumbar radiculopathy (ICD-10 - M54.16) [facility] Other Evaluation note Note Date & Type Note Facility Evaluation note No Information [facility] Other Evaluation note Note Date & Type Note Facility Evaluation note No assessment information [facility]: Evaluation note Note Date & Type Note Facility Evaluation note Diagnosis Multiple sclerosis (CMS/HCC)- Primary Multiple sclerosis Fatigue, unspecified type Degenerative disc disease, cervical Degenerative disc disease, lumbar Lumbar radiculopathy Thoracic or lumbosacral neuritis or radiculitis, unspecified Transient alteration of awareness documented in this encounter [facility] Evaluation note Note Date & Type Note Facility Evaluation note Diagnosis Multiple sclerosis (CMS/HCC)- Primary Multiple sclerosis Fatigue, unspecified type Degenerative disc disease, cervical Vertigo Dizziness and giddiness documented in this encounter [facility] History general Narrative - Reported Note Date & Type Note Facility History general Narrative - Reported Type Medical History hypercholesterolemia Medical History multiple sclerosis Medical History osteoporosis Medical History cervical cancer Surgical History hysterectomy Hospitalization History See Above [facility] Other Reason for visit Narrative Note Date & Type Note Facility Reason for visit Narrative Referral Dr Worrell all Low Back Pain [facility] Other Summary Purpose Family History No Family [...] content) DATE CREATED AUTHOR 01/19/2018 [facility] DATE CREATED AUTHOR AUTHOR'S ORGANIZ ATION 05/21/2022 [facility] DATE CREATED AUTHOR AUTHOR'S ORGANIZ ATION 09/14/2023 [facility] DATE CREATED AUTHOR AUTHOR'S ORGANIZ ATION 09/21/2024 [facility] dical Specialists EPIC REASON FOR VISIT (unrecogniz ed section and content) Reason Comments [facility] Teams (unrecognized sec tion and content) [...] September 06, 2023 End: September 06, 2023 Printing Equipment Mechanic Relationship Specialty Start Date End Date Johny Winters MD [address] [place] [address] PCP - General Internal Medicine 10/17/23 Printing Equipment Mechanic Relationship Specialty Start Date End Date Johny Winters MD [address] [place] [address] PCP - General Internal Medicine 10/17/23 Printing Equipment Mechanic Relationship Specialty Start Date End Date Johny Winters MD [address] [place] [address] PCP - General Internal Medicine 10/17/23 Chinyere Live PA [address] [place], [place] [id number] Physician Fruit Sprayer Neurology 09/19/24 Printing Equipment Mechanic Relationship Specialty Start Date End Date Johny Winters MD [address] [place] [address] PCP - General Internal Medicine 10/17/23 Chinyere Live PA [address] [place] [id number] Physician Fruit Sprayer Neurology 09/19/24 Goals (unrecognized section and content) Goals may [...] BE BASED ON THE PRIMARY CLINICAL RECORDS. [facility]. provides no warranty or guarantee of the accuracy or completeness of information in this document.
--- NOTE | 2024-10-03 11:24 | PM.CN ---
Consult Note: HPI Data of Consult Patient: known to practice within the last 3 years Requesting Physician: Lupe Soria NP Primary Care Provider: Johny Winters DO Consult Narrative Reason for consult: low back pain Narrative: Jayde Solorzano a pleasant 59 year old female presents for evaluation and management of chronic low back pain. Patient has failed to benefit from greater than 6 weeks of PT/provider guided HEP without improvement, conservative medications. Patient reporting pain 2/10, at the worst 6/10 with standing, walking, lifting, activity, sitting. Patient finds benefit to gabapentin 300mg BID, lidocaine patches, baclofen 10mg PRN, tens, and transdermal therapeutics cream BID to affected areas. reports pain improved with medications and TENS. cc:: CC: Lupe Soria NP Review of Systems ROS Status of ROS 10 or more systems reviewed and unremarkable except as noted in history and below Musculoskeletal Reports: back pain; Denies: extremity pain Meds Home Medications and Allergies Home Medications ?Medication ?Instructions ?Recorded ?Confirmed ?Type amlodipine 5 mg tablet 5 mg PO DAILY 12/07/23 12/07/23 History aspirin 81 mg tablet,delayed 81 mg PO DAILY 12/07/23 12/07/23 History release (Adult Aspirin Regimen) atorvastatin 20 mg tablet 20 mg PO DAILY 12/07/23 12/07/23 History baclofen 10 mg tablet 10 mg PO DAILY 12/07/23 12/07/23 History biotin 10,000 mcg capsule 10,000 mcg PO DAILY 12/07/23 12/07/23 History cholecalciferol (vitamin D3) 125 125 mcg PO DAILY 12/07/23 12/07/23 History mcg (5,000 unit) tablet (Vitamin D3) gabapentin 300 mg capsule 300 mg PO BID 12/07/23 12/07/23 History meclizine 25 mg tablet 25 mg PO TID-QID PRN dizziness 12/07/23 12/07/23 History meloxicam 7.5 mg tablet 7.5 mg PO DAILY 12/07/23 12/07/23 History omega-3 fatty acids 1,000 mg PO DAILY 12/07/23 12/07/23 History raloxifene 60 mg tablet 60 mg PO DAILY 12/07/23 12/07/23 History teriflunomide 14 mg tablet 14 mg PO DAILY 12/07/23 12/07/23 History (Aubagio) vitamin B complex (Complex B-100 1 tab PO DAILY 12/07/23 12/07/23 History tablet,extended release) Exam Constitutional Documenting provider has reviewed patient's vital signs: yes Common normals: no apparent distress, oriented x3, healthy appearing, alert and well nourished General appearance: cooperative [facility] Common normals: normocephalic, hearing grossly normal bilaterally and moist oral mucous membranes Head and scalp: normocephalic Eye Common normals: PERRL Pupil: PERRL Neck & C-Spine Common normals: full ROM General: normal visual inspection Chest Common normals: inspection of chest normal Respiratory Common normals: normal respiratory effort, no retractions and no use of accessory muscles Back & Pelvis Lumbar spine/lower back: ROM limited, pain with ROM and lumbar spinal tenderness Lumbar spinal tenderness location: L3, L4 and L5 Sacroiliac joints: SI joints normal Other: sensation intact BLE strength 5/5 in BLE Extremity Common normals: normal to inspection and full ROM Neuro Common normals: oriented x3, CN's II-XII intact bilaterally, moves all extremities, no focal motor deficits, no sensory deficits noted and deep tendon reflexes 2+ bilaterally Sensorium/orientation: alert Motor exam: strength 5/5 throughout and no movement abnormalities noted Psych Common normals: mental status grossly normal, thought process normal, cooperative, affect normal, speech normal and activity/motor behavior normal Speech: normal speech Thought process: normal thought process Results Imaging Lumbar MRI: Attestation: I have reviewed the pertinent imaging results. Radiologist's impression: No acute fracture is identified in the lumbar spine. The lumbar vertebral body heights are maintained. There is severe degenerative disc disease at L5-S1 with marked disc height loss and endplate spurring. Heterogeneity of the bone marrow signal is similar when compared to the prior study consistent with mixed red and fatty marrow. No acute abnormality is identified involving visualized intrapelvic or intra-abdominal structures. The visualized aorta is normal in diameter. Several cysts in the right hepatic lobe are partially included on the ajecv-fz-rzyw for this study. The upper sacrum is intact. There are no pars defects. The conus terminates at the L1 level. L5-S1: There is severe degenerative disc disease with a broad-based disc protrusion and superimposed bilateral subarticular/foraminal disc-osteophyte complexes each measuring 5 mm in AP dimension. There is moderate bilateral facet arthropathy. Changes result in moderate to severe bilateral foraminal narrowing with likely abutment of the L5 nerve roots bilaterally. There is no central stenosis. L4-L5: A broad-based disc protrusion measures 4 mm in AP dimension with a superimposed left subarticular and foraminal disc extrusion measuring 4 mm in AP dimension with superior displacement of disc material measuring 5 mm seen on sagittal T2 images 5 and 6. There is moderate to severe facet arthropathy and moderate to severe left foraminal narrowing without central stenosis. L3-L4: There is a 3 mm broad-based disc protrusion with endplate spurring and moderate facet arthropathy. An area of fluid signal along the posterior aspect of the spinal canal at the level of the superior endplate of L4 is suspicious for a small facet joint synovial cyst measuring 4 mm in diameter. There is mild right foraminal narrowing without central stenosis L3-L4: There is a 3 mm broad-based disc protrusion and mild to moderate facet arthropathy. There is no central or foraminal stenosis. L1-L2: There is a mild disc bulge without central or foraminal stenosis. Additional Findings Additional findings: If on a controlled substance or opioids, I have checked an OARRS report on this patient and there are no aberrancies noted in the prescribing history.??If on a controlled substance or opioid a drug screen was completed and reviewed within the last year, and if there has not been a drug screen completed we ordered one today to monitor higher risk, state monitored pain medication use. As part of providing excellent, safe, comprehensive care, the following was completed at our patient's visit: 1. A medication reconciliation and review to ensure accurate knowledge of current/active medications, including asking our patients to inform us about any bogb-lph-oggptma medications or herbal remedies/nutritional supplements/alternative remedies. 2. A review to specifically ensure our patients have had annual screening for screening for depression, screening for tobacco use, and screening for unhealthy alcohol use. For concerning screenings had a discussion with the patient, provided patient education, and recommended follow-up with primary care provider when appropriate. If patient noted with a risk of falling, they received education on strength, gait, and balance training to prevent future risk of falling. Assessment and Plan Assessment and Plan (1) Lumbar spondylosis: Assessment and Plan: The patient has had over 3 months of moderate to severe low back pain with functional impairment and inadequate response to conservative care including NSAIDS (unless there are contraindication such as concurrent blood thinners), multiple oral or topical pain medications, and home exercise program/physical therapy.? Patient has completed >6 weeks of guided home exercise program and/or formal physical therapy program without relief of their symptoms.? I have reviewed the imaging of the lumbar spine and no red flags were identified.? The Oswestry Disability Index was completed, and the patient scored a 44%.? The patient noted the following:?? moderate to severe pain impacting ADLs, sleep, social life, travel, sitting, standing, and walking We discussed the risks and benefits of the procedure with the patient, and we are NOT planning on using sedation as outlined in the guidelines from Medicare unless there is a documented reason that sedation would be strongly recommended.?? ?The procedure will be completed with fluoroscopic guidance.? (2) Lumbar stenosis with neurogenic claudication: (3) Lumbar degenerative disc disease: (4) Myofascial pain: Plan declining bilateral L4-5 L5-S1 facet medial branch block x2 working towards RFA at this time. pt can call to schedule in the future continue baclofen 10mg tabs 1-1.5 tabs daily PRN pain/spasms continue transdermal therapeutics cream 8 BID-TID prn continue zynex TENS for myofascial pain and chronic low back pain, lumbar DDD f/u 6 months for medication management, or after each lumbar MBB if pt decides to proceed as discussed today
== END 2024-10-03 10:53 | disposition home or self-care (01) ==
LOC: PM 10:53
PROVIDERS: PCP Internal Medicine; Visit Provider Nurse Practitioner
DX: M47.816 Spondylosis without myelopathy or radiculopathy, lumbar region (principal); M48.062 Spinal stenosis, lumbar region with neurogenic claudication; M51.369 Other intervertebral disc degeneration, lumbar region without mention of lumbar back pain or lower extremity pain; M79.18 Myalgia, other site
CPT/HCPCS: G0463

== ENCOUNTER 2025-03-27 10:19 | Outpatient (OUT) | payer OTHER, SELFPAY ==
--- NOTE | 2025-03-27 10:34 | MM_ITS ---
Patient Name: LAW HERNANDEZ MR#: [id number] : 1965 Exam Date: 03/27/2025 Ordering Doctor: DR CINDY RODRÍGUEZ RADIOLOGY REPORT PROCEDURE: MM TOMOSYNTHESIS SCREENING BI COMPARISON: MM TOMOSYNTHESIS SCREENING BI, 03/26/2024. MM TOMOSYNTHESIS SCREENING BI, 03/21/2023. MG MAMM SCREEN 3D [facility] CAD, 02/15/2022. MG MAMM [facility] SCRN W CAD DIG, 08/13/2013. INDICATIONS: Screening Calculator Name NCI Breast Cancer Risk Assessment Tool 5 Year Breast Cancer Risk 7.20% Lifetime Breast Cancer Risk 28.90% Personal Breast Cancer No Personal Ovarian Cancer No Treatments hysterectomy Family Cancers Mother with breast cancer at age ~45; Nephew with lymphoma cancer at age 19; Sister with breast cancer at age 65. LOCATION: [facility] BREAST COMPOSITION: There are scattered areas of fibroglandular density. FINDINGS: RIGHT BREAST: No significant suspicious finding. LEFT BREAST: No significant suspicious finding. DIAGNOSTIC CATEGORY 1--NEGATIVE. RECOMMENDATIONS: ROUTINE MAMMOGRAM AND CLINICAL EVALUATION IN 12 MONTHS. Dictated by: Clif Lipscomb DO on 03/27/2025 at 16:14 Approved by: Clif Lipscomb DO on 03/27/2025 at 16:16
--- OUTSIDE RECORDS SUMMARY | 2025-03-27 10:37 | XMS_ITS | CCD ---
Author Organization 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 Role Phone Ezequiel Agudelo Unavailable MARCOS, DR WHITE Admitting Unavailable MARCOS, DR WHITE Attending Unavailable SINGH, DR MCCLAIN Primary Care Unavailable ZIEBER, DR DENYS Chavez Consulting Unavailable MARCOS, DR WHITE Consulting Unavailable SINGH, DR MCCLAIN Admitting Unavailable BALL, DR MCCLAIN Attending Unavailable BALL, DR MCCLAIN Primary Care Unavailable BALL, DR MCCLAIN Consulting Unavailable WEBSTER, LIAT Consulting Unavailable CHINYERE LIVE Admitting Unavailable TASHIA, CHINYERE Attending Unavailable SINGH, DR MCCLAIN Primary Care Unavailable TASHIA, CHINYERE Consulting Unavailable SINGH, DR MCCLAIN Primary Care Unavailable MEGHAN, WILBERTO Admitting Unavailable MEGHAN, WILBERTO Attending Unavailable MEGHAN, WILBERTO Consulting Unavailable BALL, DR MCCLAIN Admitting Unavailable BALL, DR MCCLAIN Attending Unavailable BALL, DR MCCLAIN Primary Care Unavailable BALL, DR MCCLAIN Consulting Unavailable ZIEBER, DR DENYS Chavez Consulting Unavailable BENEDICT, DR FLOWER Admitting Unavailable BENEDICT, DR FLOWER Attending Unavailable BALL, DR MCCLAIN Primary Care Unavailable TASHIA, CHINYERE Consulting Unavailable Johny Winters Unavailable DO Johny Winters Primary Care Provider CLEO Live Attending Provider [phone] Chinyere Live Attending Unavailable Chinyere Live Admitting Unavailable Johny Winters Primary Care Unavailable Johny Winters Primary Care Unavailable Chinyere Live Attending Unavailable Chinyere Live Admitting Unavailable Johny Winters MD Primary Care Provider Chinyere Glover Unavailable JOHNY WINTERS Primary Care Unavailable DENYS KWOK Attending Unavailable CHINYERE LIVE Attending Unavailable CINDY RODRÍGUEZ Attending Unavailable CHINYERE LIVE Attending Unavailable Johny Winters DO Primary Care Provider Johny Winters DO Primary Care Provider Ed MCFARLANDPELT SALTER-Jennifer Car Attending Provider Medications Current Medications Medication Drug Class(es) Dates Sig (Normalized) Sig (Original) [id number] 200 actuat albuterol 0.09 mg/actuat metered dose inhaler (2 sources) beta2-Adrenergic Agonist Start: 05-28-2024 take 2 puff(s) by inhalation every six hours as needed for wheezing albuterol HFA 90 mcg/act inhaler INHALE 2 PUFFS EVERY 6 HOURS NEEDED FOR SHORTNESS OF BREATH OR WHEEZING 05/28/2024 Active Start: 05-28-2024 take 1 puff(s) by in halation every six hours as needed for wheezing Albuterol Sulfate 90 mcg/actuation HFA aerosol inhaler Active 2 PUFF INHALATION Every 6 hours as needed for shortness of breath or wheezing 8.5 May 28, 2024 12:00am Complies with drug therapy alendronic acid 70 mg oral tablet (7 sources) Bisphosphonate Start: 03-05-2024 take 1 tablet by mouth every week Alendronate 70 mg tablet Active 70 MG PO every week March 05, 2024 12:00am Complies with drug therapy amantadine hydrochloride 100 mg oral tablet (5 sources) Influenza A M2 Protein Inhibitor Start: 04-04-2024 End: 09-19-2024 take 1 tablet by mouth in the morning amantadine (Symmetrel) 100 MG tablet Indications: Multiple sclerosis (CMS/HCC) , Fatigue, unspecified type Take 1 tablet (100 mg) by mouth in the morning. 30 tablet 2 04/04/2024 09/19/2024 Discontinued amLODIPine 5 mg oral tablet (15 sources) Dihydropyridine Calcium Channel Jessie Start: 02-11-2025 take 1 tablet by mouth once daily Amlodipine 5 mg tablet Active 0 .ROUTE .COMPLEX February 11, 2025 12:10am TAKE 1 TABLET BY MOUTH EVERY DAY Complies with drug therapy Start: 03-05-2024 End: 02-11-2025 take 1 tablet by mouth once daily Amlodipine 5 mg tablet Discontinued 5 MG PO Daily 30 30 March 05, 2024 9:30am February 11, 2025 12:10am aspirin 81 mg delayed release oral tablet (8 sources) Platelet Aggregation Inhibitor, Nonsteroidal Anti-inflammatory Drug Start: 03-05-2024 take 1 tablet by mouth once daily Aspirin 81 mg tablet,delayed release (DR/EC) Active 81 MG PO Daily March 05, 2024 12:00am Complies with drug therapy ASPIRIN 81 MG ch ewable tablet Chew 81 mg 1 (one) time Active B Complex Vitamins (vitamin B complex) tablet (7 sources) B Complex Vitami ns (vitamin B complex) tablet as directed Orally Active baclofen 10 mg oral tablet (15 sources) gamma-Aminobutyric Acid-ergic Agonist Start: 03-11-2025 Baclofen 10 mg tablet Active 0 .ROUTE .COMPLEX March 11, 2025 1:26pm TAKE 1 TABLET DAILY AT BEDTIME Complies with drug therapy Start: 03-05-2024 End: 03-11-2025 take 1 tablet by mouth once daily at bedtime Baclofen 10 mg tablet Discontinued 10 MG PO Daily at bedtime March 05, 2024 9:11am March 11, 2025 1:26pm Start: 01-01-2024 End: 03-05-2024 Baclofen 10 mg tablet Discon tinued 0 .ROUTE .COMPLEX February 28, 2024 12:48pm March 05, 2024 9:12am TAKE 1 TABLET DAILY AT BEDTIME Start: 01-01-2024 End: 01-01-2024 take 1 tablet by mouth once daily at bedtime Baclofen 10 mg tablet Discontinued 10 MG PO Daily at bedtime January 01, 2024 12:00am January 01, 2024 3:44pm benzonatate 200 mg oral capsule (1 source) Non-narcotic Antitussive Start: 05-28-2024 take 1 capsule by mouth three times daily Benzonatate 200 mg capsule Active 200 MG PO Three times daily 29 05May 28, 2024 12:00am Complies with drug therapy cholecalciferol 0.25 mg oral capsule (7 sources) Vitamin D take 1 capsule by mouth in the morning cholecalciferol (Vitamin D-3) 250 MCG (50375 UT) capsule Take 10,000 Units by mouth in the morning. Active ferrous sulfate 325 mg oral tablet (7 sources) take 1 tablet by mouth at mealtime ferrous sulfate 325 (65 Fe) MG tablet Take 325 mg by mouth in the morning. Take with meals. Active gabapentin 300 mg oral capsule (13 sources) Anti-epileptic Agent Start: 10-29-2024 take 1 capsule by mouth twice daily, then take 2 capsules by mouth at bedtime gabapentin (Neurontin) 300 MG capsule Indications: Multiple sclerosis (CMS/HCC) TAKE 1 CAPSULE BY MOUTH TWICE A DAY AND 2 CAPSULES BY MOUTH AT BEDTIME 120 capsule 3 10/29/2024 Active Start: 07-04-2024 take 1 capsule by mo uth twice daily, then take 2 capsules by mouth at bedtime gabapentin (Neurontin) 300 MG capsule Indications: Multiple sclerosis (CMS/HCC) TAKE 1 CAPSULE BY MOUTH TWICE A DAY AND 2 CAPSULES BY MOUTH AT BEDTIME 120 capsule 3 07/04/2024 Active Start: 03-05-2024 End: 03-05-2024 take 1 capsule by mouth once daily Gabapentin 300 mg capsule Active 300 MG PO Daily March 05, 2024 9:11am Complies with drug therapy Start: 02-28-2024 take 1 capsule by mo uth twice daily, then take 2 capsules by mouth at bedtime gabapentin (Neurontin) 300 MG capsule Indications: Multiple sclerosis (CMS/HCC) TAKE 1 CAPSULE BY MOUTH TWICE A DAY AND 2 CAPSULES BY MOUTH AT BEDTIME 120 capsule 3 02/28/2024 Active take 1 capsule by mo uth every twenty-four hours Gabapentin 300 MG 1 capsule Orally Once a day Active Inhalational Spacing Device (Aerochamber Mini) spacer (1 source) Start: 05-28-2024 Inhalational Spacing Device (Aerochamber Mini) spacer Active 0 .ROUTE .MEDSUPPLY May 28, 2024 12:00am As directed krill oil 500 mg oral capsule (7 sources) take 1 capsule by mouth once daily Krill Oil 500 MG capsule Take 1 capsule by mouth Daily Active meclizine hydrochloride 25 mg oral tablet (7 sources) Antiemetic Start: 02-08-2023 take 1 tablet by mouth every twelve hours meclizine (Antivert) 25 MG tablet Take 25 mg by mouth every 12 (twelve) hours 02/08/2023 Active oseltamivir 75 mg oral capsule (1 source) Neuraminidase Inhibitor Start: 10-14-2024 take 1 capsule by mouth once daily Oseltamivir (Tamiflu) 75 mg capsule Active 75 MG PO Daily 7 October 14, 2024 12:00am Complies with drug therapy predniSONE 20 mg oral tablet (1 source) Start: 10-29-2024 take 1 tablet by mouth twice daily Prednisone 20 mg tablet Active 20 MG PO Twice daily 6 3 May 28, 2024 12:00am Complies with drug therapy teriflunomide 14 mg oral tablet (13 sources) Pyrimidine Synthesis Inhibitor Start: 03-05-2024 End: 03-05-2024 Teriflunomide 14 MG tablet Indications: Multiple sclerosis (CMS/HCC) TAKE 1 TABLET DAILY 30 tablet 3 12/26/2024 Active Completed/Discontinued Medications Medication Drug Class(es) Dates Sig (Normalized) Sig (Original) acetaminophen 325 mg / HYDROcodone bitartrate 5 mg oral tablet (4 sources) Opioid Agonist HYDROcodone-Acet am inophen 5-325 MG Not Available Oral for 4 Days Not-Taking atorvastatin 20 mg oral tablet (16 sources) HMG-CoA Reductase Inhibitor Start: 03-05-2024 End: 05-28-2024 take 1 tablet by mouth once daily Atorvastatin 20 mg tablet Discontinued 20 MG PO Daily 30 30 March 05, 2024 9:29am May 28, 2024 2:32pm Start: 02-29-2024 End: 03-05-2024 take 1 tablet by mouth once daily in the evening Atorvastatin 20 mg tablet Discontinued 0 .ROUTE .COMPLEX 90 February 29, 2024 8:50am March 05, 2024 9:12am TAKE 1 TABLET BY MOUTH EVERY DAY IN THE EVENING Start: 11-18-2023 End: 02-29-2024 take 1 tablet by mouth once daily Atorvastatin 20 mg tablet Discontinued 20 MG PO Daily February 29, 2024 12:00am February 29, 2024 8:50am Atorvastatin Victor Hugo cium 20 MG Not Available Oral Active lisinopril 5 mg oral tablet (12 sources) Angiotensin Converting Enzyme Inhibitor Start: 03-05-2024 End: 03-05-2024 take 1 tablet by mouth once daily Lisinopril 5 mg tablet Discontinued 1 TAB PO Daily March 05, 2024 12:00am March 05, 2024 9:10am FreeTextSi tablet Orally Once a day; Note: Source Status: Not-TakingundefinedPRN; Qty: 90 Tablet; Provider: Singh Mcclain ( ) meloxicam 15 mg oral tablet (12 sources) Nonsteroidal Anti-inflammatory Drug Start: 03-05-2024 End: 03-05-2024 take 1 tablet by mouth once daily Meloxicam 15 mg tablet Discontinued 15 MG PO Daily March 05, 2024 12:00am March 05, 2024 9:09am take 2 tablets by mouth once lesly ly meloxicam (Mobic) 7.5 MG tablet Take 15 mg by mouth Daily Active take 1 tablet by radha th every twenty-four hours Meloxicam 15 MG 1 tablet Orally Once a d ay for 30 days Not-Taking raloxifene hydrochloride 60 mg oral tablet (8 sources) Estrogen Agonist/Antagonist Start: 12-12-2023 End: 04-04-2024 take 1 tablet by mouth once daily Raloxifene 60 mg tablet Discontinued 60 MG PO Daily March 05, 2024 12:00am March 05, 2024 9:09am take 1 tablet by radha th every [...] Chronic Chronic obstructive pulmonary disease and bronchiectasis (7 sources) Chronic obstructive lung disease; 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: [Chronic obstructive pulmonary disease, unspecified] Onset: 12-11-2023 12-11-2023 Chronic Conditions associated with dizziness or vertigo (2 sources) Vertigo; 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: [Dizziness and giddiness] 09-19-2024 Episodic Disorders of lipid metabolism (4 sources) Hypercholesterolemia ; 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: [Pure hypercholesterolemia , unspecified] Chronic Essential hypertension (4 sources) Essential hypertension; 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: [Essential (primary) hypertension] Chronic Malaise and fatigue (6 sources) Fatigue; 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: [Other fatigue] 04-04-2024 Episodic Menopausal disorders (7 sources) Atrophic vaginitis; 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: [Postmenopausal atrophic vaginitis] Onset: 12-11-2023 12-11-2023 Chronic Multiple sclerosis (20 sources) Multiple sclerosis; 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: [Multiple sclerosis] Onset: 09-27-2017 Resolved: 11-02-2021 Chronic Nonspecific chest pain (1 source) Chest pain, unspecified; 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: [Chest pain, unspecified type] Onset: 10-21-2024 Episodic Nutritional deficiencies (6 sources) Vitamin D deficiency; 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: [Vitamin D deficiency, unspecified] Onset: 12-11-2023 12-11-2023 Chronic Osteoporosis (12 sources) Primary osteoporosis; 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: [Age-related osteoporosis without current pathological fracture] Onset: 12-11-2023 Chronic Other diseases of veins and lymphatics (1 source) Venous insufficiency of leg; 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: [Venous insufficiency (chronic) (peripheral)] 03-02-2024 Episodic Other gastrointestinal disorders (6 sources) Irritable bowel syndrome; 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: [Irritable bowel syndrome without diarrhea] Onset: 07-31-2007 12-11-2023 Chronic Other lower respiratory disease (4 sources) Chronic cough; 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: [CHRONIC COUGH] Onset: 02-23-2022 Episodic Other nervous system disorders (1 source) Polyneuropathy; 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: [Polyneuropathy, unspecified] 03-02-2024 Chronic Other screening for suspected conditions (not mental disorders or infectious disease) (7 sources) Encounter for screening mammogram for malignant neoplasm of breast; 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: [Patient encounter status] Onset: 02-15-2022 Episodic Spondylosis; intervertebral disc disorders; other back problems (20 sources) Other spondylosis with radiculopathy, lumbosacral region; 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: [Degeneration of lumbar intervertebral disc] Onset: 09-09-2021 Chronic Spondylosis; intervertebral disc disorders; other back problems (6 sources) Radiculopathy, lumbar region; 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: [Lumbago with sciatica, left side] Onset: 09-01-2021 Resolved: 11-02-2021 Episodic Substance-related disorders (5 sources) Nicotine dependence, cigarettes, uncomplicated; 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: [Nicotine dependence] Onset: 09-01-2021 Chronic Thyroid disorders (6 sources) Hypothyroidism; 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: [Hypothyroidism, unspecified] Onset: 07-31-2007 12-11-2023 Chronic Unclassified (2 sources) LOW BACK PAIN, UNSPECIFIED; 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: [LOW BACK PAIN, UNSPECIFIED] Onset: 09-01-2021 Past or Other Problems Problem Classification Problem Date Documented Date Episodic/Chronic Other aftercare (1 source) 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; 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: [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 ASST 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 OF ASPIRIN] Onset: 09-01-2021 Episodic Other aftercare (1 source) Other correction (current) drug therapy; 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: [OTH SNF CURRENT DRUG THERAPY] Onset: 09-01-2021 Episodic Other aftercare (6 sources) Patient encounter status; 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: [Encounter for therapeutic drug level monitoring] Onset: 12-12-2023 12-12-2023 Episodic Other connective tissue disease (1 source) Other symptoms and signs involving the musculoskeletal system; 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: [OTH SX AND SYMP INVOLV MUSCULOSKELTAL] Onset: 09-14-2021 Episodic Other ear and sense organ disorders (7 sources) Tinnitus; 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: [Tinnitus, unspecified ear] Onset: 12-12-2023 12-12-2023 Episodic Other nervous system disorders (7 sources) Paresthesia; 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: [Paresthesia of skin] Onset: 12-12-2023 12-12-2023 Episodic Other nervous system disorders (7 sources) Paresthesia of hand ; 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: [Anesthesia of skin] Onset: 12-12-2023 12-12-2023 Episodic Other skin disorders (7 sources) Loss of hair; 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: [Nonscarring hair [...] 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: [Transient alteration of awareness] 04-04-2024 Episodic Unclassified (1 source) LOW BACK PAIN, UNSPECIFIED; 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: [LOW BACK PAIN, UNSPECIFIED] Onset: 08-30-2021 Results Test Name Value Interpretation Reference Range Facility CBC W Auto Differential pane l (Bld)on 10-21-2024 Basophils (Bld) [#/Vol] 0.03 10*3/uL Normal <0.[address] [facility] Comment on above: Order Comment: Speci men Type: BLOOD SPECIMEN Ordering Facility: [facility] Address: [address] [place] [address] Performed By: #### 5 7021-8 #### [facility] CLIA [id number] [address] [place] [address] [place] Basophils/100 WBC (Bld) 0.4 % Normal [facility] Comment on above: Order Comment: Speci men Type: BLOOD SPECIMEN Ordering Facility: [facility] Address: [address] [place] [address] Performed By: #### 5 7021-8 #### [facility] CLIA [id number] [address] [place] [address] [place] Differential cell count method Nom (Bld) Auto Normal [facility] Comment on above: Order Comment: Speci men Type: BLOOD SPECIMEN Ordering Facility: [facility] Address: [address] [place] [address] Performed By: #### 5 7021-8 #### [facility] CLIA [id number] [address] [place] [address] [place] Eosinophils (Bld) [#/Vol] 0.05 10*3/uL Normal <0.[address] [facility] Comment on above: Order Comment: Speci men Type: BLOOD SPECIMEN Ordering Facility: [facility] Address: [address] [place] [address] Performed By: #### 5 7021-8 #### [facility] CLIA [id number] [address] [place] [address] [place] Eosinophils/100 WBC (Bld) 0.6 % Normal [facility] Comment on above: Order Comment: Speci men Type: BLOOD SPECIMEN Ordering Facility: [facility] Address: [address] [place] [address] Performed By: #### 5 7021-8 #### [facility] CLIA [id number] [address] [place] [address] [place] Erythrocyte distribution width (RBC) [Ratio] 13.7 % Normal 11.5-15.[address] [facility] Comment on above: Order Comment: Speci men Type: BLOOD SPECIMEN Ordering Facility: [facility] Address: [address] [place] [address] Performed By: #### 5 7021-8 #### [facility] CLIA [id number] [address] [place] [address] [place] Hematocrit (Bld) [Volume fraction] 37.7 % Normal 36.0-46.[address] [facility] Comment on above: Order Comment: Speci men Type: BLOOD SPECIMEN Ordering Facility: [facility] Address: [address] [place] [address] Performed By: #### 5 7021-8 #### [facility] CLIA [id number] [address] [place] [address] [place] Hemoglobin (Bld) [Mass/Vol] 12.3 g/dL Normal 11.5-15.[address] [facility] Comment on above: Order Comment: Speci men Type: BLOOD SPECIMEN Ordering Facility: [facility] Address: [address] [place] [address] Performed By: #### 5 7021-8 #### [facility] CLIA [id number] [address] [place] [address] [place] Immature granulocytes (Bld) [#/Vol] 10*3/uL Normal <0.[address] [facility] Comment on above: Order Comment: Speci men Type: BLOOD SPECIMEN Ordering Facility: [facility] Address: [address] [place] [address] Performed By: #### 5 7021-8 #### [facility] CLIA [id number] [address] [place] [address] [place] Immature granulocytes/100 WBC (Bld) 0.1 % Normal [facility] Comment on above: Order Comment: Speci men Type: BLOOD SPECIMEN Ordering Facility: [facility] Address: [address] [place] [address] Performed By: #### 5 7021-8 #### [facility] CLIA [id number] [address] [place] [address] [place] Lymphocytes (Bld) [#/Vol] 2.90 10*3/uL Normal 1.00-4.[address] [facility] Comment on above: Order Comment: Speci men Type: BLOOD SPECIMEN Ordering Facility: [facility] Address: [address] [place] [address] Performed By: #### 5 7021-8 #### [facility] CLIA [id number] [address] [place] [address] [place] Lymphocytes/100 WBC (Bld) 36.5 % Normal [facility] Comment on above: Order Comment: Speci men Type: BLOOD SPECIMEN Ordering Facility: [facility] Address: [address] [place] [address] Performed By: #### 5 7021-8 #### [facility] CLIA [id number] [address] [place] [address] [place] MCH (RBC) [Entitic mass] 30.0 pg Normal 26.0-34.[address] [facility] Comment on above: Order Comment: Speci men Type: BLOOD SPECIMEN Ordering Facility: [facility] Address: [address] [place] [address] Performed By: #### 5 7021-8 #### [facility] CLIA [id number] [address] [place] [address] [place] MCHC (RBC) [Mass/Vol] 32.6 g/dL Normal 30.5-36.0 [facility] Comment on above: Order Comment: Speci men Type: BLOOD SPECIMEN Ordering Facility: [facility] Address: [address] [place] [address] Performed By: #### 5 7021-8 #### [facility] CLIA [id number] [address] [place] [address] [place] MCV (RBC) [Entitic vol] 92.0 fL Normal 80.0-100.[address] [facility] Comment on above: Order Comment: Speci men Type: BLOOD SPECIMEN Ordering Facility: [facility] Address: [address] [place] [address] Performed By: #### 5 7021-8 #### [facility] CLIA [id number] [address] [place] [address] [place] Monocytes (Bld) [#/Vol] 1.06 10*3/uL High <0.[address] [facility] Comment on above: Order Comment: Speci men Type: BLOOD SPECIMEN Ordering Facility: [facility] Address: [address] [place] [address] Performed By: #### 5 7021-8 #### [facility] CLIA [id number] [address] [place] [address] [place] Monocytes/100 WBC (Bld) 13.4 % Normal [facility] Comment on above: Order Comment: Speci men Type: BLOOD SPECIMEN Ordering Facility: [facility] Address: [address] [place] [address] Performed By: #### 5 7021-8 #### [facility] CLIA [id number] [address] [place] [address] [place] Neutrophils (Bld) [#/Vol] 3.89 10*3/uL Normal 1.45-7.[address] [facility] Comment on above: Order Comment: Speci men Type: BLOOD SPECIMEN Ordering Facility: [facility] Address: [address] [place] [address] Performed By: #### 5 7021-8 #### [facility] CLIA [id number] [address] [place] [address] [place] Neutrophils/100 WBC (Bld) 49.0 % Normal [facility] Comment on above: Order Comment: Speci men Type: BLOOD SPECIMEN Ordering Facility: [facility] Address: [address] [place] [address] Performed By: #### 5 7021-8 #### [facility] CLIA [id number] [address] [place] [address] [place] Nucleated RBC (Bld) [#/Vol] 10*3/uL Normal <0.[address] [facility] Comment on above: Order Comment: Speci men Type: BLOOD SPECIMEN Ordering Facility: [facility] Address: [address] [place] [address] Performed By: #### 5 7021-8 #### [facility] CLIA [id number] [address] [place] [address] [place] Nucleated RBC/100 WBC (Bld) [Ratio] 0.0 /100 WBC Normal [facility] Comment on above: Order Comment: Speci men Type: BLOOD SPECIMEN Ordering Facility: [facility] Address: [address] [place] [address] Performed By: #### 5 7021-8 #### [facility] CLIA [id number] [address] [place] [address] [place] Platelet mean volume (Bld) [Entitic vol] 11.2 fL Normal 9.0-12.[address] [facility] Comment on above: Order Comment: Speci men Type: BLOOD SPECIMEN Ordering Facility: [facility] Address: [address] [place] [address] Performed By: #### 5 7021-8 #### [facility] CLIA [id number] [address] [place] [address] [place] Platelets (Bld) [#/Vol] 203 10*3/uL Normal 150-[address] [facility] Comment on above: Order Comment: Speci men Type: BLOOD SPECIMEN Ordering Facility: [facility] Address: [address] [place] [address] Performed By: #### 5 7021-8 #### [facility] CLIA [id number] [address] [place] [id number] [place] RBC (Bld) [#/Vol] 4.10 10*6/uL Normal 3.90-5.20 [facility] Comment on above: Order Comment: Speci men Type: BLOOD SPECIMEN Ordering Facility: [facility] Address: [address] [place] [address] Performed By: #### 5 7021-8 #### [facility] CLIA [id number] [address] [place] [address] [place] WBC (Bld) [#/Vol] 7.94 10*3/uL Normal 3.70-11.00 [facility] Comment on above: Order Comment: Speci men Type: BLOOD SPECIMEN Ordering Facility: [facility] Address: [address] [place] [address] Performed By: #### 5 7021-8 #### [facility] CLIA [id number] [address] [place], [place] [id number] [place] CTA ABD/PELV W IVCONon 10-21 CTA ABD/PELV W IVCON * * *Final Report* * * DATE OF EXAM: Oct 21 2024 3:56PM [facility] 0311 - CTA ABD/PELV W IVCON / PROCEDURE REASON: Aortic dissection suspected * * * * Physician Interpretation * * * * CTA Aorta chest, abdomen and pelvis Direct Image Comparison: CXR 10/21/2024 HISTORY: 59 years old Female evaluated in Emergency Department for acute h/o chest pain Evaluation for concern for acute aortic syndrome/pathology There is urgent request to define thoracic and aortic anatomy TECHNIQUE: SCANNER: ED scan Siemens Definition + 128-slice scanner PROTOCOL: 3-phase, non-gated spiral imaging with thin slice reconstruction was performed prior and following (arterial and venous phase) intravenous administration of contrast material Scan Range: thoracic inlet through the ischial tuberosities CT Dose-Length Product (DLP): 1261 mGy*cm CT Dose Reduction Employed: Automated exposure control (AEC) CONTRAST: IV administration of 150 ml Omnipaque 350 Scan acquisition: uncomplicated Macro Version: [id number] For optimization of anatomic evaluation, advanced 3-D off-line postprocessing was performed on a dedicated workstation by the interpreting physician. Additional lung CAD. Cooper images reconstructed, saved, and available in [facility] 'Get Images'. STUDY LIMITATIONS: None. RESULT: LINES, TUBES and DEVICES: None CHEST: Chest wall anatomy: unremarkable. LUNGS: minimal bibasilar atelectasis. MEDIASTINUM: small mediastinal lymph nodes, which are not pathologic by size criteria. PERICARDIUM: unremarkable CENTRAL PULMONARY ARTERY: normal size. No evidence of central or lobar thrombus. Assessment of the distal branches is limited. Small amount of air in the central pulmonary artery likely from vascular access/injection. CARDIAC CHAMBERS: LEFT VENTRICLE: normal size. RIGHT VENTRICLE: normal size Left Atrium: normal size. RAUL: no evidence of thrombus. Right Atrium: normal size CENTRAL VENOUS and PULMONARY VENOUS RETURN: normal. Small to moderate amount of air in the central left subclavian vein likely from vascular access/injection. Coronary Sinus: normal size MITRAL VALVE: assessment is limited in the current study - no leaflet calcification. No annular calcification TRICUSPID and PULMONIC VALVE: appear unremarkable. CORONARY ANATOMY: normal origin of the coronary arteries. No definitive evidence of calcified atherosclerotic changes of the coronary arteries. AORTIC VALVE: appears trileaflet. No leaflet calcification. AORTA: Pathology: No aortic pathology. Intervention: None Complications: n/a Aortic Size: Normal size thoracic and abdominal aorta. STJ: maintained. Mild calcification. Wall Changes: Mild partially calcified wall changes ascending aorta. Moderate partially calcified wall changes arch and descending thoracic aorta. Severe partially calcified wall changes abdominal aorta. Arch Branch Vessels: Patent, normal size proximal segments of the arch branch vessels, with mild partially calcified wall changes. Visceral Branch Vessels: Patent, normal size proximal segments of the visceral branch vessels and renal arteries, with mild proximal partially calcified wall changes. Iliac Arteries: Patent, normal size iliac arteries, with moderate partially calcified wall changes. AORTIC DIMENSIONS: AORTIC ROOT: 3.7 cm measured [id number] mid ASCENDING THORACIC AORTA: 3.2 cm mid AORTIC ARCH: 2.7 cm mid DESCENDING THORACIC AORTA: 2.2 cm JUXTARENAL ABDOMINAL AORTA (level of SMA): 1.8 cm mid INFRARENAL ABDOMINAL AORTA: 1.2 - 1.8 cm ABDOMEN Gallbladder: suspected gallstones within the gallbladder. Liver: small cystic lesions. Spleen: unremarkable. Adrenal glands: Left nodular enlargement. Pancreas: unremarkable. Kidneys: parapelvic cysts. Additional right to small to characterize hypodense lesion, likely benign. PELVIS: scattered phleboliths. Bladder: unremarkable. uterus is not identified BONES and SOFT TISSUES: changes consistent with vertebral hemangioma mid thoracic spine Seo Associate (topogram) images: No additional findings. IMPRESSION: NO ACUTE AORTIC SYNDROME - Normal Size Thoracic and Abdominal Aorta, with diffuse partially calcified wall changes, most c/w atherosclerotic aortic disease. CENTRAL PULMONARY ARTERY: normal size. No evidence of central or lobar thrombus. Assessment of the distal branches is limited. Small amount of air in the central pulmonary artery likely from vascular access/injection. CORONARY ARTERIES: No evidence of calcified atherosclerotic changes of the coronary arteries. However, the current study is not optimized for coronary assessment. Gallbladder: suspected gallstones within the gallbladder. Biological Lab Technician: SARABJIT Transcribe Date/Time: Oct 21 2024 4:02P Dictated by : JEET YEAGER MD This examination was interpreted and the report reviewed and electronically signed by: KAT GIFFORD MD on Oct 21 2024 5 (more content not included)... Normal [facility] CTA CHEST (GATED) W IVCONon 10-21-2024 CTA CHEST (GATED) W IVCON * * *Final Report* * * DATE OF EXAM: Oct 21 2024 3:56PM [facility] 0125 - CTA CHEST (GATED) W IVCON / PROCEDURE REASON: Aortic dissection suspected * * * * Physician Interpretation * * * * CTA Aorta chest, abdomen and pelvis Direct Image Comparison: CXR 10/21/2024 HISTORY: 59 years old Female evaluated in Emergency Department for acute h/o chest pain Evaluation for concern for acute aortic syndrome/pathology There is urgent request to define thoracic and aortic anatomy TECHNIQUE: SCANNER: ED scan Siemens Definition + 128-slice scanner PROTOCOL: 3-phase, non-gated spiral imaging with thin slice reconstruction was performed prior and following (arterial and venous phase) intravenous administration of contrast material Scan Range: thoracic inlet through the ischial tuberosities CT Dose-Length Product (DLP): 1261 mGy*cm CT Dose Reduction Employed: Automated exposure control (AEC) CONTRAST: IV administration of 150 ml Omnipaque 350 Scan acquisition: uncomplicated Macro Version: [id number] For optimization of anatomic evaluation, advanced 3-D off-line postprocessing was performed on a dedicated workstation by the interpreting physician. Additional lung CAD. Cooper images reconstructed, saved, and available in [employer] 'Get Images'. STUDY LIMITATIONS: None. RESULT: LINES, TUBES and DEVICES: None CHEST: Chest wall anatomy: unremarkable. LUNGS: minimal bibasilar atelectasis. MEDIASTINUM: small mediastinal lymph nodes, which are not pathologic by size criteria. PERICARDIUM: unremarkable CENTRAL PULMONARY ARTERY: normal size. No evidence of central or lobar thrombus. Assessment of the distal branches is limited. Small amount of air in the central pulmonary artery likely from vascular access/injection. CARDIAC CHAMBERS: LEFT VENTRICLE: normal size. RIGHT VENTRICLE: normal size Left Atrium: normal size. RAUL: no evidence of thrombus. Right Atrium: normal size CENTRAL VENOUS and PULMONARY VENOUS RETURN: normal. Small to moderate amount of air in the central left subclavian vein likely from vascular access/injection. Coronary Sinus: normal size MITRAL VALVE: assessment is limited in the current study - no leaflet calcification. No annular calcification TRICUSPID and PULMONIC VALVE: appear unremarkable. CORONARY ANATOMY: normal origin of the coronary arteries. No definitive evidence of calcified atherosclerotic changes of the coronary arteries. AORTIC VALVE: appears trileaflet. No leaflet calcification. AORTA: Pathology: No aortic pathology. Intervention: None Complications: n/a Aortic Size: Normal size thoracic and abdominal aorta. STJ: maintained. Mild calcification. Wall Changes: Mild partially calcified wall changes ascending aorta. Moderate partially calcified wall changes arch and descending thoracic aorta. Severe partially calcified wall changes abdominal aorta. Arch Branch Vessels: Patent, normal size proximal segments of the arch branch vessels, with mild partially calcified wall changes. Visceral Branch Vessels: Patent, normal size proximal segments of the visceral branch vessels and renal arteries, with mild proximal partially calcified wall changes. Iliac Arteries: Patent, normal size iliac arteries, with moderate partially calcified wall changes. AORTIC DIMENSIONS: AORTIC ROOT: 3.7 cm measured [id number] mid ASCENDING THORACIC AORTA: 3.2 cm mid AORTIC ARCH: 2.7 cm mid DESCENDING THORACIC AORTA: 2.2 cm JUXTARENAL ABDOMINAL AORTA (level of SMA): 1.8 cm mid INFRARENAL ABDOMINAL AORTA: 1.2 - 1.8 cm ABDOMEN Gallbladder: suspected gallstones within the gallbladder. Liver: small cystic lesions. Spleen: unremarkable. Adrenal glands: Left nodular enlargement. Pancreas: unremarkable. Kidneys: parapelvic cysts. Additional right to small to characterize hypodense lesion, likely benign. PELVIS: scattered phleboliths. Bladder: unremarkable. uterus is not identified BONES and SOFT TISSUES: changes consistent with vertebral hemangioma mid thoracic spine Seo Associate (topogram) images: No additional findings. IMPRESSION: NO ACUTE AORTIC SYNDROME - Normal Size Thoracic and Abdominal Aorta, with diffuse partially calcified wall changes, most c/w atherosclerotic aortic disease. CENTRAL PULMONARY ARTERY: normal size. No evidence of central or lobar thrombus. Assessment of the distal branches is limited. Small amount of air in the central pulmonary artery likely from vascular access/injection. CORONARY ARTERIES: No evidence of calcified atherosclerotic changes of the coronary arteries. However, the current study is not optimized for coronary assessment. Gallbladder: suspected gallstones within the gallbladder. Biological Lab Technician: SARABJIT Transcribe Date/Time: Oct 21 2024 4:02P Dictated by : JEET YEAGER MD This examination was interpreted and the report reviewed and electronically signed by: KAT GIFFORD MD on Oct 21 (more content not included)... Normal [facility] Comprehensive metabolic 2000 panelon 10-21-2024 Albumin [Mass/Vol] 4.1 g/dL Normal 3.9-4.9 [facility] Comment on above: Order Comment: Speci men Type: BLOOD SPECIMEN Ordering Facility: [facility] Address: [address] [place] [address] Performed By: #### 1 9123-9, [id number], 65371-2 #### [facility] CLIA [id number] [address] [place] [address] [place] ALP [Catalytic activity/Vol] 85 U/L Normal 34-[address] [facility] Comment on above: Order Comment: Speci men Type: BLOOD SPECIMEN Ordering Facility: [facility] Address: [address] [place] [address] Performed By: #### 1 9123-9, [id number], 15454-2 #### [facility] CLIA [id number] [address] [id number] [address] [place] ALT [Catalytic activity/Vol] 23 U/L Normal 7-[address] [facility] Comment on above: Order Comment: Speci men Type: BLOOD SPECIMEN Ordering Facility: [facility] Address: [address] [place], [place] [address] Performed By: #### 1 9123-9, [id number], 14222-3 #### [facility] CLIA [id number] [address] [place] [id number] [place] Anion gap [Moles/Vol] 13 mmol/L Normal 8-15 [facility] Comment on above: Order Comment: Speci men Type: BLOOD SPECIMEN Ordering Facility: [facility] Address: [address] [place], [place] [address] Performed By: #### 1 9123-9, [id number], #### [facility] CLIA [id number] [address] [place], [place] [id number] [place] AST [Catalytic activity/Vol] 26 U/L Normal 13-[address] [facility] Comment on above: Order Comment: Speci men Type: BLOOD SPECIMEN Ordering Facility: [facility] Address: [address] [place], [place] [address] Performed By: #### 1 9123-9, [id number], 09521-4 #### [facility] CLIA [id number] [address] [place] [address] [place] Bilirubin [Mass/Vol] 0.4 mg/dL Normal 0.2-1.3 [facility] Comment on above: Order Comment: Speci men Type: BLOOD SPECIMEN Ordering Facility: [facility] Address: [address] [place] [address] Performed By: #### 1 9123-9, [id number], 99015-7 #### [facility] CLIA [id number] [address] [place] [address] [place] Calcium [Mass/Vol] 8.9 mg/dL Normal 8.5-10.2 [facility] Comment on above: Order Comment: Speci men Type: BLOOD SPECIMEN Ordering Facility: [facility] Address: [address] [place] [address] Performed By: #### 1 9123-9, [id number], 21265-0 #### [facility] CLIA [id number] [address] [place] [address] [place] Chloride [Moles/Vol] 108 mmol/L High 98-107 [facility] Comment on above: Order Comment: Speci men Type: BLOOD SPECIMEN Ordering Facility: [facility] Address: [address] [place] [address] Performed By: #### 1 9123-9, [id number], #### [facility] CLIA [id number] [address] [place] [address] [place] CO2 [Moles/Vol] 22 mmol/L Normal 22-[address] [facility] Comment on above: Order Comment: Speci men Type: BLOOD SPECIMEN Ordering Facility: [facility] Address: [address] [place] [address] Performed By: #### 1 9123-9, [id number], #### [facility] CLIA [id number] [address] [place] [address] [place] Creatinine [Mass/Vol] 0.70 mg/dL Normal 0.58-0.96 [facility] Comment on above: Order Comment: Speci men Type: BLOOD SPECIMEN Ordering Facility: [facility] Address: [address] [place] [address] Performed By: #### 1 9123-9, [id number], 30398-1 #### [facility] CLIA [id number] [address] [place] [address] [place] Creatinine and Glomerular filtration rate.predicted panel (S/P/Bld) 99 mL/min/1.73m??? Normal >=[address] [facility] Comment on above: Order Comment: Speci men Type: BLOOD SPECIMEN Ordering Facility: [facility] Address: [address] [place] [address] Result Comment: Shahnaz mated Glomerular Filtration Rate (eGFR) is calculated using the 2020 CKD-EPI creatinine equation. This equation utilizes serum creatinine, sex, and age as parameters. The creatinine assay has traceable calibration to isotope dilution-mass spectrometry. Refer to KDIGO guidelines for clinical interpretation. In patients with unstable renal function, e.g. those with acute kidney injury, the eGFR may not accurately reflect actual GFR. Performed By: #### 1 9123-9, [id number], 57557-6 #### [facility] CLIA [id number] [address] [place] [address] [place] Glucose [Mass/Vol] 102 mg/dL High 74-99 [facility] Comment on above: Order Comment: Naveen cantu Type: BLOOD SPECIMEN Ordering Facility: [facility] Address: [address] [place] [address] Result Comment: The [place] [employer] (ADA) provides guidance for cutoff values for fasting glucose and random glucose. The ADA defines fasting as no caloric intake for at least 8 hours. Fasting plasma glucose results between 100 to 125 mg/dL indicate increased risk for diabetes (prediabetes). Fasting plasma glucose results greater than or equal to 126 mg/dL meet the criteria for diagnosis of diabetes. In the absence of unequivocal hyperglycemia, results should be confirmed by repeat testing. In a patient with classic symptoms of hyperglycemia or hyperglycemic crisis, random plasma glucose results greater than or equal to 200 mg/dL meet the criteria for diagnosis of diabetes. Reference: Standards of Medical Care in Diabetes 2016, [place] [employer]. Diabetes Care. 2016.39(Suppl 1). Performed By: #### 1 9123-9, [id number], 87107-2 #### [facility] CLIA [id number] [address] [place] [address] [place] Potassium [Moles/Vol] 3.6 mmol/L Low 3.7-5.1 [facility] Comment on above: Order Comment: Naveen cantu Type: BLOOD SPECIMEN Ordering Facility: [facility] Address: [address] [place] [address] Performed By: #### 1 9123-9, [id number], 72139-5 #### [facility] CLIA [id number] [address] [place], [place] [id number] [place] Protein [Mass/Vol] 6.8 g/dL Normal 6.3-8.0 [facility] Comment on above: Order Comment: Speci men Type: BLOOD SPECIMEN Ordering Facility: [facility] Address: [address] [place] [address] Performed By: #### 1 9123-9, [id number], 07387-0 #### [facility] CLIA [id number] [address] [place], [place] [id number] [place] Sodium [Moles/Vol] 143 mmol/L Normal 136-144 [facility] Comment on above: Order Comment: Speci men Type: BLOOD SPECIMEN Ordering Facility: [facility] Address: [address] [place] [address] Performed By: #### 1 9123-9, [id number], 19331-4 #### [facility] CLIA [id number] [address] [place] [address] [place] Urea nitrogen [Mass/Vol] 14 mg/dL Normal 7-[address] [facility] Comment on above: Order Comment: Speci men Type: BLOOD SPECIMEN Ordering Facility: [facility] Address: [address] [place] [address] Performed By: #### 1 9123-9, [id number], 39715-0 #### [facility] CLIA [id number] [address] [place] [id number] [place] ED NOTEon 10-21-2024 ED NOTE HNO ID: [id number] Author: HERBER SINCLAIR, RN Service: Emergency Medicine Author Type: Registered Nurse Type: ED Notes Filed: 10/21/2024 16:45 Note Text: Pt refusing telemetry and updated vitals at this time. Normal [facility] ED PROV NOTEon 10-21-2024 ED PROV NOTE HNO ID: [id number] Author: DENYS KWOK MD Service: Emergency Medicine Author Type: Physician Type: ED Provider Notes Filed: 10/22/2024 07:25 Note Text: ED Provider Note Patient Name: Jayde Hernandez : 1965 SERVICE DATE: 10/21/24 History Patient presents with: Chest Pain: BIB [facility], onset of midsternal cp radiating to her jaw while visiting a family member in [place] building. Given 324mg ASA by ems, states pain subsided on arrival. HPI Patient is a 59 year old female with a PMHx of MS presents to the ED with a complaint of chest pain. Patient reports that this morning, she had sudden onset of mid-sternal chest pain that radiates to her neck and jaw that would last a few seconds and then go away. She reports that she was given 4 aspirin by [facility] and since then has not had the pain. She denoes associated SOB, dizziness or lightheadedness, abdominal pain, diaphoresis, nausea and vomiting, calf pain. PAST MEDICAL HISTORY Diagnosis Date Cervical cancer (HCC) 1997 s/p hysterectomy Hypertension Migraine MS (multiple sclerosis) ([facility]) Osteoporosis PAST SURGICAL HISTORY Procedure Laterality Date HYSTERECTOMY 1997 FAMILY HISTORY Problem Relation Age of Onset Breast Cancer Mother Arthritis Mother Breast Cancer Sister Multiple Sclerosis Other Social History Tobacco Use Smoking status: Every Day Current packs/day: 0.30 Average packs/day: 0.3 packs/day for 50.2 years (15.1 ttl pk-yrs) Types: Cigarettes Start date: 1974 Smokeless tobacco: Never Substance and Sexual Activity Alcohol use: No Comment: occasional/social Drug use: No Sexual activity: Not on file ALLERGIES No Known Allergies Review of Systems Constitutional: Negative for chills and fever. HENT: Negative for congestion and sore throat. Respiratory: Negative for cough, chest tightness and shortness of breath. Cardiovascular: Positive for chest pain. Negative for palpitations and leg swelling. Gastrointestinal: Negative for abdominal pain, nausea and vomiting. Genitourinary: Negative for dysuria, flank pain and hematuria. Musculoskeletal: Negative for back pain, neck pain and neck stiffness. Skin: Negative for rash. Neurological: Negative for dizziness, weakness, light-headedness and headaches. Physical Exam Vitals BP Pulse Temp Temp src Resp SpO2 Weight Height 10/21/24 1244 10/21/24 1244 10/21/24 1244 10/21/24 1244 10/21/24 1244 10/21/24 1244 10/21/24 1243 -- 177/77 83 36.9 ?C (98.5 ?F) Oral 18 98 % 62.6 kg (138 lb) Physical Exam Vitals and nursing note reviewed. Constitutional: General: She is not in acute distress. Appearance: She is well-developed. She is not ill-appearing. HENT: Head: Normocephalic and atraumatic. Neck: Vascular: No JVD. Cardiovascular: Rate and Rhythm: Normal rate and regular rhythm. Pulses: Dorsalis pedis pulses are 2+ on the right side and 2+ on the left side. Posterior tibial pulses are 2+ on the right side and 2+ on the left side. Heart sounds: Normal heart sounds. Pulmonary: Effort: Pulmonary effort is normal. Breath sounds: Normal breath sounds. No decreased breath sounds, wheezing, rhonchi or rales. Chest: Chest wall: No tenderness. Abdominal: General: Bowel sounds are normal. Palpations: Abdomen is soft. There is no mass. Tenderness: There is no abdominal tenderness. There is no guarding. Musculoskeletal: Cervical back: Normal range of motion and neck supple. Right lower leg: No edema. Left lower leg: No edema. Skin: General: Skin is warm and dry. Capillary Refill: Capillary refill takes less than 2 seconds. Neurological: General: No focal deficit present. Mental Status: She is alert and oriented to person, place, and time. Diagnostic Testing ED Labs Ordered and Reviewed COMPREHENSIVE METABOLIC PANEL - Abnormal; Notable for the following components: Result Value Ref Range Glucose 102 (*) 74 - 99 mg/dL Potassium 3.6 (*) 3.7 - 5.1 mmol/L Chloride 108 (*) 98 - 107 mmol/L All other components within normal limits COMPLETE BLOOD COUNT AND DIFFERENTIAL - Abnormal; Notable for the following components: Abs Davison 1.06 (*) <0.87 k/uL All other components within normal limits MAGNESIUM - Normal HIGH SENSITIVITY TROPONIN T (INITIAL) - Normal HIGH SENSITIVITY TROPONIN T (SECOND) - Normal Procedures ED Course / Clinical Impression ED Course as of 10/22/24 0725 Kwok, Denys's Documentation Mon Oct 21, 2024 1342 ED STAFF ATTENDING MDM 59 year old with history of MS here visiting ill family in ICU, had sudden onset severe lower chest pain coming in waves and associated with radiation up to the root and both sides of her neck. Not associated with eating/swallowing. Sent to ED by on campus response team. ECG with sinus rhythm, normal repolarization, no acute injury pattern On exam, hypertensive, no distress, lungs clear, RRR without diastolic murmur, extremities warm wi (more content not included)... Normal [facility] HIGH SENSITIVITY TROPONIN T (INITIAL)on 10-21-2024 Troponin T.cardiac High sensitivity method [Mass/Vol] 6 ng/L Normal <[address] [facility] Comment on above: Order Comment: Naveen cantu Type: BLOOD SPECIMEN Ordering Facility: [facility] Address: [address] [place] [address] Performed By: #### 1 9123-9, [id number], [id number] #### [facility] CLIA [id number] [address] [place] [address] [place] HIGH SENSITIVITY TROPONIN T (SECOND)on 10-21-2024 Troponin T.cardiac High sensitivity method [Mass/Vol] <6 Normal <[address] [facility] Comment on above: Order Comment: Naveen cantu Type: BLOOD SPECIMEN Ordering Facility: [facility] Address: [address] [place] [address] Performed By: #### L [id number] #### [facility] CLIA [id number] [address] [place] [address] [place] Magnesium SerPl-mCncon 10-21 Magnesium [Mass/Vol] 1.9 mg/dL Normal 1.7-2.3 [facility] Comment on above: Order Comment: Naveen cantu Type: BLOOD SPECIMEN Ordering Facility: [facility] Address: [address] [place] [address] Performed By: #### 1 9123-9, [id number], 22245-7 #### [facility] CLIA [id number] [address] [place], [place] [address] [address] [place] XR CHEST 2V FRONTAL/LATon XR CHEST 2V FRONTAL/LAT * * *Final Report* * * DATE OF EXAM: Oct 21 2024 1:28PM EGX [id number] - XR CHEST 2V FRONTAL/LAT / PROCEDURE REASON: Chest Pain * * * * Physician Interpretation * * * * EXAMINATION: CHEST RADIOGRAPH (2 VIEW FRONTAL and LATERAL) CLINICAL HISTORY: Chest Pain MQ: [id number] EXAM DATE/TIME: 10/21/2024 1:28 PM COMPARISON: No relevant prior studies available. RESULT: Lines, tubes, and devices: None. Lungs and pleura: No consolidation. No pleural effusion. No pneumothorax. Cardiomediastinal silhouette: Normal cardiomediastinal silhouette. Bones and soft tissues: Degenerative changes are present within the thoracic spine. IMPRESSION: No acute radiographic abnormality. Biological Lab Technician: SARABJIT Transcribe Date/Time: Oct 21 2024 1:33P Dictated by : ARCADIO DOYLE MD This examination was interpreted and the report reviewed and electronically signed by: GENNARO ROY MD on Oct 21 2024 1:38PM EST [id number] Normal [facility] Creatinine (Bld) [Mass/Vol]O rdered By: Chinyere Live on 09-06-2023 Creatinine [Mass/Vol] 0.6 mg/dL 0.6-1.3 [facility] Comment on above: ER/ESD physician is notified/shown all ISTAT results.Critical values may be confirmed by laboratory testing ifdeemed necessary by ER attending doctor. ISTAT XRay CREon 09-06-2023 Creatinine [Mass/Vol] 0.6 mg/dL Normal 0.6-1.3 [facility] Comment on above: Result Comment: ER/E SD physician is notified/shown all ISTAT results. Critical values may be confirmed by laboratory testing if deemed necessary by ER attending doctor. Performed By: #### I SCRE #### [address] ISTAT GFR > 60.0 Normal [facility] Comment on above: Result Comment: PERF ORMED BY: [place] [address] PATHOLOGIST [employer] WORK[employer] LJ VERAS M.D. Performed By: #### I SCRE #### [address] MR cervical spine wo/w conon 09-06-2023 MR cervical spine wo/w con [facility] [place] [address] [place] [address] MRI Report Signed Patient: Jayde Hernandez MR#: [id number] : 1965 Acct:[id number] Age/Sex: 58 / F ADM Date: 09/06/23 Loc: MR Room: Type: [facility] Attending Dr: Chinyere Live PA-C Copies to: [...] Raffi Guillen M.D.09/06/2023 11:22 AM Dictation Location: [place] [address] Transcribed By: [facility] 09/06/23 1122 Dictated By: Raffi Guillen II, MD 09/06/23 1109 Signed By: 09/06/23 1122 [facility] MR head/brain wo/w conon MR head/brain wo/w con [facility] [place] [address] [place] [address] MRI Report Signed Patient: Jayde Hernandez MR#: [id number] : 1965 Acct:[id number] Age/Sex: 58 / F ADM Date: 09/06/23 Loc: MR Room: Type: [facility] Attending Dr: Chinyere Live PA-C Copies to: [...] Raffi Guillen M.D.09/06/2023 11:09 AM Dictation Location: [place] [address] Transcribed By: [facility] 09/06/23 1109 Dictated By: Raffi Guillen II, MD 09/06/23 1053 Signed By: 09/06/23 1109 [facility] No Panel InformationOrdered By: Chinyere Live on 09-06-2023 Bedside Estimated GFR (eGFR) > 60.0 [facility] Creatinine (Bld) [Mass/Vol]O rdered By: Chinyere Live on 07-12-2023 Creatinine [Mass/Vol] 0.7 mg/dL 0.6-1.3 [facility] Comment on above: ER/ESD physician is notified/shown all ISTAT results.Critical values may be confirmed by laboratory testing ifdeemed necessary by ER attending doctor. ISTAT XRay CREon 07-12-2023 Creatinine [Mass/Vol] 0.7 mg/dL Normal 0.6-1.3 [facility] Comment on above: Result Comment: ER/E SD physician is notified/shown all ISTAT results. Critical values may be confirmed by laboratory testing if deemed necessary by ER attending doctor. Performed By: #### I SCRE #### [facility] [address] [place] [address] ISTAT GFR > 60.0 Normal [facility] Comment on above: Result Comment: PERF ORMED BY: [place] [address] PATHOLOGIST [employer] WORKER LJ VERAS M.D. Performed By: #### I SCRE #### [address] No Panel InformationOrdered By: Chinyere Live on 07-12-2023 Bedside Estimated GFR (eGFR) > 60.0 [facility] XR pre/post mri xrayon 07-12 XR pre/post mri xray [facility] [place] [address] [place] [address] MRI Report Signed Patient: Jayde Hernandez MR#: [id number] : 1965 Acct:[id number] Age/Sex: 58 / F ADM Date: 07/12/23 Loc: Room: Type: [facility] Attending Dr: Chinyere Live PA-C Copies to: Chinyere Live PA-C Ordering Provider: Chinyere Live PA-C Date of Service: 07/12/23 MR/MR thoracic spine wo/w con: G35 ([id number]) XR/XR pre/post mri xray: G35 MR thoracic [...] Raffi Guillen M.D.07/12/2023 12:37 PM Dictation Location: [place] [address] Transcribed By: [facility] 07/12/23 1237 Dictated By: Raffi Guillen II, MD 07/12/23 1230 Signed By: 07/12/23 1237 [facility] CBC AUTO DIFFon 05-10-2022 BASO # 0.1 103/ul Normal 0.0-0.[address] [facility] Comment on above: Performed By: #### C BC #### [facility] [address] [place] [address] Dr. Brett Rosales Basophils/100 WBC (Bld) 1.0 % Normal 0.2-2.0 [facility] Comment on above: Performed By: #### C BC #### [facility] [address] [place] [address] Dr. Brett Rosales EO # 0.1 103/ul Normal 0.0-0.[address] [facility] Comment on above: Performed By: #### C BC #### [facility] [address] [place] [address] Dr. Brett Rosales Eosinophils/100 WBC (Bld) 1.5 % Normal 0.9-7.0 [facility] Comment on above: Performed By: #### C BC #### [facility] [address] [place] [address] Dr. Brett Rosales Erythrocyte distribution width (RBC) [Ratio] 13.2 % Normal 11.0-15.0 [facility] Comment on above: Performed By: #### C BC #### [facility] [address] [place] [address] Dr. Brett Rosales Hematocrit (Bld) [Volume fraction] 40.1 % Normal 36.0-48.0 [facility] Comment on above: Performed By: #### C BC #### [facility] [address] [place] [address] Dr. Brett Rosales Hemoglobin (Bld) [Mass/Vol] 12.9 g/dL Normal 12.0-16.0 [facility] Comment on above: Performed By: #### C BC #### [facility] [address] [place] [address] Dr. Brett Rosales IG # 0.01 10e3/ul Normal 0.00-0.[address] [facility] Comment on above: Performed By: #### C BC #### [facility] [address] [place] [address] Dr. Brett Rosales IG % 0.1 % Normal 0.0-0.[address] [facility] Comment on above: Performed By: #### C BC #### [facility] [address] [place] [address] Dr. Brett Rosales LYMPH # 2.5 103/ul Normal 1.2-3.[address] [facility] Comment on above: Performed By: #### C BC #### [facility] [address] [place] [address] Dr. Brett Rosales Lymphocytes/100 WBC (Bld) 30.3 % Normal 20.5-60.0 [facility] Comment on above: Performed By: #### C BC #### [facility] [address] [place] [address] Dr. Brett Rosales MANUAL DIFF REQ NO Normal [facility] Comment on above: Performed By: #### C BC #### [facility] [address] [place] [address] Dr. Brett Rosales MCH (RBC) [Entitic mass] 30.6 pg Normal 26.7-34.0 [facility] Comment on above: Performed By: #### C BC #### [facility] [address] [place] [address] Dr. Brett Rosales MCHC (RBC) [Mass/Vol] 32.2 g/dL Normal 29.9-35.[address] [facility] Comment on above: Performed By: #### C BC #### [facility] [address] [place] [address] Dr. Brett Rosales MCV (RBC) [Entitic vol] 95.0 fL Normal 81.0-99.0 [facility] Comment on above: Performed By: #### C BC #### [facility] [address] [place] [address] Dr. Brett Rosales MONO # 0.9 103/ul Critically high 0.3-0.8 [facility] Comment on above: Performed By: #### C BC #### [facility] [address] [place] [address] Dr. Brett Rosales Monocytes/100 WBC (Bld) 10.4 % Normal 1.7-12.0 [facility] Comment on above: Performed By: #### C BC #### [facility] [address] [place] [address] Dr. Brett Rosales NEUT # 4.6 103/ul Normal 1.4-6.5 [facility] Comment on above: Performed By: #### C BC #### [facility] [address] [place] [address] Dr. Brett Rosales Neutrophils/100 WBC (Bld) 56.7 % Normal 43.0-75.0 [facility] Comment on above: Performed By: #### C BC #### [facility] [address] [place] [address] Dr. Brett Rosales Platelet mean volume (Bld) [Entitic vol] 11.0 fL Normal 9.5-13.5 [facility] Comment on above: Performed By: #### C BC #### [facility] [address] [place] [address] Dr. Brett Rosales PLT 262 103/ul Normal 150-450 [facility] Comment on above: Performed By: #### C BC #### [facility] [address] [place] [address] Dr. Brett Rosales RBC 4.22 106/ul Normal 4.20-5.40 [facility] Comment on above: Performed By: #### C BC #### [facility] [address] [place] [address] Dr. Brett Rosales WBC 8.2 103/ul Normal 4.0-11.0 [facility] Comment on above: Performed By: #### C BC #### [facility] [address] [place] [address] Dr. Brett Rosales PROF 14(COMP METB)on 022 Albumin [Mass/Vol] 3.5 g/dL Normal 3.4-5.0 [facility] Comment on above: Performed By: #### C MP #### [facility] [address] [place] [address] Dr. Brett Rosales Albumin/Globulin [Mass ratio] 1.0 {ratio} Normal [facility] Comment on above: Performed By: #### C MP #### [facility] [address] [place] [address] Dr. Brett Rosales ALP [Catalytic activity/Vol] 94 U/L Normal 46-116 [facility] Comment on above: Performed By: #### C MP #### [facility] [address] [place] [address] [address] Brett Rosales ALT [Catalytic activity/Vol] 25 U/L Normal 14-59 [facility] Comment on above: Performed By: #### C MP #### [facility] [address] [place] [address] [address] Brett Rosales Anion gap [Moles/Vol] 9.4 mmol/L Normal [facility] Comment on above: Performed By: #### C MP #### [facility] [address] [place] [address] [address] Brett Rosales AST [Catalytic activity/Vol] 21 U/L Normal 15-37 [facility] Comment on above: Performed By: #### C MP #### [facility] [address] [place] [address] [address] Brett Rosales Bilirubin [Mass/Vol] 0.3 mg/dL Normal 0.2-1.0 [facility] Comment on above: Performed By: #### C MP #### [facility] [address] [place] [address] [address] Brett Rosales Calcium [Mass/Vol] 9.1 mg/dL Normal 8.5-10.1 [facility] Comment on above: Performed By: #### C MP #### [facility] [address] [place] [address] [address] Brett Rosales Chloride [Moles/Vol] 106 mmol/L Normal 98-[address] [facility] Comment on above: Performed By: #### C MP #### [facility] [address] [place] [address] [address] Brett Rosales CO2 [Moles/Vol] 31.2 mmol/L Normal 21.0-32.0 [facility] Comment on above: Performed By: #### C MP #### [facility] [address] [place] [address] [address] Brett Rosales Creatinine [Mass/Vol] 0.69 mg/dL Normal 0.55-1.02 [facility] Comment on above: Performed By: #### C MP #### [facility] [address] [place] [address] [address] Brett Rosales EGFR-AF COLOMBIAN >60 Normal >=60 [facility] Comment on above: Performed By: #### C MP #### [facility] [address] [place] [address] [address] Brett Rosales EGFR-NON AF COLOMBIAN >60 Normal >=60 [facility] Comment on above: Performed By: #### C MP #### [facility] [address] [place] [address] [address] Brett Rosales Globulin (S) [Mass/Vol] 3.5 g/dL Normal [facility] Comment on above: Performed By: #### C MP #### [facility] [address] [place] [address] [address] Brett Rosales Glucose [Mass/Vol] 108 mg/dL Critically high 74-106 [facility] Comment on above: Performed By: #### C MP #### [facility] [address] [place] [address] [address] Brett Rosales Potassium [Moles/Vol] 3.6 mmol/L Normal 3.5-5.1 [facility] Comment on above: Performed By: #### C MP #### [facility] [address] [place] [address] Dr. Brett Rosales Protein [Mass/Vol] 7.0 g/dL Normal 6.4-8.2 [facility] Comment on above: Performed By: #### C MP #### [facility] [address] [place] [address] [address] Brett Rosales Sodium [Moles/Vol] 143 mmol/L Normal 136-145 [facility] Comment on above: Performed By: #### C MP #### [facility] [address] [place] [address] [address] Brett Rosales Urea nitrogen [Mass/Vol] 14.0 mg/dL Normal 7.0-18.0 [facility] Comment on above: Performed By: #### C MP #### [facility] [address] [place] [address] [address] Brett Rosales Urea nitrogen/Creatinine [Mass ratio] 20.3 mg/mg Normal [facility] Comment on above: Performed By: #### C #### [facility] [address] [place], [place] [address] Dr. Brett Rosales XR CHEST 2 Von [...] LIAT WEBSTER Date: 2022-02-24 08:15 Normal [facility] MAMM SCREEN 3D LIBERTAD CADon 02-15-2022 MG MAMM SCREEN 3D LIBERTAD CAD Patient: JAYDE HERNANDEZ Exam Date: 02/15/2022 : 1965 Gender:F Ordering : DR CINDY RODRÍGUEZ Admission #: [id number] Family : DR JOHNY WINTERS D.O. Order #: [id number] CLICK HERE TO VIEW EXAM RADIOLOGY REPORT [...] breast cancer at age 63. LOCATION: [facility] BREAST COMPOSITION: Scattered areas fibroglandular density. FINDINGS: [...] M.D. on 02/16/2022 at 13:[address] [facility] CBC AUTO DIFFon 11-16-2021 BASO # 0.1 103/ul Normal 0.0-0.1 [facility] Comment on above: Performed By: #### C BC #### [facility] [address] [place] [address] Dr. Brett Rosales Basophils/100 WBC (Bld) 0.7 % Normal 0.2-2.0 [facility] Comment on above: Performed By: #### C BC #### [facility] [address] [place] [address] Dr. Brett Rosales EO # 0.1 103/ul Normal 0.0-0.7 [facility] Comment on above: Performed By: #### C BC #### [facility] [address] [place] [address] Dr. Brett Rosales Eosinophils/100 WBC (Bld) 1.7 % Normal 0.9-7.0 [facility] Comment on above: Performed By: #### C BC #### [facility] [address] [place] [address] Dr. Brett Rosales Erythrocyte distribution width (RBC) [Ratio] 13.2 % Normal 11.0-15.0 [facility] Comment on above: Performed By: #### C BC #### [facility] [address] [place] [address] Dr. Brett Rosales Hematocrit (Bld) [Volume fraction] 38.9 % Normal 36.0-48.0 [facility] Comment on above: Performed By: #### C BC #### [facility] [address] [place] [address] Dr. Brett Rosales Hemoglobin (Bld) [Mass/Vol] 12.5 g/dL Normal 12.0-16.0 [facility] Comment on above: Performed By: #### C BC #### [facility] [address] [place] [address] Dr. Brett Rosales IG # 0.02 10e3/ul Normal 0.00-0.03 [facility] Comment on above: Performed By: #### C BC #### [facility] [address] [place] [address] Dr. Brett Rosales IG % 0.2 % Normal 0.0-0.5 [facility] Comment on above: Performed By: #### C BC #### [facility] [address] [place] [address] Dr. Brett Rosales LYMPH # 2.9 103/ul Normal 1.2-3.8 [facility] Comment on above: Performed By: #### C BC #### [facility] [address] [place] [address] Dr. Brett Rosales Lymphocytes/100 WBC (Bld) 34.3 % Normal 20.5-60.0 [facility] Comment on above: Performed By: #### C BC #### [facility] [address] [place] [address] Dr. Brett Rosales MANUAL DIFF REQ NO Normal [facility] Comment on above: Performed By: #### C BC #### [facility] [address] [place] [address] Dr. Brett Rosales MCH (RBC) [Entitic mass] 31.0 pg Normal 26.7-34.0 [facility] Comment on above: Performed By: #### C BC #### [facility] [address] [place] [address] Dr. Brett Rosales MCHC (RBC) [Mass/Vol] 32.1 g/dL Normal 29.9-35.2 [facility] Comment on above: Performed By: #### C BC #### [facility] [address] [place] [address] Dr. Brett Rosales MCV (RBC) [Entitic vol] 96.5 fL Normal 81.0-99.0 [facility] Comment on above: Performed By: #### C BC #### [facility] [address] [place] [address] Dr. Brett Rosales MONO # 0.7 103/ul Normal 0.3-0.[address] [facility] Comment on above: Performed By: #### C BC #### [facility] [address] [place] [address] [address] Brett Rosales Monocytes/100 WBC (Bld) 8.5 % Normal 1.7-12.0 [facility] Comment on above: Performed By: #### C BC #### [facility] [address] [place] [address] [address] Brett Rosales NEUT # 4.6 103/ul Normal 1.4-6.5 [facility] Comment on above: Performed By: #### C BC #### [facility] [address] [place] [address] [address] Brett Rosales Neutrophils/100 WBC (Bld) 54.6 % Normal 43.0-75.0 [facility] Comment on above: Performed By: #### C BC #### [facility] [address] [place] [address] Dr. Brett Rosales Platelet mean volume (Bld) [Entitic vol] 10.7 fL Normal 9.5-13.5 [facility] Comment on above: Performed By: #### C BC #### [facility] [address] [place] [address] Dr. Brett Rosales PLT 276 103/ul Normal 150-450 [facility] Comment on above: Performed By: #### C BC #### [facility] [address] [place] [address] [address] Brett Rosales RBC 4.03 106/ul Critically low 4.20-5.40 [facility] Comment on above: Performed By: #### C BC #### [facility] [address] [place] [address] [address] Brett Rosales WBC 8.5 103/ul Normal 4.0-11.[address] [facility] Comment on above: Performed By: #### C BC #### [facility] [address] [place] [address] [address] Brett Rosales PROF 14(COMP METB)on 022 Albumin [Mass/Vol] 3.5 g/dL Normal 3.4-5.0 [facility] Comment on above: Performed By: #### C MP #### [facility] [address] [place] [address] [address] Brett Rosales Albumin/Globulin [Mass ratio] 1.1 {ratio} Normal [facility] Comment on above: Performed By: #### C MP #### [facility] [address] [place] [address] [address] Brett Rosales ALP [Catalytic activity/Vol] 75 U/L Normal 46-116 [facility] Comment on above: Performed By: #### C MP #### [facility] [address] [place] [address] Dr. Brett Rosales ALT [Catalytic activity/Vol] 27 U/L Normal 14-59 [facility] Comment on above: Performed By: #### C MP #### [facility] [address] [place] [address] Dr. Brett Rosales Anion gap [Moles/Vol] 9.3 mmol/L Normal [facility] Comment on above: Performed By: #### C MP #### [facility] [address] [place] [address] Dr. Brett Rosales AST [Catalytic activity/Vol] 22 U/L Normal 15-37 [facility] Comment on above: Performed By: #### C MP #### [facility] [address] [place] [address] Dr. Brett Rosales Bilirubin [Mass/Vol] 0.4 mg/dL Normal 0.2-1.3 [facility] Comment on above: Performed By: #### C MP #### [facility] [address] [place] [address] Dr. Brett Rosales Calcium [Mass/Vol] 8.4 mg/dL Critically low 8.5-10.1 Th [facility] Comment on above: Performed By: #### C MP #### [facility] [address] [place] [address] Dr. Brett Rosales Chloride [Moles/Vol] 105 mmol/L Normal 98-107 [facility] Comment on above: Performed By: #### C MP #### [facility] [address] [address] [address] Brett Rosales CO2 [Moles/Vol] 31.1 mmol/L Critically high 22.0-30.[address] [facility] Comment on above: Performed By: #### C MP #### [facility] [address] [address] [address] Brett Rosales Creatinine [Mass/Vol] 0.73 mg/dL Normal 0.52-1.[address] [facility] Comment on above: Performed By: #### C MP #### [facility] [address] [address] [address] Brett Rosales EGFR-AF COLOMBIAN >60 Normal >=60 [facility] Comment on above: Performed By: #### C MP #### [facility] [address] [place] [address] Dr. Brett Rosales EGFR-NON AF COLOMBIAN >60 Normal >=60 [facility] Comment on above: Performed By: #### C MP #### [facility] [address] [address] [address] Brett Rosales Globulin (S) [Mass/Vol] 3.2 g/dL Normal [facility] Comment on above: Performed By: #### C MP #### [facility] [address] [place] [address] Dr. Brett Rosales Glucose [Mass/Vol] 105 mg/dL Normal 74-106 [facility] Comment on above: Performed By: #### C MP #### [facility] [address] [place] [address] Dr. Brett Rosales Potassium [Moles/Vol] 3.4 mmol/L Normal 3.4-5.[address] [facility] Comment on above: Performed By: #### C MP #### [facility] [address] [place] [address] Dr. Brett Rosales Protein [Mass/Vol] 6.7 g/dL Normal 6.1-8.2 [facility] Comment on above: Performed By: #### C MP #### [facility] [address] [place] [address] Dr. Brett Rosales Sodium [Moles/Vol] 142 mmol/L Normal 137-145 [facility] Comment on above: Performed By: #### C MP #### [facility] [address] [address] [address] Brett Rosales Urea nitrogen [Mass/Vol] 12.0 mg/dL Normal 7.0-18.0 [facility] Comment on above: Performed By: #### C MP #### [facility] [address] [address] [address] Brett oRsales Urea nitrogen/Creatinine [Mass ratio] 16.4 mg/mg Normal [facility] Comment on above: Performed By: #### C MP #### [facility] [address] [address] [address] Brett Rosales MRI LSPINE WO W CONon 2021 MRI [place]SP[place] WO W CON [place]AMINATION[place] H[place]ORY: Lumbosacral spondylosis with [...] by: DENYS WALLACE Date: 2021-09-09 15:31 Normal [facility] Vital Signs Date Time Vital Sign Value Performing Clinician Facility 03-17-2025 13:15-0400 Body height 152.4 cm Johny [email or web address] DO Work Phone: [facility] 03-17-2025 13:15-0400 Body mass index (BMI) [Ratio] 27.1 kg/m2 Johny [email or web address] DO Work Phone: [facility] 03-17-2025 13:15-0400 Body weight 63.04 kg Johny [email or web address] DO Work Phone: [facility] 03-17-2025 13:15-0400 Diastolic blood pressure 80 mm[Hg] Johny Ball DO Work Phone: [facility] 03-17-2025 13:15-0400 Heart rate 83 /min Johny Ball DO Work Phone: [facility] 03-17-2025 13:15-0400 Respiratory rate 16 /min Johny Ball DO Work Phone: [facility] 03-17-2025 13:15-0400 SaO2% (BldA) [Mass fraction] 95 % Johny Ball DO Work Phone: [facility] 03-17-2025 13:15-0400 Systolic blood pressure 120 mm[Hg] Johny [email or web address] DO Work Phone: [facility] 12-31-2024 10:37-0400 Body height 152.4 cm Cindy Rodríguez [employer] Work Phone: [facility] 12-31-2024 10:37-0400 Body mass index (BMI) [Ratio] 27.15 kg/m2 Cindy Rodríguez [employer] Work Phone: [facility] 12-31-2024 10:37-0400 Body weight 63.05 kg Cindy Rodríguez DO Work Phone: [facility] 12-31-2024 10:37-0400 Diastolic blood pressure 72 mm[Hg] Cindy Rodríguez DO Work Phone: [facility] 12-31-2024 10:37-0400 Systolic blood pressure 116 mm[Hg] Cindy Rodríguez DO Work Phone: [facility] 09-19-2024 10:36-0500 Body height 152.4 cm Chinyere Lowe PA Work Phone: [facility] 09-19-2024 10:36-0500 Body mass index (BMI) [Ratio] 27.15 kg/m2 Chinyere Lowe PA Work Phone: [facility] 09-19-2024 10:36-0500 Body weight 63.05 kg Chinyere Lowe PA Work Phone: [facility] 09-19-2024 10:36-0500 Diastolic blood pressure 64 mm[Hg] Chinyere Lowe PA Work Phone: [facility] 09-19-2024 10:36-0500 Systolic blood pressure 142 mm[Hg] Chinyere Lowe PA Work Phone: [facility] 04-04-2024 09:32-0400 Body height 152.4 cm Chinyere Lowe PA Work Phone: [facility] 04-04-2024 09:32-0400 Body mass index (BMI) [Ratio] 27.73 kg/m2 Chinyere Lowe PA Work Phone: [facility] 04-04-2024 09:32-0400 Body weight 64.41 kg Chinyere Lowe PA Work Phone: [facility] 04-04-2024 09:32-0400 Diastolic blood pressure 70 mm[Hg] Chinyere Lowe PA Work Phone: [facility] 04-04-2024 09:32-0400 Systolic blood pressure 132 mm[Hg] Chinyere Lowe PA Work Phone: [facility] 09-06-2023 09:48-0500 Body height 152.4 cm DO Johny Ball Work Phone: [facility] 09-06-2023 09:48-0500 Body weight 60.78 kg DO Johny Ball Work Phone: [facility] 07-12-2023 11:28-0500 Body height 152.4 cm DO Johny Ball Work Phone: [facility] 07-12-2023 11:28-0500 Body weight 60.78 kg DO Johny Ball Work Phone: [facility] 03-01-2023 10:00-0400 Body height 154.94 cm Johny Ball Other [facility] Other 03-01-2023 10:00-0400 Body mass index (BMI) [Ratio] 26.15 kg/m2 Johny Ball Other [employer] Other 03-01-2023 10:00-0400 Body weight 62.78 kg Johny Ball Other [employer] Other 03-01-2023 10:00-0400 Diastolic blood pressure 74 mm[Hg] Johny Ball Other [employer] Other 03-01-2023 10:00-0400 Respiratory rate 12 /min Johny Ball Other [employer] Other 03-01-2023 10:00-0400 Systolic blood pressure 138 mm[Hg] Johny Ball Other [employer] Other 11-02-2021 14:20-0400 Body height 154.94 cm Ezequiel Agudelo Other [employer] Other 11-02-2021 14:20-0400 Body mass index (BMI) [Ratio] 25.69 kg/m2 Ezequiel Agudelo Other [employer] Other 11-02-2021 14:20-0400 Body weight 61.69 kg Ezequiel Agudelo Other [employer] Other Encounters Encounter Date Encounter Type Care Provider Facility Start: 03-17-2025 End: 03-17-2025 ambulatory Johny Winters DO Work Phone: [facility] Work Phone: Start: 03-17-2025 End: 03-17-2025 Patient encounter procedure Jennifer Ward [employer] [facility] [place] Work Phone: Start: 12-31-2024 End: 12-31-2024 Patient encounter status Cindy Rodríguez DO Work Phone: [facility] Start: 12-31-2024 End: 12-31-2024 Periodic preventive med est patient 40-64yrs Cindy Rodríguez DO Work Phone: [facility] Comment on above: Encounter for gyneco logical examination without abnormal finding; Encounter for Papanicolaou smear of vagina; Breast cancer screening by mammogram; Osteoporosis, post-menopausal (CMS/HCC) Start: 12-31-2024 End: 12-31-2024 ambulatory CINDY RODRÍGUEZ Not Available Start: 10-21-2024 End: 10-21-2024 Emergency department patient visit JOHNY WINTERS Facility:[facility] Start: 09-19-2024 End: 09-19-2024 Bamboo Scann[employer]heet Chinyere Lowe PA Work Phone: [facility] [place] Start: 09-19-2024 End: 09-19-2024 Bamboo Scann[employer]heet Chinyere Lowe PA Work Phone: [facility] [place] Start: 09-19-2024 End: 09-19-2024 Office outpatient visit 15 minutes Chinyere Lowe PA Work Phone: [facility] Comment on above: Multiple sclerosis ( CMS/HCC) (Primary Dx); Fatigue, unspecified type; Degenerative disc disease, cervical; Vertigo Start: 09-19-2024 End: 09-19-2024 ambulatory CHINYERE LOWE Not Available Start: 04-04-2024 End: 04-04-2024 Bamboo flowsheet Chinyere Lowe PA Work Phone: [email or web address] [facility] Start: 04-04-2024 End: 04-04-2024 Bamboo flowsheet Chinyere Lowe PA Work Phone: [email or web address] [facility] Start: 04-04-2024 End: 04-04-2024 Office outpatient visit 25 minutes Chinyere Cruze PA Work Phone: [email or web address] [facility] Comment on above: Multiple sclerosis ( CMS/HCC) (Primary Dx); Fatigue, unspecified type; Degenerative disc disease, cervical; Degenerative disc disease, lumbar; Lumbar radiculopathy; Transient alteration of awareness Start: 04-04-2024 End: 04-04-2024 ambulatory CHINYERE LOWE Not Available Start: 09-06-2023 End: 09-06-2023 ambulatory Chinyere Lowe Facility:[facility] Start: 09-06-2023 End: 09-06-2023 ambulatory DO Johny Ball Work Phone: [facility] Work Phone: Start: 09-06-2023 End: 09-06-2023 Patient encounter procedure DO Johny Ball Work Phone: [facility] [place] Work Phone: Start: 07-12-2023 End: 07-12-2023 ambulatory Johny Ball Facility:[facility] Start: 07-12-2023 End: 07-12-2023 Patient encounter procedure DO Johny Ball Work Phone: [facility] [place] Work Phone: Start: 04-07-2023 End: 04-07-2023 ambulatory Johny Ball Other [employer] Other Start: 04-07-2023 Nursing evaluation o f patient and report Johny Singh [facility] Start: 03-01-2023 End: 03-01-2023 ambulatory Johny Winters Other [employer] Other Start: 03-01-2023 Encounter for genera l adult medical examination without abnormal findings Johny Winters [facility] Start: 03-01-2023 Periodic preventive med est patient 40-64yrs Johny Singh [facility] Start: 12-24-2022 End: 12-24-2022 ambulatory Johny Winters Other [employer] Other Start: 12-24-2022 Telephone encounter Johny Winters [facility] Start: 05-10-2022 End: 05-11-2022 ambulatory CHINYERE LIVE Facility:[facility] Start: 02-23-2022 End: 02-24-[address] JOHNY WINTERS Facility:[facility] Start: 02-15-2022 End: 02-16-[address] CINDY RODRÍGUEZ Facility:[facility] Start: 11-16-2021 End: 11-17-[address] DENYS JACKSON Facility:[facility] Start: 11-02-2021 End: 11-02-2021 ambulatory Ezequiel Agudelo Other [employer] Other Start: 11-02-2021 Office outpatient ne w 45 minutes Ezequiel Agudelo [facility] Start: 09-09-2021 End: 09-10-[address] JOHNY WINTERS Facility:[facility] Start: 08-30-2021 End: 08-30-[address] JOHNY WINTERS Facility:[facility] Procedures Date Procedure Procedure Detail Performing Clinician Start: 03-26-2024 Mammography Chinyere Anthony dial PA Work Phone: Start: 09-06-2023 MRI of cervical spin e with contrast DO Johny Winters Work Phone: Start: 09-06-2023 MRI of head DO Kylerey Winters Work Phone: Start: 07-12-2023 MRI of thoracic spin e with contrast DO Johny Winters Work Phone: Start: 07-12-2023 XR pre/post mri xray DO Johny Winters Work Phone: Plan of Treatment Date Care Activity Detail Author Start: 12-11-2028 Screening for malignant neoplasm of cervix [facility] Start: 03-27-2025 End: 03-02-2026 DBT Breast - bilateral screening Bilateral screening mammogram with tomosynthesis Imaging Routine Breast cancer screening by mammogram Expected: 03/27/2025, Expires: 03/02/2026 [facility] Comment on above: Expected: 03/27/2025 , Expires: 03/02/2026 Start: 03-26-2025 Screening for malignant neoplasm of breast Mammogram [facility] Start: 03-18-2025 Screening for malignant neoplasm of colon [facility] Start: 12-17-2024 End: 12-17-2024 Patient encounter procedure [facility] Start: 09-19-2024 End: 09-19-2024 Patient encounter procedure 09/19/2024 10:40 AM EST Office Visit [facility] [place] [address] [place] [phone] Chinyere Live PA [address] [place] [address] Arrived [facility] Comment on above: Arrived Start: 06-26-2024 End: 06-26-2024 Patient encounter procedure 06/26/2024 10:40 AM EST Office Visit [facility] [address] [place] [phone] Chinyere Live PA [address] [place] [address] [facility] [place] [facility] Start: 04-04-2024 End: 04-04-2024 Patient encounter procedure 04/04/2024 9:40 AM EDT Office Visit [facility] [place] [address] Chinyere Live PA [address] [place] [address] Arrived [facility] [place] [facility] Comment on above: Arrived Start: 03-31-2024 Influenza vaccination Influenza Vacc ine (#1) [facility] Start: 01-22-1984 Screening for malignant neoplasm of cervix Pap Smear [facility] Start: 1965 Screening for malignant neoplasm of colon [facility] IGP,rfxAptima HPV all,16/18,45 IGP,rfxAptima HPV all,16/18,45 Pathology and Cytology Routine Encounter for Papanicolaou smear of vagina Ordered: 12/31/2024 [facility] Work Phone: Comment on above: Ordered: 12/31/2024 Immunizations Immunization Date Immunization Notes Care Provider Neda falk 04-08-2024 influenza, seasonal, injectable, preservative free Cindy Rodríguez DO Work Phone: [facility] 04-07-2023 influenza, injectabl e, quadrivalent, preservative free Johny Winters Other [facility] 04-07-2023 influenza virus vaccine, unspecified formulation Chinyere ZUNIGA Work Phone: [facility] 05-06-2022 influenza virus vaccine, split virus (incl. purified surface antigen) Johny Winters Other [facility] Other 05-06-2022 influenza virus vaccine, unspecified formulation Johny Winters DO Work Phone: [facility] 05-06-2022 Influenza, injectabl e, Madin Anam Canine Kidney, preservative free, quadrivalent Chinyere ZUNGIA Work Phone: [facility] 05-06-2022 influenza, injectabl e, quadrivalent, preservative free Johny Winters DO Work Phone: [facility] 05-06-2022 influenza, injectabl e, quadrivalent, contains preservative Johny Winters Other [facility] Other 12-01-2021 influenza, injectabl e, quadrivalent, preservative free Chinyere ZUNIGA Work Phone: [facility] 04-14-2021 influenza virus vaccine, split virus (incl. purified surface antigen) Johny Winters Other [facility] Other 04-14-2021 influenza virus vaccine, unspecified formulation Johny Winters DO Work Phone: [facility] 04-17-2020 pneumococcal polysaccharide vaccine, 23 valent Johny Winters Other [facility] 12-31-2019 pneumococcal conjuga te vaccine, 13 valent Johny Winters Other [facility] 08-13-2019 influenza, injectabl e, madin anam canine kidney, preservative free Chinyere Lowe PA Work Phone: [facility] 04-08-2019 influenza virus vaccine, split virus (incl. purified surface antigen) Johny Winters Other [facility] Other 04-08-2019 influenza virus vaccine, unspecified formulation Johny Winters DO Work Phone: [facility] 04-08-2019 Influenza, injectabl e, Madin Anam Canine Kidney, quadrivalent with preservative Chinyere Lowe PA Work Phone: [facility] 07-05-2018 Influenza, injectabl e, Madin [place] Canine Kidney, preservative free, quadrivalent Chinyere Lowe PA Work Phone: [facility] 05-05-2017 influenza virus vaccine, split virus (incl. purified surface antigen) Johny Winters Other [facility] Other 05-05-2017 influenza virus vaccine, unspecified formulation Johny Winters DO Work Phone: [facility] 05-05-2017 influenza, high dose seasonal, preservative-free Chinyere Lowe PA Work Phone: [facility] 06-06-2016 influenza, injectabl e, quadrivalent, preservative free Chinyere Lowe PA Work Phone: [facility] 05-04-2015 tetanus and diphther ia toxoids, adsorbed, preservative free, for adult use (5 Lf of tetanus toxoid and 2 Lf of diphtheria toxoid) Johny Winters Other [facility] 04-30-2013 tetanus and diphther ia toxoids, adsorbed, preservative free, for adult use (5 Lf of tetanus toxoid and 2 Lf of diphtheria toxoid) Johny Winters Other [facility] Payers Date Payer Category Payer Self-pay [id number] 2018 Medicaid [facility] [employer] [place] [id number] 2018-Present [address] [place] [address] [id number] 2018 Private Health Insurance [facility] MEDICA[facility] [id number] 2018 Medicaid [id number] 1963 Unknown [id number] 59 1963 Unknown [id number]. 59 1963 Unknown [id number]. 593 1963 Unknown [id number]. 593 1963 Unknown [id number] [id number]. 593 1963 Unknown [id number] [id number]. 593 1963 Unknown [id number] [id number]. 9 1963 Unknown [id number] [id number]. 1259 1963 Unknown [id number] [id number]. 1259 1959 Unknown [id number] Private Health Insurance [facility] [id number] Unknown [id number] 531 Unknown [id number] 531 Social History Date Type Detail Facility Start: 12-12-2023 End: 12-31-2024 [facility] Other Start: 1965 Sex Assigned At Female [facility] Start: 12-11-2023 End: 04-04-2024 Tobacco smoking status NEIS Smokes tobacco daily [facility] History of tobacco use Cigarette Smoker [facility] Start: 12-11-2023 End: 12-31-2024 Cigarettes smoked current (pack per day) - Reported 1 [facility] Start: 12-11-2023 End: 04-04-2024 Tobacco use and exposure Smokeless tobacco non-user [facility] Start: 12-13-2023 End: 12-31-2024 Alcoholic beverage intake Lifetime non-drinker (finding) [facility] How often to you hav e a drink containing alcohol? Never [facility] How many standard drinks containing alcohol do you have on a typical day? Patient does not drink [facility] Start: 1965 Sex assigned at Not on file [facility] How often to you hav e a drink containing alcohol? Monthly or less [facility] How many standard drinks containing alcohol do you have on a typical day? 1 or 2 [facility] if ever smoked [facility] Work Phone: Sex Female (finding) [facility] Functional Status Date Assessment Result Facility 12-31-2024 Total score [AUDIT-C] 1 01/01/20 10:38 AM EDT Ramila Lima MA [facility] 12-31-2024 Patient Health Quest ionnaire 2 item (PHQ-2) [Reported] [facility] Clinical Notes 11-02-2021 to 12-31-2024 Zandra Mix MA - 12/31/2024 10:45 AM [place]IA [place] - 04/04/2024 9:40 AM EDT Note Date & Type Note Facility 12-31-2024 History of Present illness Narrative Images from the original note were not included. Cindy Rodríguez, DO Obstetrics and Gynecology Jayde Hernandez 1965 12/31/24 [id number] Yearly Wellness Exam Chief Complaint Patient presents with Gynecologic Exam LMP: SHER LSO 1997 HRT: None Last pap 12-12-23 neg. Last mammogram 03-26-24 [facility]. Denies breast, urinary, or bowel concerns. Dr. Banuelos switched her to Fosamax. Visit Vitals BP 116/72 Ht 5' Wt 139 lb BMI 27.15 kg/m OB Status Hysterectomy Smoking Status Every Day BSA 1.63 m OB History Para Term AB Living 1 1 1 SAB IAB Ectopic Multiple Live Births 1 # Outcome Date GA Lbr Yevgeniy/2nd Weight Sex Type Anes PTL Lv 1 Para 7 lb 2 oz M Vag-Spont DARIO Current Outpatient Medications Medication Sig Dispense Refill albuterol HFA 90 mcg/act inhaler INHALE 2 PUFFS EVERY 6 HOURS NEEDED FOR SHORTNESS OF BREATH OR WHEEZING gabapentin (Neurontin) 300 MG capsule TAKE 1 CAPSULE BY MOUTH TWICE A DAY AND 2 CAPSULES BY MOUTH AT BEDTIME 120 capsule 3 alendronate (Fosamax) 70 MG tablet Take 70 mg by mouth 1 (one) time per week amLODIPine (Norvasc) 5 MG tablet Take 5 mg by mouth Daily ASPIRIN 81 MG chewable tablet Chew 81 mg 1 (one) time atorvastatin (Lipitor) 20 MG tablet Take 20 mg by mouth Daily B Complex Vitamins (vitamin B complex) tablet as directed Orally baclofen (Lioresal) 10 MG tablet Take 10 mg by mouth at bedtime cholecalciferol (Vitamin D-3) 250 MCG (11501 UT) capsule Take 10,000 Units by mouth in the morning. ferrous sulfate 325 (65 Fe) MG tablet Take 325 mg by mouth in the morning. Take with meals. Krill Oil 500 MG capsule Take 1 capsule by mouth Daily lisinopril 5 MG tablet Take 5 mg by mouth Daily meclizine (Antivert) 25 MG tablet Take 25 mg by mouth every 12 (twelve) hours meloxicam (Mobic) 7.5 MG tablet Take 15 mg by mouth Daily Teriflunomide 14 MG tablet TAKE 1 TABLET DAILY 30 tablet 3 No current facility-administered medications for this visit. No Known Allergies Past Surgical History: Procedure Laterality Date CT ANGIOGRAM ABDOMEN PELVIS 10/21/2024 CT ANGIOGRAM ABDOMEN PELVIS 10/21/2024 HYSTERECTOMY 08/06/1997 SHER LSO Past Medical History: Diagnosis Date Arthritis Carcinoma in situ of cervix 1997 COPD (chronic obstructive pulmonary disease) (CMS/HCC) Fibrocystic breast Hx of herpes genitalis Hypertension (CMS/HCC) Mitral valve prolapse Multiple sclerosis (CMS/HCC) ROS Const: Denies appetite change, fever, chills. Allergy: Denies medication reaction. Ocular: Denies visual acuity change. ENT: Denies hearing change. Endoc: Denies weight loss. Resp: Denies dyspnoea, wheezing. Cardiac: Denies angina, palpitations. GI: Denies nausea, vomiting. Haem: Denies bleeding. : Denies incontinence. MSK: Denies arthralgias, joint oedema. Derm: Denies rash, hair loss. Neuro: Denies ataxia, tremor. Also see HPI for elements of ROS documented therein and for details of positive findings, which shall supersede the foregoing. EXAM GENERAL EXAMINATION alert oriented well developed, well nourished. HEAD: normocephalic atraumatic. EYES: sclera anicteric. EARS: no obvious hearing deficit. NECK/THYROID: neck supple no cervical lymphadenopathy no thyromegaly. LYMPH NODES: no axillary, supraclavicular or inguinal adenopathy. SKIN: warm and dry. HEART: regular rate and rhythm. LUNGS: clear to auscultation bilaterally. CHEST:axillary nodes grossly normal. BREASTS:no masses palpable bilaterally, normal nipples bilaterally - everted -fatty replaced - dense - well supported- axilla negative. ABDOMEN: soft, nontender, nondistended, no masses palpable. BACK: no costovertebral angle tenderness, no obvious scoliosis/kyphosis. 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 EXTREMITIES no edema. NEUROLOGIC: alert and oriented. PSYCH: cooperative with exam. ICD-10-CM 1. Encounter for gynecological examination without abnormal finding Z01.419 Pelvic and breast exam completed. Findings of today's exam discussed with the patient. Continue MSBE. Ca/Vit D recommendations reviewed with the patient. The patient is to contact the office with any changes to her gynecological condition or any changes with breast or bleeding. The patient is to return in 1 year or as needed 2. Encounter for Papanicolaou smear of vagina Z12.72 IGP,rfxAptima HPV all,16/18,45 Thinprep collected. Will notify patient if results are abnormal. 3. Breast cancer screening by mammogram Z12.31 Bilateral screening mammogram with tomosynthesis Screening mammogram ordered. Patient to call and schedule. 4. 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 Cindy Rodríguez. Signature Zandra Mix MA Date 12/31/24 . Time 10:43 AM . The documentation recorded by the scribe accurately reflects the service(s) I personally performed and the decisions I made. Signature Samra Rodríguez D.O. Date 12/31/24 Time 5:00PM. documented in this encounter [facility] 10-21-2024 Note HNO ID: [id number] Author: ARCADIO MOREL JR, TECHNOLOGIST Service: Radiology Author Type: Technologist Type: Progress Notes Filed: 10/21/2024 15:41 Note Text: Radiology Service Progress Note DATE OF SERVICE: October 21, 2024 TIME: 3:40 PM PATIENT IDENTITY VERIFICATION COMPLETED USING TWO (2) STANDARD IDENTIFIERS: Name and Date of confirmed by patient verbally and Name and Date of confirmed by identification band. FALL SCREENING: Has the patient had 2 falls in the last year or 1 fall with injury or currently using an Ambulatory Assistive Device (Walker, Cane, Wheelchair, Crutches, etc.)? Emergency Room Patient: Screened in ED PATIENT GENDER DATA: Assigned female at . status: : No status: NO. PATIENT RELEVANT IMPLANT DATA REVIEWED: Yes PATIENT PRESENTS WITH AN IMPLANTABLE OR ATTACHED CHILD CAREGIVER PRIVATE HOME: No ALLERGIES: Reviewed and unchanged CONTRAST ALLERGY: NO. EXAM: CT -CONTRAST INDUCED NEPHROPATHY RISK FACTORS: Patient age > 60 years CREATININE: Creatinine Date Value Ref Range Status 10/21/2024 0.70 0.58 - 0.96 mg/dL Final Estimated Glomerular Filtration Rate Date Value Ref Range Status 10/21/2024 99 >=60 mL/min/1.73m? Final Comment: Estimated Glomerular Filtration Rate (eGFR) is calculated using the 2020 CKD-EPI creatinine equation. This equation utilizes serum creatinine, sex, and age as parameters. The creatinine assay has traceable calibration to isotope dilution-mass spectrometry. Refer to KDIGO guidelines for clinical interpretation. In patients with unstable renal function, e.g. those with acute kidney injury, the eGFR may not accurately reflect actual GFR. P.O.C.T. RESULTS: POC done: Yes, See Lab Tab October 21, 2024 TREATMENT: N/A PERIPHERAL IV DATA: Inpatient - refer to LDA documentation RADIOLOGY DEPARTMENT: CT; Exam(s) Completed: ICU dissection protocol SIGNATURE: HERIBERTO Wood JrOLOGIST PATIENT NAME: Jayde Hernandez DATE: October 21, 2024 TIME: 3:[address] [facility] 04-04-2024 History of Present illness Narrative Subjective Jayde Hernandez is a 59 y.o. year old female Chief Complaint Patient presents with Multiple Sclerosis Past Medical History: Diagnosis Date Arthritis Carcinoma in situ of cervix 1997 COPD (chronic obstructive pulmonary disease) (CMS/HCC) 2022 Fibrocystic breast Hx of herpes genitalis Hypertension (CMS/HCC) Mitral valve prolapse Multiple sclerosis (CMS/HCC) Past Surgical History: Procedure Laterality Date HYSTERECTOMY 08/06/1997 [facility] LSO Family History Problem Relation Name Age [...] Review Audit Reviewed by Betty Singleton MA (Flying Instructor) on 04/04/24 at 0935 Medication Order Taking? Sig Documenting Provider Last Dose Status alendronate (Fosamax) 70 MG tablet [id number] Take 70 mg by mouth 1 (one) time per week NADIA Enriquez Active amLODIPine (Norvasc) 5 MG tablet [id number] Take 5 mg by mouth Daily NADIA Enriquez Active ASPIRIN 81 MG chewable tablet [id number] Chew 81 mg 1 (one) time NADIA Enriquez Active atorvastatin (Lipitor) 20 MG tablet [id number] Take 20 mg by mouth Daily NADIA Enriquez Active Aubagio 14 MG tablet [id number] 1 tablet Daily NADIA Enriquez Active B Complex Vitamins (vitamin B complex) tablet [id number] as directed Orally Cindy Rodríguez DO Active baclofen (Lioresal) 10 MG tablet [id number] Take 10 mg by mouth at bedtime NADIA Enriquez Active cholecalciferol (Vitamin D-3) 250 MCG (01660 UT) capsule [id number] Take 10,000 Units by mouth in the morning. Cindy Rodríguez DO Active ferrous sulfate 325 (65 Fe) MG tablet [id number] Take 325 mg by mouth in the morning. Take with meals. NADIA Enriquez Active gabapentin (Neurontin) 300 MG capsule [id number] TAKE 1 CAPSULE BY MOUTH TWICE A DAY AND 2 CAPSULES BY MOUTH AT BEDTIME NADIA Enriquez Active Krill Oil 500 MG capsule [id number] Take 1 capsule by mouth Daily NADIA Enriquez Active lisinopril 5 MG tablet [id number] Take 5 mg by mouth Daily NADIA Enriquez Active meclizine (Antivert) 25 MG tablet [id number] Take 25 mg by mouth every 12 (twelve) hours NADIA Enriquez Active meloxicam (Mobic) 7.5 MG tablet [id number] Take 15 mg by mouth Daily NADIA Enriquez Active raloxifene (Evista) 60 MG tablet [id number] No Take 1 tablet (60 mg) by [...] triceps, wrist extensors, wrist extensors, wrist flexor, wire bound box machine operator strength 5/5. LUE Strength deltoid, biceps, triceps, wrist extensors, wrist extensors, wrist flexor, wire bound box machine operator strength 5/5. RLE Strength illopsoas, quadriceps, tibialis [...] Lumbar radiculopathy Bilateral lower extremity EMG from 2018 revealed bilateral mild S1 radiculopathies. MRI of [...] in 2 months documented in this encounter [facility] 03-01-2023 Evaluation note Encounter Date Diagnosis Assessment [...] mammogram for breast cancer (ICD-10 - Z12.31) Director Records Management sending order for mammogram Instructed on monthly SBE [employer] Other 04-05-2022 Evaluation note* Encounter Date Diagnosis Assessment Notes Treatment Notes Treatment Clinical Notes Oct, Multiple sclerosis (ICD-10 - G35) [...] stable Oct, Lumbar radiculopathy (ICD-10 - M54.16) [employer] Other evaluation noteNo InformationNort [facility] Other Evaluation noteNo assessment information available [facility] Work Phone: Evaluation note* Diagnosis Multiple sclerosis (CMS/HCC)- Primary Multiple sclerosis Fatigue, unspecified type Degenerative disc disease, cervical Degenerative disc disease, lumbar Lumbar radiculopathy Thoracic or lumbosacral neuritis or radiculitis, unspecified Transient alteration of awareness documented in this encounter [facility] HealthcareEvaluation note* Diagnosis Multiple sclerosis (CMS/HCC)- Primary Multiple sclerosis Fatigue, unspecified type Degenerative disc disease, cervical Vertigo Dizziness and giddiness documented in this encounter [facility] HealthcareEvaluation note* Diagnosis Encounter for gynecological examination without abnormal finding Encounter for Papanicolaou smear of vagina Breast cancer screening by mammogram Osteoporosis, post-menopausal (CMS/HCC) Senile osteoporosis documented in this encounter [facility] HealthcareEvaluation note* Diagnosis Onset Date Resolution Status Admit Date Fatigue chronic March 17 1:08pm Lumbar radiculopathy chronic Augu 2024 1:08pm Multiple sclerosis chronic March 17, 2025 1:08pm [facility] Work Phone: History general Narrative - Reported* Type Description Date Medical History hypercholesterolemia Medical History multiple sclerosis Medical History osteoporosis Medical History cervical cancer Surgical History hysterectomy Hospitalization History See Above [employer] Other reason for referral (narrative)No reason for referral information available[facility] Work Phone: Reason for visit NarrativeReferral Dr Winters [facility] Other Summary Purpose Family History Relationship Condition Age at Onset Recorded Date/T andres mother Malignant neoplasm Unknown sister Malignant neoplasm Unknown Chronic obstructive pulmonary disease Unk nown family member Hodgkin lymphoma Unknown Advance Directives Advance Directive Response Recorded Date/ Time Advance Directives No June 10:13am Advance Directive Response Recorded Date/ Time Advance Directives No June 11:13am Chief Complaint and Reason for Visit Chief Complaint g35 g35 Chief Complaint Admit Date 3 month follow up March 17, 2025 1: 08pm Reason for Visit Admit Date Fatigue March 17, 2025 1: 08pm Lumbar radiculopathy March 17, 2025 1 :08pm Multiple sclerosis March 17, 2025 1: 08pm Additional Source Comments INFORMATION SOURCE (unrecogn ized section and content) DATE CREATED AUTHOR 05/21/2022 [facility] DATE CREATED AUTHOR AUTHOR'S ORGANIZ ATION 09/14/2023 [facility] DATE CREATED AUTHOR AUTHOR'S ORGANIZ ATION 10/22/[address] [facility] DATE CREATED AUTHOR AUTHOR'S ORGANIZ ATION 01/01/2025 [facility] EPIC REASON FOR VISIT (unrecogniz ed section and content) Reason Comments Gynecologic Exam LMP: SHER LSO 1997HRT : NoneLast pap 12-12-23 neg.Last mammogram 03-26-24 [facility].Denies breast, urinary, or bowel concerns.Dr. Banuelos switched her to Fosamax. Reason Comments Multiple Sclerosis flu [facility] Care Teams (unrecognized sec tion and [...] September 06, 2023 End: September 06, 2023 [employer] Relationship Specialty Start Date End Date Johny Winters MD [address] [place] [phone] PCP - General Internal Medicine 10/17/23 [employer] Relationship Specialty Start Date End Date Johny Winters MD [address] [place] [phone] PCP - General Internal Medicine 10/17/23 [employer] Relationship Specialty Start Date End Date Johny Winters MD [address] [place] [phone] PCP - General Internal Medicine 10/17/23 Chinyere Live PA [address] [address] Physician 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 Truck Driver Neurology 09/19/24 [employer] Relationship Specialty Start Date End Date Johny Winters MD [address] [place] [phone] PCP - General Internal Medicine 10/17/23 Chinyere Live PA [address] [address] Physician Crew Truck Driver 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 [employer] [facility]. provides no warranty or guarantee of the accuracy or completeness of information in this document.
== END 2025-03-27 10:20 | disposition home or self-care (01) ==
LOC: MAMMO 10:22
PROVIDERS: PCP Internal Medicine; Visit Provider Obstetrics & Gynecology
DX: Z12.31 Encounter for screening mammogram for malignant neoplasm of breast (principal); Z80.3 Family history of malignant neoplasm of breast; Z80.7 Family history of other malignant neoplasms of lymphoid, hematopoietic and related tissues; Z51.81 Encounter for therapeutic drug level monitoring; M81.0 Age-related osteoporosis without current pathological fracture; M19.90 Unspecified osteoarthritis, unspecified site; Z79.899 Other long term (current) drug therapy
CPT/HCPCS: 36415; 77063; 77067; 80076; 82310; 82565; 83735; 84100; 84520

== ENCOUNTER 2025-03-27 10:25 | Outpatient (OUT) | payer OTHER, SELFPAY ==
[2025-03-27 11:29] LABS: Alanine Aminotransferase 21 U/L (14-59); Albumin Globulin Ratio 0.9; Albumin Level 3.6 g/dL (3.4-5.0); Alkaline Phosphatase 94 U/L (46-116); Aspartate Amino Transferase 22 U/L (15-37); Globulin 4.0 g/dL; Total Protein 7.6 g/dL (6.4-8.2)
== END 2025-03-27 10:26 | disposition home or self-care (01) ==
LOC: LAB 10:26
PROVIDERS: PCP Internal Medicine; Visit Provider Nurse Practitioner Family
DX: Z51.81 Encounter for therapeutic drug level monitoring (principal)
CPT/HCPCS: 36415; 80076

== ENCOUNTER 2025-03-27 10:28 | Outpatient (OUT) | payer OTHER, SELFPAY ==
--- OUTSIDE RECORDS SUMMARY | 2025-03-27 10:31 | XMS_ITS | Encounter Summary ---
Author Organization [facility] Address [address] [place] [address] Care Team Providers Care Application Internship Name Role Phone Johny Winters DO Primary Care Provider [phone] Jia Live Unavailable Encounter Details Date Type Department Care Team ([facility] Contact Info) Description 12/21/2023 Clinisync Result Encounter [facility] External Department Unsolicited Pranav Avila, [address] [facility] [address] [place] [address] Social History Tobacco Use Types Packs/Day Years Used Date Smoking Tobacco: Every Day Cigarettes 1 45 Smokeless Tobacco: Never Alcohol Use Standard Drinks/Week Comments Never 0 (1 standard drink = 0.6 oz pur e alcohol) AUDIT-C Answer Date Recorded Q1: How often do you have a drink containing alcohol? Never 12/12/2023 Q2: How many drinks containi ng alcohol do you have on a typical day when you are drinking? Patient does not drink Q3: How often do you have si x or more drinks on one occasion? Never 12/12/2023 PHQ-2 Answer Date Recorded Patient Health Questionnaire-2 Score 0 12/12/2023 Comments No Sex and Gender Information Value Date Recorded Sex Assigned at Not on file Legal Sex Female 7:18 PM EDT Gender Identity Not on file Sexual Orientation Not on file documented as of this encounter Plan of Treatment Upcoming Encounters Date Type Department Care Team (Late Contact Info) Description 01/02/2026 11:15 AM EDT Office Visit [facility] [address] [facility] [address] [place] [address] Austin, Pranav D, DO [address] [place] [address] documented as of this encounter Procedures Procedure Name Priority Date/Time Associated Diagnosis Comments XR DEXA AXIAL SKELETON 12/21/2023 3:23 PM EDT documented in this encounter Results * XR DEXA AXIAL SKELETON (12/21/2023 3:23 PM EDT) Anatomical Region Laterality Modality Other 12/21/2023 3:23 PM EDT Narrative 12/21/2023 3:26 PM EDT The [address] [address] XRay Report Signed Patient: JAYDE SOLORZANO MR#: [id number] : 1965 Acct:[id number] Age/Sex: 58 / F ADM Date: 12/21/23 Loc: RAD Attending Dr: PRANAV AVILA Ordering Physician: PRANAV AVILA Date of Service: 12/21/23 Procedure(s): XR DEXA axial skeleton Accession Number(s): [id number] cc: PRANAV AVILA ; Johny Winters D.O. The [address] [address] Patient Name: JAYDE SOLORZANO MRN: [id number] date: 1965 Sex: F Assigned Patient Location: [facility] Current Patient Location: [facility] Accession/Order Number: [id number] Exam Date: 12/21/2023 13:00 Report Date: 12/21/2023 15:23 At the request of: PRANAV AVILA Procedure: XR DEXA axial skeleton EXAMINATION: XR DEXA axial skeleton, 12/21/2023 1:00 PM EDT HISTORY: screening for osteoporosis COMPARISON: 2017, 2014, 2013 TECHNIQUE: Dual-energy X-ray absorptiometry (DEXA) bone density study performed for the axial skeleton. HISTORY: screening for osteoporosis FINDINGS: Bone mineral density AP spine L1-L4 measures 1.271 g/sq cm. T score 0.8. WHO classification: Normal. The lowest bone mineral density is in the left femoral trochanter measuring 0.516 g/sq cm. T score -2.9. WHO classification: Osteoporosis XR/XR DEXA axial skeleton IMPRESSION: Osteoporosis. High fracture risk Electronically authenticated by: THEA ACUÑA Date: 12/21/2023 15:23 Dictated By: Thea Acuña M.D. Signed By: 12/21/23 1526 DD/ 1523 TD/TT: Inspector Subassemblies: Procedure Note Radiology, Radiologist, MD - 12/21/2023 [place] [address] XRay Report Signed Patient: JAYDE SOLORZANO KMR#: [id number] : 1965Acct:[id number] Age/Sex: 58 / FADM Date: 12/21/23 Loc: RAD Attending Dr: PRANAV AVILA Ordering Physician: PRANAV AVILA Date of Service: 12/21/23 Procedure(s): XR DEXA axial skeleton Accession Number(s): [id number] cc: PRANAV AVILA ; Johny Winters D.O. The [place] [id number] Patient Name: JAYDE SOLORZANO MRN: [id number] date: 1965 Sex: F Assigned Patient Location: [facility] Current Patient Location: [facility] Accession/Order Number: [id number] Exam Date: 12/21/2023 13:00 Report Date: 12/21/2023 15:23 At the request of: PRANAV AVILA Procedure: XR DEXA axial skeleton EXAMINATION: XR DEXA axial skeleton, 12/21/2023 1:00 PM EDT HISTORY: screening for osteoporosis COMPARISON: 2017, 2014, 2013 TECHNIQUE: Dual-energy X-ray absorptiometry (DEXA) bone density study performed for the axial skeleton. HISTORY: screening for osteoporosis FINDINGS: Bone mineral density AP spine L1-L4 measures 1.271 g/sq cm. T score 0.8.WHO classification: Normal. The lowest bone mineral density is in the left femoral trochantermeasuring 0.516 g/sq cm. T score -2.9. WHO classification: Osteoporosis XR/XR DEXA axial skeleton IMPRESSION: Osteoporosis. High fracture risk Electronically authenticated by: THAE ACUÑA Date: 12/21/2023 15:23 Dictated By: Thea Acuña M.D. Signed By:12/21/23 1526 DD/ 1523 TD/TT: Inspector Subassemblies: Pranav Avila DO [facility] Final Resu lt documented in this encounter Visit Diagnoses Not on filedocumented in this encounter Care Teams Application Internship Relationship Specialty Start Date End Date Johny Winters DO [address] [place] [address] PCP - General Internal Medicine 10/17/23 Jia Live PA [address] [place] [address] Physician Talent Development Coordinator Neurology 09/19/24 documented as of this encounter
--- OUTSIDE RECORDS SUMMARY | 2025-03-27 10:31 | XMS_ITS | Encounter Summary ---
Author Organization [facility] Address [address] [place] [address] Care Team Providers Care Lead Refinery Supervisor Name Role Phone Johny Winters DO Primary Care Provider [phone] Jia Live Unavailable Encounter Details Date Type Department Care Team ([facility] Contact Info) Description 03/26/2024 Clinisync Result Encounter [facility] External Department Unsolicited Pranav Avila, [address] [facility] [address] [place] [address] Social History Tobacco Use Types Packs/Day Years [...] 01/02/2026 11:15 AM EDT Office Visit [facility] [address] [facility] [address] [place] [address] Austin, Pranav D, DO [address] [place] [address] documented as of this encounter Procedures Procedure Name Priority Date/Time Associated Diagnosis Comments MM TOMOSYNTHESIS SCREENING BI 03/26/2024 12:01 PM EDT documented in this encounter Results * MM TOMOSYNTHESIS SCREENING BI (03/26/2024 12:01 PM EDT) Anatomical Region Laterality Modality Other 03/26/2024 12:0 1 PM EDT Narrative 03/26/2024 12:02 PM EDT The [address] [address] Mammography Report Signed Patient: JAYDE SOLORZANO MR#: [id number] : 1965 Acct:[id number] Age/Sex: 59 / F ADM Date: 03/26/24 Loc: MAMMO Attending Dr: PRANAV AVILA Ordering Physician: PRANAV AVILA Results: Date of Service: 03/26/24 Follow Up: Procedure(s): MM tomosynthesis screening BI Accession Number(s): [id number] cc: PRANAV AVILA ; Johny Winters D.O. Patient Name: JAYDE SOLORZANO MR#: [id number] : 1965 Exam Date: 03/26/2024 Ordering Doctor: DR PRANAV AVILA RADIOLOGY REPORT PROCEDURE: MM TOMOSYNTHESIS SCREENING BI COMPARISON: MM TOMOSYNTHESIS SCREENING BI, 03/21/2023. MG MAMM SCREEN 3D LIBERTAD CAD, 02/15/2022. INDICATIONS: Screening Calculator Name NCI Breast Cancer Risk Assessment Tool 5 Year Breast Cancer Risk 7.00% Lifetime Breast Cancer Risk 29.70% Personal Breast Cancer No Personal Ovarian Cancer No Treatments hysterectomy Family Cancers Mother with breast cancer at age 45; Nephew with lymphoma cancer at age 19; Sister with breast cancer at age 65. LOCATION: The [facility] BREAST COMPOSITION: There are scattered areas of fibroglandular density. FINDINGS: DIAGNOSTIC CATEGORY 2--BENIGN FINDING. NO CHANGE FROM COMPARISON. Scattered benign-appearing calcifications are present. Scattered benign-appearing lymph nodes are present. RIGHT BREAST: No significant suspicious finding. LEFT BREAST: No significant suspicious finding. RECOMMENDATIONS: ROUTINE MAMMOGRAM AND CLINICAL EVALUATION IN 12 MONTHS. PLEASE NOTE: A NORMAL MAMMOGRAM DOES NOT EXCLUDE THE POSSIBILITY OF BREAST CANCER. A CLINICALLY SUSPICIOUS PALPABLE LUMP SHOULD BE BIOPSIED. Dictated by: Robert Jefferson MD on 03/26/2024 at 11:59 Approved by: Robert Jefferson MD on 03/26/2024 at 12:00 Dictated By: Robert Jefferson M.D. Signed By: 03/26/24 1202 DD/ 1201 TD/TT: Credit Union Field Examiner: Procedure Note Radiology, Radiologist, MD - 03/26/2024 [place] [address] Mammography Report Signed Patient: JAYDE SOLORZANO KMR#: [id number] : 1965Acct:[id number] Age/Sex: 59 / FADM Date: 03/26/24 Loc: MAMMO Attending Dr: PRANAV AVILA Ordering Physician: PRANAV AVILAResults: Date of Service: 03/26/24Follow Up: Procedure(s): MM tomosynthesis screening BI Accession Number(s): [id number] cc: PRANAV AVILA ; Johny Winters D.O. Patient Name: JAYDE SOLORZANO MR#: [id number] : 1965 Exam Date: 03/26/2024 Ordering Doctor: DR PRANAV AVILA RADIOLOGY REPORT PROCEDURE: MM TOMOSYNTHESIS SCREENING BI COMPARISON: MM TOMOSYNTHESIS SCREENING BI, 03/21/2023. MG MAMM [id number] LIBERTAD CAD, 02/15/2022. INDICATIONS: Screening Calculator Name NCI Breast Cancer Risk Assessment Tool 5 Year Breast Cancer Risk 7.00% Lifetime Breast Cancer Risk 29.70% Personal Breast Cancer No Personal Ovarian Cancer No Treatments hysterectomy Family Cancers Mother with breast cancer at age 45; Nephew with lymphoma cancer at age 19; Sister with breast cancer at age 65. LOCATION: The [facility] BREAST COMPOSITION: There are scattered areas of fibroglandulardensity. FINDINGS: DIAGNOSTIC CATEGORY 2--BENIGN FINDING. NO CHANGE FROM COMPARISON. Scattered benign-appearing calcifications are present. Scattered benign-appearing lymph nodes are present. RIGHT BREAST: No significant suspicious finding. LEFT BREAST: No significant suspicious finding. RECOMMENDATIONS: ROUTINE MAMMOGRAM AND CLINICAL EVALUATION IN 12 MONTHS. PLEASE NOTE: A NORMAL MAMMOGRAM DOES NOT EXCLUDE THE POSSIBILITY OFBREAST CANCER. A CLINICALLY SUSPICIOUS PALPABLE LUMP SHOULD BE BIOPSIED. Dictated by: Robert Jefferson MD on 03/26/2024 at 11:59 Approved by: Robert Jefferson MD on 03/26/2024 at 12:00 Dictated By: Robert Jefferson M.D. Signed By:03/26/24 1202 DD/ 1201 TD/TT: Credit Union Field Examiner: Pranav Avila DO [facility] Final Resu lt documented in this encounter Visit Diagnoses Not on filedocumented in this encounter Care Teams Lead Refinery Supervisor Relationship Specialty Start Date End Date Johny Winters DO [address] [place] [address] PCP - General Internal Medicine 10/17/23 Jia Live PA [address] [place] [address] Physician Front Desk Auxiliary Neurology 09/19/24 documented as of this encounter
--- OUTSIDE RECORDS SUMMARY | 2025-03-27 10:31 | XMS_ITS | Encounter Summary ---
Author Organization [facility] Address [address] [place] [address] Care Team Providers Care Shopping Investigator Name Role Phone Johny Winters DO Primary Care Provider [phone] Jia Lao Unavailable Encounter Details Date Type Department Care Team (Late st Contact Info) Description 11/01/2023 Clinisync Result Encounter [facility] External Department Unsolicited Jia Lao PA [address] [place] [address] Social History Tobacco Use Types Packs/Day Years Used Date Smoking Tobacco: Never Assessed Comments Unknown Sex and Gender Information Value Date Recorded Sex Assigned at Not on file Legal Sex Female 7:18 PM EDT Gender Identity Not on file Sexual Orientation Not on file documented as of this encounter Plan of Treatment Upcoming Encounters Date Type Department Care Team (Late st Contact Info) Description 01/02/2026 11:15 AM EDT Office Visit DAMON CAIN [address] [place] [phone] Pranav Avila DO [address] [place] [address] documented as of this encounter Procedures Procedure Name Priority Date/Time Associated Diagnosis Comments MR LUMBAR SPINE WO CON 11/01/2023 2:03 PM EDT documented in this encounter Results * MR LUMBAR SPINE WO CON (11/01/2023 2:03 PM EDT) Anatomical Region Laterality Modality Other 11/01/2023 2:03 PM EDT Narrative 11/01/2023 2:05 [place] [address] Magnetic Resonance Report Signed Patient: JAYDE SOLORZANO MR#: [id number] : 1965 Acct:[id number] Age/Sex: 58 / F ADM Date: 11/01/23 Loc: MRI Attending Dr: Jia ZUNIGA Ordering Physician: Jia Lao Date of Service: 11/01/23 Procedure(s): MR lumbar spine wo con Accession Number(s): [id number] cc: Johny Winters D.O.; Jia Lao [place] [id number] Patient Name: JAYDE SOLORZANO MRN: [id number] date: 1965 Sex: F Assigned Patient Location: MRI Current Patient Location: MRI Accession/Order Number: [id number] Exam Date: 11/01/2023 09:30 Report Date: 11/01/2023 14:03 At the request of: JIA LAO Procedure: MR lumbar spine wo con EXAM: MR lumbar spine wo con HISTORY: Lumbar radiculopathy, M54.16, Degeneration disc disease, M51.36. Lumbar spine pain for one year with pain radiating into the left hip and left leg. Left leg weakness. COMPARISON: Prior lumbar spine MRI from 09/09/2021. TECHNIQUE: Multiplanar and multisequence imaging of the lumbar spine was performed without contrast FINDINGS: No acute fracture is identified in the lumbar spine. The lumbar vertebral body heights are maintained. There is severe degenerative disc disease at L5-S1 with marked disc height loss and endplate spurring. Heterogeneity of the bone marrow signal is similar when compared to the prior study consistent with mixed red and fatty marrow. No acute abnormality is identified involving visualized intrapelvic or intra-abdominal structures. The visualized aorta is normal in diameter. Several cysts in the right hepatic lobe are partially included on the olbtj-nw-dnua for this study. The upper sacrum is intact. There are no pars defects. The conus terminates at the L1 level. L5-S1: There is severe degenerative disc disease with a broad-based disc protrusion and superimposed bilateral subarticular/foraminal disc-osteophyte complexes each measuring 5 mm in AP dimension. There is moderate bilateral facet arthropathy. Changes result in moderate to severe bilateral foraminal narrowing with likely abutment of the L5 nerve roots bilaterally. There is no central stenosis. L4-L5: A broad-based disc protrusion measures 4 mm in AP dimension with a superimposed left subarticular and foraminal disc extrusion measuring 4 mm in AP dimension with superior displacement of disc material measuring 5 mm seen on sagittal T2 images 5 and 6. There is moderate to severe facet arthropathy and moderate to severe left foraminal narrowing without central stenosis. L3-L4: There is a 3 mm broad-based disc protrusion with endplate spurring and moderate facet arthropathy. An area of fluid signal along the posterior aspect of the spinal canal at the level of the superior endplate of L4 is suspicious for a small facet joint synovial cyst measuring 4 mm in diameter. There is mild right foraminal narrowing without central stenosis L3-L4: There is a 3 mm broad-based disc protrusion and mild to moderate facet arthropathy. There is no central or foraminal stenosis. L1-L2: There is a mild disc bulge without central or foraminal stenosis. MR/MR lumbar spine wo con IMPRESSION: 1. There is stable severe degenerative disc disease at L5-S1 with bilateral subarticular/foraminal disc osteophyte complexes resulting in moderate to severe bilateral foraminal narrowing with abutment of the L5 nerve roots. 2. Similar appearance of a broad-based disc protrusion at L4-L5 and superimposed left foraminal disc extrusion. There is associated facet arthropathy with moderate to severe left foraminal narrowing at L4-L5. 3. No acute fracture. Please see above for a detailed description. Electronically authenticated by: JAME STANFORD Date: 11/01/2023 14:03 Dictated By: Jame Stanford M.D. Signed By: 11/01/23 1405 DD/ 1403 TD/TT: Healthcare Management: Procedure Note Radiology, Radiologist, - 11/01/2023 [place] [address] Magnetic Resonance Report Signed Patient: JAYDE SOLORZANO KMR#: [id number] : 1965Acct:[id number] Age/Sex: 58 / FADM Date: 11/01/23 Loc: MRI Attending Dr: Jia ZUNIGA Ordering Physician: Jia Lao Date of Service: 11/01/23 Procedure(s): MR lumbar spine wo con Accession Number(s): [id number] cc: Johny Winters D.O.; Jia Lao [place] [address] Patient Name: JAYDE SOLORZANO MRN: [id number] date: 1965 Sex: F Assigned Patient Location: MRI Current Patient Location: MRI Accession/Order Number: [id number] Exam Date: 11/01/2023 09:30 Report Date: 11/01/2023 14:03 At the request of: JIA LAO Procedure: MR lumbar spine wo con EXAM: MR lumbar spine wo con HISTORY: Lumbar radiculopathy, M54.16, Degeneration disc disease, M51.36. Lumbar spine pain for one year with pain radiating into the left hip andleft leg. Left leg weakness. COMPARISON: Prior lumbar spine MRI from 09/09/2021. TECHNIQUE: Multiplanar and multisequence imaging of the lumbar spine was performed without contrast FINDINGS: No acute fracture is identified in the lumbar spine. The lumbar vertebral body heights are maintained. There is severe degenerative disc disease at L5-S1 with marked disc height loss and endplate spurring. Heterogeneity of the bone marrow signal is similar when compared to theprior study consistent with mixed red and fatty marrow. No acute abnormality is identified involving visualized intrapelvic or intra-abdominal structures. The visualized aorta is normal in diameter. Several cysts in the right hepatic lobe are partially included on nzrezpkk-iz-ftnt for this study. The upper sacrum is intact. There are no pars defects. Theconus terminates at the L1 level. L5-S1: There is severe degenerative disc disease with a broad-based disc protrusion and superimposed bilateral subarticular/foraminaldisc-osteophyte complexes each measuring 5 mm in AP dimension. There is moderate bilateral facet arthropathy. Changes result in moderate to severe bilateralforaminal narrowing with likely abutment of the L5 nerve roots bilaterally. There isno central stenosis. L4-L5: A broad-based disc protrusion measures 4 mm in AP dimension with a superimposed left subarticular and foraminal disc extrusion measuring 4 mmin AP dimension with superior displacement of disc material measuring 5 mmseen on sagittal T2 images 5 and 6. There is moderate to severe facet arthropathyand moderate to severe left foraminal narrowing without central stenosis. L3-L4: There is a 3 mm broad-based disc protrusion with endplate spurringand moderate facet arthropathy. An area of fluid signal along the posterioraspect of the spinal canal at the level of the superior endplate of L4 issuspicious for a small facet joint synovial cyst measuring 4 mm in diameter. There is mild right foraminal narrowing without central stenosis L3-L4: There is a 3 mm broad-based disc protrusion and mild to moderatefacet arthropathy. There is no central or foraminal stenosis. L1-L2: There is a mild disc bulge without central or foraminal stenosis. MR/MR lumbar spine wo con IMPRESSION: 1. There is stable severe degenerative disc disease at L5-S1 withbilateral subarticular/foraminal disc osteophyte complexes resulting in moderate to severe bilateral foraminal narrowing with abutment of the L5 nerve roots. 2. Similar appearance of a broad-based disc protrusion at L4-L5 and superimposed left foraminal disc extrusion. There is associated facet arthropathy with moderate to severe left foraminal narrowing at L4-L5. 3. No acute fracture. Please see above for a detailed description. Electronically authenticated by: JAME STANFORD Date: 11/01/2023 14:03 Dictated By: Jame Stanford M.D. Signed By:11/01/23 1405 DD/ 1403 TD/TT: Healthcare Management: us Jia ZUNIGA [facility] Final Result documented in this encounter Visit Diagnoses Not on filedocumented in this encounter Care Teams Shopping Investigator Relationship Specialty Start Date End Date Johny Winters DO [address] [place] [phone] PCP - General Internal Medicine 10/17/23 Jia Lao PA [address] [place] [address] Physician Wafer Fabricator Neurology 09/19/24 documented as of this encounter
--- OUTSIDE RECORDS SUMMARY | 2025-03-27 10:31 | XMS_ITS | Encounter Summary ---
Author Organization [facility] Address [address] [place] [address] Care Team Providers Care Ex Assistant/Program Director Name Role Phone Johny Winters DO Primary Care Provider [phone] Jia Live Unavailable Encounter Details Date Type Department Care Team (Late Contact Info) Description 03/23/2023 Orders Only DAMON CAIN [address] [facility] [address] [place] [phone] Pranav Avila DO [address] [facility] [address] [place] [address] Social History Tobacco Use Types Packs/Day Years [...] EDT Office Visit DAMON CAIN [address] [place] [address] Pranav Avila DO [address] [facility] [address] [place] [address] documented as of this encounter Procedures Procedure Name Priority Date/Time Associated Diagnosis Comments MAMMOGRAM-DIAGNOSTIC* Routine 03/21/2023 1:12 PM EDT documented in this encounter Results * MAMMOGRAM-DIAGNOSTIC* (03/21/2023 1:12 PM EDT) Anatomical Region Laterality Modality Radiographic Suzette ging Pranav Avila DO IMG XR PROCEDURES Final Resu lt documented in this encounter Visit Diagnoses Not on filedocumented in this encounter Care Teams Ex Assistant/Program Director Relationship Specialty Start Date End Date Johny Winters DO [address] [place] [address] PCP - General Internal Medicine 10/17/23 Jia Live PA [address] [place] [address] Physician Forester Silviculture Neurology 09/19/24 documented as of this encounter
--- OUTSIDE RECORDS SUMMARY | 2025-03-27 10:31 | XMS_ITS | Clinical Summary ---
Author Organization [facility] Address [address] [place] [address] Care Team Providers Care Manager Database Name Role Phone Johny Winters Primary Care Provider [phone] Jia Live Unavailable Allergies No known active allergies Medications lisinopril 5 MG tablet Take 5 mg by mouth Daily Active ferrous sulfate 325 (65 Fe) MG tablet Take 325 mg by mouth in the morning. Take with meals. Active ASPIRIN 81 MG chewable tablet Chew 81 mg 1 (one) time Active amLODIPine (Norvasc) 5 MG tablet Take 5 mg by mouth Daily Active Krill Oil 500 MG capsule Take 1 capsule by mouth Daily Active baclofen (Lioresal) 10 MG tablet Take 10 mg by mouth at bedtime Active meloxicam (Mobic) 7.5 MG tablet Take 15 mg by mouth Daily Active atorvastatin (Lipitor) 20 MG tablet Take 20 mg by mouth Daily 4 Active meclizine (Antivert) 25 MG tablet Take 25 mg by mouth every 12 (twelve) hours 3 Active cholecalciferol (Vitamin D-3) 250 MCG (88247 UT) capsule Take 10,000 Units by mouth in the morning. Active B Complex Vitamins (vitamin B complex) tablet as directed Orally Active alendronate (Fosamax) 70 MG tablet Take 70 mg by mouth 1 (one) time per week Active gabapentin (Neurontin) 300 MG capsuleIndicati ons:Multiple sclerosis (HCC) TAKE 1 CAPSULE BY MOUTH TWICE A DAY AND 2 CAPSULES BY MOUTH AT BEDTIME 120 capsule 3 5 Active Teriflunomide 14 MG tabletIndicatio ns:Multiple sclerosis (HCC) TAKE 1 TABLET DAILY 30 tablet 3 5 Active albuterol HFA 90 mcg/act inhaler INHALE 2 PUFFS EVERY 6 HOURS NEEDED FOR SHORTNESS OF BREATH OR WHEEZING 4 Active Active Problems Problem Noted Date Diagnosed Date Hair thinning 12/12/2023 Relapsing remitting multiple sclerosis 4 Overview (12/12/2023): RRMS that is treated with Aubagio. YIN [...] spine 07/22/23 revealed similar hyperintense lesion at T7- T8 right of midline with no new lesions or active demyelination. MRI brain 09/06/23 revealed no evidence of disease progression. MRI C spine 09/06/23 revealed no new lesions or abnormal post contrast enhancement. Patient did have episode of difficulty swallowing on one occasion prior to this visit, a week after MRI brain. This has not recurred. She overall feels like she is doing well. Paresthesia 12/12/2023 Overview (12/12/2023): She has numbness in her hands, previous EMG was normal. MRI of the cervical spine 08/2020 revealed degenerative disease. Tinnitus 12/12/2023 Overview (12/12/2023): tinnitus could be due to history of MS. She denies worsening. Numbness and tingling in both hands 12/12/2023 DDD (degenerative disc disease), cervical 2023 Age related osteoporosis 12/11/2023 COPD (chronic obstructive pulmonary disease) Degenerative disc disease, lumbar 12/11/2023 Postmenopausal atrophic vaginitis 12/11/2023 Encounters Date Type Department Care Team Description 01/08/2025 Results Follow-Up DAMON BRISCOEYves [address] [place] [address] Zandra Mix MA IGP,rfxAptima HPV all,16/18,45 12/31/2024 10:45 AM EDT Office Visit DAMON Broderick PAYTON [address] [place] [address] Cindy Rodríguez, Encounter for gynecological examination without abnormal finding; Encounter for Papanicolaou smear of vagina; Breast cancer screening by mammogram; Osteoporosis, post-menopausal 12/31/2024 Travel from Last 3 Months Immunizations Immunization Administration Dates Next Due Influenza, High Dose Seasonal, Preservative Free 05/05/2017 Influenza, Injectable, MDCK, preservative free 0 08/13/2019 Influenza, injectable, MDCK, preservative free, quadrivalent 05/06/2022,07/05/2018 Influenza, injectable, MDCK, quadrivalent 2018 Influenza, injectable, quadrivalent, preservativ e free 12/01/2021,06/06/2016 Influenza, seasonal, injectable, preservative fr ee 04/08/2024 Family History Medical History Relation Name Comments Breast cancer Mother Netta Mena dx age 52 Osteoarthritis Mother Netta Mena Hodgkin's lymphoma Nephew Breast cancer Sister Maeve Signs COPD Sister Maeve Signs Developmental delay Son Nonverba l- doesn't walk- uses gtube Heart defect Son Relation Name Status Comments Father Mother Netta Mena Nephew Other Sister Maeve Signs Son Alive Social History Tobacco Use Types Packs/Day Years Used Date Smoking Tobacco: Every Day Cigarettes 1 45 Smokeless Tobacco: Never Tobacco Cessation:Ready to Q uit: Not Asked; Counseling Given: Not Answered Alcohol Use Standard Drinks/Week Comments Never 0 (1 standard drink = 0.6 oz pur e alcohol) AUDIT-C Answer Date Recorded Q1: How often do you have a drink containing alc ohol? Monthly or less 12/31/2024 Q2: How many drinks containi ng alcohol do you have on a typical day when you are drinking? 1 or 2 12/31/2024 Q3: How often do you have si x or more drinks on one occasion? Never 12/31/2024 PHQ-2 Answer Date Recorded Patient Health Questionnaire-2 Score 0 12/31/2024 Comments No Sex and Gender Information Value Date Recorded Sex Assigned at Not on file Legal Sex Female 7:18 PM EDT Gender Identity Not on file Sexual Orientation Not on file Last Filed Vital Signs Vital Sign Reading Time Taken Comments Blood Pressure 116/72 12/31/2024 10:37 AM EDT Pulse - - Temperature - - Respiratory Rate - - Oxygen Saturation - - Inhaled Oxygen Concentration - - Weight 63 kg (139 lb) 12/31/2024 10:37 AM EDT Height 152.4 cm (5') 12/31/2024 10:37 AM EDT Body Mass Index 27.15 12/31/2024 10:37 AM EDT Plan of Treatment Upcoming Encounters Date Type Department Care Team (Late st Contact Info) Description 01/02/2026 11:15 AM EDT Office Visit DAMON CAIN [address] [facility] [address] [place] [phone] Cindy Rodríguez DO [address] [facility] [address] [place] [address] Health Maintenance Due Date Last Done Comments CT Colonography 1965 Colonoscopy 1965 FIT 1965 FOBT 1965 Sigmoidoscopy 1965 Pap Smear 01/22/1984 Colorectal Cancer Screening 03/18/2025 FIT-DNA 03/18/2025 03/18/2022, 11/27/2018 Mammogram 03/26/2025 03/26/2024, 03/01, 02/15/2022, Additional history exists Influenza Vaccine (#1) 2025 , 05/06/2022, 12/01/2021, Additional history exists Cervical Cancer Screening 12/31/2029 HPV/Cotest 12/31/2029 12/31/2024, 12/12/2023, 07/31 Procedures Procedure Name Priority Date/Time Associated Diagnosis Comments IGP,RFXAPTIMA HPV ALL,16/18,45 Routine 12/31/2024 12:00 AM EDT Encounter for Papanicolaou smear of vagina MM TOMOSYNTHESIS SCREENING BI 03/26/2024 12:01 PM EDT from Last 3 Months or Most Recently Relevant to Health Maintenance Results * IGP,rfxAptima HPV all,16/18,45 (12/31/2024 12:00 AM EDT) Diagnosis: Comment [facility] Comment:UNSATISFACTORY FOR E VALUATION. Recommendation: Comment [facility] Comment:Suggest follow up as clinically appropriate. Specimen Adequacy: Comment [facility] Comment: Specimen processed and examined, but unsatisfactory for evaluation of epithelial abnormality because of excessive lubricant. Clinician Provided ICD10: Comment [facility] Comment:Z12.72 Performed By: Comment [facility] Comment:Glenn Petty tologist (ASC) QC Reviewed By: Comment [facility] Comment:Salud Royal pervisory Speech Language Pathologist Prn ([facility]) Cyto Comments . [facility] Note: Comment [facility] Comment: The Pap smear is a screening test designed to aid in the detection of premalignant and malignant conditions of the uterine cervix. It is not a diagnostic procedure and should not be used as the sole means of detecting cervical cancer. Both false-positive and false-negative reports do occur. Test Methodology: Comment [facility] Comment: This liquid based ThinPrep(R) pap test was screened with the use of an image guided system. . Comment [facility] Comment: The HPV DNA reflex criteria were not met with this specimen result therefore, no HPV testing was performed. Swab Vaginal structure / Unknown 12/31/2024 01/01/2025 Comment:Vagina Print requisi t Narrative [facility] - 01/03/2025 3:07 PM EDT Performed at: [address] [place] [id number] Flight Dispatcher: Kayla De Leon MD, Phone: [phone] Specimen Comment: [id number] Specimen Comment: No. of containers..01 ThinPrep Vial Cindy Rodríguez DO LAB CYTOLOGY ORDERABLES Doreen noam Result [facility] * MM TOMOSYNTHESIS SCREENING BI (03/26/2024 12:01 PM EDT) Anatomical Region Laterality Modality Other 03/26/2024 12:0 1 PM EDT Narrative 03/26/2024 12:02 [place] [address] Mammography Report Signed Patient: JAYDE SOLORZANO MR#: [id number] : 1965 Acct:[id number] Age/Sex: 59 / F ADM Date: 03/26/24 Loc: MAMMO Attending Dr: CINDY RODRÍGUEZ Ordering Physician: CINDY RODRÍGUEZ Results: Date of Service: 03/26/24 Follow Up: Procedure(s): MM tomosynthesis screening BI Accession Number(s): [id number] cc: CINDY RODRÍGUEZ ; Johny Winters D.O. Patient Name: JAYDE SOLORZANO MR#: [id number] : 1965 Exam Date: 03/26/2024 Ordering Doctor: DR CINDY RODRÍGUEZ RADIOLOGY REPORT PROCEDURE: MM TOMOSYNTHESIS SCREENING BI [...] breast cancer at age 63. LOCATION: [facility] BREAST COMPOSITION: There are scattered areas of [...] Signed By: 03/26/24 1202 DD/ 1201 TD/TT: Assistant Professor Of Business: Procedure Note Radiology, Radiologist, MD - 03/26/2024 [place] [address] Mammography Report Signed Patient: JAYDE SOOLRZANO KMR#: [id number] : 1965Acct:[id number] Age/Sex: 59 / FADM Date: 03/26/24 Loc: MAMMO Attending Dr: CINDY RODRÍGUEZ Ordering Physician: CINDY RODRÍGUEZResults: Date of Service: 03/26/24Follow Up: Procedure(s): MM tomosynthesis screening BI Accession Number(s): [id number] cc: CINDY RODRÍGUEZ ; Johny Winters D.O. Patient Name: JAYDE SOLORZANO MR#: [id number] : 1965 Exam Date: 03/26/2024 Ordering Doctor: DR CINDY RODRÍGUEZ RADIOLOGY REPORT PROCEDURE: MM TOMOSYNTHESIS SCREENING BI COMPARISON: MM TOMOSYNTHESIS SCREENING BI, 03/21/2023. MG MAMM [id number] LIBERTAD CAD, 02/15/2022. INDICATIONS: Screening Calculator Name NCI Breast Cancer Risk Assessment Tool 5 Year Breast Cancer Risk 7.00% Lifetime Breast Cancer Risk 29.70% Personal Breast Cancer No Personal Ovarian Cancer No Treatments hysterectomy Family Cancers Mother with breast cancer at age 45; Nephew with lymphoma cancer at age 19; Sister with breast cancer at age 65. LOCATION: [facility] BREAST COMPOSITION: There are scattered areas of [...] M.D. Signed By:03/26/24 1202 DD/ 1201 TD/TT: Assistant Professor Of Business: Cindy Rodríguez DO [facility] Final Resu lt from Last 3 Months or Most Recently Relevant to Health Maintenance Insurance [employer] Care Teams Manager Database Relationship Specialty Start Date End Date Johny Winters DO [address] [place] [address] PCP - General Internal Medicine 10/17/23 Jia Live PA [address] [facility] [address] [facility] [place] [address] Physician Snake Charmer Neurology 09/19/24
--- OUTSIDE RECORDS SUMMARY | 2025-03-27 10:31 | XMS_ITS | Encounter Summary ---
Author Organization [facility] Address [address] [place] [address] Care Team Providers Care Project Construction Manager Name Role Phone Johny Winters DO Primary Care Provider [phone] Jia Live Unavailable Encounter Details Date Type Department Care Team (Late Contact Info) Description 01/08/2025 Results Follow-Up DAMON CAIN [address] [facility] [address] [place] [address] Zandra Mix MA IGP,rfxAptima HPV all,16/18,45 Social History Tobacco Use Types Packs/Day Years [...] EDT Office Visit DAMON CAIN [address] [facility] [address] [place] [address] Pranav Avila DO [address] [place] [address] documented as of this encounter Visit Diagnoses Not on filedocumented in this encounter Care Teams Project Construction Manager Relationship Specialty Start Date End Date Johny Winters DO [address] [facility] [place] [phone] PCP - General Internal Medicine 10/17/23 Jia Live PA [address] [place] [address] Physician Park Interpreter Neurology 09/19/24 documented as of this encounter
--- OUTSIDE RECORDS SUMMARY | 2025-03-27 10:44 | XMS_ITS | CCD ---
Author Organization [facility] CliniSynv Care Team Providers Care Epilepsy Physician Name Role Phone Ezequiel Agudelo Unavailable MARCOS, DR WHITE Admitting Unavailable MARCOS, DR WHITE Attending Unavailable SINGH, DR MCCLAIN Primary Care Unavailable ZIEBER, DR DENYS Chavez Consulting Unavailable MARCOS, DR WHITE Consulting Unavailable SINGH, DR MCCLAIN Admitting Unavailable BALL, DR MCCLAIN Attending Unavailable BALL, DR MCCLAIN Primary Care Unavailable BALL, DR MCCLAIN Consulting Unavailable WEBSTER, LIAT Consulting Unavailable CHIYNERE LIVE Admitting Unavailable TASHIA, CHINYERE Attending Unavailable [...] Johny Winters DO Primary Care Provider Ed MCFARLANDBELT SPLICER-Jennifer Car Attending Provider Medications Current Medications Medication Drug Class(es) Dates Sig (Normalized) Sig (Original) [id number] 200 actuat albuterol 0.09 mg/actuat metered dose [...] the morning cholecalciferol (Vitamin D-3) 250 MCG (23935 UT) capsule Take 10,000 Units by mouth [...] Documented Date Episodic/Chronic Other aftercare (1 source) 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; 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] Onset: 09-01-2021 Episodic Other aftercare (1 source) Other fpc (current) drug therapy; 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: [OTH PRISON CURRENT [...] Basophils (Bld) [#/Vol] 0.03 10*3/uL Normal <0.11 [facility] Comment on above: Order Comment: Speci men Type: BLOOD SPECIMEN Ordering Facility: [facility] Address: [address] [place] [address] Performed By: #### 5 7021-8 #### [facility] CLIA [id number] [address] [place] [address] [place] Basophils/100 WBC (Bld) 0.4 % Normal [facility] Comment on above: Order Comment: Speci men Type: BLOOD SPECIMEN Ordering Facility: [facility] Address: [address] [place] [address] Performed By: #### 5 7021-8 #### [facility] CLIA [id number] [address] [place] [address] [place] Differential cell count method Nom (Bld) Auto Normal [facility] Comment on above: Order Comment: Speci men Type: BLOOD SPECIMEN Ordering Facility: [facility] Address: [address] [place] [address] Performed By: #### 5 7021-8 #### [facility] CLIA [id number] [address] [place] [address] [place] Eosinophils (Bld) [#/Vol] 0.05 10*3/uL Normal <0.46 [facility] Comment on above: Order Comment: Speci men Type: BLOOD SPECIMEN Ordering Facility: [facility] Address: [address] [place] [address] Performed By: #### 5 7021-8 #### [facility] CLIA [id number] [address] [place] [address] [place] Eosinophils/100 WBC (Bld) 0.6 % Normal [facility] Comment on above: Order Comment: Speci men Type: BLOOD SPECIMEN Ordering Facility: [facility] Address: [address] [place] [address] Performed By: #### 5 7021-8 #### [facility] CLIA [id number] [address] [place] [address] [place] Erythrocyte distribution width (RBC) [Ratio] 13.7 % Normal 11.5-15.0 [facility] Comment on above: Order Comment: Speci men Type: BLOOD SPECIMEN Ordering Facility: [facility] Address: [address] [place] [address] Performed By: #### 5 7021-8 #### [facility] CLIA [id number] [address] [place] [address] [place] Hematocrit (Bld) [Volume fraction] 37.7 % Normal 36.0-46.0 [facility] Comment on above: Order Comment: Speci men Type: BLOOD SPECIMEN Ordering Facility: [facility] Address: [address] [place] [address] Performed By: #### 5 7021-8 #### [facility] CLIA [id number] [address] [place] [address] [place] Hemoglobin (Bld) [Mass/Vol] 12.3 g/dL Normal 11.5-15.5 [facility] Comment on above: Order Comment: Speci men Type: BLOOD SPECIMEN Ordering Facility: [facility] Address: [address] [place] [address] Performed By: #### 5 7021-8 #### [facility] CLIA [id number] [address] [place] [address] [place] Immature granulocytes (Bld) [#/Vol] 10*3/uL Normal <0.10 [facility] Comment on above: Order Comment: Speci men Type: BLOOD SPECIMEN Ordering Facility: [facility] Address: [address] [place] [address] Performed By: #### 5 7021-8 #### [facility] CLIA [id number] [address] [place] [address] [place] Immature granulocytes/100 WBC (Bld) 0.1 % Normal [facility] Comment on above: Order Comment: Speci men Type: BLOOD SPECIMEN Ordering Facility: [facility] Address: [address] [place] [address] Performed By: #### 5 7021-8 #### [facility] CLIA [id number] [address] [place] [address] [place] Lymphocytes (Bld) [#/Vol] 2.90 10*3/uL Normal 1.00-4.00 [facility] Comment on above: Order Comment: Speci men Type: BLOOD SPECIMEN Ordering Facility: [facility] Address: [address] [place] [address] Performed By: #### 5 7021-8 #### [facility] CLIA [id number] [address] [place] [address] [place] Lymphocytes/100 WBC (Bld) 36.5 % Normal [facility] Comment on above: Order Comment: Speci men Type: BLOOD SPECIMEN Ordering Facility: [facility] Address: [address] [place] [address] Performed By: #### 5 7021-8 #### [facility] CLIA [id number] [address] [place] [address] [place] MCH (RBC) [Entitic mass] 30.0 pg Normal 26.0-34.0 [facility] Comment on above: Order Comment: Speci men Type: BLOOD SPECIMEN Ordering Facility: [facility] Address: [address] [place] [address] Performed By: #### 5 7021-8 #### [facility] CLIA [id number] [address] [place] [address] [place] MCHC (RBC) [Mass/Vol] 32.6 g/dL Normal 30.5-36.0 [facility] Comment on above: Order Comment: Speci men Type: BLOOD SPECIMEN Ordering Facility: [facility] Address: [address] [place] [address] Performed By: #### 5 7021-8 #### [facility] CLIA [id number] [address] [place] [address] [place] MCV (RBC) [Entitic vol] 92.0 fL Normal 80.0-100.0 [facility] Comment on above: Order Comment: Speci men Type: BLOOD SPECIMEN Ordering Facility: [facility] Address: [address] [place] [address] Performed By: #### 5 7021-8 #### [facility] CLIA [id number] [address] [place] [address] [place] Monocytes (Bld) [#/Vol] 1.06 10*3/uL High <0.87 [facility] Comment on above: Order Comment: Speci men Type: BLOOD SPECIMEN Ordering Facility: [facility] Address: [address] [place] [address] Performed By: #### 5 7021-8 #### [facility] CLIA [id number] [address] [place] [address] [place] Monocytes/100 WBC (Bld) 13.4 % Normal [facility] Comment on above: Order Comment: Speci men Type: BLOOD SPECIMEN Ordering Facility: [facility] Address: [address] [place] [address] Performed By: #### 5 7021-8 #### [facility] CLIA [id number] [address] [place] [address] [place] Neutrophils (Bld) [#/Vol] 3.89 10*3/uL Normal 1.45-7.50 [facility] Comment on above: Order Comment: Speci men Type: BLOOD SPECIMEN Ordering Facility: [facility] Address: [address] [place] [address] Performed By: #### 5 7021-8 #### [facility] CLIA [id number] [address] [place] [address] [place] Neutrophils/100 WBC (Bld) 49.0 % Normal [facility] Comment on above: Order Comment: Speci men Type: BLOOD SPECIMEN Ordering Facility: [facility] Address: [address] [place] [address] Performed By: #### 5 7021-8 #### [facility] CLIA [id number] [address] [place] [address] [place] Nucleated RBC (Bld) [#/Vol] 10*3/uL Normal <0.01 [facility] Comment on above: Order Comment: Speci men Type: BLOOD SPECIMEN Ordering Facility: [facility] Address: [address] [place] [address] Performed By: #### 5 7021-8 #### [facility] CLIA [id number] [address] [place] [address] [place] Nucleated RBC/100 WBC (Bld) [Ratio] 0.0 /100 WBC Normal [facility] Comment on above: Order Comment: Speci men Type: BLOOD SPECIMEN Ordering Facility: [facility] Address: [address] [place] [address] Performed By: #### 5 7021-8 #### [facility] CLIA [id number] [address] [place] [address] [place] Platelet mean volume (Bld) [Entitic vol] 11.2 fL Normal 9.0-12.7 [facility] Comment on above: Order Comment: Speci men Type: BLOOD SPECIMEN Ordering Facility: [facility] Address: [address] [place] [address] Performed By: #### 5 7021-8 #### [facility] CLIA [id number] [address] [place] [address] [place] Platelets (Bld) [#/Vol] 203 10*3/uL Normal 150-400 [facility] Comment on above: Order Comment: Speci men Type: BLOOD SPECIMEN Ordering Facility: [facility] Address: [address] [place] [address] Performed By: #### 5 7021-8 #### [facility] CLIA [id number] [address] [place] [address] [place] RBC (Bld) [#/Vol] 4.10 10*6/uL Normal 3.90-5.20 [facility] Comment on above: Order Comment: Speci men Type: BLOOD SPECIMEN Ordering Facility: [facility] Address: [address] [place] [address] Performed By: #### 5 7021-8 #### [facility] CLIA [id number] [address] [place] [address] [place] WBC (Bld) [#/Vol] 7.94 10*3/uL Normal 3.70-11.00 [facility] Comment on above: Order Comment: Speci men Type: BLOOD SPECIMEN Ordering Facility: [facility] Address: [address] [place] [address] Performed By: #### 5 7021-8 #### [facility] CLIA [id number] [address] [place], [place] [address] [place] CTA ABD/PELV W IVCONon 10-21 CTA ABD/PELV W IVCON * * *Final Report* * * DATE OF EXAM: Oct 21 2024 3:56PM [facility] 0311 - CTA ABD/PELV W IVCON [...] Cooper images reconstructed, saved, and available in [facility] 'Get Images'. STUDY LIMITATIONS: None. RESULT: LINES, [...] AORTIC DIMENSIONS: AORTIC ROOT: 3.7 cm measured [id number]-[id number] mid ASCENDING THORACIC AORTA: 3.2 cm mid [...] consistent with vertebral hemangioma mid thoracic spine Tape Calender (topogram) images: No additional findings. IMPRESSION: NO [...] assessment. Gallbladder: suspected gallstones within the gallbladder. Ssrs Developer: [email or web address] Transcribe Date/Time: Oct 21 2024 4:02P Dictated by : JEET YEAGRE MD This examination was interpreted and the report reviewed and electronically signed by: KAT GIFFORD MD on Oct 21 2024 5 (more content not included)... Normal [facility] CTA CHEST (GATED) W IVCONon 10-21-2024 CTA CHEST (GATED) W IVCON * * *Final Report* * * DATE OF EXAM: Oct 21 2024 3:56PM [facility] 0125 - CTA CHEST (GATED) W [...] Cooper images reconstructed, saved, and available in [employer] 'Get Images'. STUDY LIMITATIONS: None. RESULT: LINES, [...] AORTIC DIMENSIONS: AORTIC ROOT: 3.7 cm measured [id number]-jv-ixcww mid ASCENDING THORACIC AORTA: 3.2 cm mid [...] consistent with vertebral hemangioma mid thoracic spine Tape Calender (topogram) images: No additional findings. IMPRESSION: NO [...] assessment. Gallbladder: suspected gallstones within the gallbladder. Ssrs Developer: [email or web address] Transcribe Date/Time: Oct 21 2024 4:02P Dictated by : JEET YEAGER MD This examination was interpreted and the report reviewed and electronically signed by: KAT GIFFORD MD on Oct 21 (more content not included)... Normal [facility] Comprehensive metabolic 2000 panelon 10-21-2024 Albumin [Mass/Vol] 4.1 g/dL Normal 3.9-4.9 [facility] Comment on above: Order Comment: Speci men Type: BLOOD SPECIMEN Ordering Facility: [facility] Address: [address] [place] [address] Performed By: #### 1 9123-9, [id number], 80040-9 #### [facility] CLIA [id number] [address] [place] [address] [place] ALP [Catalytic activity/Vol] 85 U/L Normal 34-123 [facility] Comment on above: Order Comment: Speci men Type: BLOOD SPECIMEN Ordering Facility: [facility] Address: [address] [place] [address] Performed By: #### 1 9123-9, [id number], 12551-7 #### [facility] CLIA [id number] [address] [place] [address] [place] ALT [Catalytic activity/Vol] 23 U/L Normal 7-38 [facility] Comment on above: Order Comment: Speci men Type: BLOOD SPECIMEN Ordering Facility: [facility] Address: [address] [place], [place] [address] Performed By: #### 1 9123-9, [id number], 01386-4 #### [facility] CLIA [id number] [address] [place] [address] [place] Anion gap [Moles/Vol] 13 mmol/L Normal 8-15 [facility] Comment on above: Order Comment: Speci men Type: BLOOD SPECIMEN Ordering Facility: [facility] Address: [address] [place], [place] [address] Performed By: #### 1 9123-9, [id number], #### [facility] CLIA [id number] [address] [place], [place] [address] [place] AST [Catalytic activity/Vol] 26 U/L Normal 13-35 [facility] Comment on above: Order Comment: Speci men Type: BLOOD SPECIMEN Ordering Facility: [facility] Address: [address] [place], [place] [address] Performed By: #### 1 9123-9, [id number], 77930-1 #### [facility] CLIA [id number] [address] [place] [address] [place] Bilirubin [Mass/Vol] 0.4 mg/dL Normal 0.2-1.3 [facility] Comment on above: Order Comment: Speci men Type: BLOOD SPECIMEN Ordering Facility: [facility] Address: [address] [place] [address] Performed By: #### 1 9123-9, [id number], 14535-5 #### [facility] CLIA [id number] [address] [place] [address] [place] Calcium [Mass/Vol] 8.9 mg/dL Normal 8.5-10.2 [facility] Comment on above: Order Comment: Speci men Type: BLOOD SPECIMEN Ordering Facility: [facility] Address: [address] [place] [address] Performed By: #### 1 9123-9, [id number], 66357-5 #### [facility] CLIA [id number] [address] [place] [address] [place] Chloride [Moles/Vol] 108 mmol/L High 98-107 [facility] Comment on above: Order Comment: Speci men Type: BLOOD SPECIMEN Ordering Facility: [facility] Address: [address] [place] [address] Performed By: #### 1 9123-9, [id number], #### [facility] CLIA [id number] [address] [place] [address] [place] CO2 [Moles/Vol] 22 mmol/L Normal 22-30 [facility] Comment on above: Order Comment: Speci men Type: BLOOD SPECIMEN Ordering Facility: [facility] Address: [address] [place] [address] Performed By: #### 1 9123-9, [id number], #### [facility] CLIA [id number] [address] [place] [address] [place] Creatinine [Mass/Vol] 0.70 mg/dL Normal 0.58-0.96 [facility] Comment on above: Order Comment: Speci men Type: BLOOD SPECIMEN Ordering Facility: [facility] Address: [address] [place] [address] Performed By: #### 1 9123-9, [id number], 05726-7 #### [facility] CLIA [id number] [address] [place] [address] [place] Creatinine and Glomerular filtration rate.predicted panel (S/P/Bld) 99 mL/min/1.73m??? Normal >=60 [facility] Comment on above: Order Comment: Speci men Type: BLOOD SPECIMEN Ordering Facility: [facility] Address: [address] [place] [address] Result Comment: Shahnaz mated Glomerular Filtration Rate [...] actual GFR. Performed By: #### 1 9123-9, [id number], 39802-5 #### [facility] CLIA [id number] [address] [place] [address] [place] Glucose [Mass/Vol] 102 mg/dL High 74-99 [facility] Comment on above: Order Comment: Naveen cantu Type: BLOOD SPECIMEN Ordering Facility: [facility] Address: [address] [place] [address] Result Comment: The [place] Diabetes Association (ADA) provides guidance for cutoff [...] Standards of Medical Care in Diabetes 2016, [place] [employer]. Diabetes Care. 2016.39(Suppl 1). Performed By: #### 1 9123-9, [id number], 54917-6 #### [facility] CLIA [id number] [address] [place] [address] [place] Potassium [Moles/Vol] 3.6 mmol/L Low 3.7-5.1 [facility] Comment on above: Order Comment: Naveen cantu Type: BLOOD SPECIMEN Ordering Facility: [facility] Address: [address] [place] [address] Performed By: #### 1 9123-9, [id number], 77235-0 #### [facility] CLIA [id number] [address] [place], [place] [address] [place] Protein [Mass/Vol] 6.8 g/dL Normal 6.3-8.0 [facility] Comment on above: Order Comment: Speci men Type: BLOOD SPECIMEN Ordering Facility: [facility] Address: [address] [place] [address] Performed By: #### 1 9123-9, [id number], 96621-8 #### [facility] CLIA [id number] [address] [place], [place] [address] [place] Sodium [Moles/Vol] 143 mmol/L Normal 136-144 [facility] Comment on above: Order Comment: Speci men Type: BLOOD SPECIMEN Ordering Facility: [facility] Address: [address] [place] [address] Performed By: #### 1 9123-9, [id number], 75301-8 #### [facility] CLIA [id number] [address] [place] [address] [place] Urea nitrogen [Mass/Vol] 14 mg/dL Normal 7-21 [facility] Comment on above: Order Comment: Speci men Type: BLOOD SPECIMEN Ordering Facility: [facility] Address: [address] [place] [address] Performed By: #### 1 9123-9, [id number], 04472-7 #### [facility] CLIA [id number] [address] [place] [address] [place] ED NOTEon 10-21-2024 ED NOTE HNO ID: [id number] Author: HERBER SINCLAIR, RN Service: Emergency Medicine Author Type: Registered Nurse Type: ED Notes Filed: 10/21/2024 16:45 Note Text: Pt refusing telemetry and updated vitals at this time. Normal [facility] ED PROV NOTEon 10-21-2024 ED PROV NOTE HNO ID: [id number] Author: DENYS KWOK MD Service: Emergency Medicine [...] s/p hysterectomy Hypertension Migraine MS (multiple sclerosis) ([facility]) Osteoporosis PAST SURGICAL HISTORY Procedure Laterality Date [...] Abnormal; Notable for the following components: Abs [place] 1.06 (*) <0.87 k/uL All other components [...] warm wi (more content not included)... Normal [facility] HIGH SENSITIVITY TROPONIN T (INITIAL)on 10-21-2024 Troponin T.cardiac High sensitivity method [Mass/Vol] 6 ng/L Normal <12 [facility] Comment on above: Order Comment: Naveen cantu Type: BLOOD SPECIMEN Ordering Facility: [facility] Address: [address] [place] [address] Performed By: #### 1 9123-9, [id number], 76835-4 #### [facility] CLIA [id number] [address] [place] [address] [place] HIGH SENSITIVITY TROPONIN T (SECOND)on 10-21-2024 Troponin T.cardiac High sensitivity method [Mass/Vol] <6 Normal <12 [facility] Comment on above: Order Comment: Naveen cantu Type: BLOOD SPECIMEN Ordering Facility: [facility] Address: [address] [place] [address] Performed By: #### L [id number] #### [facility] CLIA [id number] [address] [place] [address] [place] Magnesium SerPl-mCncon 10-21 Magnesium [Mass/Vol] 1.9 mg/dL Normal 1.7-2.3 [facility] Comment on above: Order Comment: Naveen cantu Type: BLOOD SPECIMEN Ordering Facility: [facility] Address: [address] [place] [address] Performed By: #### 1 9123-9, [id number], 15117-1 #### [facility] CLIA [id number] [address] [place] [address] [address] [place] XR CHEST 2V [...] thoracic spine. IMPRESSION: No acute radiographic abnormality. Ssrs Developer: [email or web address] Transcribe Date/Time: Oct 21 2024 1:33P Dictated by : ARCADIO DOYLE MD This examination was interpreted and the report reviewed and electronically signed by: GENNARO ROY MD on Oct 21 2024 1:38PM EST [id number] Normal [facility] Creatinine (Bld) [Mass/Vol]O rdered By: Chinyere Live on 09-06-2023 Creatinine [Mass/Vol] 0.6 mg/dL 0.6-1.3 [facility] Comment on above: ER/ESD physician is notified/shown all ISTAT results.Critical values may be confirmed by laboratory testing ifdeemed necessary by ER attending doctor. ISTAT XRay CREon 09-06-2023 Creatinine [Mass/Vol] 0.6 mg/dL Normal 0.6-1.3 [facility] Comment on above: Result Comment: ER/E SD physician is notified/shown all ISTAT results. Critical values may be confirmed by laboratory testing if deemed necessary by ER attending doctor. Performed By: #### I SCRE #### [address] ISTAT GFR > 60.0 Normal [facility] Comment on above: Result Comment: PERF ORMED BY: [place] [address] PATHOLOGIST FORM GRADER OPERATOR LJ VERAS M.D. Performed By: #### I SCRE #### [address] MR cervical spine wo/w conon 09-06-2023 MR cervical spine wo/w con [facility] [place] [address] [place] [address] MRI Report Signed Patient: Jayde Hernandez MR#: [id number] : 1965 Acct:[id number] Age/Sex: 58 / F ADM Date: 09/06/23 Loc: MR Room: Type: [facility] Attending Dr: Chinyere Live PA-C Copies [...] Raffi Guillen M.D.09/06/2023 11:22 AM Dictation Location: [place] [address] Transcribed By: [facility] 09/06/23 1122 Dictated By: Raffi Guillen II, MD 09/06/23 1109 Signed By: 09/06/23 1122 [facility] MR head/brain wo/w conon MR head/brain wo/w con [facility] Main [place] [address] [place] [address] MRI Report Signed Patient: Jayde Hernandez MR#: [id number] : 1965 Acct:[id number] Age/Sex: 58 / F ADM Date: 09/06/23 Loc: MR Room: Type: [facility] Attending Dr: Chinyere Live PA-C Copies [...] Raffi Guillen M.D.09/06/2023 11:09 AM Dictation Location: [place] [address] Transcribed By: [facility] 09/06/23 1109 Dictated By: Raffi Guillen II, MD 09/06/23 1053 Signed By: 09/06/23 1109 [facility] No Panel InformationOrdered By: Chinyere Live on 09-06-2023 Bedside Estimated GFR (eGFR) > 60.0 [facility] Creatinine (Bld) [Mass/Vol]O rdered By: Chinyere Live on 07-12-2023 Creatinine [Mass/Vol] 0.7 mg/dL 0.6-1.3 [facility] Comment on above: ER/ESD physician is notified/shown all ISTAT results.Critical values may be confirmed by laboratory testing ifdeemed necessary by ER attending doctor. ISTAT XRay CREon 07-12-2023 Creatinine [Mass/Vol] 0.7 mg/dL Normal 0.6-1.3 [facility] Comment on above: Result Comment: ER/E SD physician is notified/shown all ISTAT results. Critical values may be confirmed by laboratory testing if deemed necessary by ER attending doctor. Performed By: #### I SCRE #### [facility] [address] [place] [address] ISTAT GFR > 60.0 Normal [facility] Comment on above: Result Comment: PERF ORMED BY: [place] [address] PATHOLOGIST FORM GRADER OPERATOR LJ VERAS M.D. Performed By: #### I SCRE #### [address] No Panel InformationOrdered By: Chinyere Live on 07-12-2023 Bedside Estimated GFR (eGFR) > 60.0 [facility] XR pre/post mri xrayon 07-12 XR pre/post mri xray [facility] Main [place] [address] [place] [address] MRI Report Signed Patient: Jayde Hernandez MR#: [id number] : 1965 Acct:[id number] Age/Sex: 58 / F ADM Date: 07/12/23 Loc: Room: Type: [facility] Attending Dr: Chinyere Live PA-C Copies to: Chinyere Live PA-C Ordering Provider: Chinyere Live PA-C Date of Service: 07/12/23 MR/MR thoracic spine wo/w con: G35 ([id number]) XR/XR pre/post mri xray: G35 MR thoracic [...] Raffi Guillen M.D.07/12/2023 12:37 PM Dictation Location: [place] [address] Transcribed By: [facility] 07/12/23 1237 Dictated By: Raffi Guillen II, MD 07/12/23 1230 Signed By: 07/12/23 1237 [facility] CBC AUTO DIFFon 05-10-2022 BASO # 0.1 103/ul Normal 0.0-0.1 [facility] Comment on above: Performed By: #### C BC #### [facility] [address] [place] [address] Dr. Brett Rosales Basophils/100 WBC (Bld) 1.0 % Normal 0.2-2.0 [facility] Comment on above: Performed By: #### C BC #### [facility] [address] [place] [address] Dr. Brett Rosales EO # 0.1 103/ul Normal 0.0-0.7 [facility] Comment on above: Performed By: #### C BC #### [facility] [address] [place] [address] Dr. Brett Rosales Eosinophils/100 WBC (Bld) 1.5 % Normal 0.9-7.0 [facility] Comment on above: Performed By: #### C BC #### [facility] [address] [place] [address] Dr. Brett Rosales Erythrocyte distribution width (RBC) [Ratio] 13.2 % Normal 11.0-15.0 [facility] Comment on above: Performed By: #### C BC #### [facility] [address] [place] [address] Dr. Brett Rosales Hematocrit (Bld) [Volume fraction] 40.1 % Normal 36.0-48.0 [facility] Comment on above: Performed By: #### C BC #### [facility] [address] [place] [address] Dr. Brett Rosales Hemoglobin (Bld) [Mass/Vol] 12.9 g/dL Normal 12.0-16.0 [facility] Comment on above: Performed By: #### C BC #### [facility] [address] [place] [address] Dr. Brett Rosales IG # 0.01 10e3/ul Normal 0.00-0.03 [facility] Comment on above: Performed By: #### C BC #### [facility] [address] [place] [address] Dr. Brett Rosales IG % 0.1 % Normal 0.0-0.5 [facility] Comment on above: Performed By: #### C BC #### [facility] [address] [place] [address] Dr. Brett Rosales LYMPH # 2.5 103/ul Normal 1.2-3.8 [facility] Comment on above: Performed By: #### C BC #### [facility] [address] [place] [address] Dr. Brett Rosales Lymphocytes/100 WBC (Bld) 30.3 % Normal 20.5-60.0 [facility] Comment on above: Performed By: #### C BC #### [facility] [address] [place] [address] Dr. Brett Rosales MANUAL DIFF REQ NO Normal [facility] Comment on above: Performed By: #### C BC #### [facility] [address] [place] [address] Dr. Brett Rosales MCH (RBC) [Entitic mass] 30.6 pg Normal 26.7-34.0 [facility] Comment on above: Performed By: #### C BC #### [facility] [address] [place] [address] Dr. Brett Rosales MCHC (RBC) [Mass/Vol] 32.2 g/dL Normal 29.9-35.2 [facility] Comment on above: Performed By: #### C BC #### [facility] [address] [place] [address] Dr. Brett Rosales MCV (RBC) [Entitic vol] 95.0 fL Normal 81.0-99.0 [facility] Comment on above: Performed By: #### C BC #### [facility] [address] [place] [address] Dr. Brett Rosales MONO # 0.9 103/ul Critically high 0.3-0.8 [facility] Comment on above: Performed By: #### C BC #### [facility] [address] [place] [address] Dr. Brett Rosales Monocytes/100 WBC (Bld) 10.4 % Normal 1.7-12.0 [facility] Comment on above: Performed By: #### C BC #### [facility] [address] [place] [address] Dr. Brett Rosales NEUT # 4.6 103/ul Normal 1.4-6.5 [facility] Comment on above: Performed By: #### C BC #### [facility] [address] [place] [address] Dr. Brett Rosales Neutrophils/100 WBC (Bld) 56.7 % Normal 43.0-75.0 [facility] Comment on above: Performed By: #### C BC #### [facility] [address] [place] [address] Dr. Brett Rosales Platelet mean volume (Bld) [Entitic vol] 11.0 fL Normal 9.5-13.5 [facility] Comment on above: Performed By: #### C BC #### [facility] [address] [place] [address] Dr. Brett Rosales PLT 262 103/ul Normal 150-450 [facility] Comment on above: Performed By: #### C BC #### [facility] [address] [place] [address] Dr. Brett Rosales RBC 4.22 106/ul Normal 4.20-5.40 [facility] Comment on above: Performed By: #### C BC #### [facility] [address] [place] [address] Dr. Brett Rosales WBC 8.2 103/ul Normal 4.0-11.0 [facility] Comment on above: Performed By: #### C BC #### [facility] [address] [place] [address] Dr. Brett Rosales PROF 14(COMP METB)on 022 Albumin [Mass/Vol] 3.5 g/dL Normal 3.4-5.0 [facility] Comment on above: Performed By: #### C MP #### [facility] [address] [place] [address] Dr. Brett Rosales Albumin/Globulin [Mass ratio] 1.0 {ratio} Normal [facility] Comment on above: Performed By: #### C MP #### [facility] [address] [place] [address] Dr. Brett Rosales ALP [Catalytic activity/Vol] 94 U/L Normal 46-116 [facility] Comment on above: Performed By: #### C MP #### [facility] [address] [address] [address] Brett Rosales ALT [Catalytic activity/Vol] 25 U/L Normal 14-59 [facility] Comment on above: Performed By: #### C MP #### [facility] [address] [place] [address] [address] Brett Rosales Anion gap [Moles/Vol] 9.4 mmol/L Normal [facility] Comment on above: Performed By: #### C MP #### [facility] [address] [address] [address] Brett Rosales AST [Catalytic activity/Vol] 21 U/L Normal 15-37 [facility] Comment on above: Performed By: #### C MP #### [facility] [address] [address] [address] Brett Rosales Bilirubin [Mass/Vol] 0.3 mg/dL Normal 0.2-1.0 [facility] Comment on above: Performed By: #### C MP #### [facility] [address] [address] [address] Brett Rosales Calcium [Mass/Vol] 9.1 mg/dL Normal 8.5-10.1 [facility] Comment on above: Performed By: #### C MP #### [facility] [address] [address] [address] Brett Rosales Chloride [Moles/Vol] 106 mmol/L Normal 98-107 [facility] Comment on above: Performed By: #### C MP #### [facility] [address] [address] [address] Brett Rosales CO2 [Moles/Vol] 31.2 mmol/L Normal 21.0-32.0 [facility] Comment on above: Performed By: #### C MP #### [facility] [address] [address] [address] Brett Rosales Creatinine [Mass/Vol] 0.69 mg/dL Normal 0.55-1.02 [facility] Comment on above: Performed By: #### C MP #### [facility] [address] [address] [address] Brett Rosales EGFR-AF SWEDISH >60 Normal >=60 [facility] Comment on above: Performed By: #### C MP #### [facility] [address] [address] [address] Brett Rosales EGFR-NON AF SWEDISH >60 Normal >=60 [facility] Comment on above: Performed By: #### C MP #### [facility] [address] [address] [address] Brett Rosales Globulin (S) [Mass/Vol] 3.5 g/dL Normal [facility] Comment on above: Performed By: #### C MP #### [facility] [address] [address] [address] Brett Rosales Glucose [Mass/Vol] 108 mg/dL Critically high 74-106 [facility] Comment on above: Performed By: #### C MP #### [facility] [address] [address] [address] Brett Rosales Potassium [Moles/Vol] 3.6 mmol/L Normal 3.5-5.1 [facility] Comment on above: Performed By: #### C MP #### [facility] [address] [place] [address] Dr. Brett Rosales Protein [Mass/Vol] 7.0 g/dL Normal 6.4-8.2 [facility] Comment on above: Performed By: #### C MP #### [facility] [address] [place] [address] [address] Brett Rosales Sodium [Moles/Vol] 143 mmol/L Normal 136-145 [facility] Comment on above: Performed By: #### C MP #### [facility] [address] [place] [address] [address] Brett Rosales Urea nitrogen [Mass/Vol] 14.0 mg/dL Normal 7.0-18.0 [facility] Comment on above: Performed By: #### C MP #### [facility] [address] [place] [address] [address] Brett Rosales Urea nitrogen/Creatinine [Mass ratio] 20.3 mg/mg Normal [facility] Comment on above: Performed By: #### C #### [facility] [address] [place], [place] [address] Dr. Brett Rosales XR CHEST 2 Von [...] LIAT WEBSTER Date: 2022-02-24 08:15 Normal [facility] MAMM SCREEN 3D LIBERTAD CADon 02-15-2022 MG MAMM SCREEN 3D LIBERTAD CAD Patient: JAYDE HERNANDEZ Exam Date: 02/15/2022 : 1965 Gender:F Ordering : DR CINDY RODRÍGUEZ Admission #: [id number] Family : DR JOHNY WINTERS D.O. Order #: [id number] CLICK HERE TO VIEW EXAM RADIOLOGY REPORT [...] breast cancer at age 63. LOCATION: [facility] BREAST COMPOSITION: Scattered areas fibroglandular density. [...] M.D. on 02/16/2022 at 13:24 Normal [facility] CBC AUTO DIFFon 11-16-2021 BASO # 0.1 103/ul Normal 0.0-0.1 [facility] Comment on above: Performed By: #### C BC #### [facility] [address] [place] [address] Dr. Brett Rosales Basophils/100 WBC (Bld) 0.7 % Normal 0.2-2.0 [facility] Comment on above: Performed By: #### C BC #### [facility] [address] [place] [address] Dr. Brett Rosales EO # 0.1 103/ul Normal 0.0-0.7 [facility] Comment on above: Performed By: #### C BC #### [facility] [address] [place] [address] Dr. Brett Rosales Eosinophils/100 WBC (Bld) 1.7 % Normal 0.9-7.0 [facility] Comment on above: Performed By: #### C BC #### [facility] [address] [place] [address] Dr. Brett Rosales Erythrocyte distribution width (RBC) [Ratio] 13.2 % Normal 11.0-15.0 [facility] Comment on above: Performed By: #### C BC #### [facility] [address] [place] [address] Dr. Brett Rosales Hematocrit (Bld) [Volume fraction] 38.9 % Normal 36.0-48.0 [facility] Comment on above: Performed By: #### C BC #### [facility] [address] [place] [address] Dr. Brett Rosales Hemoglobin (Bld) [Mass/Vol] 12.5 g/dL Normal 12.0-16.0 [facility] Comment on above: Performed By: #### C BC #### [facility] [address] [place] [address] Dr. Brett Rosales IG # 0.02 10e3/ul Normal 0.00-0.03 [facility] Comment on above: Performed By: #### C BC #### [facility] [address] [place] [address] Dr. Brett Rosales IG % 0.2 % Normal 0.0-0.5 [facility] Comment on above: Performed By: #### C BC #### [facility] [address] [place] [address] Dr. Brett Rosales LYMPH # 2.9 103/ul Normal 1.2-3.8 [facility] Comment on above: Performed By: #### C BC #### [facility] [address] [place] [address] Dr. Brett Rosales Lymphocytes/100 WBC (Bld) 34.3 % Normal 20.5-60.0 [facility] Comment on above: Performed By: #### C BC #### [facility] [address] [place] [address] Dr. Brett Rosales MANUAL DIFF REQ NO Normal [facility] Comment on above: Performed By: #### C BC #### [facility] [address] [place] [address] Dr. Brett Rosales MCH (RBC) [Entitic mass] 31.0 pg Normal 26.7-34.0 [facility] Comment on above: Performed By: #### C BC #### [facility] [address] [place] [address] Dr. Brett Rosales MCHC (RBC) [Mass/Vol] 32.1 g/dL Normal 29.9-35.2 [facility] Comment on above: Performed By: #### C BC #### [facility] [address] [place] [address] Dr. Brett Rosales MCV (RBC) [Entitic vol] 96.5 fL Normal 81.0-99.0 [facility] Comment on above: Performed By: #### C BC #### [facility] [address] [place] [address] Dr. Brett Rosales MONO # 0.7 103/ul Normal 0.3-0.8 [facility] Comment on above: Performed By: #### C BC #### [facility] [address] [place] [address] [address] Brett Rosales Monocytes/100 WBC (Bld) 8.5 % Normal 1.7-12.0 [facility] Comment on above: Performed By: #### C BC #### [facility] [address] [place] [address] [address] Brett Rosales NEUT # 4.6 103/ul Normal 1.4-6.5 [facility] Comment on above: Performed By: #### C BC #### [facility] [address] [place] [address] [address] Brett Rosales Neutrophils/100 WBC (Bld) 54.6 % Normal 43.0-75.0 [facility] Comment on above: Performed By: #### C BC #### [facility] [address] [place] [address] Dr. Brett Rosales Platelet mean volume (Bld) [Entitic vol] 10.7 fL Normal 9.5-13.5 [facility] Comment on above: Performed By: #### C BC #### [facility] [address] [place] [address] Dr. Brett Rosales PLT 276 103/ul Normal 150-450 [facility] Comment on above: Performed By: #### C BC #### [facility] [address] [place] [address] [address] Brett Rosales RBC 4.03 106/ul Critically low 4.20-5.40 [facility] Comment on above: Performed By: #### C BC #### [facility] [address] [place] [address] [address] Brett Rosales WBC 8.5 103/ul Normal 4.0-11.0 [facility] Comment on above: Performed By: #### C BC #### [facility] [address] [place] [address] [address] Brett Rosales PROF 14(COMP METB)on 022 Albumin [Mass/Vol] 3.5 g/dL Normal 3.4-5.0 [facility] Comment on above: Performed By: #### C MP #### [facility] [address] [place] [address] [address] Brett Rosales Albumin/Globulin [Mass ratio] 1.1 {ratio} Normal [facility] Comment on above: Performed By: #### C MP #### [facility] [address] [place] [address] [address] Brett Rosales ALP [Catalytic activity/Vol] 75 U/L Normal 46-116 [facility] Comment on above: Performed By: #### C MP #### [facility] [address] [place] [address] Dr. Brett Rosales ALT [Catalytic activity/Vol] 27 U/L Normal 14-59 [facility] Comment on above: Performed By: #### C MP #### [facility] [address] [place] [address] Dr. Brett Rosales Anion gap [Moles/Vol] 9.3 mmol/L Normal [facility] Comment on above: Performed By: #### C MP #### [facility] [address] [place] [address] Dr. Brett Rosales AST [Catalytic activity/Vol] 22 U/L Normal 15-37 [facility] Comment on above: Performed By: #### C MP #### [facility] [address] [place] [address] Dr. Brett Rosales Bilirubin [Mass/Vol] 0.4 mg/dL Normal 0.2-1.3 [facility] Comment on above: Performed By: #### C MP #### [facility] [address] [place] [address] Dr. Brett Rosales Calcium [Mass/Vol] 8.4 mg/dL Critically low 8.5-10.1 [facility] Comment on above: Performed By: #### C MP #### [facility] [address] [place] [address] Dr. Brett Rosales Chloride [Moles/Vol] 105 mmol/L Normal 98-107 [facility] Comment on above: Performed By: #### C MP #### [facility] [address] [place] [address] [address] Brett Rosales CO2 [Moles/Vol] 31.1 mmol/L Critically high 22.0-30.0 [facility] Comment on above: Performed By: #### C MP #### [facility] [address] [place] [address] [address] Brett Rosales Creatinine [Mass/Vol] 0.73 mg/dL Normal 0.52-1.04 [facility] Comment on above: Performed By: #### C MP #### [facility] [address] [place] [address] [address] Brett Rosales EGFR-AF SWEDISH >60 Normal >=60 [facility] Comment on above: Performed By: #### C MP #### [facility] [address] [place] [address] Dr. Brett Rosales EGFR-NON AF SWEDISH >60 Normal >=60 [facility] Comment on above: Performed By: #### C MP #### [facility] [address] [place] [address] [address] Brett Rosales Globulin (S) [Mass/Vol] 3.2 g/dL Normal [facility] Comment on above: Performed By: #### C MP #### [facility] [address] [place] [address] Dr. Brett Rosales Glucose [Mass/Vol] 105 mg/dL Normal 74-106 [facility] Comment on above: Performed By: #### C MP #### [facility] [address] [place] [address] Dr. Brett Rosales Potassium [Moles/Vol] 3.4 mmol/L Normal 3.4-5.0 [facility] Comment on above: Performed By: #### C MP #### [facility] [address] [place] [address] Dr. Brett Rosales Protein [Mass/Vol] 6.7 g/dL Normal 6.1-8.2 [facility] Comment on above: Performed By: #### C MP #### [facility] [address] [place] [address] Dr. Brett Rosales Sodium [Moles/Vol] 142 mmol/L Normal 137-145 [facility] Comment on above: Performed By: #### C MP #### [facility] [address] [place] [address] [address] Brett Rosales Urea nitrogen [Mass/Vol] 12.0 mg/dL Normal 7.0-18.0 [facility] Comment on above: Performed By: #### C MP #### [facility] [address] [place] [address] [address] Brett Rosales Urea nitrogen/Creatinine [Mass ratio] 16.4 mg/mg Normal [facility] Comment on above: Performed By: #### C MP #### [facility] [address] [place] [address] [address] Brett Rosales MRI LSPINE WO W CONon 2021 MRI LSPINE WO W CON EXAMINATION: MRI LSPERLEY WO W CON HISTORY: Lumbosacral spondylosis with [...] by: DENYS WALLACE Date: 2021-09-09 15:31 Normal [facility] Vital Signs Date Time Vital Sign Value Performing Clinician Facility 03-17-2025 13:15-0400 Body height 152.4 cm [employer]y [employer] DO Work Phone: [facility] 03-17-2025 13:15-0400 Body mass index (BMI) [Ratio] 27.1 kg/m2 [employer] DO Work Phone: [facility] 03-17-2025 13:15-0400 Body weight 63.04 kg [employer]y [employer] DO Work Phone: [facility] 03-17-2025 13:15-0400 Diastolic blood pressure 80 mm[Hg] Johny Ball DO Work Phone: [facility] 03-17-2025 13:15-0400 Heart rate 83 /min Johny Ball DO Work Phone: [facility] 03-17-2025 13:15-0400 Respiratory rate 16 /min Johny Ball DO Work Phone: [facility] 03-17-2025 13:15-0400 SaO2% (BldA) [Mass fraction] 95 % Johny Ball DO Work Phone: [facility] 03-17-2025 13:15-0400 Systolic blood pressure 120 mm[Hg] [employer] DO Work Phone: [facility] 12-31-2024 10:37-0400 Body height 152.4 cm Cindy [employer] Work Phone: [facility] 12-31-2024 10:37-0400 Body mass index (BMI) [Ratio] 27.15 kg/m2 Cindy [employer] Work Phone: [facility] 12-31-2024 10:37-0400 Body weight 63.05 kg Cindy Rodríguez DO Work Phone: [facility] 12-31-2024 10:37-0400 Diastolic blood pressure 72 mm[Hg] Cindy Rodríguez DO Work Phone: [facility] 12-31-2024 10:37-0400 Systolic blood pressure 116 mm[Hg] Cindy Rodríguez DO Work Phone: [facility] 09-19-2024 10:36-0500 Body height 152.4 cm Chinyere Lowe PA Work Phone: [facility] 09-19-2024 10:36-0500 Body mass index (BMI) [Ratio] 27.15 kg/m2 Chinyere Lowe PA Work Phone: [facility] 09-19-2024 10:36-0500 Body weight 63.05 kg Chinyere Lowe PA Work Phone: [facility] 09-19-2024 10:36-0500 Diastolic blood pressure 64 mm[Hg] Chinyere Lowe PA Work Phone: [facility] 09-19-2024 10:36-0500 Systolic blood pressure 142 mm[Hg] Chinyere Lowe PA Work Phone: [facility] 04-04-2024 09:32-0400 Body height 152.4 cm Chinyere Lowe PA Work Phone: [facility] 04-04-2024 09:32-0400 Body mass index (BMI) [Ratio] 27.73 kg/m2 Chinyere Lowe PA Work Phone: [facility] 04-04-2024 09:32-0400 Body weight 64.41 kg Chinyere Lowe PA Work Phone: [facility] 04-04-2024 09:32-0400 Diastolic blood pressure 70 mm[Hg] Chinyere Lowe PA Work Phone: [facility] 04-04-2024 09:32-0400 Systolic blood pressure 132 mm[Hg] Chinyere Lowe PA Work Phone: [facility] 09-06-2023 09:48-0500 Body height 152.4 cm DO Jonhy Ball Work Phone: [facility] 09-06-2023 09:48-0500 Body weight 60.78 kg DO Johny Ball Work Phone: [facility] 07-12-2023 11:28-0500 Body height 152.4 cm DO Johny Ball Work Phone: [facility] 07-12-2023 11:28-0500 Body weight 60.78 kg DO Johny Ball Work Phone: [facility] 03-01-2023 10:00-0400 Body height 154.94 cm Johny Ball Other [facility] [employer] Other 03-01-2023 10:00-0400 Body mass index (BMI) [Ratio] 26.15 kg/m2 Johny Ball Other [employer] Other 03-01-2023 10:00-0400 Body weight 62.78 kg Johny Ball Other [employer] Other 03-01-2023 10:00-0400 Diastolic blood pressure 74 mm[Hg] Johny Ball Other [employer] Other 03-01-2023 10:00-0400 Respiratory rate 12 /min Johny Ball Other [employer] Other 03-01-2023 10:00-0400 Systolic blood pressure 138 mm[Hg] Johny Ball Other [employer] [employer] Other 11-02-2021 14:20-0400 Body height 154.94 cm Ezequiel Agudelo Other [employer] Other 11-02-2021 14:20-0400 Body mass index (BMI) [Ratio] 25.69 kg/m2 Ezequiel Agudelo Other [employer] Other 11-02-2021 14:20-0400 Body weight 61.69 kg Ezequiel Agudelo Other [employer] Other Encounters Encounter Date Encounter Type Care Provider Facility Start: 03-17-2025 End: 03-17-2025 ambulatory Johny Winters DO Work Phone: [facility] Work Phone: Start: 03-17-2025 End: 03-17-2025 Patient encounter procedure Jennifer Ward 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 [facility] [place] Work Phone: Start: 12-31-2024 End: 12-31-2024 Patient encounter status Cindy Rodríguez DO Work Phone: [facility] Start: 12-31-2024 End: 12-31-2024 Periodic preventive med est patient 40-64yrs Cindy Rodríguez DO Work Phone: [facility] Comment on above: Encounter for gyneco logical examination without abnormal finding; Encounter for Papanicolaou smear of vagina; Breast cancer screening by mammogram; Osteoporosis, post-menopausal (CMS/HCC) Start: 12-31-2024 End: 12-31-2024 ambulatory CINDY RODRÍGUEZ Not Available Start: 10-21-2024 End: 10-21-2024 Emergency department patient visit JOHNY WINTERS Facility:[facility] Start: 09-19-2024 End: 09-19-2024 Bamboo YouNoodleheet Chinyere Lowe PA Work Phone: [facility] [place] Start: 09-19-2024 End: 09-19-2024 Bamboo [employer]le[employer] Chinyere Lowe PA Work Phone: [facility] [place] Start: 09-19-2024 End: 09-19-2024 Office outpatient visit 15 minutes Chinyere Lowe PA Work Phone: [facility] Comment on above: Multiple sclerosis ( CMS/HCC) (Primary Dx); Fatigue, unspecified type; Degenerative disc disease, cervical; Vertigo Start: 09-19-2024 End: 09-19-2024 ambulatory CHINYERE LOWE Not Available Start: 04-04-2024 End: 04-04-2024 Bamboo flowsheet Chinyere Lowe PA Work Phone: [facility] Start: 04-04-2024 End: 04-04-2024 Bamboo flowsheet Chinyere Lowe PA Work Phone: [facility] Start: 04-04-2024 End: 04-04-2024 Office outpatient visit 25 minutes Chinyere Cruze PA Work Phone: [facility] Comment on above: Multiple sclerosis ( CMS/HCC) (Primary Dx); Fatigue, unspecified type; Degenerative disc disease, cervical; Degenerative disc disease, lumbar; Lumbar radiculopathy; Transient alteration of awareness Start: 04-04-2024 End: 04-04-2024 ambulatory CHINYERE LOWE Not Available Start: 09-06-2023 End: 09-06-2023 ambulatory Chinyere Lowe Facility:[facility] Start: 09-06-2023 End: 09-06-2023 ambulatory DO Johny Ball Work Phone: [facility] Work Phone: Start: 09-06-2023 End: 09-06-2023 Patient encounter procedure DO Johny Ball Work Phone: [facility] [place] Work Phone: Start: 07-12-2023 End: 07-12-2023 ambulatory Johny Ball Facility:[facility] Start: 07-12-2023 End: 07-12-2023 Patient encounter procedure DO Johny Ball Work Phone: [facility] [place] Work Phone: Start: 04-07-2023 End: 04-07-2023 ambulatory Johny Ball Other [employer] Other Start: 04-07-2023 Nursing evaluation o f patient and report Johny Singh [facility] Start: 03-01-2023 End: 03-01-2023 ambulatory Johny Winters Other [employer] Other Start: 03-01-2023 Encounter for genera l adult medical examination without abnormal findings Johny Winters [facility] Start: 03-01-2023 Periodic preventive med est patient 40-64yrs Johny Singh [facility] Start: 12-24-2022 End: 12-24-2022 ambulatory Johny Winters Other [employer] Other Start: 12-24-2022 Telephone encounter Johny Winters [facility] Start: 05-10-2022 End: 05-11-2022 ambulatory CHINYERE LIVE Facility:[facility] Start: 02-23-2022 End: 02-24-[address] JOHNY WINTERS Facility:[facility] Start: 02-15-2022 End: 02-16-[address] CINDY RODRÍGUEZ Facility:[facility] Start: 11-16-2021 End: 11-17-[address] DENYS JACKSON Facility:[facility] Start: 11-02-2021 End: 11-02-2021 ambulatory Ezequiel Agudelo Other [employer] Other Start: 11-02-2021 Office outpatient ne w 45 minutes Ezequiel Agudelo [facility] Start: 09-09-2021 End: 09-10-[address] [...] 12-11-2028 Screening for malignant neoplasm of cervix [facility] Start: 03-27-2025 End: 03-02-2026 DBT Breast - bilateral screening Bilateral screening mammogram with tomosynthesis Imaging Routine Breast cancer screening by mammogram Expected: 03/27/2025, Expires: 03/02/2026 [facility] Comment on above: Expected: 03/27/2025 , Expires: 03/02/2026 Start: 03-26-2025 Screening for malignant neoplasm of breast Mammogram [facility] Start: 03-18-2025 Screening for malignant neoplasm of colon [facility] Start: 12-17-2024 End: 12-17-2024 Patient encounter procedure [facility] Start: 09-19-2024 End: 09-19-2024 Patient encounter procedure 09/19/2024 10:40 AM EST Office Visit [facility] [place] [address] [place] [id number] Chinyere Live PA [address] [place] [address] Arrived [facility] [place] Comment on above: Arrived Start: 06-26-2024 End: 06-26-2024 Patient encounter procedure 06/26/2024 10:40 AM EST Office Visit [facility] [address] [place] [phone] Chinyere Live PA [address] [place] [address] [facility] [place] [facility] Start: 04-04-2024 End: 04-04-2024 Patient encounter procedure 04/04/2024 9:40 AM EDT Office Visit [facility] [address] [place] [address] Chinyere Live PA [address] [place] [address] Ar[address] [facility] [place] [facility] Comment on above: Arrived Start: 03-31-2024 Influenza vaccination Influenza Vacc ine (#1) [facility] Start: 01-22-1984 Screening for malignant neoplasm of cervix Pap Smear [facility] Start: 1965 Screening for malignant neoplasm of colon [facility] IGP,rfxAptima HPV all,16/18,45 IGP,rfxAptima HPV all,16/18,45 Pathology and Cytology Routine Encounter for Papanicolaou smear of vagina Ordered: 12/31/2024 [facility] Work Phone: Comment on above: Ordered: 12/31/2024 Immunizations Immunization Date Immunization Notes Care Provider Neda falk 04-08-2024 influenza, seasonal, injectable, preservative free Cindy Rodríguez DO Work Phone: [facility] 04-07-2023 influenza, injectabl e, quadrivalent, preservative free Johny Winters Other [facility] 04-07-2023 influenza virus vaccine, unspecified formulation Chinyere ZUNIGA Work Phone: [facility] 05-06-2022 influenza virus vaccine, split virus (incl. purified surface antigen) Johny Winters Other [facility] [employer] Other 05-06-2022 influenza virus vaccine, unspecified formulation Johny Winters DO Work Phone: [facility] 05-06-2022 Influenza, injectabl e, Madin Anam Canine Kidney, preservative free, quadrivalent Chinyere ZUNIGA Work Phone: [facility] 05-06-2022 influenza, injectabl e, quadrivalent, preservative free Johny Winters DO Work Phone: [facility] 05-06-2022 influenza, injectabl e, quadrivalent, contains preservative Johny Winters Other [facility] [employer] Other 12-01-2021 influenza, injectabl e, quadrivalent, preservative free Chinyere ZUNIGA Work Phone: [facility] 04-14-2021 influenza virus vaccine, split virus (incl. purified surface antigen) Johny Winters Other [facility] [employer] Other 04-14-2021 influenza virus vaccine, unspecified formulation Johny Winters DO Work Phone: [facility] 04-17-2020 pneumococcal polysaccharide vaccine, 23 valent Johny Winters Other [facility] 12-31-2019 pneumococcal conjuga te vaccine, 13 valent Johny Winters Other [facility] 08-13-2019 influenza, injectabl e, madin anam canine kidney, preservative free Chinyere Lowe PA Work Phone: [facility] 04-08-2019 influenza virus vaccine, split virus (incl. purified surface antigen) Johny Winters Other [facility] [employer] Other 04-08-2019 influenza virus vaccine, unspecified formulation Johny Winters DO Work Phone: [facility] 04-08-2019 Influenza, injectabl e, Madin Anam Canine Kidney, quadrivalent with preservative Chinyere Lowe PA Work Phone: [facility] 07-05-2018 Influenza, injectabl e, Madin Wallace Canine Kidney, preservative free, quadrivalent Chinyere Lowe PA Work Phone: [facility] 05-05-2017 influenza virus vaccine, split virus (incl. purified surface antigen) Johny Winters Other [facility] [employer] Other 05-05-2017 influenza virus vaccine, unspecified formulation Johny Winters DO Work Phone: [facility] 05-05-2017 influenza, high dose seasonal, preservative-free Chinyere Lowe PA Work Phone: [facility] 06-06-2016 influenza, injectabl e, quadrivalent, preservative free Chinyere Lowe PA Work Phone: [facility] 05-04-2015 tetanus and diphther ia toxoids, adsorbed, preservative free, for adult use (5 Lf of tetanus toxoid and 2 Lf of diphtheria toxoid) Johny Winters Other [facility] 04-30-2013 tetanus and diphther ia toxoids, adsorbed, preservative free, for adult use (5 Lf of tetanus toxoid and 2 Lf of diphtheria toxoid) Johny Winters Other [facility] Payers Date Payer Category Payer Self-pay [id number] 2018 Medicaid [facility] [employer] [place] [id number] 2018-Present [address] [place] [address] [id number] 2018 Private Health Insurance [facility] [id number] 2018 Medicaid [id number] 1963 Unknown [id number] [id number]. 59 1963 Unknown [id number] [id number]. 59 1963 Unknown [id number] [id number]. 593 1963 Unknown [id number] [id number]. 593 1963 Unknown [id number] [id number]. 593 1963 Unknown [id number] 2.16.840.1.019005.3.579.2. 593 1963 Unknown [id number] 2.16.840.1.652042.3.579.2. 9 1963 Unknown [id number] 2.16.840.1.723127.3.579.2. 1259 1963 Unknown [id number] [id number]. 1259 1959 Unknown [id number] [id number] Private Health Insurance [facility] [id number] Unknown [id number] [id number]. 531 Unknown [id number] [id number]. 531 Social History Date Type Detail Facility Start: 12-12-2023 End: 12-31-2024 [facility] Other Start: 1965 Sex Assigned At Female F [facility] Start: 12-11-2023 End: 04-04-2024 Tobacco smoking status TXIS Smokes tobacco daily [facility] History of [...] or 2 [facility] Work Phone: Sex Female (finding) [facility] Functional Status Date Assessment Result Facility 12-31-2024 Total score [AUDIT-C] 1 01/01/20 10:38 AM EDT Ramila Lima MA [facility] 12-31-2024 Patient Health Quest ionnaire 2 item (PHQ-2) [Reported] [facility] Clinical Notes 11-02-2021 to 12-31-2024 Zandra Mix MA - 12/31/2024 10:45 AM [place] [facility]ana - 04/04/2024 9:40 AM EDT Note Date & Type Note Facility 12-31-2024 History of Present illness Narrative Images from the original note were not included. Cindy Rodríguez, DO Obstetrics and Gynecology Jayde Hernandez 1965 12/31/24 [id number] Yearly Wellness Exam Chief Complaint Patient presents with Gynecologic Exam LMP: SHER LSO 1997 HRT: None Last pap 12-12-23 neg. Last mammogram 03-26-24 [facility]. Denies breast, urinary, or bowel concerns. Dr. [...] at bedtime cholecalciferol (Vitamin D-3) 250 MCG (24039 UT) capsule Take 10,000 Units by mouth [...] costovertebral angle tenderness, no obvious scoliosis/kyphosis. 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 documented in this encounter [facility] 10-21-2024 Note HNO ID: [id number] Author: ARCADIO MOREL JR, TECHNOLOGIST Service: Radiology [...] PATIENT PRESENTS WITH AN IMPLANTABLE OR ATTACHED POLYMER SPECIALIST: No ALLERGIES: Reviewed and unchanged CONTRAST ALLERGY: [...] DATE: October 21, 2024 TIME: 3:40 PM [facility] 04-04-2024 History of Present illness Narrative Subjective [...] Surgical History: Procedure Laterality Date HYSTERECTOMY 08/06/1997 [facility] LSO Family History Problem Relation Name [...] Review Audit Reviewed by Betty Singleton MA (Pantomimist) on 04/04/24 at 0935 Medication Order Taking? Sig Documenting Provider Last Dose Status alendronate (Fosamax) 70 MG tablet [id number] Take 70 mg by mouth 1 (one) time per week [place] Enriquez Active amLODIPine (Norvasc) 5 MG tablet [id number] Take 5 mg by mouth Daily [place] Enriquez Active ASPIRIN 81 MG chewable tablet [id number] Chew 81 mg 1 (one) time [place] Enriquez Active atorvastatin (Lipitor) 20 MG tablet [id number] Take 20 mg by mouth Daily [place] Enriquez Active Aubagio 14 MG tablet [id number] 1 tablet Daily [place] Enriquez Active B Complex Vitamins (vitamin B complex) tablet [id number] as directed Orally Cindy Rodríguez DO Active baclofen (Lioresal) 10 MG tablet [id number] Take 10 mg by mouth at bedtime [place] Enriquez Active cholecalciferol (Vitamin D-3) 250 MCG (90244 UT) capsule [id number] Take 10,000 Units by mouth in the morning. Cindy Rodríguez DO Active ferrous sulfate 325 (65 Fe) MG tablet [id number] Take 325 mg by mouth in the morning. Take with meals. [place] Enriquez Active gabapentin (Neurontin) 300 MG capsule [id number] TAKE 1 CAPSULE BY MOUTH TWICE A DAY AND 2 CAPSULES BY MOUTH AT BEDTIME [place] Enriquez Active Krill Oil 500 MG capsule [id number] Take 1 capsule by mouth Daily [place] Enriquez Active lisinopril 5 MG tablet [id number] Take 5 mg by mouth Daily [place] Enriquez Active meclizine (Antivert) 25 MG tablet [id number] Take 25 mg by mouth every 12 (twelve) hours [place] Enriquez Active meloxicam (Mobic) 7.5 MG tablet [id number] Take 15 mg by mouth Daily [place] Enriquez Active raloxifene (Evista) 60 MG tablet [id number] No Take 1 tablet (60 mg) by [...] triceps, wrist extensors, wrist extensors, wrist flexor, digital field service technician strength 5/5. LUE Strength deltoid, biceps, triceps, wrist extensors, wrist extensors, wrist flexor, digital field service technician strength 5/5. RLE Strength illopsoas, quadriceps, tibialis [...] in 2 months documented in this encounter [facility] 03-01-2023 Evaluation note Encounter Date Diagnosis Assessment [...] mammogram for breast cancer (ICD-10 - Z12.31) Customer Service Analyst sending order for mammogram Instructed on monthly SBE [employer] Other 04-05-2022 Evaluation note* Encounter Date Diagnosis [...] stable Oct, Lumbar radiculopathy (ICD-10 - M54.16) [employer] Other evaluation noteNo InformationNort [employer] Other Evaluation noteNo assessment information available [facility] Work Phone: Evaluation note* Diagnosis Multiple sclerosis (CMS/HCC)- Primary Multiple sclerosis Fatigue, unspecified type Degenerative disc disease, cervical Degenerative disc disease, lumbar Lumbar radiculopathy Thoracic or lumbosacral neuritis or radiculitis, unspecified Transient alteration of awareness documented in this encounter [facility] HealthcareEvaluation note* Diagnosis Multiple sclerosis (CMS/HCC)- Primary Multiple sclerosis Fatigue, unspecified type Degenerative disc disease, cervical Vertigo Dizziness and giddiness documented in this encounter [facility] HealthcareEvaluation note* Diagnosis Encounter for gynecological examination without abnormal finding Encounter for Papanicolaou smear of vagina Breast cancer screening by mammogram Osteoporosis, post-menopausal (CMS/HCC) Senile osteoporosis documented in this encounter [facility] HealthcareEvaluation note* Diagnosis Onset Date Resolution Status Admit Date Fatigue chronic March 17 1:08pm Lumbar radiculopathy chronic Augu 2024 1:08pm Multiple sclerosis chronic March 17, 2025 1:08pm [facility] Work Phone: History general Narrative - Reported* Type Description Date Medical History hypercholesterolemia Medical History multiple sclerosis Medical History osteoporosis Medical History cervical cancer Surgical History hysterectomy Hospitalization History See Above [employer] Other reason for referral (narrative)No reason for referral information [facility] Work Phone: Reason for visit NarrativeReferral Dr [facility] [employer] Other Summary Purpose Family History Relationship Condition [...] and content) DATE CREATED AUTHOR 05/21/2022 [facility] DATE CREATED AUTHOR AUTHOR'S ORGANIZ ATION 09/14/2023 [facility] DATE CREATED AUTHOR AUTHOR'S ORGANIZ ATION 10/22/2024 [facility] DATE CREATED AUTHOR AUTHOR'S ORGANIZ ATION 01/01/2025 [facility] EPIC REASON FOR VISIT (unrecogniz ed section and content) Reason Comments Gynecologic Exam LMP: SHER LSO 1997HRT : NoneLast pap 12-12-23 neg.Last mammogram 03-26-24 [facility].Denies breast, urinary, or bowel concerns.Dr. Banuelos switched her to Fosamax. Reason Comments Multiple Sclerosis flu [facility] Care Teams (unrecognized sec tion and [...] September 06, 2023 End: September 06, 2023 Epilepsy Physician Relationship Specialty Start Date End Date Johny Winters MD [address] [place] [address] PCP - General Internal Medicine 10/17/23 Epilepsy Physician Relationship Specialty Start Date End Date Johny Winters MD [address] [place] [address] PCP - General Internal Medicine 10/17/23 Epilepsy Physician Relationship Specialty Start Date End Date Johny Winters MD [address] [place] [address] PCP - General Internal Medicine 10/17/23 Chinyere Live PA [address] [address] Physician Porcelain Enameling Supervisor Neurology 09/19/24 Epilepsy Physician Relationship Specialty Start Date End Date Johny Winters MD [address] [place] [phone] PCP - General Internal Medicine 10/17/23 Chinyere Live PA [address] [address] Physician Porcelain Enameling Supervisor Neurology 09/19/24 Epilepsy Physician Relationship Specialty Start Date End Date Johny Winters DO [address] [place] [address] PCP - General Internal Medicine 10/17/23 Chinyere Live PA [address] [address] Physician Porcelain Enameling Supervisor Neurology 09/19/24 Team Status: Inactive Member Role [...] BE BASED ON THE PRIMARY CLINICAL RECORDS. [employer] [facility]. provides no warranty or guarantee of the accuracy or completeness of information in this document.
[2025-03-27 11:23] LABS: Estimated GFR (African America >60 (>=60 mL/min/1.73m^2); Estimated GFR (Non-African Ame >60 (>=60 mL/min/1.73m^2)
[2025-03-27 11:29] LABS: Blood Urea Nitrogen 10.0 mg/dL (7.0-18.0); Calcium 9.4 mg/dL (8.5-10.1); Magnesium 1.9 mg/dL (1.8-2.4)
== END 2025-03-27 10:29 | disposition home or self-care (01) ==
LOC: LAB 10:29
PROVIDERS: PCP Internal Medicine; Visit Provider Internal Medicine Rheumatology
DX: M81.0 Age-related osteoporosis without current pathological fracture (principal); M19.90 Unspecified osteoarthritis, unspecified site; Z79.899 Other long term (current) drug therapy
CPT/HCPCS: 36415; 82310; 82565; 83735; 84100; 84520

== ENCOUNTER 2025-04-03 10:49 | Outpatient (OUT) | payer OTHER, SELFPAY ==
--- OUTSIDE RECORDS SUMMARY | 2025-04-03 10:51 | XMS_ITS | Encounter Summary ---
Author Organization [facility] Address [address] [place] [address] Care Team Providers Care Community Coordinator [employer] Name Role Phone SinghJohny Primary Care Provider [phone] Denys De Los Santos MD Unavailable [phone] Source Comments In the event this information is protected by the Federal Confidentiality of Alcohol and Drug AbusePatient Records regulations: The Federal rules restrict any use of the information to criminally investigate or prosecute any alcohol or drug abuse patient.[facility] Encounter Details Date Type Department Care Team (Late st Contact Info) Description 10/03/2017 Patient Msg Medical Records [address] [place] [address] Provider, [facility] RE:bloodwork Social History Tobacco Use Types Packs/Day Years Used Date Smoking Tobacco: Every Day Cigarettes 0.3 50.7 Started: 1976 Smokeless Tobacco: Never Alcohol Use Standard Drinks/Week Comments No 0 (1 standard drink = 0.6 oz pur e alcohol) occasional/social Comments No Sex and Gender Information Value Date Recorded Sex Assigned at Not on file Legal Sex Female 10:41 AM EST Gender Identity Not on file Sexual Orientation Not on file documented as of this encounter Plan of Treatment Not on file documented as of this encounter Visit Diagnoses Not on filedocumented in this encounter Care Teams Community Coordinator [employer] Relationship Specialty Start Date End Date Johny Winters DO [address] [place], [place] [id number] PCP - General Internal Medicine 09/26/17 Denys De Los Santos MD [address] [place] [address] Physician Neurology 09/27/17 documented as of this encounter
--- OUTSIDE RECORDS SUMMARY | 2025-04-03 10:51 | XMS_ITS | Clinical Summary ---
Author Organization [facility] Address [address] [place] [address] Care Team Providers Care Store Detective Name Role Phone Johny Winters DO Primary Care Provider [phone] Denys De Los Santos MD Unavailable [phone] Allergies No known active allergies Medications gabapentin (NEURONTIN) 100 mg capsuleIndicatio ns:Abnormal brain MRI,Multiple sclerosis (HCC) Take 100 mg by mouth three times daily. Active dimethyl fumarate (TECFIDERA) 240 mg cpDRIndications: Abnormal brain MRI,Multiple sclerosis (HCC) Take 240 mg by mouth twice daily. Active aspirin, enteric coated (ASPIRIN, ENTERIC COATED) 81 mg EC tabletIndication s:Abnormal brain MRI,Multiple sclerosis (HCC) Take 81 mg by mouth once daily. Active Cholecalciferol, Vitamin D3, 10,000 unit capIndications:A bnormal brain MRI,Multiple sclerosis (HCC) Take 10,000 Units by mouth once daily. Active diphenhydrAMINE (SLEEP AID, DIPHENHYDRAMINE, ) 25 mg capsuleIndicatio ns:Abnormal brain MRI,Multiple sclerosis (HCC) Take 25 mg by mouth daily at bedtime. Active meloxicam (MOBIC) 15 mg tabletIndication s:Abnormal brain MRI,Multiple sclerosis (HCC) Take 15 mg by mouth as needed. Active baclofen (LIORESAL) 10 mg tabletIndication s:Abnormal brain MRI,Multiple sclerosis (HCC) Take 10 mg by mouth as needed. Active Active Problems Problem Noted Date Diagnosed Date Multiple sclerosis 09/27/2017 Other osteoporosis without current pathological fracture 09/27/2017 Family History Medical History Relation Comments Arthritis Mother Breast Cancer Mother Multiple Sclerosis Other Breast Cancer Sister Relation Status Comments Mother Other Alive Sister Social History Tobacco Use Types Packs/Day Years Used Date Smoking Tobacco: Every Day Cigarettes 0.3 50.7 Started: 1976 Smokeless Tobacco: Never Alcohol Use Standard Drinks/Week Comments No 0 (1 standard drink = 0.6 oz pur e alcohol) occasional/social Area Deprivation Index Answer Date Gerber rded National Score (1-100), lower number is lower ri sk 80 10/22/2024 State Score (1-10), lower number is lower risk 7 10/22/2024 Data from: https://www.neighborhoodatlas.medicine.[place].edu/. Last address used for calculation [address] 10/22/2024 Comments No Sex and Gender Information Value Date Recorded Sex Assigned at Not on file Legal Sex Female 10:41 AM EST Gender Identity Not on file Sexual Orientation Not on file Last Filed Vital Signs Vital Sign Reading Time Taken Comments Blood Pressure 147/65 10/21/2024 4:00 PM EDT Pulse 71 10/21/2024 4:00 PM EDT Temperature 36.9 C (98.5 F) 10/21/2024 12:44 PM EDT Respiratory Rate 20 10/21/2024 4:00 PM EDT Oxygen Saturation 96% 10/21/2024 4:00 PM EDT Inhaled Oxygen Concentration - - Weight 62.6 kg (138 lb) 10/21/2024 12:43 PM EDT Height 152.4 cm (5') 09/27/2017 1:16 PM EST Body Mass Index 26.95 09/27/2017 1:16 PM EST Plan of Treatment Health Maintenance Due Date Last Done Comments Anxiety Screening 1981 Depression Screening 1981 DTaP,Tdap,Td Vaccine (1 - Tdap) 1982 Cervical Cancer Screening 01/22/1984 CT Colonography 01/22/2008 Colonoscopy 01/22/2008 Fecal Occult Blood 01/22/2008 Lipid Screening 01/22/2008 Sigmoidoscopy 01/22/2008 Pneumococcal Vaccine: 50+ (1 of 1 - PCV) 2013 Shingrix Vaccine (1 of 2) 2013 Mammogram Screening 02/15/2023 02/15/2022, 11/30/2020, 11/06/2018, Additional history exists Cologuard (FIT-DNA) 03/18/2025 03/18/2022, 9 Colorectal Cancer Screening 03/18/2025 Influenza Vaccine (#1) 2025 4, 05/06/2022, 12/01/2021, Additional history exists Diabetes Screening 10/22/2027 10/21/2024 RSV Vaccine (1 - 1-dose 75+ series) 2038 HIV Screening Completed 09/27/2017 Hepatitis C Screening Completed 09/27/2017 Procedures Procedure Name Priority Date/Time Associated Diagnosis Comments COMPREHENSIVE METABOLIC PANEL STAT 10/21/2024 1:07 PM EDT HIV 1/2 COMBO WITH REFLEX TO DIFFERENTIATION Routine 09/27/2017 4:22 PM EST Abnormal brain MRI Multiple sclerosis (HCC) HEP REMOTE PANEL BL Routine 09/27/2017 4 :22 PM EST Abnormal brain MRI Multiple sclerosis (HCC) from Last 3 Months or Most Recently Relevant to Health Maintenance Results * (ABNORMAL) COMPREHENSIVE METABOLIC PANEL (10/21/2024 1:07 PM EDT) Protein, Total 6.8 6.3 - 8.0 g/dL 10/21/2024 1:34 PM EDT [facility] Albumin 4.1 3.9 - 4.9 g/dL 10/21/2024 1:34 PM EDT [facility] Calcium, Total 8.9 8.5 - 10.2 mg/dL 10/21/2024 1:34 PM EDT [facility] Bilirubin, Total 0.4 0.2 - 1.3 mg/dL 10/21/2024 1:34 PM EDT [facility] Alkaline Phosphatase 85 34 - 123 U/L 10/21/2024 1:34 PM EDT [facility] AST 26 13 - 35 U/L 10/21/2024 1:34 PM EDT [facility] ALT 23 7 - 38 U/L 10/21/2024 1:34 PM [facility] Glucose 102(H) 74 - 99 mg/dL 10/21/2024 1:34 PM [facility] Comment: The [place] Diabetes Association (ADA) provides guidance for cutoff [...] Standards of Medical Care in Diabetes 2016, [place] Diabetes Association. Diabetes Care. 2016.39(Suppl 1). BUN 14 7 - 21 mg/dL 10/21/2024 1:34 PM [facility] Creatinine 0.70 0.58 - 0.96 mg/dL 10/21/2024 1:34 PM [facility] Sodium 143 136 - 144 mmol/L 10/21/2024 1:34 PM [facility] Potassium 3.6(L) 3.7 - 5.1 mmol/L 10/21/2024 1:34 PM [facility] Chloride 108(H) 98 - 107 mmol/L 10/21/2024 1:34 PM [facility] CO2 22 22 - 30 mmol/L 10/21/2024 1:34 PM [facility] Anion Gap 13 8 - 15 mmol/L 10/21/2024 1:34 PM [facility] Estimated Glomerular Filtration Rate 99 >=60 mL/min/1.7 3m 10/21/2024 1:34 PM [facility] Comment:Estimated Glomerular Filtration Rate (eGFR) is calculated using the 2020 CKD-EPI creatinine equation. This equation utilizes serum creatinine, sex, and age as parameters. The creatinine assay has traceable calibration to isotope dilution- mass spectrometry. Refer to KDIGO guidelines for clinical interpretation. In patients with unstable renal function, e.g. those with acute kidney injury, the eGFR may not accurately reflect actual GFR. Blood BLOOD SPECIMEN / Unknown Venipuncture / Unknown 10/21/2024 1:07 PM EDT 10/21/2024 1:11 PM EDT Pinky Villagran PA-C LABORATORY Final Result Performing Organization Address [facility]/ZIP Co de Phone Number [facility] [address] [facility] [address] [address] [place] [address], * HIV 1,2 COMBO (AG/AB) (09/27/2017 4:22 PM EST) HIV 12 Combo (Ag/Ab) Non Reactive Non Reactive 09/28/2017 10:23 AM EST [facility] Comment: (NOTE) HIV Information: [place] Rev. Code 3701.243(E): This information has been disclosed to you from confidential records protected from disclosure by state law. You shall make no further disclosure of this information without the specific, written, and informed release of the individual to whom it pertains, or as otherwise permitted by state law. A general authorization for the release of medical or other information is not sufficient for the purpose of the release of HIV test results or diagnoses. Blood specimen (specimen) BLOOD SPECIMEN / Unknown 09/27/2017 4:22 PM EST 09/27/2017 4:24 PM EST Ailyn Patten LABORATORY Final Result Performing Organization Address [facility] Co de Phone Number [facility] [address] [facility]. [place] [phone] * HEP REMOTE PANEL BL (09/27/2017 4:22 PM EST) Hep B Core Ab, Total Negative Negative 09/28/2017 9:57 AM EST [facility] Hep C Antibody IA Negative Negative 09/28/2017 9:58 AM EST [facility] HBsAg Negative Negative 09/28/2017 9:58 AM EST [facility] Hep B Surface Ab, Qual Negative Negative 09/28/2017 9:58 AM EST [facility] Comment:NEGATIVE Blood specimen (specimen) BLOOD SPECIMEN / Unknown 09/27/2017 4:22 PM EST 09/27/2017 4:24 PM EST Ailyn Patten LABORATORY Final Result [facility] [address] [place] [address] from Last 3 Months or Most Recently Relevant to Health Maintenance Insurance [facility] MEDICAID Care Teams Store Detective Relationship Specialty Start Date End Date Johny Winters DO [address] [place] [address] PCP - General Internal Medicine 09/26/17 Denys De Los Santos MD [address] [place], [place] [phone] Physician Neurology 09/27/17
--- OUTSIDE RECORDS SUMMARY | 2025-04-03 10:51 | XMS_ITS | Encounter Summary ---
Author Organization [facility] Address [address] [place] [address] Care Team Providers Care Mid Level Practitioner Name Role Phone Johny Winters DO Primary Care Provider [phone] Jia Live Unavailable Encounter Details Date Type Department Care Team (Late Contact Info) Description 03/23/2023 Orders Only DAMON CAIN [address] [facility] [address] [place] [address] Pranav Avila DO [address] [facility] [address] [place] [address] Social History Tobacco Use Types Packs/Day Years [...] EDT Office Visit DAMON CAIN [address] [place] [address] Pranav Avila DO [address] [facility] [address] [place] [address] documented as of this encounter Procedures Procedure Name Priority Date/Time Associated Diagnosis Comments MAMMOGRAM-DIAGNOSTIC* Routine 03/21/2023 1:12 PM EDT documented in this encounter Results * MAMMOGRAM-DIAGNOSTIC* (03/21/2023 1:12 PM EDT) Anatomical Region Laterality Modality Radiographic Suzette ging Pranav Avila DO IMG XR PROCEDURES Final Resu lt documented in this encounter Visit Diagnoses Not on filedocumented in this encounter Care Teams Mid Level Practitioner Relationship Specialty Start Date End Date Johny Winters DO [address] [place] [address] PCP - General Internal Medicine 10/17/23 Jia Live PA [address] [place] [address] Physician Dental Treatment Coordinator Neurology 09/19/24 documented as of this encounter
--- OUTSIDE RECORDS SUMMARY | 2025-04-03 10:51 | XMS_ITS | Encounter Summary ---
Author Organization [facility] Address [address] [place] [address] Care Team Providers Care Radiology Assistant Name Role Phone Johny Winters DO Primary Care Provider [phone] Jia Live Unavailable Encounter Details Date Type Department Care Team ([facility] Contact Info) Description 03/26/2024 Clinisync Result Encounter [facility] External Department Unsolicited Pranav Avila, [address] [facility] [address] [place] [address] Social History Tobacco Use Types Packs/Day Years [...] EDT Office Visit [facility] BRISCOEN [address] [facility] [address] [place] [address] [place], Pranav D, DO [address] [place] [address] documented as of this encounter Procedures Procedure Name Priority Date/Time Associated Diagnosis Comments MM TOMOSYNTHESIS SCREENING BI 03/26/2024 12:01 PM EDT documented in this encounter Results * MM TOMOSYNTHESIS SCREENING BI (03/26/2024 12:01 PM EDT) Anatomical Region Laterality Modality Other 03/26/2024 12:0 1 PM EDT Narrative 03/26/2024 12:02 PM EDT The [address] [address] Mammography Report Signed Patient: JAYDE SOLORZANO MR#: [id number] : 1965 Acct:[id number] Age/Sex: 59 / F ADM Date: 03/26/24 Loc: MAMMO Attending Dr: PRANAV AVILA Ordering Physician: PRANAV AVILA Results: Date of Service: 03/26/24 Follow Up: Procedure(s): MM tomosynthesis screening BI Accession Number(s): [id number] cc: PRANAV AVILA ; Johny Winters D.O. Patient Name: JAYDE SOLORZANO MR#: [id number] : 1965 Exam Date: 03/26/2024 Ordering Doctor: [...] at age 63. LOCATION: The [facility] BREAST COMPOSITION: There are scattered areas of [...] Signed By: 03/26/24 1202 DD/ 1201 TD/TT: Marketing Operations Manager: Procedure Note Radiology, Radiologist, MD - 03/26/2024 [place] [address] Mammography Report Signed Patient: JAYDE SOLORZANO KMR#: [id number] : 1965Acct:[id number] Age/Sex: 59 / FADM Date: 03/26/24 Loc: MAMMO Attending Dr: PRANAV AVILA Ordering Physician: PRANAV AVILAResults: Date of Service: 03/26/24Follow Up: Procedure(s): MM tomosynthesis screening BI Accession Number(s): [id number] cc: PRANAV AVILA ; Johny Winters D.O. Patient Name: JAYDE SOLORZANO MR#: [id number] : 1965 Exam Date: 03/26/2024 Ordering Doctor: DR PRANAV AVILA RADIOLOGY REPORT PROCEDURE: MM TOMOSYNTHESIS SCREENING BI COMPARISON: MM TOMOSYNTHESIS SCREENING BI, 03/21/2023. MG MAMM [id number] LIBERTAD CAD, 02/15/2022. INDICATIONS: Screening Calculator Name NCI Breast Cancer Risk Assessment Tool 5 Year Breast Cancer Risk 7.00% Lifetime Breast Cancer Risk 29.70% Personal Breast Cancer No Personal Ovarian Cancer No Treatments hysterectomy Family Cancers Mother with breast cancer at age 45; Nephew with lymphoma cancer at age 19; Sister with breast cancer at age 65. LOCATION: The [facility] BREAST COMPOSITION: There are scattered areas of [...] M.D. Signed By:03/26/24 1202 DD/ 1201 TD/TT: Marketing Operations Manager: Pranav Avila DO [facility] Final Resu lt documented in this encounter Visit Diagnoses Not on filedocumented in this encounter Care Teams Radiology Assistant Relationship Specialty Start Date End Date Johny Winters DO [address] [place] [address] PCP - General Internal Medicine 10/17/23 Jia Live PA [address] [place] [address] Physician Pet Resort Concierge Neurology 09/19/24 documented as of this encounter
--- OUTSIDE RECORDS SUMMARY | 2025-04-03 10:51 | XMS_ITS | Clinical Summary ---
Author Organization [facility] Address [address] [place] [address] Care Team Providers Care [place] Supervisor Name Role Phone Johny Winters Primary Care Provider [phone] Jia Live Unavailable Allergies No known active [...] 3 Active cholecalciferol (Vitamin D-3) 250 MCG (41071 UT) capsule Take 10,000 Units by mouth [...] Encounters Date Type Department Care Team Description 03/27/2025 Clinisync Result Encounter [facility] External Department Unsolicited Cindy Avila DO 01/08/2025 Results Follow-Up [facility] [address] [place] [address] Zandra Mix MA IGP,rfxAptima HPV all,16/18,45 from Last 3 Months Immunizations Immunization Administration [...] EDT Office Visit DAMON CAIN [address] [place] [phone] Cindy Avila DO [address] [place] [address] Health Maintenance Due Date Last Done Comments CT Colonography 1965 Colonoscopy 1965 FIT 1965 FOBT 1965 Sigmoidoscopy 1965 Pap Smear 01/22/1984 Colorectal Cancer Screening 03/18/2025 FIT-DNA 03/18/2025 03/18/2022, 11/27/2018 Influenza Vaccine (#1) 2025 , 05/06/2022, 12/01/2021, Additional history exists Mammogram 03/27/2026 03/27/2025, 03/01, 03/21/2023, Additional history exists Cervical Cancer Screening 12/31/2029 HPV/Cotest 12/31/2029 12/31/2024, 12/12/2023, 07/31 Procedures Procedure Name Priority Date/Time Associated Diagnosis Comments MM TOMOSYNTHESIS SCREENING BI 03/27/2025 4:16 PM EDT IGP,RFXAPTIMA HPV ALL,16/18,45 Routine 12/31/2024 12:00 AM EDT Encounter for Papanicolaou smear of vagina from Last 3 Months or Most Recently Relevant to Health Maintenance Results * MM TOMOSYNTHESIS SCREENING BI (03/27/2025 4:16 PM EDT) Anatomical Region Laterality Modality Other 03/27/2025 4:16 PM EDT Narrative 03/27/2025 4:17 [place] [address] Mammography Report Signed Patient: JAYDE SOLORZANO MR#: [id number] : 1965 Acct:[id number] Age/Sex: 60 / F ADM Date: 03/27/25 Loc: MAMMO Attending Dr: CINDY AVILA Ordering Physician: CINDY AVILA Results: Date of Service: 03/27/25 Follow Up: Procedure(s): MM tomosynthesis screening BI Accession Number(s): [id number] cc: CINDY AVILA ; Johny Winters D.O. Patient Name: JAYDE SOLORZANO MR#: [id number] : 1965 Exam Date: 03/27/2025 Ordering Doctor: DR CINDY AVILA RADIOLOGY REPORT PROCEDURE: MM TOMOSYNTHESIS SCREENING BI COMPARISON: MM TOMOSYNTHESIS SCREENING BI, 03/26/2024. MM TOMOSYNTHESIS SCREENING BI, 03/21/2023. MG MAMM SCREEN 3D LIBERTAD CAD, 02/15/2022. MG MAMM LIBERTAD SCRN W CAD DIG, 08/13/2013. INDICATIONS: Screening Calculator Name NCI Breast Cancer Risk Assessment Tool 5 Year Breast Cancer Risk 7.20% Lifetime Breast Cancer Risk 28.90% Personal Breast Cancer No Personal Ovarian Cancer No Treatments hysterectomy Family Cancers Mother with breast cancer at age 45; Nephew with lymphoma cancer at age 19; Sister with breast cancer at age 65. LOCATION: The [facility] BREAST COMPOSITION: There are scattered areas of fibroglandular density. FINDINGS: RIGHT BREAST: No significant suspicious finding. LEFT BREAST: No significant suspicious finding. DIAGNOSTIC CATEGORY 1--NEGATIVE. RECOMMENDATIONS: ROUTINE MAMMOGRAM AND CLINICAL EVALUATION IN 12 MONTHS. Dictated by: Clif Lipscomb DO on 03/27/2025 at 16:14 Approved by: Clif Lipscomb DO on 03/27/2025 at 16:16 Dictated By: Clif Lipscomb D.O. Signed By: 03/27/25 1617 DD/ 15 TD/TT: Back Tender Cloth Printing: Procedure Note Radiology, Radiologist, MD - 03/27/2025 [place] [address] Mammography Report Signed Patient: JAYDE SOLORZANO KMR#: [id number] : 1965Acct:[id number] Age/Sex: 60 / FADM Date: 03/27/25 Loc: MAMMO Attending Dr: CINDY AVILA Ordering Physician: CINDY AVILAResults: Date of Service: 03/27/25Follow Up: Procedure(s): MM tomosynthesis screening BI Accession Number(s): [id number] cc: CINDY AVILA ; Johny Winters D.O. Patient Name: JAYDE SOLORZANO MR#: [id number] : 1965 Exam Date: 03/27/2025 Ordering Doctor: DR CINDY AVILA RADIOLOGY REPORT PROCEDURE: MM TOMOSYNTHESIS SCREENING BI COMPARISON: MM TOMOSYNTHESIS SCREENING BI, 03/26/2024. MMTOMOSYNTHESIS SCREENING BI, 03/21/2023. MG MAMM SCREEN 3D LIBERTAD CAD, 02/15/2022. MG MAMMBIL SCRN W CAD DIG, 08/13/2013. INDICATIONS: Screening Calculator Name NCI Breast Cancer Risk Assessment Tool 5 Year Breast Cancer Risk 7.20% Lifetime Breast Cancer Risk 28.90% Personal Breast Cancer No Personal Ovarian Cancer No Treatments hysterectomy Family Cancers Mother with breast cancer at age 45; Nephew with lymphoma cancer at age 19; Sister with breast cancer at age 65. LOCATION: The [facility] BREAST COMPOSITION: There are scattered areas of fibroglandulardensity. FINDINGS: RIGHT BREAST: No significant suspicious finding. LEFT BREAST: No significant suspicious finding. DIAGNOSTIC CATEGORY 1--NEGATIVE. RECOMMENDATIONS: ROUTINE MAMMOGRAM AND CLINICAL EVALUATION IN 12 MONTHS. Dictated by: Clif Lipscomb DO on 03/27/2025 at 16:14 Approved by: Clif Lipscomb DO on 03/27/2025 at 16:16 Dictated By: Clif Lipscomb D.O. Signed By:03/27/25 1617 DD/ 15 TD/TT: Back Tender Cloth Printing: Cindy Avila DO [facility] Final Resu lt * IGP,rfxAptima HPV all,16/18,45 (12/31/2024 12:00 AM [...] Reviewed By: Comment [facility] Comment:Salud Royal pervisory Caddy Master ([facility]) Cyto Comments . [facility] Note: Comment [...] - 01/03/2025 3:07 PM EDT Performed at: - [address] [id number] [place]: Kayla De Leon MD, Phone: [phone] Specimen Comment: [id number] Specimen Comment: No. of containers..01 ThinPrep Vial Cindy Avila DO LAB CYTOLOGY ORDERABLES Doreen santacruz Result [facility] from Last 3 Months or Most Recently Relevant to Health Maintenance Insurance [employer] MEDICA[employer] Care Teams [place] Supervisor Relationship Specialty Start Date End Date Johny Winters DO [address] [place] [address] PCP - General Internal Medicine 10/17/23 Jia Live PA [address] [place] [address] Physician High School Librarian Neurology 09/19/24
--- OUTSIDE RECORDS SUMMARY | 2025-04-03 10:51 | XMS_ITS | Encounter Summary ---
Author Organization [facility] Address [address] [place] [place] [address] Care Team Providers Care Ic Design Engineer Name Role Phone Johny Winters DO Primary Care Provider [phone] Jia Lao Unavailable Encounter Details Date Type Department Care Team (Late st Contact Info) Description 11/01/2023 Clinisync Result Encounter [facility] External Department Unsolicited Jia Lao PA [address] [place] [address] Social History Tobacco Use Types Packs/Day [...] EDT Office Visit DAMON CAIN [address] [place] [address] Pranav Avila DO [address] [place] [address] documented as of this encounter Procedures Procedure Name Priority Date/Time Associated Diagnosis Comments MR LUMBAR SPINE WO CON 11/01/2023 2:03 PM EDT documented in this encounter Results * MR LUMBAR SPINE WO CON (11/01/2023 2:03 PM EDT) Anatomical Region Laterality Modality Other 11/01/2023 2:03 PM EDT Narrative 11/01/2023 2:05 [place] [address] Magnetic Resonance Report Signed Patient: JAYDE SOLORZANO MR#: [id number] : 1965 Acct:[id number] Age/Sex: 58 / F ADM Date: 11/01/23 Loc: MRI Attending Dr: Jia ZUNIGA Ordering Physician: Jia Lao Date of Service: 11/01/23 Procedure(s): MR lumbar spine wo con Accession Number(s): [id number] cc: Johny Winters D.O.; Jia Lao [place] [id number] Patient Name: JAYDE SOLORZANO MRN: [id number] date: 1965 Sex: F Assigned Patient Location: MRI Current Patient Location: MRI Accession/Order Number: [id number] Exam Date: 11/01/2023 09:30 Report Date: 11/01/2023 [...] hepatic lobe are partially included on the [id number] for this study. The upper sacrum is [...] Signed By: 11/01/23 1405 DD/ 1403 TD/TT: Parts Product Analyst: Procedure Note Radiology, Radiologist, - 11/01/2023 [place] [address] Magnetic Resonance Report Signed Patient: JAYDE SOLORZANO KMR#: [id number] : 1965Acct:[id number] Age/Sex: 58 / FADM Date: 11/01/23 Loc: MRI Attending Dr: Jia ZUNIGA Ordering Physician: Jia Lao Date of Service: 11/01/23 Procedure(s): MR lumbar spine wo con Accession Number(s): [id number] cc: Johny Winters D.O.; Jia Lao [place] [address] Patient Name: JAYDE SOLORZANO MRN: [id number] date: 1965 Sex: F Assigned Patient Location: MRI Current Patient Location: MRI Accession/Order Number: [id number] Exam Date: 11/01/2023 09:30 Report Date: 11/01/2023 [...] right hepatic lobe are partially included on [id number] for this study. The upper sacrum is [...] M.D. Signed By:11/01/23 1405 DD/ 1403 TD/TT: Parts Product Analyst: us Jia ZUNIGA [facility] Final Result documented in this encounter Visit Diagnoses Not on filedocumented in this encounter Care Teams Ic Design Engineer Relationship Specialty Start Date End Date Johny Winters DO [address] [place] [phone] PCP - General Internal Medicine 10/17/23 Jia Lao PA [address] [place] [address] Physician Brine Purifier Neurology 09/19/24 documented as of this encounter
--- OUTSIDE RECORDS SUMMARY | 2025-04-03 10:51 | XMS_ITS | Encounter Summary ---
Author Organization [facility] Address [address] [place] [id number] Care Team Providers Care Pin Inserter Regulator Name Role Phone Johny Winters Primary Care Provider [phone] Denys De Los Santos MD Unavailable [phone] Source Comments In the event this information is protected by the Federal Confidentiality of Alcohol and Drug AbusePatient Records regulations: The Federal rules restrict any use of the information to criminally investigate or prosecute any alcohol or drug abuse patient.[facility] Encounter Details Date Type Department Care Team (Late st Contact Info) Description 10/26/2017 [facility] [address] [address] Ailyn Patten [address]ING ADDRESS Social History Tobacco Use Types Packs/Day Years [...] on filedocumented in this encounter Care Teams Pin Inserter Regulator Relationship Specialty Start Date End Date Johny Winters DO [address] [place], [place] [address] PCP - General Internal Medicine 09/26/17 Denys De Los Santos MD [address] [place] [address] Physician Neurology 09/27/17 documented as of this encounter
--- OUTSIDE RECORDS SUMMARY | 2025-04-03 10:51 | XMS_ITS | Encounter Summary ---
Author Organization [facility] Address [address] [place] [address] Care Team Providers Care Director Software Quality Assurance Name Role Phone Johny Winters DO Primary Care Provider [phone] Jia Live Unavailable Encounter Details Date Type Department Care Team (Late Contact Info) Description 03/27/2025 Clinisync Result Encounter [facility] External Department Unsolicited Pranav Avila DO [address] [place] [address] Social History Tobacco Use Types Packs/Day Years [...] 01/02/2026 11:15 AM EDT Office Visit [facility] [address] [facility] [address] [place] [phone] Pranav Avila, DO [address] [place] [address] documented as of this encounter Procedures Procedure Name Priority Date/Time Associated Diagnosis Comments MM TOMOSYNTHESIS SCREENING BI 03/27/2025 4:16 PM EDT documented in this encounter Results * MM TOMOSYNTHESIS SCREENING BI (03/27/2025 4:16 PM EDT) Anatomical Region Laterality Modality Other 03/27/2025 4:16 PM EDT Narrative 03/27/2025 4:17 [place] [address] Mammography Report Signed Patient: JAYDE SOLORZANO MR#: [id number] : 1965 Acct:[id number] Age/Sex: 60 / F ADM Date: 03/27/25 Loc: MAMMO Attending Dr: PRANAV AVILA Ordering Physician: PRANAV AVILA Results: Date of Service: 03/27/25 Follow Up: Procedure(s): MM tomosynthesis screening BI Accession Number(s): [id number] cc: PRANAV AVILA ; Johny Winters D.O. Patient Name: JAYDE SOLORZANO MR#: [id number] : 1965 Exam Date: 03/27/2025 Ordering Doctor: DR PRANAV AVILA RADIOLOGY REPORT [...] breast cancer at age 63. LOCATION: [facility] BREAST COMPOSITION: There are scattered areas [...] Signed By: 03/27/25 1617 DD/ 15 TD/TT: Nature Photographer: Procedure Note Radiology, Radiologist, MD - 03/27/2025 [place] [address] Mammography Report Signed Patient: JAYDE SOLORZANO KMR#: [id number] : 1965Acct:[id number] Age/Sex: 60 / FADM Date: 03/27/25 Loc: MAMMO Attending Dr: PRANAV AVILA Ordering Physician: PRANAV AVILAResults: Date of Service: 03/27/25Follow Up: Procedure(s): MM tomosynthesis screening BI Accession Number(s): [id number] cc: PRANAV AVILA ; Johny Winters D.O. Patient Name: JAYDE SOLORZANO MR#: [id number] : 1965 Exam Date: 03/27/2025 Ordering Doctor: DR PRANAV AVILA RADIOLOGY REPORT [...] breast cancer at age 63. LOCATION: [facility] BREAST COMPOSITION: There are scattered areas of fibroglandulardensity. FINDINGS: RIGHT BREAST: No significant suspicious finding. LEFT BREAST: No significant suspicious finding. DIAGNOSTIC CATEGORY 1--NEGATIVE. RECOMMENDATIONS: ROUTINE MAMMOGRAM AND CLINICAL EVALUATION IN 12 MONTHS. Dictated by: Clif Lipscomb DO on 03/27/2025 at 16:14 Approved by: Clif Lipscomb DO on 03/27/2025 at 16:16 Dictated By: Clif Lipscomb D.O. Signed By:03/27/251616 DD/ 15 TD/TT: Nature Photographer: Pranav Avila DO [facility] Final Resu lt documented in this encounter Visit Diagnoses Not on filedocumented in this encounter Care Teams Director Software Quality Assurance Relationship Specialty Start Date End Date Johny Winters DO [address] [place] [address] PCP - General Internal Medicine 10/17/23 Jia Live PA [address] [facility] [address] [place] [address] Physician Textile Chemist Neurology 09/19/24 documented as of this encounter
--- OUTSIDE RECORDS SUMMARY | 2025-04-03 10:51 | XMS_ITS | Encounter Summary ---
Author Organization [facility] Address [address] [place] [address] Care Team Providers Care Flatbed Truck Driver Name Role Phone Johny Winters DO Primary Care Provider [phone] Jia Live Unavailable Encounter Details Date Type Department Care Team (Late Contact Info) Description 12/21/2023 Clinisync Result Encounter [facility] External Department Unsolicited Pranav Avila, [address] [facility] [address] [place] [address] Social History Tobacco Use Types Packs/Day Years [...] EDT Office Visit [facility] [address] [facility] [address] [place] [address] [place], Pranav D, DO [address] [place] [address] documented as of this encounter Procedures Procedure Name Priority Date/Time Associated Diagnosis Comments XR DEXA AXIAL SKELETON 12/21/2023 3:23 PM EDT documented in this encounter Results * XR DEXA AXIAL SKELETON (12/21/2023 3:23 PM EDT) Anatomical Region Laterality Modality Other 12/21/2023 3:23 PM EDT Narrative 12/21/2023 3:26 PM EDT The [address] [address] XRay Report Signed Patient: JAYDE SOLORZANO MR#: [id number] : 1965 Acct:[id number] Age/Sex: 58 / F ADM Date: 12/21/23 Loc: RAD Attending Dr: PRANAV AVILA Ordering Physician: PRANAV AVILA Date of Service: 12/21/23 Procedure(s): XR DEXA axial skeleton Accession Number(s): [id number] cc: PRANAV AVILA ; Johny Winters D.O. The [address] [address] Patient Name: JAYDE SOLORZANO MRN: [id number] date: 1965 Sex: F Assigned Patient Location: [facility] Current Patient Location: [facility] Accession/Order Number: [id number] Exam Date: 12/21/2023 13:00 Report Date: 12/21/2023 [...] Signed By: 12/21/23 1526 DD/ 1523 TD/TT: Stonework Supervisor: Procedure Note Radiology, Radiologist, MD - 12/21/2023 [place] [address] XRay Report Signed Patient: JAYDE SOLORZANO KMR#: [id number] : 1965Acct:[id number] Age/Sex: 58 / FADM Date: 12/21/23 Loc: RAD Attending Dr: PRANAV AVILA Ordering Physician: PRANAV AVILA Date of Service: 12/21/23 Procedure(s): XR DEXA axial skeleton Accession Number(s): [id number] cc: PRANAV AVILA ; Johny Winters D.O. The [place] [id number] Patient Name: JAYDE SOLORZANO MRN: [id number] date: 1965 Sex: F Assigned Patient Location: [facility] Current Patient Location: [facility] Accession/Order Number: [id number] Exam Date: 12/21/2023 13:00 Report Date: 12/21/2023 [...] M.D. Signed By:12/21/23 1526 DD/ 1523 TD/TT: Stonework Supervisor: Pranav Avila DO [facility] Final Resu lt documented in this encounter Visit Diagnoses Not on filedocumented in this encounter Care Teams Flatbed Truck Driver Relationship Specialty Start Date End Date Johny Winters DO [address] [place] [address] PCP - General Internal Medicine 10/17/23 Jia Live PA [address] [place] [address] Physician Manager Wellness Neurology 09/19/24 documented as of this encounter
--- OUTSIDE RECORDS SUMMARY | 2025-04-03 10:51 | XMS_ITS | Encounter Summary ---
Author Organization [facility] Address [address] [place] [address] Care Team Providers Care Electric Motor Repairman Name Role Phone Johny Winters DO Primary Care Provider [phone] Jia Live Unavailable Encounter Details Date Type Department Care Team (Late Contact Info) Description 01/08/2025 Results Follow-Up DAMON CAIN [address] [facility] [address] [place] [address] Zandra Mix MA IGP,rfxAptima HPV [...] EDT Office Visit DAMON CAIN [address] [facility] [address] [place] [address] Pranav Avila DO [address] [facility] [address] [place] [address] documented as of this encounter Visit Diagnoses Not on filedocumented in this encounter Care Teams Electric Motor Repairman Relationship Specialty Start Date End Date Johny Winters DO [address] [facility] [place] [phone] PCP - General Internal Medicine 10/17/23 Jia Live PA [address] [place] [address] Physician Disability Insurance Hearing Officer Neurology 09/19/24 documented as of this encounter
--- OUTSIDE RECORDS SUMMARY | 2025-04-03 11:00 | XMS_ITS | CCD ---
Author Organization [facility] Care Team Providers Care Mineralogy Teacher Name Role Phone Ezequiel Agudelo Unavailable MARCOS, DR WHITE Admitting Unavailable MARCOS, DR WHITE Attending Unavailable SINGH, DR MCCLAIN Primary Care Unavailable LEOBARDO, DR DENYS Chavez Consulting Unavailable MARCOS, DR WHITE Consulting Unavailable SINGH, DR MCCLAIN Admitting Unavailable BALL, DR MCCLAIN Attending Unavailable BALL, DR MCCLAIN Primary Care Unavailable BALL, DR MCCLAIN Consulting Unavailable WEBSTER, WINCHA Consulting Unavailable TASHIA, [...] BENEDICT, DR FLOWER Attending Unavailable SINGH, DR MCCLAIN Primary Care Unavailable TASHIA, CHINYERE Consulting Unavailable Johny Winters Unavailable DO Johny Winters Primary Care Provider CLEO Live Attending Provider Chinyere Live Attending Unavailable Chinyere Live Admitting Unavailable Johny Winters Primary Care Unavailable Johny Winters Primary Care Unavailable Chinyere Live Attending Unavailable Chinyere Live Admitting Unavailable Ball Johny REARDON Primary Care Provider Chinyere Glover Unavailable JOHNY WINTERS Primary Care Unavailable DENYS KWOK Attending Unavailable CHINYERE LIVE Attending Unavailable CINDY RODRÍGUEZ Attending Unavailable CHINYERE LIVE Attending Unavailable Johny Winters DO Primary Care Provider Johny Winters DO Primary Care Provider Ed JOLLY-Jennifer Car Attending Provider Medications Current Medications Medication Drug Class(es) Dates Sig (Normalized) Sig (Original) [id number] 200 actuat albuterol 0.09 mg/actuat metered dose inhaler (3 sources) beta2-Adrenergic Agonist Start: 05-28-2024 take 2 [...] therapy alendronic acid 70 mg oral tablet (8 sources) Bisphosphonate Start: 03-05-2024 take 1 tablet [...] 09/19/2024 Discontinued amLODIPine 5 mg oral tablet (16 sources) Dihydropyridine Calcium Channel Jessie Start: 02-11-2025 [...] aspirin 81 mg delayed release oral tablet (9 sources) Platelet Aggregation Inhibitor, Nonsteroidal Anti-inflammatory Drug Start: 03-05-2024 take 1 tablet by mouth once daily Aspirin 81 mg tablet,delayed release (DR/EC) Active 81 MG PO Daily March 05, 2024 12:00am Complies with drug therapy ASPIRIN 81 MG ch ewable tablet Chew 81 mg 1 (one) time Active B Complex Vitamins (vitamin B complex) tablet (8 sources) B Complex Vitami ns (vitamin B complex) tablet as directed Orally Active baclofen 10 mg oral tablet (16 sources) gamma-Aminobutyric Acid-ergic Agonist Start: 03-11-2025 Baclofen [...] drug therapy cholecalciferol 0.25 mg oral capsule (8 sources) Vitamin D take 1 capsule by mouth in the morning cholecalciferol (Vitamin D-3) 250 MCG (91409 UT) capsule Take 10,000 Units by mouth in the morning. Active ferrous sulfate 325 mg oral tablet (8 sources) take 1 tablet by mouth at mealtime ferrous sulfate 325 (65 Fe) MG tablet Take 325 mg by mouth in the morning. Take with meals. Active gabapentin 300 mg oral capsule (14 sources) Anti-epileptic Agent Start: 10-29-2024 take 1 capsule by mouth twice daily, then take 2 capsules by mouth at bedtime gabapentin (Neurontin) 300 MG capsule Indications: Multiple sclerosis (HCC) TAKE 1 CAPSULE BY MOUTH [...] directed krill oil 500 mg oral capsule (8 sources) take 1 capsule by mouth once daily Krill Oil 500 MG capsule Take 1 capsule by mouth Daily Active meclizine hydrochloride 25 mg oral tablet (8 sources) Antiemetic Start: 02-08-2023 take 1 tablet by mouth every twelve hours meclizine (Antivert) 25 MG tablet Take 25 mg by mouth every 12 (twelve) hours 02/08/2023 Active oseltamivir 75 mg oral capsule (1 source) Neuraminidase Inhibitor Start: 10-14-2024 take 1 capsule by mouth once daily Oseltamivir (Tamiflu) 75 mg capsule Active 75 MG PO Daily 02 03October 14, 2024 12:00am Complies with drug therapy predniSONE 20 mg oral tablet (1 source) Start: 05-28-2024 take 1 tablet by mouth twice daily Prednisone 20 mg tablet Active 20 MG PO Twice daily 6 3 May 28, 2024 12:00am Complies with drug therapy teriflunomide 14 mg oral tablet (14 sources) Pyrimidine Synthesis Inhibitor Start: 12-26-2024 Teriflunomide 14 MG tablet Indications: Multiple sclerosis (HCC) TAKE 1 TABLET DAILY 30 tablet 3 12/26/2024 Active Start: 03-05-2024 End: 03-05-2024 Teriflunomide 14 MG tablet I ndications: Multiple sclerosis (CMS/HCC) TAKE 1 TABLET DAILY 30 tablet 3 12/26/2024 Active Completed/Discontinued Medications Medication Drug Class(es) Dates Sig (Normalized) Sig (Original) acetaminophen 325 mg / HYDROcodone bitartrate 5 mg oral tablet (4 sources) Opioid Agonist HYDROcodone-Acet am inophen 5-325 MG Not Available Oral for 4 Days Not-Taking atorvastatin 20 mg oral tablet (17 sources) HMG-CoA Reductase Inhibitor Start: 02-29-2024 End: 03-05-2024 take 1 tablet by mouth once daily in the evening Atorvastatin 20 mg tablet Discontinued 0 .ROUTE .COMPLEX 90 February 29, 2024 8:50am March 05, 2024 9:12am TAKE 1 TABLET BY MOUTH EVERY DAY IN THE EVENING Start: 11-18-2023 End: 05-28-2024 take 1 tablet by mouth once daily Atorvastatin 20 mg tablet Discontinued 20 MG PO Daily 30 30 March 05, 2024 9:29am May 28, 2024 2:32pm Atorvastatin Victor Hugo cium 20 MG Not Available Oral Active lisinopril 5 mg oral tablet (13 sources) Angiotensin Converting Enzyme Inhibitor Start: 03-05-2024 End: 03-05-2024 take 1 tablet by mouth once daily Lisinopril 5 mg tablet Discontinued 1 TAB PO Daily March 05, 2024 12:00am March 05, 2024 9:10am FreeTextSi tablet Orally Once a day; Note: Source Status: Not-TakingundefinedPRN; Qty: 90 Tablet; Provider: Singh Mcclain ( ) meloxicam 15 mg oral tablet (13 sources) Nonsteroidal Anti-inflammatory Drug Start: 03-05-2024 End: [...] Chronic Chronic obstructive pulmonary disease and bronchiectasis (8 sources) Chronic obstructive lung disease; 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: [Chronic [...] 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: [Other fatigue] 04-04-2024 Episodic Menopausal disorders (8 sources) Atrophic vaginitis; 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: [Postmenopausal atrophic vaginitis] Onset: 12-11-2023 12-11-2023 Chronic Multiple sclerosis (20 sources) Multiple sclerosis; 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: [Multiple sclerosis] Onset: 09-27-2017 Resolved: 11-02-2021 Chronic Nonspecific chest pain (1 source) Chest pain, unspecified; 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: [Chest pain, unspecified type] Onset: 10-21-2024 Episodic Nutritional deficiencies (6 sources) Vitamin D deficiency; 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: [Vitamin D deficiency, unspecified] Onset: 12-11-2023 12-11-2023 Chronic Osteoporosis (13 sources) Primary osteoporosis; 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: [Age-related osteoporosis without [...] UNSPECIFIED; 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: [LOW BACK PAIN, UNSPECIFIED] Onset: 02-02-2022 Past or Other Problems Problem Classification Problem Date Documented Date Episodic/Chronic Other aftercare (1 source) 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; 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: [MECHANICAL SUPERVISOR CURRENT USE OF ASPIRIN] Onset: 09-01-2021 Episodic Other aftercare (1 source) 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; 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: [OTH MECHANICAL SUPERVISOR CURRENT DRUG THERAPY] Onset: 09-01-2021 Episodic Other aftercare (6 sources) Patient encounter status; 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: [Encounter for therapeutic drug level monitoring] Onset: 12-12-2023 12-12-2023 Episodic Other connective tissue disease (1 source) Other symptoms and signs involving the musculoskeletal system; 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: [OTH SX AND SYMP INVOLV MUSCULOSKELTAL] Onset: 09-14-2021 Episodic Other ear and sense organ disorders (8 sources) Tinnitus; 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: [Tinnitus, unspecified ear] Onset: 12-12-2023 12-12-2023 Episodic Other nervous system disorders (8 sources) Paresthesia; 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: [Paresthesia of skin] Onset: 12-12-2023 12-12-2023 Episodic Other nervous system disorders (8 sources) Paresthesia of hand ; 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: [Anesthesia of skin] Onset: 12-12-2023 12-12-2023 Episodic Other skin disorders (8 sources) Loss of hair; 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: [Nonscarring hair [...] Test Name Value Interpretation Reference Range Facility MM TOMOSYNTHESIS SCREENING B Ion 03-27-[address] [address] Mammography Report Signed Patient: JAYDE HERNANDEZ MR#: [id number] : 1965 Acct:[id number] Age/Sex: 60 / F ADM Date: 03/27/25 Loc: MAMMO Attending Dr: CINDY RODRÍGUEZ Ordering Physician: CINDY RODRÍGUEZ Results: Date of Service: 03/27/25 Follow Up: Procedure(s): MM tomosynthesis screening BI Accession Number(s): [id number] cc: CINDY RODRÍGUEZ ; Johny Winters D.O. Patient Name: JAYDE HERNANDEZ MR#: [id number] : 1965 Exam Date: 03/27/2025 Ordering Doctor: DR CINDY RODRÍGUEZ RADIOLOGY REPORT [...] breast cancer at age 63. LOCATION: [facility] BREAST COMPOSITION: There are scattered areas [...] Signed By: 03/27/25 1617 DD/ 15 TD/TT: Security Advisor: [facility] Radiology, Radiologist, MD - 03/27/[address] [address] Mammography Report Signed Patient: JAYDE HERNANDEZ MR#: [id number] : 1965 Acct:[id number] Age/Sex: 60 / F ADM Date: 03/27/25 Loc: MAMMO Attending Dr: CINDY RODRÍGUEZ Ordering Physician: CINDY RODRÍGUEZ Results: Date of Service: 03/27/25 Follow Up: Procedure(s): MM tomosynthesis screening BI Accession Number(s): [id number] cc: CINDY RODRÍGUEZ ; Johny Winters D.O. Patient Name: JAYDE HERNANDEZ MR#: [id number] : 1965 Exam Date: 03/27/2025 Ordering Doctor: DR CINDY RODRÍGUEZ RADIOLOGY REPORT [...] breast cancer at age 63. LOCATION: [facility] BREAST COMPOSITION: There are scattered areas of fibroglandular density. FINDINGS: RIGHT BREAST: No significant suspicious finding. LEFT BREAST: No significant suspicious finding. DIAGNOSTIC CATEGORY 1--NEGATIVE. RECOMMENDATIONS: ROUTINE MAMMOGRAM AND CLINICAL EVALUATION IN 12 MONTHS. Dictated by: Clif Lipscomb DO on 03/27/2025 at 16:14 Approved by: Clif Lipscomb DO on 03/27/2025 at 16:16 Dictated By: Clif Lipscomb D.O. Signed By: 03/27/251616 DD/ 15 TD/TT: Security Advisor: [facility] Radiology Study observation (narrative) [facility] MM TOMOSYNTHESIS SCREENING B IOrdered By: Radiologist Radiology on 03-27-2025 [facility] Work Phone: CBC W Auto Differential pane l (Bld)on 10-21-2024 Basophils (Bld) [#/Vol] 0.03 10*3/uL Normal <0.11 [facility] Comment on above: Order Comment: Speci men Type: BLOOD SPECIMEN Ordering Facility: [facility] Address: [address] [place] [address] Performed By: #### 5 7021-8 #### [facility] CLIA [id number] [address] [place] [address] [place] Basophils/100 WBC (Bld) 0.4 % Normal [facility] Comment on above: Order Comment: Speci men Type: BLOOD SPECIMEN Ordering Facility: [facility] Address: [address] [place] [address] Performed By: #### 5 7021-8 #### [facility] CLIA [id number] [address] [place] [address] [place] Differential cell count method Nom (Bld) Auto Normal [facility] Comment on above: Order Comment: Speci men Type: BLOOD SPECIMEN Ordering Facility: [facility] Address: [address] [place] [address] Performed By: #### 5 7021-8 #### [facility] CLIA [id number] [address] [place] [address] [place] Eosinophils (Bld) [#/Vol] 0.05 10*3/uL Normal <0.46 [facility] Comment on above: Order Comment: Speci men Type: BLOOD SPECIMEN Ordering Facility: [facility] Address: [address] [place] [address] Performed By: #### 5 7021-8 #### [facility] CLIA [id number] [address] [place] [address] [place] Eosinophils/100 WBC (Bld) 0.6 % Normal [facility] Comment on above: Order Comment: Speci men Type: BLOOD SPECIMEN Ordering Facility: [facility] Address: [address] [place] [address] Performed By: #### 5 7021-8 #### [facility] CLIA [id number] [address] [place] [address] [place] Erythrocyte distribution width (RBC) [Ratio] 13.7 % Normal 11.5-15.0 [facility] Comment on above: Order Comment: Speci men Type: BLOOD SPECIMEN Ordering Facility: [facility] Address: [address] [place] [address] Performed By: #### 5 7021-8 #### [facility] CLIA [id number] [address] [place] [address] [place] Hematocrit (Bld) [Volume fraction] 37.7 % Normal 36.0-46.0 [facility] Comment on above: Order Comment: Speci men Type: BLOOD SPECIMEN Ordering Facility: [facility] Address: [address] [place] [address] Performed By: #### 5 7021-8 #### [facility] CLIA [id number] [address] [place] [address] [place] Hemoglobin (Bld) [Mass/Vol] 12.3 g/dL Normal 11.5-15.5 [facility] Comment on above: Order Comment: Speci men Type: BLOOD SPECIMEN Ordering Facility: [facility] Address: [address] [place] [address] Performed By: #### 5 7021-8 #### [facility] CLIA [id number] [address] [place] [address] [place] Immature granulocytes (Bld) [#/Vol] 10*3/uL Normal <0.10 [facility] Comment on above: Order Comment: Speci men Type: BLOOD SPECIMEN Ordering Facility: [facility] Address: [address] [place] [address] Performed By: #### 5 7021-8 #### [facility] CLIA [id number] [address] [place] [address] [place] Immature granulocytes/100 WBC (Bld) 0.1 % Normal [facility] Comment on above: Order Comment: Speci men Type: BLOOD SPECIMEN Ordering Facility: [facility] Address: [address] [place] [address] Performed By: #### 5 7021-8 #### [facility] CLIA [id number] [address] [place] [address] [place] Lymphocytes (Bld) [#/Vol] 2.90 10*3/uL Normal 1.00-4.00 [facility] Comment on above: Order Comment: Speci men Type: BLOOD SPECIMEN Ordering Facility: [facility] Address: [address] [place] [address] Performed By: #### 5 7021-8 #### [facility] CLIA [id number] [address] [place] [address] [place] Lymphocytes/100 WBC (Bld) 36.5 % Normal [facility] Comment on above: Order Comment: Speci men Type: BLOOD SPECIMEN Ordering Facility: [facility] Address: [address] [place] [address] Performed By: #### 5 7021-8 #### [facility] CLIA [id number] [address] [place] [address] [place] MCH (RBC) [Entitic mass] 30.0 pg Normal 26.0-34.0 [facility] Comment on above: Order Comment: Speci men Type: BLOOD SPECIMEN Ordering Facility: [facility] Address: [address] [place] [address] Performed By: #### 5 7021-8 #### [facility] CLIA [id number] [address] [place] [address] [place] MCHC (RBC) [Mass/Vol] 32.6 g/dL Normal 30.5-36.0 [facility] Comment on above: Order Comment: Speci men Type: BLOOD SPECIMEN Ordering Facility: [facility] Address: [address] [place] [address] Performed By: #### 5 7021-8 #### [facility] CLIA [id number] [address] [place] [address] [place] MCV (RBC) [Entitic vol] 92.0 fL Normal 80.0-100.0 [facility] Comment on above: Order Comment: Speci men Type: BLOOD SPECIMEN Ordering Facility: [facility] Address: [address] [place] [address] Performed By: #### 5 7021-8 #### [facility] CLIA [id number] [address] [place] [address] [place] Monocytes (Bld) [#/Vol] 1.06 10*3/uL High <0.87 [facility] Comment on above: Order Comment: Speci men Type: BLOOD SPECIMEN Ordering Facility: [facility] Address: [address] [place] [address] Performed By: #### 5 7021-8 #### [facility] CLIA [id number] [address] [place] [address] [place] Monocytes/100 WBC (Bld) 13.4 % Normal [facility] Comment on above: Order Comment: Speci men Type: BLOOD SPECIMEN Ordering Facility: [facility] Address: [address] [place] [address] Performed By: #### 5 7021-8 #### [facility] CLIA [id number] [address] [place] [address] [place] Neutrophils (Bld) [#/Vol] 3.89 10*3/uL Normal 1.45-7.50 [facility] Comment on above: Order Comment: Speci men Type: BLOOD SPECIMEN Ordering Facility: [facility] Address: [address] [place] [address] Performed By: #### 5 7021-8 #### [facility] CLIA [id number] [address] [place] [address] [place] Neutrophils/100 WBC (Bld) 49.0 % Normal [facility] Comment on above: Order Comment: Speci men Type: BLOOD SPECIMEN Ordering Facility: [facility] Address: [address] [place] [address] Performed By: #### 5 7021-8 #### [facility] CLIA [id number] [address] [place] [address] [place] Nucleated RBC (Bld) [#/Vol] 10*3/uL Normal <0.01 [facility] Comment on above: Order Comment: Speci men Type: BLOOD SPECIMEN Ordering Facility: [facility] Address: [address] [place] [address] Performed By: #### 5 7021-8 #### [facility] CLIA [id number] [address] [place] [address] [place] Nucleated RBC/100 WBC (Bld) [Ratio] 0.0 /100 WBC Normal [facility] Comment on above: Order Comment: Speci men Type: BLOOD SPECIMEN Ordering Facility: [facility] Address: [address] [place] [address] Performed By: #### 5 7021-8 #### [facility] CLIA [id number] [address] [place] [address] [place] Platelet mean volume (Bld) [Entitic vol] 11.2 fL Normal 9.0-12.7 [facility] Comment on above: Order Comment: Speci men Type: BLOOD SPECIMEN Ordering Facility: [facility] Address: [address] [place] [address] Performed By: #### 5 7021-8 #### [facility] CLIA [id number] [address] [place] [address] [place] Platelets (Bld) [#/Vol] 203 10*3/uL Normal 150-400 [facility] Comment on above: Order Comment: Speci men Type: BLOOD SPECIMEN Ordering Facility: [facility] Address: [address] [place] [address] Performed By: #### 5 7021-8 #### [facility] CLIA [id number] [address] [place] [address] [place] RBC (Bld) [#/Vol] 4.10 10*6/uL Normal 3.90-5.20 [facility] Comment on above: Order Comment: Speci men Type: BLOOD SPECIMEN Ordering Facility: [facility] Address: [address] [place] [address] Performed By: #### 5 7021-8 #### [facility] CLIA [id number] [address] [place] [address] [place] WBC (Bld) [#/Vol] 7.94 10*3/uL Normal 3.70-11.00 [facility] Comment on above: Order Comment: Speci men Type: BLOOD SPECIMEN Ordering Facility: [facility] Address: [address] [place] [address] Performed By: #### 5 7021-8 #### [facility] CLIA [id number] [address] [place], [place] [address] [place] CTA ABD/PELV W IVCONon 10-21 CTA ABD/PELV W IVCON * * *Final Report* * * DATE OF EXAM: Oct 21 2024 3:56PM [facility] 0311 - CTA ABD/PELV W IVCON [...] Cooper images reconstructed, saved, and available in [facility] 'Get Images'. STUDY LIMITATIONS: None. [...] AORTIC DIMENSIONS: AORTIC ROOT: 3.7 cm measured rrnxo-sn-egdib mid ASCENDING THORACIC AORTA: 3.2 cm mid [...] consistent with vertebral hemangioma mid thoracic spine Supervisor Sewing Department (topogram) images: No additional findings. IMPRESSION: NO [...] assessment. Gallbladder: suspected gallstones within the gallbladder. Security Advisor: SARABJIT Transcribe Date/Time: Oct 21 2024 4:02P Dictated by : JEET YEAGER MD This examination was interpreted and the report reviewed and electronically signed by: KAT GIFFORD MD on Oct 21 2024 5 (more content not included)... Normal [facility] CTA CHEST (GATED) W IVCONon 10-21-2024 CTA CHEST (GATED) W IVCON * * *Final Report* * * DATE OF EXAM: Oct 21 2024 3:56PM [facility] 0125 - CTA CHEST (GATED) W [...] Cooper images reconstructed, saved, and available in [facility] 'Get Images'. STUDY LIMITATIONS: None. [...] AORTIC DIMENSIONS: AORTIC ROOT: 3.7 cm measured [id number]-bw-[id number] mid ASCENDING THORACIC AORTA: 3.2 cm mid [...] consistent with vertebral hemangioma mid thoracic spine Supervisor Sewing Department (topogram) images: No additional findings. IMPRESSION: NO [...] assessment. Gallbladder: suspected gallstones within the gallbladder. Security Advisor: SARABJIT Transcribe Date/Time: Oct 21 2024 4:02P Dictated by : JEET YEAGER MD This examination was interpreted and the report reviewed and electronically signed by: KAT GIFFORD MD on Oct 21 (more content not included)... Normal [facility] Comprehensive metabolic 2000 panelon 10-21-2024 Albumin [Mass/Vol] 4.1 g/dL Normal 3.9-4.9 [facility] Comment on above: Order Comment: Speci men Type: BLOOD SPECIMEN Ordering Facility: [facility] Address: [address] [place] [address] Performed By: #### 1 9123-9, [id number], 79790-6 #### [facility] CLIA [id number] [address] [place] [address] [place] ALP [Catalytic activity/Vol] 85 U/L Normal 34-123 [facility] Comment on above: Order Comment: Speci men Type: BLOOD SPECIMEN Ordering Facility: [facility] Address: [address] [place] [address] Performed By: #### 1 9123-9, [id number], 18857-9 #### [facility] CLIA [id number] [address] [id number] [address] [place] ALT [Catalytic activity/Vol] 23 U/L Normal 7-38 [facility] Comment on above: Order Comment: Speci men Type: BLOOD SPECIMEN Ordering Facility: [facility] Address: [address] [place] [address] Performed By: #### 1 9123-9, [id number], 70240-7 #### [facility] CLIA [id number] [address] [place] [address] [place] Anion gap [Moles/Vol] 13 mmol/L Normal 8-15 [facility] Comment on above: Order Comment: Speci men Type: BLOOD SPECIMEN Ordering Facility: [facility] Address: [address] [place] [address] Performed By: #### 1 9123-9, [id number], 64788-1 #### [facility] CLIA [id number] [address] [place] [address] [place] AST [Catalytic activity/Vol] 26 U/L Normal 13-35 [facility] Comment on above: Order Comment: Speci men Type: BLOOD SPECIMEN Ordering Facility: [facility] Address: [address] [place] [address] Performed By: #### 1 9123-9, [id number], 70495-5 #### [facility] CLIA [id number] [address] [place] [address] [place] Bilirubin [Mass/Vol] 0.4 mg/dL Normal 0.2-1.3 [facility] Comment on above: Order Comment: Speci men Type: BLOOD SPECIMEN Ordering Facility: [facility] Address: [address] [place], [place] [address] Performed By: #### 1 9123-9, [id number], 03544-7 #### [facility] CLIA [id number] [address] [place], [place] [address] [place] Calcium [Mass/Vol] 8.9 mg/dL Normal 8.5-10.2 [facility] Comment on above: Order Comment: Speci men Type: BLOOD SPECIMEN Ordering Facility: [facility] Address: [address] [place] [address] Performed By: #### 1 9123-9, [id number], 61563-1 #### [facility] CLIA [id number] [address] [place] [address] [place] Chloride [Moles/Vol] 108 mmol/L High 98-107 [facility] Comment on above: Order Comment: Speci men Type: BLOOD SPECIMEN Ordering Facility: [facility] Address: [address] [place] [address] Performed By: #### 1 9123-9, [id number], #### [facility] CLIA [id number] [address] [place] [address] [place] CO2 [Moles/Vol] 22 mmol/L Normal 22-30 [facility] Comment on above: Order Comment: Speci men Type: BLOOD SPECIMEN Ordering Facility: [facility] Address: [address] [place] [address] Performed By: #### 1 9123-9, [id number], #### [facility] CLIA [id number] [address] [place] [address] [place] Creatinine [Mass/Vol] 0.70 mg/dL Normal 0.58-0.96 [facility] Comment on above: Order Comment: Speci men Type: BLOOD SPECIMEN Ordering Facility: [facility] Address: [address] [place] [address] Performed By: #### 1 9123-9, [id number], 59809-7 #### [facility] CLIA [id number] [address] [place] [address] [place] Creatinine and Glomerular filtration rate.predicted panel (S/P/Bld) 99 mL/min/1.73m??? Normal >=60 [facility] Comment on above: Order Comment: Speci men Type: BLOOD SPECIMEN Ordering Facility: [facility] Address: [address] [place] [address] Result Comment: Shahnaz mated Glomerular Filtration Rate [...] actual GFR. Performed By: #### 1 9123-9, [id number], 41837-3 #### [facility] CLIA [id number] [address] [place] [address] [place] Glucose [Mass/Vol] 102 mg/dL High 74-99 [facility] Comment on above: Order Comment: Naveen cantu Type: BLOOD SPECIMEN Ordering Facility: [facility] Address: [address] [place] [address] Result Comment: The [place] Diabetes Association (ADA) provides guidance for cutoff [...] Standards of Medical Care in Diabetes 2016, [place] [employer]. Diabetes Care. 2016.39(Suppl 1). Performed By: #### 1 9123-9, [id number], 63512-6 #### [facility] CLIA [id number] [address] [place] [address] [place] Potassium [Moles/Vol] 3.6 mmol/L Low 3.7-5.1 [facility] Comment on above: Order Comment: Naveen cantu Type: BLOOD SPECIMEN Ordering Facility: [facility] Address: [address] [place] [address] Performed By: #### 1 9123-9, [id number], 29395-5 #### [facility] CLIA [id number] [address] [place] [address] [place] Protein [Mass/Vol] 6.8 g/dL Normal 6.3-8.0 [facility] Comment on above: Order Comment: Speci men Type: BLOOD SPECIMEN Ordering Facility: [facility] Address: [address] [place] [address] Performed By: #### 1 9123-9, [id number], 39183-0 #### [facility] CLIA [id number] [address] [place] [address] [place] Sodium [Moles/Vol] 143 mmol/L Normal 136-144 [facility] Comment on above: Order Comment: Speci men Type: BLOOD SPECIMEN Ordering Facility: [facility] Address: [address] [place] [address] Performed By: #### 1 9123-9, [id number], 24916-7 #### [facility] CLIA [id number] [address] [place] [address] [place] Urea nitrogen [Mass/Vol] 14 mg/dL Normal 7-21 [facility] Comment on above: Order Comment: Speci men Type: BLOOD SPECIMEN Ordering Facility: [facility] Address: [address] [place] [address] Performed By: #### 1 9123-9, [id number], 02983-4 #### [facility] CLIA [id number] [address] [place] [address] [place] ED NOTEon 10-21-2024 ED NOTE HNO ID: [id number] Author: HERBER SINCLAIR RN Service: Emergency Medicine Author Type: Registered Nurse Type: ED Notes Filed: 10/21/2024 16:45 Note Text: Pt refusing telemetry and updated vitals at this time. Normal [facility] ED PROV NOTEon 10-21-2024 ED PROV NOTE HNO ID: [id number] Author: DENYS KWOK MD Service: Emergency Medicine [...] s/p hysterectomy Hypertension Migraine MS (multiple sclerosis) ([facility]) Osteoporosis PAST SURGICAL HISTORY Procedure Laterality Date [...] Abnormal; Notable for the following components: Abs Craig 1.06 (*) <0.87 k/uL All other components within normal limits MAGNESIUM - Normal HIGH SENSITIVITY TROPONIN T (INITIAL) - Normal HIGH SENSITIVITY TROPONIN T (SECOND) - Normal Procedures ED Course / Clinical Impression ED Course as of 10/22/24 0725 Uriel Kwoken's Documentation Mon Oct 21, 2024 1342 ED [...] warm wi (more content not included)... Normal [facility] HIGH SENSITIVITY TROPONIN T (INITIAL)on 10-21-2024 Troponin T.cardiac High sensitivity method [Mass/Vol] 6 ng/L Normal <12 [facility] Comment on above: Order Comment: Naveen cantu Type: BLOOD SPECIMEN Ordering Facility: [facility] Address: [address] [place] [address] Performed By: #### 1 9123-9, [id number], 40517-3 #### [facility] CLIA [id number] [address] [place] [address] [place] HIGH SENSITIVITY TROPONIN T (SECOND)on 10-21-2024 Troponin T.cardiac High sensitivity method [Mass/Vol] <6 Normal <12 [facility] Comment on above: Order Comment: Naveen cantu Type: BLOOD SPECIMEN Ordering Facility: [facility] Address: [address] [place] [address] Performed By: #### L [id number] #### [facility] CLIA [id number] [address] [place] [address] [place] Magnesium SerPl-mCncon 10-21 Magnesium [Mass/Vol] 1.9 mg/dL Normal 1.7-2.3 [facility] Comment on above: Order Comment: Naveen cantu Type: BLOOD SPECIMEN Ordering Facility: [facility] Address: [address] [place] [address] Performed By: #### 1 9123-9, [id number], 30820-9 #### [facility] CLIA [id number] [address] [place] [address] [place] [address] [place] XR CHEST 2V [...] thoracic spine. IMPRESSION: No acute radiographic abnormality. Security Advisor: SARABJIT Transcribe Date/Time: Oct 21 2024 1:33P Dictated by : ARCADIO DOYLE MD This examination was interpreted and the report reviewed and electronically signed by: GENNARO ROY MD on Oct 21 2024 1:38PM EST [id number] Normal [facility] Creatinine (Bld) [Mass/Vol]O rdered By: Chinyere Live on 09-06-2023 Creatinine [Mass/Vol] 0.6 mg/dL 0.6-1.3 [facility] Comment on above: ER/ESD physician is notified/shown all ISTAT results.Critical values may be confirmed by laboratory testing ifdeemed necessary by ER attending doctor. ISTAT XRay CREon 09-06-2023 Creatinine [Mass/Vol] 0.6 mg/dL Normal 0.6-1.3 [facility] Comment on above: Result Comment: ER/E SD physician is notified/shown all ISTAT results. Critical values may be confirmed by laboratory testing if deemed necessary by ER attending doctor. Performed By: #### I SCRE #### [address] ISTAT GFR > 60.0 Normal [facility] Comment on above: Result Comment: PERF ORMED BY: [place] [address] PATHOLOGIST [employer] LJ VERAS M.D. Performed By: #### I SCRE #### [address] MR cervical spine wo/w conon 09-06-2023 MR cervical spine wo/w con [facility] [place] [address] [place] [address] MRI Report Signed Patient: Jayde Hernandez MR#: [id number] : 1965 Acct:[id number] Age/Sex: 58 / F ADM Date: 09/06/23 Loc: MR Room: Type: [facility] Attending Dr: Chinyere Live PA-C Copies [...] Raffi Guillen M.D.09/06/2023 11:22 AM Dictation Location: [place] [address] Transcribed By: [facility] 09/06/23 1122 Dictated By: Raffi Guillen II, MD 09/06/23 1109 Signed By: 09/06/23 1122 [facility] MR head/brain wo/w conon MR head/brain wo/w con [facility] [address] [place] [address] [place] [address] MRI Report Signed Patient: Jayde Hernandez MR#: [id number] : 1965 Acct:[id number] Age/Sex: 58 / F ADM Date: 09/06/23 Loc: Room: Type: [facility] Attending Dr: Chinyere Live PA-C Copies [...] Raffi Guillen M.D.09/06/2023 11:09 AM Dictation Location: [place] [address] Transcribed By: [facility] 09/06/23 1109 Dictated By: Raffi Guillen II, MD 09/06/23 1053 Signed By: 09/06/23 1109 [facility] No Panel InformationOrdered By: Chinyere Live on 09-06-2023 Bedside Estimated GFR (eGFR) > 60.0 [facility] Creatinine (Bld) [Mass/Vol]O rdered By: Chinyere Live on 07-12-2023 Creatinine [Mass/Vol] 0.7 mg/dL 0.6-1.3 [facility] Comment on above: ER/ESD physician is notified/shown all ISTAT results.Critical values may be confirmed by laboratory testing ifdeemed necessary by ER attending doctor. ISTAT XRay CREon 07-12-2023 Creatinine [Mass/Vol] 0.7 mg/dL Normal 0.6-1.3 [facility] Comment on above: Result Comment: ER/E SD physician is notified/shown all ISTAT results. Critical values may be confirmed by laboratory testing if deemed necessary by ER attending doctor. Performed By: #### I SCRE #### [facility] [address] [place] [address] ISTAT GFR > 60.0 Normal [facility] Comment on above: Result Comment: PERF ORMED BY: [place] [address] PATHOLOGIST [employer] LJ VERAS M.D. Performed By: #### I SCRE #### [address] No Panel InformationOrdered By: Chinyere Live on 07-12-2023 Bedside Estimated GFR (eGFR) > 60.0 [facility] XR pre/post mri xrayon 07-12 XR pre/post mri xray [facility] [place] [address] [place] [address] MRI Report Signed Patient: Jayde Hernandez MR#: [id number] : 1965 Acct:[id number] Age/Sex: 58 / F ADM Date: 07/12/23 Loc: Room: Type: [facility] Attending Dr: Chinyere Live PA-C Copies to: Chinyere Live PA-C Ordering Provider: Chinyere Live PA-C Date of Service: 07/12/23 MR/MR thoracic spine wo/w con: G35 ([id number]) XR/XR pre/post mri xray: G35 MR thoracic [...] Raffi Guillen M.D.07/12/2023 12:37 PM Dictation Location: [place] [address] Transcribed By: [facility] 07/12/23 1237 Dictated By: Raffi Guillen II, MD 07/12/23 1230 Signed By: 07/12/23 1237 [facility] CBC AUTO DIFFon 05-10-2022 BASO # 0.1 103/ul Normal 0.0-0.1 [facility] Comment on above: Performed By: #### C BC #### [facility] [address] [place] [address] Dr. Brett Rosales Basophils/100 WBC (Bld) 1.0 % Normal 0.2-2.0 [facility] Comment on above: Performed By: #### C BC #### [facility] [address] [place] [address] Dr. Brett Rosales EO # 0.1 103/ul Normal 0.0-0.7 [facility] Comment on above: Performed By: #### C BC #### [facility] [address] [place] [address] Dr. Brett Rosales Eosinophils/100 WBC (Bld) 1.5 % Normal 0.9-7.0 [facility] Comment on above: Performed By: #### C BC #### [facility] [address] [place] [address] Dr. Brett Rosales Erythrocyte distribution width (RBC) [Ratio] 13.2 % Normal 11.0-15.0 [facility] Comment on above: Performed By: #### C BC #### [facility] [address] [place] [address] Dr. Brett Rosales Hematocrit (Bld) [Volume fraction] 40.1 % Normal 36.0-48.0 [facility] Comment on above: Performed By: #### C BC #### [facility] [address] [place] [address] Dr. Brett Rosales Hemoglobin (Bld) [Mass/Vol] 12.9 g/dL Normal 12.0-16.0 [facility] Comment on above: Performed By: #### C BC #### [facility] [address] [place] [address] Dr. Brett Rosales IG # 0.01 10e3/ul Normal 0.00-0.03 [facility] Comment on above: Performed By: #### C BC #### [facility] [address] [place] [address] Dr. Brett Rosales IG % 0.1 % Normal 0.0-0.5 [facility] Comment on above: Performed By: #### C BC #### [facility] [address] [place] [address] Dr. Brett Rosales LYMPH # 2.5 103/ul Normal 1.2-3.8 [facility] Comment on above: Performed By: #### C BC #### [facility] [address] [place] [address] Dr. Brett Rosales Lymphocytes/100 WBC (Bld) 30.3 % Normal 20.5-60.0 [facility] Comment on above: Performed By: #### C BC #### [facility] [address] [place] [address] Dr. Brett Rosales MANUAL DIFF REQ NO Normal [facility] Comment on above: Performed By: #### C BC #### [facility] [address] [place] [address] Dr. Brett Rosales MCH (RBC) [Entitic mass] 30.6 pg Normal 26.7-34.0 [facility] Comment on above: Performed By: #### C BC #### [facility] [address] [place] [address] Dr. Brett Rosales MCHC (RBC) [Mass/Vol] 32.2 g/dL Normal 29.9-35.2 [facility] Comment on above: Performed By: #### C BC #### [facility] [address] [place] [address] Dr. Brett Rosales MCV (RBC) [Entitic vol] 95.0 fL Normal 81.0-99.0 [facility] Comment on above: Performed By: #### C BC #### [facility] [address] [place] [address] Dr. Brett Rosales MONO # 0.9 103/ul Critically high 0.3-0.8 [facility] Comment on above: Performed By: #### C BC #### [facility] [address] [place] [address] Dr. Brett Rosales Monocytes/100 WBC (Bld) 10.4 % Normal 1.7-12.0 [facility] Comment on above: Performed By: #### C BC #### [facility] [address] [place] [address] Dr. Brett Rosales NEUT # 4.6 103/ul Normal 1.4-6.5 [facility] Comment on above: Performed By: #### C BC #### [facility] [address] [place] [address] Dr. Brett Rosales Neutrophils/100 WBC (Bld) 56.7 % Normal 43.0-75.0 [facility] Comment on above: Performed By: #### C BC #### [facility] [address] [place] [address] Dr. Brett Rosalse Platelet mean volume (Bld) [Entitic vol] 11.0 fL Normal 9.5-13.5 [facility] Comment on above: Performed By: #### C BC #### [facility] [address] [place] [address] Dr. Brett Rosales PLT 262 103/ul Normal 150-450 [facility] Comment on above: Performed By: #### C BC #### [facility] [address] [place] [address] Dr. Brett Rosales RBC 4.22 106/ul Normal 4.20-5.40 [facility] Comment on above: Performed By: #### C BC #### [facility] [address] [place] [address] Dr. Brett Rosales WBC 8.2 103/ul Normal 4.0-11.0 [facility] Comment on above: Performed By: #### C BC #### [facility] [address] [place] [address] Dr. Brett Rosales PROF 14(COMP METB)on 022 Albumin [Mass/Vol] 3.5 g/dL Normal 3.4-5.0 [facility] Comment on above: Performed By: #### C MP #### [facility] [address] [place] [address] Dr. Brett Rosales Albumin/Globulin [Mass ratio] 1.0 {ratio} Normal [facility] Comment on above: Performed By: #### C MP #### [facility] [address] [place] [address] Dr. Brett Rosales ALP [Catalytic activity/Vol] 94 U/L Normal 46-116 [facility] Comment on above: Performed By: #### C MP #### [facility] [address] [place] [address] [address] Brett Rosales ALT [Catalytic activity/Vol] 25 U/L Normal 14-59 [facility] Comment on above: Performed By: #### C MP #### [facility] [address] [place] [address] [address] Brett Rosales Anion gap [Moles/Vol] 9.4 mmol/L Normal [facility] Comment on above: Performed By: #### C MP #### [facility] [address] [place] [address] [address] Brett Rosales AST [Catalytic activity/Vol] 21 U/L Normal 15-37 [facility] Comment on above: Performed By: #### C MP #### [facility] [address] [place] [address] Dr. Brett Rosales Bilirubin [Mass/Vol] 0.3 mg/dL Normal 0.2-1.0 [facility] Comment on above: Performed By: #### C MP #### [facility] [address] [place] [address] [address] Brett Rosales Calcium [Mass/Vol] 9.1 mg/dL Normal 8.5-10.1 [facility] Comment on above: Performed By: #### C MP #### [facility] [address] [place] [address] [address] Brett Rosales Chloride [Moles/Vol] 106 mmol/L Normal 98-107 [facility] Comment on above: Performed By: #### C MP #### [facility] [address] [place] [address] [address] Brett Rosales CO2 [Moles/Vol] 31.2 mmol/L Normal 21.0-32.0 [facility] Comment on above: Performed By: #### C MP #### [facility] [address] [place] [address] [address] Brett Rosales Creatinine [Mass/Vol] 0.69 mg/dL Normal 0.55-1.02 [facility] Comment on above: Performed By: #### C MP #### [facility] [address] [place] [address] [address] Brett Rosales EGFR-AF MALTESE >60 Normal >=60 [facility] Comment on above: Performed By: #### C MP #### [facility] [address] [place] [address] [address] Brett Rosales EGFR-NON AF MALTESE >60 Normal >=60 [facility] Comment on above: Performed By: #### C MP #### [facility] [address] [place] [address] [address] Brett Rosales Globulin (S) [Mass/Vol] 3.5 g/dL Normal [facility] Comment on above: Performed By: #### C MP #### [facility] [address] [place] [address] [address] Brett Rosales Glucose [Mass/Vol] 108 mg/dL Critically high 74-106 [facility] Comment on above: Performed By: #### C MP #### [facility] [address] [place] [address] [address] Brett Rosales Potassium [Moles/Vol] 3.6 mmol/L Normal 3.5-5.1 [facility] Comment on above: Performed By: #### C MP #### [facility] [address] [place] [address] [address] Brett Rosales Protein [Mass/Vol] 7.0 g/dL Normal 6.4-8.2 [facility] Comment on above: Performed By: #### C MP #### [facility] [address] [place] [address] [address] Brett Rosales Sodium [Moles/Vol] 143 mmol/L Normal 136-145 [facility] Comment on above: Performed By: #### C MP #### [facility] [address] [place] [address] [address] Brett Rosales Urea nitrogen [Mass/Vol] 14.0 mg/dL Normal 7.0-18.0 [facility] Comment on above: Performed By: #### C MP #### [facility] [address] [place], [place] [address] Dr. Brett Rosales Urea nitrogen/Creatinine [Mass ratio] 20.3 mg/mg Normal [facility] Comment on above: Performed By: #### C #### [facility] [address] [place], [place] [address] Dr. Brett Rosales XR CHEST 2 Von [...] by: LIAT WEBSTER Date: 2022-02-24 08:15 Normal [facility] MAMM SCREEN 3D LIBERTAD CADon 02-15-2022 MG MAMM SCREEN 3D LIBERTAD CAD Patient: JAYDE HERNANDEZ Exam Date: 02/15/2022 : 1965 Gender:F Ordering : DR CINDY RODRÍGUEZ Admission #: [id number] Family : DR JOHNY WINTERS D.O. Order #: [id number] CLICK HERE TO VIEW EXAM RADIOLOGY REPORT PROCEDURE: MAMMOGRAM SCREENING 3D BILATERAL CAD COMPARISON: MG MAMM SCREEN 3D LIBERTAD CAD, 11/30/2020. MG MAMM SCREEN LBIERTAD W CAD, 11/06/2018. INDICATIONS: Screening mammography Calculator Name NCI Breast Cancer Risk Assessment Tool 5 Year Breast Cancer Risk 6.60% Lifetime Breast Cancer Risk 31.10% Personal Breast Cancer No Personal Ovarian Cancer No Treatments hysterectomy Family Cancers Mother with breast cancer at age 45; Nephew with lymphoma cancer at age 19; Sister with breast cancer at age 65. LOCATION: [facility] BREAST COMPOSITION: Scattered areas fibroglandular density. [...] M.D. on 02/16/2022 at 13:24 Normal [facility] CBC AUTO DIFFon 11-16-2021 BASO # 0.1 103/ul Normal 0.0-0.1 [facility] Comment on above: Performed By: #### C BC #### [facility] [address] [place] [address] Dr. Brett Rosales Basophils/100 WBC (Bld) 0.7 % Normal 0.2-2.0 [facility] Comment on above: Performed By: #### C BC #### [facility] [address] [place] [address] Dr. Brett Rosales EO # 0.1 103/ul Normal 0.0-0.7 [facility] Comment on above: Performed By: #### C BC #### [facility] [address] [place] [address] Dr. Brett Rosales Eosinophils/100 WBC (Bld) 1.7 % Normal 0.9-7.0 [facility] Comment on above: Performed By: #### C BC #### [facility] [address] [place] [address] Dr. Brett Rosales Erythrocyte distribution width (RBC) [Ratio] 13.2 % Normal 11.0-15.0 [facility] Comment on above: Performed By: #### C BC #### [facility] [address] [place] [address] Dr. Brett Rosales Hematocrit (Bld) [Volume fraction] 38.9 % Normal 36.0-48.0 [facility] Comment on above: Performed By: #### C BC #### [facility] [address] [place] [address] Dr. Brett Rosales Hemoglobin (Bld) [Mass/Vol] 12.5 g/dL Normal 12.0-16.0 [facility] Comment on above: Performed By: #### C BC #### [facility] [address] [place] [address] Dr. Brett Rosales IG # 0.02 10e3/ul Normal 0.00-0.03 [facility] Comment on above: Performed By: #### C BC #### [facility] [address] [place] [address] Dr. Brett Rosales IG % 0.2 % Normal 0.0-0.5 [facility] Comment on above: Performed By: #### C BC #### [facility] [address] [place] [address] Dr. Brett Rosales LYMPH # 2.9 103/ul Normal 1.2-3.8 [facility] Comment on above: Performed By: #### C BC #### [facility] [address] [place] [address] Dr. Brett Rosales Lymphocytes/100 WBC (Bld) 34.3 % Normal 20.5-60.0 [facility] Comment on above: Performed By: #### C BC #### [facility] [address] [place] [address] Dr. Brett Rosales MANUAL DIFF REQ NO Normal [facility] Comment on above: Performed By: #### C BC #### [facility] [address] [place] [address] Dr. Brett Rosales MCH (RBC) [Entitic mass] 31.0 pg Normal 26.7-34.0 [facility] Comment on above: Performed By: #### C BC #### [facility] [address] [place] [address] Dr. Brett Rosales MCHC (RBC) [Mass/Vol] 32.1 g/dL Normal 29.9-35.2 [facility] Comment on above: Performed By: #### C BC #### [facility] [address] [place] [address] Dr. Brett Rosales MCV (RBC) [Entitic vol] 96.5 fL Normal 81.0-99.0 [facility] Comment on above: Performed By: #### C BC #### [facility] [address] [place] [address] Dr. Brett Rosales MONO # 0.7 103/ul Normal 0.3-0.8 [facility] Comment on above: Performed By: #### C BC #### [facility] [address] [place] [address] [address] Brett Rosales Monocytes/100 WBC (Bld) 8.5 % Normal 1.7-12.0 [facility] Comment on above: Performed By: #### C BC #### [facility] [address] [place] [address] [address] Brett Rosales NEUT # 4.6 103/ul Normal 1.4-6.5 [facility] Comment on above: Performed By: #### C BC #### [facility] [address] [place] [address] Dr. Brett Rosales Neutrophils/100 WBC (Bld) 54.6 % Normal 43.0-75.0 [facility] Comment on above: Performed By: #### C BC #### [facility] [address] [place] [address] Dr. Brett Rosales Platelet mean volume (Bld) [Entitic vol] 10.7 fL Normal 9.5-13.5 [facility] Comment on above: Performed By: #### C BC #### [facility] [address] [place] [address] Dr. Brett Rosales PLT 276 103/ul Normal 150-450 [facility] Comment on above: Performed By: #### C BC #### [facility] [address] [place] [address] Dr. Brett Rosales RBC 4.03 106/ul Critically low 4.20-5.40 [facility] Comment on above: Performed By: #### C BC #### [facility] [address] [place] [address] Dr. Brett Rosales WBC 8.5 103/ul Normal 4.0-11.0 [facility] Comment on above: Performed By: #### C BC #### [facility] [address] [place] [address] Dr. Brett Rosales PROF 14(COMP METB)on 022 Albumin [Mass/Vol] 3.5 g/dL Normal 3.4-5.0 [facility] Comment on above: Performed By: #### C MP #### [facility] [address] [address] [address] Brett Rosales Albumin/Globulin [Mass ratio] 1.1 {ratio} Normal [facility] Comment on above: Performed By: #### C MP #### [facility] [address] [address] [address] Brett Rosales ALP [Catalytic activity/Vol] 75 U/L Normal 46-116 [facility] Comment on above: Performed By: #### C MP #### [facility] [address] [address] [address] Brett Rosales ALT [Catalytic activity/Vol] 27 U/L Normal 14-59 [facility] Comment on above: Performed By: #### C MP #### [facility] [address] [place] [address] Dr. Brett Rosales Anion gap [Moles/Vol] 9.3 mmol/L Normal [facility] Comment on above: Performed By: #### C MP #### [facility] [address] [place] [address] Dr. Brett Rosales AST [Catalytic activity/Vol] 22 U/L Normal 15-37 [facility] Comment on above: Performed By: #### C MP #### [facility] [address] [address] [address] Brett Rosales Bilirubin [Mass/Vol] 0.4 mg/dL Normal 0.2-1.3 [facility] Comment on above: Performed By: #### C MP #### [facility] [address] [address] [address] Brett Rosales Calcium [Mass/Vol] 8.4 mg/dL Critically low 8.5-10.[address] [facility] Comment on above: Performed By: #### C MP #### [facility] [address] [address] [address] Brett Rosales Chloride [Moles/Vol] 105 mmol/L Normal 98-107 [facility] Comment on above: Performed By: #### C MP #### [facility] [address] [address] [address] Brett Rosales CO2 [Moles/Vol] 31.1 mmol/L Critically high 22.0-30.0 [facility] Comment on above: Performed By: #### C MP #### [facility] [address] [place] [address] Dr. Brett Rosales Creatinine [Mass/Vol] 0.73 mg/dL Normal 0.52-1.04 [facility] Comment on above: Performed By: #### C MP #### [facility] [address] [place] [address] Dr. Brett Rosales EGFR-AF MALTESE >60 Normal >=60 [facility] Comment on above: Performed By: #### C MP #### [facility] [address] [place] [address] Dr. Brett Rosales EGFR-NON AF MALTESE >60 Normal >=60 [facility] Comment on above: Performed By: #### C MP #### [facility] [address] [place] [address] Dr. Brett Rosales Globulin (S) [Mass/Vol] 3.2 g/dL Normal [facility] Comment on above: Performed By: #### C MP #### [facility] [address] [place] [address] Dr. Brett Rosales Glucose [Mass/Vol] 105 mg/dL Normal 74-106 [facility] Comment on above: Performed By: #### C MP #### [facility] [address] [place] [address] Dr. Brett Rosales Potassium [Moles/Vol] 3.4 mmol/L Normal 3.4-5.0 [facility] Comment on above: Performed By: #### C MP #### [facility] [address] [place] [address] Dr. Brett Rosales Protein [Mass/Vol] 6.7 g/dL Normal 6.1-8.2 [facility] Comment on above: Performed By: #### C MP #### [facility] [address] [place] [address] Dr. Brett Rosales Sodium [Moles/Vol] 142 mmol/L Normal 137-145 [facility] Comment on above: Performed By: #### C MP #### [facility] [address] [address] [address] Brett Rosales Urea nitrogen [Mass/Vol] 12.0 mg/dL Normal 7.0-18.0 [facility] Comment on above: Performed By: #### C MP #### [facility] [address] [address] [address] Brett Rosales Urea nitrogen/Creatinine [Mass ratio] 16.4 mg/mg Normal [facility] Comment on above: Performed By: #### C MP #### [facility] [address] [address] [address] Brett Rosales MRI LSPINE WO W CONon 2021 MRI LSPINE WO W CON EXAMINATION: MRI LSPINE WO W CON HISTORY: Lumbosacral spondylosis with [...] by: DENYS WALLACE Date: 2021-09-09 15:31 Normal [facility] Vital Signs Date Time Vital Sign Value Performing Clinician Facility 03-17-2025 13:15-0400 Body height 152.4 cm Johny [employer] DO Work Phone: [facility] 03-17-2025 13:15-0400 Body mass index (BMI) [Ratio] 27.1 kg/m2 Johny Ball DO Work Phone: [facility] 03-17-2025 13:15-0400 Body weight 63.04 kg [employer] DO Work Phone: [facility] 03-17-2025 13:15-0400 Diastolic blood pressure 80 mm[Hg] Johny Ball DO Work Phone: [facility] 03-17-2025 13:15-0400 Heart rate 83 /min Johny Ball DO Work Phone: [facility] 03-17-2025 13:15-0400 Respiratory rate 16 /min Johny Ball DO Work Phone: [facility] 03-17-2025 13:15-0400 SaO2% (BldA) [Mass fraction] 95 % Johny Ball DO Work Phone: [facility] 03-17-2025 13:15-0400 Systolic blood pressure 120 mm[Hg] [employer] DO Work Phone: [facility] 12-31-2024 10:37-0400 Body height 152.4 cm Cindy Rodríguez DO Work Phone: [facility] 12-31-2024 10:37-0400 Body mass index (BMI) [Ratio] 27.15 kg/m2 Cindy Rodríguez DO Work Phone: [facility] 12-31-2024 10:37-0400 Body weight 63.05 kg Cindy Rodríguez DO Work Phone: [facility] 12-31-2024 10:37-0400 Diastolic blood pressure 72 mm[Hg] Cindy Rodríguez DO Work Phone: [facility] 12-31-2024 10:37-0400 Systolic blood pressure 116 mm[Hg] Cindy Rodríguez DO Work Phone: [facility] 09-19-2024 10:36-0500 Body height 152.4 cm Chinyere Lowe PA Work Phone: [facility] 09-19-2024 10:36-0500 Body mass index (BMI) [Ratio] 27.15 kg/m2 Chinyere Lowe PA Work Phone: [facility] 09-19-2024 10:36-0500 Body weight 63.05 kg Chinyere Lowe PA Work Phone: [facility] 09-19-2024 10:36-0500 Diastolic blood pressure 64 mm[Hg] Chinyere Lowe PA Work Phone: [facility] 09-19-2024 10:36-0500 Systolic blood pressure 142 mm[Hg] Chinyere Lowe PA Work Phone: [facility] 04-04-2024 09:32-0400 Body height 152.4 cm Chinyere Lowe PA Work Phone: [facility] 04-04-2024 09:32-0400 Body mass index (BMI) [Ratio] 27.73 kg/m2 Chinyere Lowe PA Work Phone: [facility] 04-04-2024 09:32-0400 Body weight 64.41 kg Chinyere Lowe PA Work Phone: [facility] 04-04-2024 09:32-0400 Diastolic blood pressure 70 mm[Hg] Chinyere Lowe PA Work Phone: [facility] 04-04-2024 09:32-0400 Systolic blood pressure 132 mm[Hg] Chinyere Lowe PA Work Phone: [facility] 09-06-2023 09:48-0500 Body height 152.4 cm DO Johny Ball Work Phone: [facility] 09-06-2023 09:48-0500 Body weight 60.78 kg DO Johny Ball Work Phone: [facility] 07-12-2023 11:28-0500 Body height 152.4 cm DO Johny Ball Work Phone: [facility] 07-12-2023 11:28-0500 Body weight 60.78 kg DO Johny Ball Work Phone: [facility] 03-01-2023 10:00-0400 Body height 154.94 cm Johny Ball Other [facility] [employer] Other 03-01-2023 10:00-0400 Body mass index (BMI) [Ratio] 26.15 kg/m2 Johny Ball Other [facility] [employer] Other 03-01-2023 10:00-0400 Body weight 62.78 kg Johny Ball Other [employer] Other 03-01-2023 10:00-0400 Diastolic blood pressure 74 mm[Hg] Johny Ball Other [employer] Other 03-01-2023 10:00-0400 Respiratory rate 12 /min Johny Ball Other [employer] Other 03-01-2023 10:00-0400 Systolic blood pressure 138 mm[Hg] Johny Ball Other [employer] Other 11-02-2021 14:20-0400 Body height 154.94 cm Ezequiel Agudelo Other [employer] Other 11-02-2021 14:20-0400 Body mass index (BMI) [Ratio] 25.69 kg/m2 Ezequiel Agudelo Other [employer] Other 11-02-2021 14:20-0400 Body weight 61.69 kg Ezequiel Agudelo Other [employer] Other Encounters Encounter Date Encounter Type Care Provider Facility Start: 03-27-2025 End: 03-27-2025 Clinisync Result Encounter Cindy Rodríguez DO Work Phone: [facility] External Department Unsolicited Start: 03-27-2025 End: 03-27-2025 Clinisync Result Encounter Cindy Rodríguez DO Work Phone: [facility] External Department Unsolicited Start: 03-17-2025 End: 03-17-2025 ambulatory Johny Winters DO Work Phone: [facility] Work Phone: Start: 03-17-2025 End: 03-17-2025 Patient encounter procedure Jennifer Ward INTERNATIONAL TRADE SPECIALIST-SOCIAL SERVICE MANAGER-C -[facility] [place] Work Phone: Start: 12-31-2024 End: 12-31-2024 Patient encounter status Cindy Rodríguez DO Work Phone: [facility] Start: 12-31-2024 End: 12-31-2024 Periodic preventive med est patient 40-64yrs Cindy Rodríguez DO Work Phone: [facility] Comment on above: Encounter for gyneco logical examination without abnormal finding; Encounter for Papanicolaou smear of vagina; Breast cancer screening by mammogram; Osteoporosis, post-menopausal ([facility] Start: 12-31-2024 End: 12-31-2024 ambulatory CINDY RODRÍGUEZ Not Available Start: 10-21-2024 End: 10-21-2024 Emergency department patient visit JOHNY WINTERS Facility:[facility] Start: 09-19-2024 End: 09-19-2024 Bamboo flowsheet Chinyere ZUNIGA Work Phone: [facility] [place] Start: 09-19-2024 End: 09-19-2024 Bamboo flowsheet Chinyere Lowe PA Work Phone: [facility] [place] Start: 09-19-2024 End: 09-19-2024 Office outpatient visit 15 minutes Chinyere Lowe PA Work Phone: [facility] [place] Comment on above: Multiple sclerosis ( CMS/HCC) (Primary Dx); Fatigue, unspecified type; Degenerative disc disease, cervical; Vertigo Start: 09-19-2024 End: 09-19-2024 ambulatory CHINYERE LOWE Not Available Start: 04-04-2024 End: 04-04-2024 Bamboo flowsheet Chinyere Lowe PA Work Phone: [facility] Start: 04-04-2024 End: 04-04-2024 Bamboo flowsheet Chinyere Lowe PA Work Phone: [facility] Start: 04-04-2024 End: 04-04-2024 Office outpatient visit 25 minutes Chinyere Lowe PA Work Phone: [facility] Comment on above: Multiple sclerosis ( CMS/HCC) (Primary Dx); Fatigue, unspecified type; Degenerative disc disease, cervical; Degenerative disc disease, lumbar; Lumbar radiculopathy; Transient alteration of awareness Start: 04-04-2024 End: 04-04-2024 ambulatory CHINYERE LOWE Not Available Start: 09-06-2023 End: 09-06-2023 ambulatory Chinyere Lowe Facility:[facility] Start: 09-06-2023 End: 09-06-2023 ambulatory DO Johny Ball Work Phone: [facility] Work Phone: Start: 09-06-2023 End: 09-06-2023 Patient encounter procedure DO Johny Ball Work Phone: [facility] [place] Work Phone: Start: 07-12-2023 End: 07-12-2023 ambulatory Johny Ball Facility:[facility] Start: 07-12-2023 End: 07-12-2023 Patient encounter procedure DO Johny Ball Work Phone: [facility] [place] Work Phone: Start: 04-07-2023 End: 04-07-2023 ambulatory Johny Winters Other [employer] Other Start: 04-07-2023 Nursing evaluation o f patient and report Johny Winters [facility] Start: 03-01-2023 End: 03-01-2023 ambulatory Johny Winters Other [employer] Other Start: 03-01-2023 Encounter for genera l adult medical examination without abnormal findings Johny Singh [facility] Start: 03-01-2023 Periodic preventive med est patient 40-64yrs Johny Winters [facility] Start: 12-24-2022 End: 12-24-2022 ambulatory Johny Winters Other [employer] Other Start: 12-24-2022 Telephone encounter Johny Winters [facility] Start: 05-10-2022 End: 05-11-2022 ambulatory CHINYERE LIVE Facility:[facility] Start: 02-23-2022 End: 02-24-[address] JOHNY WINTERS Facility:[facility] Start: 02-15-2022 End: 02-16-[address] CINDY RODRÍGUEZ Facility:[facility] Start: 11-16-2021 End: 11-17-[address] DENYS JACKSON Facility:[facility] Start: 11-02-2021 End: 11-02-2021 ambulatory Ezequiel Agudelo Other [employer] Other Start: 11-02-2021 Office outpatient ne w 45 minutes Ezequiel Agudelo [facility] Start: 09-09-2021 End: 09-10-[address] JOHNY WINTERS Facility:[facility] Start: 08-30-2021 End: 08-30-[address] JOHNY WINTERS Facility:[facility] Procedures Date Procedure Procedure Detail Performing Clinician Start: 03-27-2025 MM TOMOSYNTHESIS SCR EENING BI Cindy Rodríguez DO Work Phone: Start: 03-27-2025 Mammography Cindy Truong uner DO Work Phone: Start: 03-26-2024 Mammography Chinyere Low e PA Work Phone: Start: 09-06-2023 MRI of cervical spin e with contrast DO [employer] Work Phone: Start: 09-06-2023 MRI of head DO Benjami n [employer] Work Phone: Start: 07-12-2023 MRI of thoracic spin e with contrast DO [employer] Work Phone: Start: 07-12-2023 XR pre/post mri xray DO [employer] Work Phone: Plan of Treatment Date Care Activity Detail Author Start: 12-31-2029 Screening for malignant neoplasm of cervix [facility] Start: 12-11-2028 Screening for malignant neoplasm of cervix [facility] Start: 01-02-2026 End: 01-02-2026 Patient encounter procedure 01/02/2026 11:15 AM EDT Office Visit [facility] [address] [place] [id number] Cindy Rodríguez, DO [address] [place] [address] [facility] Start: 03-31-2025 Influenza vaccination Influenza Vacc ine (#1) [facility] Start: 03-27-2025 End: 03-02-2026 DBT Breast - bilateral screening Bilateral screening mammogram with tomosynthesis Imaging Routine Breast cancer screening by mammogram Expected: 03/27/2025, Expires: 03/02/2026 [facility] Comment on above: Expected: 03/27/2025 , Expires: 03/02/2026 Start: 03-26-2025 Screening for malignant neoplasm of breast Mammogram [facility] Start: 03-18-2025 Screening for malignant neoplasm of colon [facility] Start: 12-17-2024 End: 12-17-2024 Patient encounter procedure [facility] Start: 09-19-2024 End: 09-19-2024 Patient encounter procedure 09/19/2024 10:40 AM EST Office Visit [facility] [address] [place] [address] Chinyere Live PA [address] [place] [address] Arrived [facility] Comment on above: Arrived Start: 06-26-2024 End: 06-26-2024 Patient encounter procedure 06/26/2024 10:40 AM EST Office Visit [facility] [address] [facility] [place] [address] Chinyere Live PA [address] [place] [address] [facility] [address] [address] [facility] Start: 04-04-2024 End: 04-04-2024 Patient encounter procedure 04/04/2024 9:40 AM EDT Office Visit [facility] [address] [facility] [place] [address] Chinyere Live PA [address] [place] [address] Arrived [facility] [address] [facility] Comment on above: Arrived Start: 03-31-2024 Influenza vaccination Influenza Vacc ine (#1) [facility] Start: 01-22-1984 Screening for malignant neoplasm of cervix Pap Smear [facility] Start: 1965 Screening for malignant neoplasm of colon [facility] IGP,rfxAptima HPV all,16/18,45 IGP,rfxAptima HPV all,16/18,45 Pathology and Cytology Routine Encounter for Papanicolaou smear of vagina Ordered: 12/31/2024 [facility] Work Phone: Comment on above: Ordered: 12/31/2024 Immunizations Immunization Date Immunization Notes Care Provider Fa cili 04-08-2024 influenza, seasonal, injectable, preservative free Cindy Rodríguez DO Work Phone: [facility] 04-08-2024 influenza virus vaccine, unspecified formulation Cindy Rodríguez DO Work Phone: [facility] 04-07-2023 influenza, injectabl e, quadrivalent, preservative free Johny Winters Other [facility] 04-07-2023 influenza virus vaccine, unspecified formulation Chinyere Lowe PA Work Phone: [facility] 05-06-2022 influenza virus vaccine, split virus (incl. purified surface antigen) Johny Winters Other [facility] [employer] Other 05-06-2022 influenza virus vaccine, unspecified formulation Johny Ball DO Work Phone: [facility] 05-06-2022 Influenza, injectabl e, Madin [place] Canine Kidney, preservative free, quadrivalent Chinyere Lowe PA Work Phone: [facility] 05-06-2022 influenza, injectabl e, quadrivalent, preservative free Johny Ball DO Work Phone: [facility] 05-06-2022 influenza, injectabl e, quadrivalent, contains preservative Johny Ball Other [facility] [employer] Other 12-01-2021 influenza, injectabl e, quadrivalent, preservative free Chinyere Lowe PA Work Phone: [facility] 04-14-2021 influenza virus vaccine, split virus (incl. purified surface antigen) Johny Winters Other [facility] [employer] Other 04-14-2021 influenza virus vaccine, unspecified formulation Johny Ball DO Work Phone: [facility] 04-17-2020 pneumococcal polysaccharide vaccine, 23 valent Johny Winters Other [facility] 12-31-2019 pneumococcal conjuga te vaccine, 13 valent Johny Winters Other [facility] 08-13-2019 influenza, injectabl e, madin anam canine kidney, preservative free Chinyere Lowe PA Work Phone: [facility] 04-08-2019 influenza virus vaccine, split virus (incl. purified surface antigen) Johny Singh Other [facility] [employer] Other 04-08-2019 influenza virus vaccine, unspecified formulation Johny Winters DO Work Phone: [facility] 04-08-2019 Influenza, injectabl e, Madin [place] Canine Kidney, quadrivalent with preservative Chinyere Lowe PA Work Phone: [facility] 07-05-2018 Influenza, injectabl e, Madin [place] Canine Kidney, preservative free, quadrivalent Chinyere Lowe PA Work Phone: [facility] 05-05-2017 influenza virus vaccine, split virus (incl. purified surface antigen) Johny Winters Other [facility] [employer] Other 05-05-2017 influenza virus vaccine, unspecified formulation Johny Singh DO Work Phone: [facility] 05-05-2017 influenza, high dose seasonal, preservative-free Chinyere Lowe PA Work Phone: [facility] 06-06-2016 influenza, injectabl e, quadrivalent, preservative free Chinyere Lowe PA Work Phone: [facility] 05-04-2015 tetanus and diphther ia toxoids, adsorbed, preservative free, for adult use (5 Lf of tetanus toxoid and 2 Lf of diphtheria toxoid) Johny Winters Other [facility] 04-30-2013 tetanus and diphther ia toxoids, adsorbed, preservative free, for adult use (5 Lf of tetanus toxoid and 2 Lf of diphtheria toxoid) Johny Winters Other [facility] Payers Date Payer Category Payer Self-pay [id number] 2018 Medicaid [employer] [place] [id number] 2018-Present [address] [place] [address] [id number] 2018 Private Health Insurance [facility] MEDICAID [id number] 2018 Medicaid [id number] 1963 Unknown [id number]. 593 1963 Unknown [id number] [id number]. 593 1963 Unknown [id number] [id number]. 593 1963 Unknown [id number] [id number]. 593 1963 Unknown [id number] [id number]. 593 1963 Unknown [id number] [id number]. 593 1963 Unknown [id number] [id number]. 1259 1963 Unknown [id number] [id number]. 1259 1963 Unknown [id number] [id number]. 1259 1959 Unknown [id number] Private Health Insurance [facility] [id number] Unknown [id number] 531 Unknown [id number]. 531 Social History Date Type Detail Facility Start: 12-12-2023 End: 12-31-2024 Sex Assigned At [facility] [employer] Other Start: 1965 Sex Assigned At Female F [facility] Start: 12-11-2023 End: 04-04-2024 Tobacco smoking status MIIS Smokes tobacco daily [facility] History of [...] at Not on file [facility] How often to you hav e a drink containing alcohol? Monthly or less [facility] How many standard drinks containing alcohol do you have on a typical day? 1 or 2 [facility] Tobacco smoking stat us [facility] Unknown if ever smoked [facility] Work Phone: Sex Female (finding) [facility] Functional Status Date Assessment Result Facility 12-31-2024 Total score [AUDIT-C] 1 01/01/20 25 10:38 AM Ramila Garvin MA [facility] 12-31-2024 Patient Health Quest ionnaire 2 item (PHQ-2) [Reported] [facility] Clinical Notes 11-02-2021 to 12-31-2024 Zandra Mix MA - 12/31/2024 10:45 AM [facility] Quintana - 04/04/2024 9:40 AM EDT Note Date & Type Note Facility 12-31-2024 History of Present illness Narrative Images from the original note were not included. Cindy Rodríguez, DO Obstetrics and Gynecology Jayde Mark Contrerasabler 1965 12/31/24 [id number] Yearly Wellness Exam Chief Complaint Patient presents with Gynecologic Exam LMP: SHER LSO 1997 HRT: None Last pap 12-12-23 neg. Last mammogram 03-26-24 [facility]. Denies breast, urinary, or bowel concerns. [...] at bedtime cholecalciferol (Vitamin D-3) 250 MCG (25216 UT) capsule Take 10,000 Units by mouth [...] costovertebral angle tenderness, no obvious scoliosis/kyphosis. 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 documented in this encounter [facility] 10-21-2024 Note HNO ID: [id number] Author: ARCADIO GARIBAY JR TECHNOLOGIST Service: Radiology Author Type: Technologist Type: [...] PATIENT PRESENTS WITH AN IMPLANTABLE OR ATTACHED CLINICAL ASSISTANT PROFESSOR: No ALLERGIES: Reviewed and unchanged CONTRAST ALLERGY: [...] CT; Exam(s) Completed: ICU dissection protocol SIGNATURE: Arcadio Garibay Jr TECHNOLOGIST PATIENT NAME: Jayde Hernandez DATE: October 21, 2024 TIME: 3:40 PM [facility] 04-04-2024 History of Present illness Narrative [...] Surgical History: Procedure Laterality Date HYSTERECTOMY 08/06/1997 [facility] LSO Family History Problem Relation [...] Review Audit Reviewed by Betty Singleton MA ([employer] Heat Pump Machinist) on 04/04/24 at 0935 Medication Order Taking? Sig Documenting Provider Last Dose Status alendronate (Fosamax) 70 MG tablet [id number] Take 70 mg by mouth 1 (one) time per week NADIA Enriquez Active amLODIPine (Norvasc) 5 MG tablet [id number] Take 5 mg by mouth Daily NADIA Enriquez Active ASPIRIN 81 MG chewable tablet [id number] Chew 81 mg 1 (one) time NADIA Enriquez Active atorvastatin (Lipitor) 20 MG tablet [id number] Take 20 mg by mouth Daily NADIA Enriquez Active Aubagio 14 MG tablet [id number] 1 tablet Daily NADIA Enriquez Active B Complex Vitamins (vitamin B complex) tablet [id number] as directed Orally Cindy Rodríguez DO Active baclofen (Lioresal) 10 MG tablet [id number] Take 10 mg by mouth at bedtime NADIA Enriquez Active cholecalciferol (Vitamin D-3) 250 MCG (56273 UT) capsule [id number] Take 10,000 Units by mouth in the morning. Cindy Rodríguez DO Active ferrous sulfate 325 (65 Fe) MG tablet [id number] Take 325 mg by mouth in the morning. Take with meals. NADIA Enriquez Active gabapentin (Neurontin) 300 MG capsule [id number] TAKE 1 CAPSULE BY MOUTH TWICE A DAY AND 2 CAPSULES BY MOUTH AT BEDTIME NADIA Enriquez Active Krill Oil 500 MG capsule [id number] Take 1 capsule by mouth Daily NADIA Enriquez Active lisinopril 5 MG tablet [id number] Take 5 mg by mouth Daily NADIA Enriquez Active meclizine (Antivert) 25 MG tablet [id number] Take 25 mg by mouth every 12 (twelve) hours NADIA Enriquez Active meloxicam (Mobic) 7.5 MG tablet [id number] Take 15 mg by mouth Daily NADIA Enriquez Active raloxifene (Evista) 60 MG tablet [id number] No Take 1 tablet (60 mg) by mouth Daily Patient not taking: Reported on 04/04/2024 Cindy Rodríguez DO Not Taking Active Patient is here [...] triceps, wrist extensors, wrist extensors, wrist flexor, sand miller strength 5/5. LUE Strength deltoid, biceps, triceps, wrist extensors, wrist extensors, wrist flexor, sand miller strength 5/5. RLE Strength illopsoas, quadriceps, tibialis [...] in 2 months documented in this encounter [facility] 03-01-2023 Evaluation note Encounter Date Diagnosis Assessment [...] mammogram for breast cancer (ICD-10 - Z12.31) [facility] sending order for mammogram Instructed on monthly SBE [facility] Other 04-05-2022 Evaluation note* Encounter Date Diagnosis [...] stable Oct, Lumbar radiculopathy (ICD-10 - M54.16) [facility] Other evaluation noteNo InformationNort [email or web address] Other Evaluation noteNo assessment information available [facility] Work Phone: Evaluation note* Diagnosis Multiple sclerosis (CMS/HCC)- Primary Multiple sclerosis Fatigue, unspecified type Degenerative disc disease, cervical Degenerative disc disease, lumbar Lumbar radiculopathy Thoracic or lumbosacral neuritis or radiculitis, unspecified Transient alteration of awareness [facility] Diagnosis Multiple sclerosis (CMS/HCC)- Primary Multiple sclerosis Fatigue, unspecified type Degenerative disc disease, cervical Vertigo Dizziness and giddiness [facility] Diagnosis Encounter for gynecological examination without abnormal finding Encounter for Papanicolaou smear of vagina Breast cancer screening by mammogram Osteoporosis, post-menopausal (CMS/HCC) Senile osteoporosis [facility] Diagnosis Onset Date Resolution Status Admit Date Fatigue chronic March 17, 025 1:08pm Lumbar radiculopathy chronic Augu st 2024 1:08pm Multiple sclerosis chronic March 17, 2025 1:08pm [facility] Work Phone: History general Narrative - Reported* Type Description Date Medical History hypercholesterolemia Medical History multiple sclerosis Medical History osteoporosis Medical History cervical cancer Surgical History hysterectomy Hospitalization History See Above [facility] Other reason for referral (narrative)No reason for referral information [facility] Work Phone: Reason for visit NarrativeReferral Dr Winters Low Back PainNortPal[facility] Other Summary Purpose Family History Relationship Condition [...] and content) DATE CREATED AUTHOR 05/21/2022 [facility] DATE CREATED AUTHOR AUTHOR'S ORGANIZ ATION 09/14/2023 [facility] DATE CREATED AUTHOR AUTHOR'S ORGANIZ ATION 10/22/2024 [facility] DATE CREATED AUTHOR AUTHOR'S ORGANIZ ATION 01/01/2025 [facility] EPIC REASON FOR VISIT (unrecogniz ed section and content) Reason Comments Gynecologic Exam LMP: SHER LSO 1998HRT : NoneLast pap 12-12-23 neg.Last mammogram 03-26-24 [facility].Denies breast, urinary, or bowel concerns.Dr. Banuelos switched her to Fosamax. Reason Comments Multiple Sclerosis flu [facility] Care Teams [...] September 06, 2023 End: September 06, 2023 Mineralogy Teacher Relationship Specialty Start Date End Date Johny Winters MD [address] [place] [id number] PCP - General Internal Medicine 10/17/23 Mineralogy Teacher Relationship Specialty Start Date End Date Johny Winters MD [address] [place] [phone] PCP - General Internal Medicine 10/17/23 Mineralogy Teacher Relationship Specialty Start Date End Date Johny Winters MD [address] [place] [phone] PCP - General Internal Medicine 10/17/23 Chinyere Live PA [address] [place] [address] Physician Size Mixer Neurology 09/19/24 Mineralogy Teacher Relationship Specialty Start Date End Date Johny Winters MD [address] [place] [address] PCP - General Internal Medicine 10/17/23 Chinyere Live PA [address] [id number] Physician Size Mixer Neurology 09/19/24 Mineralogy Teacher Relationship Specialty Start Date End Date Johny Winters DO [address] [place] [id number] PCP - General Internal Medicine 10/17/23 Chinyere Live PA [address] [address] Physician Size Mixer Neurology 09/19/24 Team Status: Inactive Member Role Status Dates Johny Winters DO Primary Care Provider Active Start: March 17, 2025 End: March 17, 2025 SHANAE Dyer-Josep Attending Provider Active Start: March 17, 2025 End: March 17, 2025 Mineralogy Teacher Relationship Specialty Start Date End Date Johny Winters DO [address] [place] [phone] PCP - General Internal Medicine 10/17/23 Chinyere Live PA [address] [address] Physician Size Mixer Neurology 09/19/24 Goals (unrecognized section and content) [...] BE BASED ON THE PRIMARY CLINICAL RECORDS. [facility] provides no warranty or guarantee of the accuracy or completeness of information in this document.
--- NOTE | 2025-04-03 11:14 | PM.CN ---
Consult Note: HPI Data of Consult Patient: known to practice within the last 3 years Requesting Physician: Lupe Soria NP Primary Care Provider: Johny Winters DO Consult Narrative Reason for consult: low back pain Narrative: Jayde Solorzano a pleasant 60 year old female presents for evaluation and management of chronic low back pain. Patient has failed to benefit from greater than 6 weeks of PT/provider guided HEP without improvement, conservative medications. Patient reporting pain 2/10, at the worst 6/10 with standing, walking, lifting, activity, sitting. Patient finds benefit to gabapentin 300mg BID, lidocaine patches, baclofen 10mg HS PRN, tens, and transdermal therapeutics cream BID to affected areas. reports pain improved with medications and TENS. cc:: CC: Lupe Soria NP Review of Systems ROS Status of ROS 10 or more systems reviewed and unremarkable except as noted in history and below Musculoskeletal Reports: back pain; Denies: extremity pain Meds Home Medications and Allergies Home Medications ?Medication ?Instructions ?Recorded ?Confirmed ?Type amlodipine 5 mg tablet 5 mg PO DAILY 12/07/23 12/07/23 History aspirin 81 mg tablet,delayed 81 mg PO DAILY 12/07/23 12/07/23 History release (Adult Aspirin Regimen) atorvastatin 20 mg tablet 20 mg PO DAILY 12/07/23 12/07/23 History baclofen 10 mg tablet 10 mg PO DAILY 12/07/23 12/07/23 History biotin 10,000 mcg capsule 10,000 mcg PO DAILY 12/07/23 12/07/23 History cholecalciferol (vitamin D3) 125 125 mcg PO DAILY 12/07/23 12/07/23 History mcg (5,000 unit) tablet (Vitamin D3) gabapentin 300 mg capsule 300 mg PO BID 12/07/23 12/07/23 History meclizine 25 mg tablet 25 mg PO TID-QID PRN dizziness 12/07/23 12/07/23 History meloxicam 7.5 mg tablet 7.5 mg PO DAILY 12/07/23 12/07/23 History omega-3 fatty acids 1,000 mg PO DAILY 12/07/23 12/07/23 History raloxifene 60 mg tablet 60 mg PO DAILY 12/07/23 12/07/23 History teriflunomide 14 mg tablet 14 mg PO DAILY 12/07/23 12/07/23 History (Aubagio) vitamin B complex (Complex B-100 1 tab PO DAILY 12/07/23 12/07/23 History tablet,extended release) Exam Constitutional Documenting provider has reviewed patient's vital signs: yes Common normals: no apparent distress, oriented x3, healthy appearing, alert and well nourished General appearance: cooperative [facility] Common normals: normocephalic, hearing grossly normal bilaterally and moist oral mucous membranes Head and scalp: normocephalic Eye Common normals: PERRL Pupil: PERRL Neck & C-Spine Common normals: full ROM General: normal visual inspection Chest Common normals: inspection of chest normal Respiratory Common normals: normal respiratory effort, no retractions and no use of accessory muscles Back & Pelvis Lumbar spine/lower back: ROM limited, pain with ROM and lumbar spinal tenderness Lumbar spinal tenderness location: L3, L4 and L5 Sacroiliac joints: SI joint(s) abnormal Other: sensation intact BLE strength 5/5 in BLE mild pain to right GTB mild pain with left lydia(patricks), gaenslens, thigh thrust, compression test Extremity Common normals: normal to inspection and full ROM Other: negative internal and external rotation of left hip Neuro Common normals: oriented x3 Sensorium/orientation: alert Motor exam: strength 5/5 throughout and no movement abnormalities noted Psych Common normals: mental status grossly normal, thought process normal, cooperative, affect normal, speech normal and activity/motor behavior normal Speech: normal speech Thought process: normal thought process Results Imaging Lumbar MRI: Attestation: I have reviewed the pertinent imaging results. Radiologist's impression: No acute fracture is identified in the lumbar spine. The lumbar vertebral body heights are maintained. There is severe degenerative disc disease at L5-S1 with marked disc height loss and endplate spurring. Heterogeneity of the bone marrow signal is similar when compared to the prior study consistent with mixed red and fatty marrow. No acute abnormality is identified involving visualized intrapelvic or intra-abdominal structures. The visualized aorta is normal in diameter. Several cysts in the right hepatic lobe are partially included on the [id number] for this study. The upper sacrum is intact. There are no pars defects. The conus terminates at the L1 level. L5-S1: There is severe degenerative disc disease with a broad-based disc protrusion and superimposed bilateral subarticular/foraminal disc-osteophyte complexes each measuring 5 mm in AP dimension. There is moderate bilateral facet arthropathy. Changes result in moderate to severe bilateral foraminal narrowing with likely abutment of the L5 nerve roots bilaterally. There is no central stenosis. L4-L5: A broad-based disc protrusion measures 4 mm in AP dimension with a superimposed left subarticular and foraminal disc extrusion measuring 4 mm in AP dimension with superior displacement of disc material measuring 5 mm seen on sagittal T2 images 5 and 6. There is moderate to severe facet arthropathy and moderate to severe left foraminal narrowing without central stenosis. L3-L4: There is a 3 mm broad-based disc protrusion with endplate spurring and moderate facet arthropathy. An area of fluid signal along the posterior aspect of the spinal canal at the level of the superior endplate of L4 is suspicious for a small facet joint synovial cyst measuring 4 mm in diameter. There is mild right foraminal narrowing without central stenosis L3-L4: There is a 3 mm broad-based disc protrusion and mild to moderate facet arthropathy. There is no central or foraminal stenosis. L1-L2: There is a mild disc bulge without central or foraminal stenosis. Additional Findings Additional findings: If on a controlled substance or opioids, I have checked an [place]AR[place] report on this patient and there are no aberrancies noted in the prescribing history.??If on a controlled substance or opioid a drug screen was completed and reviewed within the last year, and if there has not been a drug screen completed we ordered one today to monitor higher risk, state monitored pain medication use. As part of providing excellent, safe, comprehensive care, the following was completed at our patient's visit: 1. A medication reconciliation and review to ensure accurate knowledge of current/active medications, including asking our patients to inform us about any [id number] medications or herbal remedies/nutritional supplements/alternative remedies. 2. A review to specifically ensure our patients have had annual screening for screening for depression, screening for tobacco use, and screening for unhealthy alcohol use. For concerning screenings had a discussion with the patient, provided patient education, and recommended follow-up with primary care provider when appropriate. If patient noted with a risk of falling, they received education on strength, gait, and balance training to prevent future risk of falling. Portions of this note may have been carried over from the previous visit and updated as appropriate. Please note this office utilizes paper charting in addition to the electronic medical record. A list of current medications, vitals, and PMH is available there as the clinical staff outside of myself do not have access to [employer] charting during the clinic day operations. As part of providing quality comprehensive care the current medications, vitals, and PMH were reviewed in the paper chart. Assessment and Plan Assessment and Plan (1) Lumbar spondylosis: Assessment and Plan: The patient has had over 3 months of moderate to severe low back pain with functional impairment and inadequate response to conservative care including NSAIDS (unless there are contraindication such as concurrent blood thinners), multiple oral or topical pain medications, and home exercise program/physical therapy.? Patient has completed >6 weeks of guided home exercise program and/or formal physical therapy program without relief of their symptoms.? I have reviewed the imaging of the lumbar spine and no red flags were identified.? The Oswestry Disability Index was completed, and the patient scored a 30%.? The patient noted the following:?? moderate to severe pain impacting ADLs, sleep, social life, travel, sitting, standing, and walking (2) Greater trochanteric bursitis of right hip: (3) Myofascial pain: (4) Lumbar stenosis with neurogenic claudication: (5) Lumbar degenerative disc disease: Plan pain well controlled with current regimen, defer interventional therapy continue baclofen 10mg tabs 1-1.5 tabs daily PRN pain/spasms continue transdermal therapeutics cream 8 BID-TID prn continue zynex TENS for myofascial pain and chronic low back pain, lumbar DDD f/u 6 months for medication management, sooner if needed
== END 2025-04-03 10:50 | disposition home or self-care (01) ==
LOC: PM 10:49
PROVIDERS: PCP Internal Medicine; Visit Provider Nurse Practitioner
DX: M47.816 Spondylosis without myelopathy or radiculopathy, lumbar region (principal); M70.61 Trochanteric bursitis, right hip; M79.18 Myalgia, other site; M48.062 Spinal stenosis, lumbar region with neurogenic claudication; M51.369 Other intervertebral disc degeneration, lumbar region without mention of lumbar back pain or lower extremity pain
CPT/HCPCS: G0463